=== PATIENT | male | born 1960 | race Hispanic/Latino ===

== ENCOUNTER 2020-01-17 16:35 | Inpatient (IN) | payer BC, MEDICARE ==
--- NOTE | 2020-01-17 18:26 | Emergency Department Report ---
ED Shortness of Breath HPI - General Chief Complaint: Dyspnea/Respdistress Source: patient - History of Present Illness Initial Comments: Patient is 59 years old male with history of hypertension, diabetes COPD and congestive heart failure. Patient brought to the emergency room via EMS for evaluation of shortness of breath and generalized body swelling for the last few days. EMS stated that patient initial oxygen saturation was 79% on room air improved to 96% on 2 L of oxygen. Patient stated that he fell today and hit his head and his lower back. Patient denied any loss of consciousness., Focal weakness numbness or tingling sensation. No bowel or bladder incontinence. MD Complaint: shortness of breath -: days(s) Severity: moderate Pain Scale: 7 Known History Of: congestive heart failure - Related Data Home Medications Medication Instructions Recorded Confirmed Last Taken Albuterol Mdi (or & Nicu Only) 2 puff INHALATION DAILY 10/09/17 01/17/20 Unknown [ProAir HFA Inhaler] Aspirin [Adult Aspirin] 81 mg PO DAILY 10/09/17 01/17/20 Unknown Bupropion HCl [Wellbutrin XL] 300 mg PO QAM 10/09/17 01/17/20 Unknown Duloxetine HCl [Cymbalta] 1 cap PO DAILY 10/09/17 01/17/20 Unknown Insulin NPH Hum/Reg Insulin Hm 30 unit SUB-Q QAM 10/09/17 01/17/20 Unknown [Humulin 70-30 Vial] Losartan Potassium 1 tab PO DAILY 10/09/17 01/17/20 Unknown Mirtazapine 1 tab PO DAILY 10/09/17 01/17/20 Unknown Potassium Chloride [K-Dur] 10 meq PO QDAY 10/09/17 01/17/20 Unknown Simvastatin 1 tab PO HS 10/09/17 01/17/20 Unknown Sitagliptin Phosphate [Januvia] 100 mg PO DAILY 10/09/17 01/17/20 Unknown Tamsulosin [Flomax] 1 cap PO DAILY 10/09/17 01/17/20 Unknown Torsemide [Demadex] 20 mg PO DAILY 10/09/17 01/17/20 Unknown carvediloL [Coreg] 1 tab PO DAILY 10/09/17 01/17/20 Unknown metFORMIN [Glucophage] 850 mg PO BID 10/09/17 01/17/20 Unknown Insulin NPH Hum/Reg Insulin Hm 15 unit SQ QPM 01/17/20 01/17/20 Unknown [Humulin 70-30 Vial] Allergies Allergy/AdvReac Type Severity Reaction Status Date / Time morphine Allergy Rash Verified 09/11/17 08:51 ED Review of Systems ROS: Stated complaint: Other details as noted in HPI Comment: All other systems reviewed and negative Constitutional: denies: chills, fever Respiratory: orthopnea, shortness of breath, SOB with exertion, SOB at rest. denies: cough, wheezing Cardiovascular: denies: chest pain, palpitations Gastrointestinal: denies: abdominal pain, nausea, vomiting Musculoskeletal: denies: back pain Neurological: weakness (Generalized). denies: headache, numbness, paresthesias, confusion, abnormal gait ED Past Medical Hx - Past Medical History Hx Hypertension: Yes Hx Heart Attack/AMI: Yes Hx Congestive Heart Failure: Yes Hx Diabetes: Yes Hx Arthritis: Yes Hx Headaches / Migraines: Yes Hx COPD: Yes - Surgical History Hx Open Heart Surgery: Yes - Medications Home Medications: Home Medications Medication Instructions Recorded Confirmed Last Taken Type Albuterol Mdi (or & Nicu Only) 2 puff INHALATION DAILY 10/09/17 01/17/20 Unknown History [ProAir HFA Inhaler] Aspirin [Adult Aspirin] 81 mg PO DAILY 10/09/17 01/17/20 Unknown History Bupropion HCl [Wellbutrin XL] 300 mg PO QAM 10/09/17 01/17/20 Unknown History Duloxetine HCl [Cymbalta] 1 cap PO DAILY 10/09/17 01/17/20 Unknown History Insulin NPH Hum/Reg Insulin Hm 30 unit SUB-Q QAM 10/09/17 01/17/20 Unknown History [Humulin 70-30 Vial] Losartan Potassium 1 tab PO DAILY 10/09/17 01/17/20 Unknown History Mirtazapine 1 tab PO DAILY 10/09/17 01/17/20 Unknown History Potassium Chloride [K-Dur] 10 meq PO QDAY 10/09/17 01/17/20 Unknown History Simvastatin 1 tab PO HS 10/09/17 01/17/20 Unknown History Sitagliptin Phosphate [Januvia] 100 mg PO DAILY 10/09/17 01/17/20 Unknown History Tamsulosin [Flomax] 1 cap PO DAILY 10/09/17 01/17/20 Unknown History Torsemide [Demadex] 20 mg PO DAILY 10/09/17 01/17/20 Unknown History carvediloL [Coreg] 1 tab PO DAILY 10/09/17 01/17/20 Unknown History metFORMIN [Glucophage] 850 mg PO BID 10/09/17 01/17/20 Unknown History Insulin NPH Hum/Reg Insulin Hm 15 unit SQ QPM 01/17/20 01/17/20 Unknown History [Humulin 70-30 Vial] ED Physical Exam - General General appearance: alert, in no apparent distress - Head Head exam: Present: atraumatic, normocephalic, normal inspection - Eye Eye exam: Present: normal appearance, PERRL - ENT ENT exam: Present: normal exam, normal orophraynx, mucous membranes moist - Neck Neck exam: Present: normal inspection, full ROM. Absent: tenderness, meningismus - Respiratory Respiratory exam: Present: decreased breath sounds. Absent: respiratory distress, wheezes, rales, rhonchi - Cardiovascular Cardiovascular Exam: Present: regular rate, normal rhythm, normal heart sounds - GI/Abdominal GI/Abdominal exam: Present: soft, normal bowel sounds. Absent: distended, tenderness, guarding, rebound, rigid, organomegaly, mass, bruit, pulsatile mass, hernia - Extremities Exam Extremities exam: Present: normal capillary refill, pedal edema. Absent: calf tenderness - Back Exam Back exam: Present: normal inspection, full ROM. Absent: CVA tenderness (R), CVA tenderness (L) - Neurological Exam Neurological exam: Present: alert, oriented X3, CN II-XII intact. Absent: motor sensory deficit - Psychiatric Psychiatric exam: Present: normal mood - Skin Skin exam: Present: warm, intact, normal color ED Course Vital Signs 01/17/20 01/17/20 01/17/20 18:30 19:18 19:28 Temperature 98 F Pulse Rate 61 75 65 Respiratory 17 16 Rate Blood Pressure Blood Pressure 124/60 [Left] O2 Sat by Pulse 95 78 L Oximetry 01/17/20 01/17/20 01/17/20 19:30 19:45 20:00 Temperature Pulse Rate 66 64 65 Respiratory 17 17 20 Rate Blood Pressure 140/55 118/54 118/54 Blood Pressure [Left] O2 Sat by Pulse 99 97 98 Oximetry 01/17/20 01/17/20 01/17/20 20:15 20:30 20:45 Temperature Pulse Rate 67 65 Respiratory 15 22 22 Rate Blood Pressure 122/58 117/58 125/61 Blood Pressure [Left] O2 Sat by Pulse 97 97 94 Oximetry 01/17/20 01/17/20 01/17/20 21:00 21:15 21:30 Temperature Pulse Rate 68 69 68 Respiratory 19 21 22 Rate Blood Pressure 132/57 126/63 124/54 Blood Pressure [Left] O2 Sat by Pulse 95 95 93 Oximetry 01/17/20 21:45 Temperature Pulse Rate 67 Respiratory 12 Rate Blood Pressure 128/58 Blood Pressure [Left] O2 Sat by Pulse Oximetry ED Medical Decision Making - Lab Data Result diagrams: 01/17/20 18:43 01/17/20 18:43 - EKG Data -: EKG Interpreted by Me - Radiology Data Radiology results: report reviewed - Medical Decision Making Patient is 59 years old male with history of hypertension, diabetes COPD and congestive heart failure. Patient brought to the emergency room via EMS for evaluation of shortness of breath and generalized body swelling for the last few days. EMS stated that patient initial oxygen saturation was 79% on room air improved to 96% on 2 L of oxygen. Patient stated that he fell today and hit his head and his lower back. Patient denied any loss of consciousness., Focal weakness numbness or tingling sensation. No bowel or bladder incontinence. EKG is unremarkable. Chest x-ray showed pulmonary edema with right pleural effusion consistent with his congestive heart failure exacerbation. Patient received Lasix 40 mg IV. Patient refused CT brain. I explained to the patient the need for the CT brain to rule out of any bleeding or any other pathology in the brain given his recent fall, patient still refusing it, patient is alert, oriented x3 and able to make sound decision. I Discussed the patient with Dr Vasques., He agreed to admit the patient to medical service for further management. Critical Care Time: Yes Critical care time in (mins) excluding proc time.: 30 Critical care attestation.: If time is entered above; I have spent that time in minutes in the direct care of this critically ill patient, excluding procedure time. ED Disposition Clinical Impression: Acute and chronic respiratory failure with hypoxia, CHF exacerbation Disposition: OP ADMIT IP TO THIS HOSP Is pt being admited?: Yes Condition: Stable
[2020-01-17 18:47] LABS: Basophils % (Auto) 0.5 % (0.0-1.8); Eosinophils # (Auto) 0.1 K/mm3 (0.0-0.4); Eosinophils % (Auto) 1.1 % (0.0-4.3); Hemoglobin 10.7 gm/dl (11.8-15.2); Lymphocytes # (Auto) 1.2 K/mm3 (1.2-5.4); Lymphocytes % (Auto) 10.9 % (13.4-35.0); Mean Corpuscular HGB Conc 31 % (32-34); Mean Corpuscular Volume 80 fl (84-94); Monocytes # (Auto) 1.1 K/mm3 (0.0-0.8); Monocytes % (Auto) 9.9 % (0.0-7.3); Platelet Count 330 K/mm3 (140-440); Red Blood Count 4.38 M/mm3 (3.65-5.03); Red Cell Distribution Width 17.7 % (13.2-15.2)
[2020-01-17 19:05] LABS: INR 1.11 (0.87-1.13)
[2020-01-17 19:15] LABS: Alanine Aminotransferase 27 units/L (7-56)
[2020-01-17 19:18] LABS: Bilirubin,Direct < 0.2 mg/dL (0-0.2)
--- NOTE | 2020-01-17 19:26 | XRay Report ---
XR spine lumbosacral 2-3V HISTORY: Back injury COMPARISON: None. TECHNIQUE: 3 view(s) of the lumbar spine obtained. FINDINGS: Vertebrae: Normal alignment. Mild L3 and severe L1 chronic appearing vertebral body loss of height. No acute appearing loss of vertebral body height. Spondylosis:Mild multilevel spondylosis most pronounced at L4-5. IMPRESSION: 1. There are chronic-appearing L3 and L1 compression fractures. Can correlate for with physical exam for percussible pain. Signer Name: Paul Durant MD Signed: 01/17/2020 7:21 PM Workstation Name: [id number]
--- NOTE | 2020-01-17 19:27 | XRay Report ---
XR chest 1V ap INDICATION / CLINICAL INFORMATION: Dyspnea COMPARISON: None available. FINDINGS: SUPPORT DEVICES: None. HEART / MEDIASTINUM: Prominent cardiac silhouette LUNGS / PLEURA: Lungs are clear. Right costophrenic sulcus and this is blunted No pneumothorax. ADDITIONAL FINDINGS: Remote right posterior rib fractures. IMPRESSION: 1. Cardiomegaly with a moderate right pleural effusion. Signer Name: Paul Durant MD Signed: 01/17/2020 7:22 PM Workstation Name: [id number]
[2020-01-17 19:31] LABS: BUN/Creatinine Ratio 28; Blood Urea Nitrogen 25 mg/dL (9-20); Calcium 9.2 mg/dL (8.4-10.2); Hemolysis Index 0
[2020-01-17] MEDS ORDERED: FUROSEMIDE 40 MG/4 ML INJ IV ONE (19:39)
[2020-01-17] MEDS ORDERED: MORPHINE 2 MG/1 ML INJ IV PRN (21:38)
[2020-01-17] MEDS ORDERED: DEXTROSE 50% IN WATER (25GM) 50 ML SYRINGE IV PRN (21:38)
[2020-01-17] MEDS ORDERED: ACETAMINOPHEN 325 MG TAB PO PRN (21:38)
[2020-01-17] MEDS ORDERED: ONDANSETRON 4 MG/2 ML INJ IV PRN (21:38)
[2020-01-17] MEDS ORDERED: MAGNESIUM HYDROXIDE (MOM) ORAL LIQD UDC PO PRN (21:38)
--- NOTE | 2020-01-17 21:46 | History and Physical Report ---
History of Present Illness Date of examination: 01/17/20 Date of admission: 01/17/2020 Chief complaint: Shortness of Breath History of present illness: 59-year-old male with known history of diabetes mellitus, hypertension, CHF, coronary artery disease presenting to the emergency room today complaining of shortness of breath and generalized swelling over the past few days. Patient denies any chest pain, no headache or dizziness, no fever or chills, no nausea or vomiting and no diarrhea. He however indicates that he fell earlier today and hit his head and neck but denies any loss of consciousness. Upon arrival of EMS patient's oxygen saturation was said to be about 79% on room air which later improved to 96% on 2 L of oxygen. Work-up in the emergency room shows cardiomegaly with moderate pleural effusion, x-ray of the LS spine shows chronic compression fractures on L1 and L3. Patient has been admitted for CHF exacerbation. Past History Past Medical History: arthritis, CAD, diabetes, heart failure, hypertension Past Surgical History: No surgical history Social history: no significant social history Family history: no significant family history Medications and Allergies Allergies Allergy/AdvReac Type Severity Reaction Status Date / Time morphine Allergy Rash Verified 09/11/17 08:51 Home Medications Medication Instructions Recorded Confirmed Last Taken Type Albuterol Mdi (or & Nicu Only) 2 puff INHALATION DAILY 10/09/17 01/17/20 Unknown History [ProAir HFA Inhaler] Aspirin [Adult Aspirin] 81 mg PO DAILY 10/09/17 01/17/20 Unknown History Bupropion HCl [Wellbutrin XL] 300 mg PO QAM 10/09/17 01/17/20 Unknown History Duloxetine HCl [Cymbalta] 1 cap PO DAILY 10/09/17 01/17/20 Unknown History Insulin NPH Hum/Reg Insulin Hm 30 unit SUB-Q QAM 10/09/17 01/17/20 Unknown History [Humulin 70-30 Vial] Potassium Chloride [K-Dur] 10 meq PO QDAY 10/09/17 01/17/20 Unknown History Sitagliptin Phosphate [Januvia] 100 mg PO DAILY 10/09/17 01/17/20 Unknown History Tamsulosin [Flomax] 1 cap PO DAILY 10/09/17 01/17/20 Unknown History Torsemide [Demadex] 20 mg PO DAILY 10/09/17 01/17/20 Unknown History carvediloL [Coreg] 1 tab PO BID 10/09/17 01/17/20 Unknown History metFORMIN [Glucophage] 850 mg PO BID 10/09/17 01/17/20 Unknown History Amiodarone [Cordarone 200 MG TAB] 200 mg PO BID 01/17/20 01/17/20 Unknown Hist ory Ascorbic Acid [Vitamin C] 500 mg PO QDAY 01/17/20 01/17/20 Unknown History Atorvastatin Calcium [Lipitor] 80 mg PO QHS 01/17/20 01/17/20 Unknown History DOXYCYCLINE Hyclate [Vibramycin] 100 mg PO Q12HR 01/17/20 01/17/20 Unknown History Ibuprofen [Motrin] 800 mg PO Q8HR PRN 01/17/20 01/17/20 Unknown History Insulin NPH Hum/Reg Insulin Hm 15 unit SQ QPM 01/17/20 01/17/20 Unknown History [Humulin 70-30 Vial] Lidocaine [Lidocaine CREAM] 5 gm TP DAILY PRN 01/17/20 01/17/20 Unknown History Multivitamin 1 each PO DAILY 01/17/20 01/17/20 Unknown History Pantoprazole [Protonix] 40 mg PO QDAY 01/17/20 01/17/20 Unknown History Triamcinolone Acetonide 0.5 applicatio TP TID 01/17/20 01/17/20 Unknown History Zinc [Zinc 50mg TAB] 1 tab PO DAILY 01/17/20 01/17/20 Unknown History traMADoL [Ultram] 50 mg PO BID 01/17/20 01/17/20 Unknown History Active Meds: Active Medications Acetaminophen (Tylenol) 650 mg PO Q4H PRN PRN Reason: Pain MILD(1-3)/Fever >100.5/MORTENSEN Dextrose (D50w (25gm) Syringe) 50 ml IV Q30MIN PRN; Protocol PRN Reason: Hypoglycemia Enoxaparin Sodium (Enoxaparin) 40 mg SUB-Q QDAY@2200 SHANTE; Protocol Furosemide (Lasix) 40 mg IV BID@0600,1800 SHANTE Insulin Human Lispro (Humalog) 0 unit SUB-Q ACHS SHANTE; Protocol Magnesium Hydroxide (Milk Of Magnesia) 30 ml PO Q4H PRN PRN Reason: Constipation Morphine Sulfate (Morphine) 2 mg IV Q4H PRN PRN Reason: Pain, Moderate (4-6) Ondansetron HCl (Zofran) 4 mg IV Q8H PRN PRN Reason: Nausea And Vomiting Sodium Chloride (Sodium Chloride Flush Syringe 10 Ml) 10 ml IV BID SHANTE Sodium Chloride (Sodium Chloride Flush Syringe 10 Ml) 10 ml IV PRN PRN PRN Reason: LINE FLUSH Review of Systems Constitutional: no fever, no chills Ears, nose, mouth and throat: no nasal congestion, no sore throat Cardiovascular: no chest pain, no palpitations Respiratory: cough, shortness of breath, no cough with sputum, no wheezing Gastrointestinal: no abdominal pain, no nausea, no vomiting, no diarrhea Genitourinary Male: no dysuria, no hematuria, no nocturia Musculoskeletal: no neck pain, no low back pain Integumentary: no rash, no pruritis Neurological: no headaches, no confusion Psychiatric: no anxiety, no depression Exam - Constitutional Vitals: Temp Pulse Resp BP Pulse Ox 98 F 68 19 132/57 95 01/17/20 18:30 01/17/20 21:00 01/17/20 21:00 01/17/20 21:00 01/17/20 21:00 General appearance: Present: no acute distress, well-nourished, obese - EENT Eyes: Present: PERRL, EOM intact. Absent: scleral icterus ENT: hearing intact, clear oral mucosa, dentition normal - Neck Neck: Present: supple, normal ROM - Respiratory Respiratory effort: normal Respiratory: bilateral: rales - Cardiovascular Rhythm: regular Heart Sounds: Present: S1 & S2. Absent: gallop, systolic murmur, diastolic murmur, rub - Extremities Extremities: no ischemia, pulses intact, pulses symmetrical, Full ROM Extremity abnormal: edema (1+ bilateral lower extremity edema), erythema (Mild bilateral erythema in lower extremities, No tenderness.) Peripheral Pulses: within normal limits - Abdominal General gastrointestinal: Present: soft, non-tender, non-distended, normal bowel sounds. Absent: mass - Integumentary Integumentary: Present: clear, warm, dry. Absent: rash - Musculoskeletal Musculoskeletal: strength equal bilaterally - Psychiatric Psychiatric: appropriate mood/affect, intact judgment & insight, memory intact, cooperative - Neurologic Neurologic: CNII-XII intact, no focal deficits, moves all extremities HEART Score - HEART Score Troponin: Troponin T < 0.010 ng/mL (0.00-0.029) 01/17/20 18:43 Results - Labs CBC & Chem 7: 01/17/20 18:43 01/18/20 04:47 Labs: Abnormal lab results 01/17/20 01/17/20 01/17/20 Range/Units 18:43 18:43 18:43 Hgb 10.7 L (11.8-15.2) gm/dl Hct 35.0 L (35.5-45.6) % MCV 80 L (84-94) fl MCH 24 L (28-32) pg MCHC 31 L (32-34) % RDW 17.7 H (13.2-15.2) % Lymph % (Auto) 10.9 L (13.4-35.0) % [place] % (Auto) 9.9 H (0.0-7.3) % [place] # (Auto) 1.1 H (0.0-0.8) K/mm3 Seg Neutrophils % 77.6 H (40.0-70.0) % Seg Neutrophils # 8.5 H (1.8-7.7) K/mm3 Chloride 92.3 L (98-107) mmol/L Carbon Dioxide 32 H (22-30) mmol/L BUN 25 H (9-20) mg/dL Glucose 168 H (75-100) mg/dL Alkaline Phosphatase 156 H (35-129) units/L NT-Pro-B Natriuret Pep 1242 H (0-900) pg/mL Assessment and Plan - Patient Problems (1) Acute and chronic respiratory failure with hypoxia Current Visit: Yes Status: Acute Plan to address problem: Secondary to the CHF. We will keep O2 saturation greater or equal to 94%. (2) CHF exacerbation Current Visit: Yes Status: Acute Plan to address problem: Patient placed on diuretics. Will monitor inputs and outputs and also monitor daily weights. (3) Diabetes mellitus Current Visit: Yes Status: Acute Plan to address problem: We will monitor Accu-Cheks. (4) Hypertension Current Visit: Yes Status: Acute Plan to address problem: We will resume routine home medications and monitor vital signs closely. (5) DVT prophylaxis Current Visit: Yes Status: Acute (6) Full code status Current Visit: Yes Status: Acute
[2020-01-17] MEDS ORDERED: INSULIN LISPRO 100 UNIT/ML VIAL 3 mL SUB-Q ONE (22:51)
[2020-01-17] MEDS ORDERED: ENOXAPARIN 40 MG/0.4 ML INJ SUB-Q ONE (22:52)
[2020-01-17] MEDS: INSULIN LISPRO 100 UNIT/ML VIAL 3 mL SUB-Q SCH (22:54)
[2020-01-17] MEDS: ENOXAPARIN 40 MG/0.4 ML INJ SUB-Q SCH (22:55)
[2020-01-18] MEDS: FUROSEMIDE 40 MG/4 ML INJ IV SCH ×2 (05:39→17:32)
[2020-01-18 05:58] LABS: Basophils # (Auto) 0.1 K/mm3 (0.0-0.1); Basophils % (Auto) 0.7 % (0.0-1.8); Eosinophils # (Auto) 0.1 K/mm3 (0.0-0.4); Eosinophils % (Auto) 0.6 % (0.0-4.3); Lymphocytes # (Auto) 1.3 K/mm3 (1.2-5.4); Mean Corpuscular HGB Conc 30 % (32-34); Mean Corpuscular Volume 78 fl (84-94); Monocytes % (Auto) 8.4 % (0.0-7.3); Platelet Count 381 K/mm3 (140-440); Red Blood Count 4.54 M/mm3 (3.65-5.03); Red Cell Distribution Width 17.5 % (13.2-15.2)
[2020-01-18 06:04] LABS: BUN/Creatinine Ratio 27; Blood Urea Nitrogen 24 mg/dL (9-20); Calcium 9.2 mg/dL (8.4-10.2); Hemolysis Index 6
[2020-01-18 06:16] LABS: Hematocrit 35.6 % (35.5-45.6); Hemoglobin 10.6 gm/dl (11.8-15.2)
[2020-01-18 06:21] LABS: INR 1.11 (0.87-1.13)
[2020-01-18] MEDS: INSULIN LISPRO 100 UNIT/ML VIAL 3 mL SUB-Q SCH ×4 (08:30→22:08)
--- NOTE | 2020-01-18 09:29 | Progress Note ---
Assessment and Plan Assessment and plan: Acute on chronic hypoxic respiratory failure. Etiology secondary to CHF. Continue O2 and supportive care. Acute heart failure exacerbation. Unsure if this is systolic or diastolic. Await echocardiogram. Cardiology consultation pending. Chest x-ray revealed cardiomegaly and moderate pleural effusion Hypertension. Resume antihypertensive medications. Diabetes mellitus type 2. Continue Accu-Cheks and sliding scale insulin. Chronic compression fractures L1/L3. Pain control DVT prophylaxis. History Interval history: No new issues overnight. Hospitalist Physical - Constitutional Vitals: Temp Pulse Resp BP Pulse Ox 98.9 F 68 18 115/53 96 01/18/20 08:38 01/18/20 08:38 01/18/20 08:38 01/18/20 08:38 01/18/20 08:38 General appearance: Present: no acute distress, well-nourished, obese - EENT Eyes: Present: PERRL, EOM intact ENT: hearing intact, clear oral mucosa, dentition normal - Neck Neck: Present: supple, normal ROM - Respiratory Respiratory effort: normal Respiratory: bilateral: CTA - Cardiovascular Rhythm: regular Heart Sounds: Present: S1 & S2. Absent: gallop, rub - Extremities Extremities: no ischemia, No edema, Full ROM - Abdominal General gastrointestinal: soft, non-tender, non-distended, normal bowel sounds - Integumentary Integumentary: Present: clear, warm, dry - Neurologic Neurologic: CNII-XII intact, moves all extremities HEART Score - HEART Score Troponin: Troponin T < 0.010 ng/mL (0.00-0.029) 01/17/20 18:43 Results - Labs CBC & Chem 7: 01/18/20 04:47 01/18/20 04:47 Labs: Laboratory Last Values WBC 11.4 K/mm3 (4.5-11.0) H 01/18/20 04:47 RBC 4.54 M/mm3 (3.65-5.03) 01/18/20 04:47 Hgb 10.6 gm/dl (11.8-15.2) L 01/18/20 04:47 Hct 35.6 % (35.5-45.6) 01/18/20 04:47 MCV 78 fl (84-94) L 01/18/20 04:47 MCH 23 pg (28-32) L 01/18/20 04:47 MCHC 30 % (32-34) L 01/18/20 04:47 RDW 17.5 % (13.2-15.2) H 01/18/20 04:47 Plt Count 381 K/mm3 (140-440) 01/18/20 04:47 Lymph % (Auto) 11.0 % (13.4-35.0) L 01/18/20 04:47 [place] % (Auto) 8.4 % (0.0-7.3) H 01/18/20 04:47 Eos % (Auto) 0.6 % (0.0-4.3) 01/18/20 04:47 Baso % (Auto) 0.7 % (0.0-1.8) 01/18/20 04:47 Lymph # (Auto) 1.3 K/mm3 (1.2-5.4) 01/18/20 04:47 [place] # (Auto) 1.0 K/mm3 (0.0-0.8) H 01/18/20 04:47 Eos # (Auto) 0.1 K/mm3 (0.0-0.4) 01/18/20 04:47 Baso # (Auto) 0.1 K/mm3 (0.0-0.1) 01/18/20 04:47 Seg Neutrophils % 79.3 % (40.0-70.0) H 01/18/20 04:47 Seg Neutrophils # 9.1 K/mm3 (1.8-7.7) H 01/18/20 04:47 PT 14.4 Sec. (12.2-14.9) 01/18/20 04:47 INR 1.11 (0.87-1.13) 01/18/20 04:47 APTT 30.0 Sec. (24.2-36.6) 01/17/20 18:43 Sodium 147 mmol/L (137-145) H 01/18/20 04:47 Potassium 4.5 mmol/L (3.6-5.0) 01/18/20 04:47 Chloride 96.3 mmol/L (98-107) L 01/18/20 04:47 Carbon Dioxide 45 mmol/L (22-30) H* D 01/18/20 04:47 Anion Gap 10 mmol/L 01/18/20 04:47 BUN 24 mg/dL (9-20) H 01/18/20 04:47 Creatinine 0.9 mg/dL (0.8-1.3) 01/18/20 04:47 Estimated GFR > 60 ml/min 01/18/20 04:47 BUN/Creatinine Ratio 27 % 01/18/20 04:47 Glucose 163 mg/dL (75-100) H 01/18/20 04:47 POC Glucose 158 mg/dL (70-105) H 01/18/20 08:57 Calcium 9.2 mg/dL (8.4-10.2) 01/18/20 04:47 Total Bilirubin 0.30 mg/dL (0.1-1.2) 01/17/20 18:43 Direct Bilirubin < 0.2 mg/dL (0-0.2) 01/17/20 18:43 Indirect Bilirubin 0.1 mg/dL 01/17/20 18:43 AST 22 units/L (5-40) 01/17/20 18:43 ALT 27 units/L (7-56) 01/17/20 18:43 Alkaline Phosphatase 156 units/L (35-129) H 01/17/20 18:43 Troponin T < 0.010 ng/mL (0.00-0.029) 01/17/20 18:43 NT-Pro-B Natriuret Pep 1242 pg/mL (0-900) H 01/17/20 18:43 Total Protein 7.0 g/dL (6.3-8.2) 01/17/20 18:43 Albumin 4.0 g/dL (3.9-5) 01/17/20 18:43 Albumin/Globulin Ratio 1.3 % 01/17/20 18:43 Cason/IV: Voiding Method Urinal IV Catheter Type [Left INT / Saline Lock Antecubital] Active Medications - Current Medications Current Medications: Generic Name Dose Route Start Last Admin Trade Name Freq PRN Reason Stop Dose Admin Acetaminophen 650 mg 01/17/20 21:38 Tylenol PO Q4H PRN Pain MILD(1-3)/Fever >100.5/MORTENSEN Dextrose 50 ml 01/17/20 21:38 D50w (25gm) Syringe IV Q30MIN PRN Hypoglycemia Protocol Enoxaparin Sodium 40 mg 01/17/20 22:00 01/17/20 22:55 Enoxaparin SUB-Q 40 mg QDAY@2200 SHANTE Administration Protocol Furosemide 40 mg 01/18/20 06:00 01/18/20 05:39 Lasix IV 40 mg BID@0600,1800 [facility] Administration Insulin Human Lispro 0 unit 01/17/20 22:00 01/17/20 22:54 Humalog SUB-Q 2 unit ACHS SHANTE Administration Protocol Magnesium Hydroxide 30 ml 01/17/20 21:38 Milk Of Magnesia PO Q4H PRN Constipation Ondansetron HCl 4 mg 01/17/20 21:38 Zofran IV Q8H PRN Nausea And Vomiting Sodium Chloride 10 ml 01/17/20 22:00 01/17/20 22:56 Sodium Chloride Flush Syringe 10 Ml IV 10 ml BID SHANTE Administration Sodium Chloride 10 ml 01/17/20 21:38 Sodium Chloride Flush Syringe 10 Ml IV PRN PRN LINE FLUSH
--- NOTE | 2020-01-18 12:16 | Consultation ---
History of Present Illness Consult date: 01/18/20 Requesting physician: CHUY WHELAN Consult reason: congestive heart failure History of present illness: The pt is a 59-year-old male with a past medial history of CAD s/p CABG x 4 in 2004 at [facility] per pt report, atrial fibrillation s/p successful EARLINE guided DCCV in 12/2017 per [facility] records, ICMP, HF, HTN, DM, FINESSE, former tobacco use (quit smoking 2 years ago). He is previously unknown to our practice, states he used to be followed regularly by [facility] although he has not seen a check services clerk for approx 2 years. He presented with progressively worsening SOB and BLE swelling for several days prior to arrival. He also experienced a fall on the day of presentation and is noted to have abrasions on his forehead from the fall - pt states that he got out of bed too quickly and his legs "gave out", he denies any occurrence dizziness or syncope. Pt denies any chest pain, palpitations, n/, diaphoresis. [facility] records obtained: tte done 2017 showed EF 20-25%. LHC done showed 3 vessel disease, severe LV dysfunction, 4 of 4 grafts patent, severe MR by echo. Past History Past Medical History: arthritis, CAD, diabetes, heart failure, hypertension, other (as per HPI) Past Surgical History: No surgical history Social history: no significant social history Family history: no significant family history Medications and Allergies Allergies Allergy/AdvReac Type Severity Reaction Status Date / Time morphine Allergy Rash Verified 09/11/17 08:51 Home Medications Medication Instructions Recorded Confirmed Last Taken Type Albuterol Mdi (or & Nicu Only) 2 puff INHALATION DAILY 10/09/17 01/17/20 Unknown History [ProAir HFA Inhaler] Aspirin [Adult Aspirin] 81 mg PO DAILY 10/09/17 01/17/20 Unknown History Bupropion HCl [Wellbutrin XL] 300 mg PO QAM 10/09/17 01/17/20 Unknown History Duloxetine HCl [Cymbalta] 1 cap PO DAILY 10/09/17 01/17/20 Unknown History Insulin NPH Hum/Reg Insulin Hm 30 unit SUB-Q QAM 10/09/17 01/17/20 Unknown History [Humulin 70-30 Vial] Potassium Chloride [K-Dur] 10 meq PO QDAY 10/09/17 01/17/20 Unknown History Sitagliptin Phosphate [Januvia] 100 mg PO DAILY 10/09/17 01/17/20 Unknown History Tamsulosin [Flomax] 1 cap PO DAILY 10/09/17 01/17/20 Unknown History Torsemide [Demadex] 20 mg PO DAILY 10/09/17 01/17/20 Unknown History carvediloL [Coreg] 1 tab PO BID 10/09/17 01/17/20 Unknown History metFORMIN [Glucophage] 850 mg PO BID 10/09/17 01/17/20 Unknown History Amiodarone [Cordarone 200 MG TAB] 200 mg PO BID 01/17/20 01/17/20 Unknown History Ascorbic Acid [Vitamin C] 500 mg PO QDAY 01/17/20 01/17/20 Unknown History Atorvastatin Calcium [Lipitor] 80 mg PO QHS 01/17/20 01/17/20 Unknown History DOXYCYCLINE Hyclate [Vibramycin] 100 mg PO Q12HR 01/17/20 01/17/20 Unknown History Ibuprofen [Motrin] 800 mg PO Q8HR PRN 01/17/20 01/17/20 Unknown History Insulin NPH Hum/Reg Insulin Hm 15 unit SQ QPM 01/17/20 01/17/20 Unknown History [Humulin 70-30 Vial] Lidocaine [Lidocaine CREAM] 5 gm TP DAILY PRN 01/17/20 01/17/20 Unknown History Multivitamin 1 each PO DAILY 01/17/20 01/17/20 Unknown History Pantoprazole [Protonix] 40 mg PO QDAY 01/17/20 01/17/20 Unknown History Triamcinolone Acetonide 0.5 applicatio TP TID 01/17/20 01/17/20 Unknown History Zinc [Zinc 50mg TAB] 1 tab PO DAILY 01/17/20 01/17/20 Unknown History traMADoL [Ultram] 50 mg PO BID 01/17/20 01/17/20 Unknown History Active Meds: Active Medications Acetaminophen (Tylenol) 650 mg PO Q4H PRN PRN Reason: Pain MILD(1-3)/Fever >100.5/M[place]ENSEN Dextrose (D50w (25gm) Syringe) 50 ml IV Q30MIN PRN; Protocol PRN Reason: Hypoglycemia Enoxaparin Sodium (Enoxaparin) 40 mg SUB-Q QDAY@2200 [facility]; Protocol Last Admin: 10/27/20 22:55 Dose: 40 mg Documented by: Furosemide (Lasix) 40 mg IV BID@0600,1800 [facility] Last Admin: 01/18/20 05:39 Dose: 40 mg Documented by: Insulin Human Lispro (Humalog) 0 unit SUB-Q ACHS [facility]; Protocol Last Admin: 01/18/20 08:30 Dose: Not Given Documented by: Magnesium Hydroxide (Milk Of Magnesia) 30 ml PO Q4H PRN PRN Reason: Constipation Ondansetron HCl (Zofran) 4 mg IV Q8H PRN PRN Reason: Nausea And Vomiting Sodium Chloride (Sodium Chloride Flush Syringe 10 Ml) 10 ml IV BID [facility] Last Admin: 01/18/20 10:56 Dose: 10 ml Documented by: Sodium Chloride (Sodium Chloride Flush Syringe 10 Ml) 10 ml IV PRN PRN PRN Reason: LINE FLUSH Review of Systems Constitutional: no fever, no chills, no sweats Ears, nose, mouth and throat: no ear pain, no nose pain, no sinus pressure, no sinus pain Cardiovascular: orthopnea, edema, shortness of breath, dyspnea on exertion, high blood pressure, leg edema, decreased exercise tolerance, no chest pain, no palpitations, no rapid/irregular heart beat, no syncope, no lightheadedness Respiratory: shortness of breath, dyspnea on exertion, no cough, no congestion, no wheezing, no pain on inspiration Gastrointestinal: no abdominal pain, no nausea, no vomiting, no diarrhea, no constipation, no change in bowel habits Genitourinary Male: no dysuria, no hematuria, no flank pain, no discharge, no urinary frequency, no urinary hesitancy, no nocturia Musculoskeletal: no neck stiffness, no neck pain, no shooting arm pain, no arm numbness/tingling, no low back pain, no shooting leg pain Integumentary: no rash, no pruritis, no redness, no sores, no wounds Neurological: head injury (forehead abrasions, refused head CT), no paralysis, no weakness, no parathesias, no numbness, no tingling, no seizures, no syncope Psychiatric: no anxiety Endocrine: no cold intolerance, no heat intolerance Hematologic/Lymphatic: no easy bruising, no easy bleeding Allergic/Immunologic: no urticaria Physical Examination Vital Signs Temp Pulse Resp BP Pulse Ox 98 F 61 17 124/60 95 01/17/20 18:30 01/17/20 18:30 01/17/20 18:30 01/17/20 18:30 01/17/20 18:30 General appearance: no acute distress HEENT: Positive: PERRL, Normocephaly, Mucus Membranes Moist Neck: Positive: neck supple, trachea midline Cardiac: Positive: Reg Rate and Rhythm, S1/S2 Lungs: Positive: Decreased Breath Sounds Abdomen: Negative: Tender Skin: Positive: Other (forehead abrasions). Negative: Rash Musculoskeletal: No Pain Extremities: Present: +2 Edema (BLE) Results 01/18/20 04:47 01/18/20 04:47 Cardiac Enzymes 01/17/20 Range/Units 18:43 AST 22 (5-40) units/L Coagulation 01/17/20 01/18/20 Range/Units 18:43 04:47 PT 14.4 14.4 (12.2-14.9) Sec. INR 1.11 1.11 (0.87-1.13) APTT 30.0 (24.2-36.6) Sec. CBC 01/17/20 01/18/20 Range/Units 18:43 04:47 WBC 11.0 11.4 H (4.5-11.0) K/mm3 RBC 4.38 4.54 (3.65-5.03) M/mm3 Hgb 10.7 L 10.6 L (11.8-15.2) gm/dl Hct 35.0 L 35.6 (35.5-45.6) % Plt Count 330 381 (140-440) K/mm3 Lymph # (Auto) 1.2 1.3 (1.2-5.4) K/mm3 Ware # (Auto) 1.1 H 1.0 H (0.0-0.8) K/mm3 Eos # (Auto) 0.1 0.1 (0.0-0.4) K/mm3 Baso # (Auto) 0.0 0.1 (0.0-0.1) K/mm3 Comprehensive Metabolic Panel 01/17/20 01/17/20 01/18/20 Range/Units 18:43 18:43 04:47 Sodium 141 147 H (137-145) mmol/L Potassium 4.9 4.5 (3.6-5.0) mmol/L Chloride 92.3 L 96.3 L (98-107) mmol/L Carbon Dioxide 32 H 45 H* D (22-30) mmol/L BUN 25 H 24 H (9-20) mg/dL Creatinine 0.9 0.9 (0.8-1.3) mg/dL Glucose 168 H 163 H (75-100) mg/dL Calcium 9.2 9.2 (8.4-10.2) mg/dL Direct Bilirubin < 0.2 (0-0.2) mg/dL Indirect Bilirubin 0.1 mg/dL AST 22 (5-40) units/L ALT 27 (7-56) units/L Alkaline Phosphatase 156 H (35-129) units/L Total Protein 7.0 (6.3-8.2) g/dL Albumin 4.0 (3.9-5) g/dL - Imaging and Cardiology Echo: pending, report reviewed (tte done 2017 showed EF 20-25%. ) Cardiac cath: report reviewed ( showed 3 vessel disease, severe LV dysfunction, 4 of 4 grafts patent, severe MR by echo. ) EKG: report reviewed, image reviewed EKG interpretations - Telemetry EKG Rhythm: Sinus Rhythm - EKG Sinus rhythms and dysrhythmias: sinus rhythm Assessment and Plan Resume home ASA 81, statin, coreg, losartan and cont IV lasix BID. F/u BMP in AM. Await echo. Will follow. The patient has been seen in conjunction with Dr. Sales who agrees with the assessment and plan of care. - Patient Problems (1) Acute on chronic HFrEF (heart failure with reduced ejection fraction) Current Visit: Yes Status: Acute (2) Ischemic cardiomyopathy Current Visit: Yes Status: Chronic (3) CAD (coronary artery disease) Current Visit: Yes Status: Chronic (4) History of coronary artery bypass graft Current Visit: Yes Status: Chronic (5) History of atrial fibrillation Current Visit: Yes Status: Chronic Plan to address problem: s/p successful EARLINE guided DCCV in 12/2017 per [facility] records (6) Hypertension Current Visit: Yes Status: Chronic (7) Diabetes mellitus Current Visit: Yes Status: Chronic (8) Sleep apnea Current Visit: Yes Status: Chronic (9) Obesity Current Visit: Yes Status: Chronic
[2020-01-18] MEDS ORDERED: ALBUTEROL 2.5 MG/3 ML NEBU IH PRN (16:41)
[2020-01-18] MEDS: DULoxetine 30 MG CAP PO SCH (17:31)
[2020-01-18] MEDS: metFORMIN 850 MG TAB PO SCH (17:32)
[2020-01-18] MEDS: buPROPion XL 150 MG TAB PO SCH (17:37)
[2020-01-18] MEDS: INSULIN NPH/REGULAR 70/30 INJ SUB-Q SCH (17:38)
[2020-01-18] MEDS ORDERED: NON-FORMULARY EACH (Atorvastatin Calcium [Lipitor] 80 MG) PO SCH (22:00)
[2020-01-18] MEDS ORDERED: carvediloL 3.125 MG TAB PO SCH ×2 (22:00)
[2020-01-18] MEDS: AMIODARONE 200 MG TAB PO SCH (22:05)
[2020-01-18] MEDS: carvediloL 6.25 MG TAB PO SCH (22:06)
[2020-01-18] MEDS: ENOXAPARIN 40 MG/0.4 ML INJ SUB-Q SCH (22:07)
[2020-01-19 05:58] LABS: Blood Urea Nitrogen 17 mg/dL (9-20); Hemolysis Index 2
[2020-01-19 06:15] LABS: BUN/Creatinine Ratio 24
[2020-01-19] MEDS: FUROSEMIDE 40 MG/4 ML INJ IV SCH ×2 (06:43→17:01)
[2020-01-19] MEDS: metFORMIN 850 MG TAB PO SCH ×2 (08:32→17:00)
[2020-01-19] MEDS: INSULIN NPH/REGULAR 70/30 INJ SUB-Q SCH ×2 (08:32→17:23)
[2020-01-19] MEDS: LINAGLIPTIN 5 MG TAB PO SCH (08:33)
[2020-01-19] MEDS: INSULIN LISPRO 100 UNIT/ML VIAL 3 mL SUB-Q SCH ×4 (08:38→21:49)
[2020-01-19] MEDS: ASCORBIC ACID 500 MG TAB PO SCH (09:03)
[2020-01-19] MEDS: carvediloL 6.25 MG TAB PO SCH ×2 (09:05→21:53)
[2020-01-19] MEDS: MULTIVITAMINS ,THERAPEUTIC TAB PO SCH (09:05)
[2020-01-19] MEDS: PANTOPRAZOLE 40 MG TAB PO SCH (09:06)
[2020-01-19] MEDS: POTASSIUM CHLORIDE ER 10 MEQ TAB PO SCH (09:06)
[2020-01-19] MEDS: TAMSULOSIN 0.4 MG CAP PO SCH (09:06)
[2020-01-19] MEDS: DULoxetine 30 MG CAP PO SCH (09:06)
[2020-01-19] MEDS: LOSARTAN 25 MG TAB PO SCH (09:07)
[2020-01-19] MEDS: AMIODARONE 200 MG TAB PO SCH ×2 (09:07→21:54)
[2020-01-19] MEDS: ASPIRIN EC 81 MG TAB PO SCH (09:09)
[2020-01-19] MEDS ORDERED: NON-FORMULARY EACH (Bupropion Hcl [Wellbutrin Xl] 300 MG) PO SCH (10:00)
[2020-01-19] MEDS ORDERED: DULOXETINE HCL PO SCH (10:00)
[2020-01-19] MEDS ORDERED: NON-FORMULARY EACH (Sitagliptin Phosphate [Januvia] 100 MG) PO SCH (10:00)
[2020-01-19] MEDS ORDERED: ALBUTEROL 8.5 GM MDI INHALATION IH SCH (10:00)
[2020-01-19] MEDS ORDERED: MULTIVITAMIN PO SCH (10:00)
[2020-01-19] MEDS: ALBUTEROL 2.5 MG/3 ML NEBU IH SCH (11:00)
[2020-01-19] MEDS: buPROPion XL 150 MG TAB PO SCH (11:55)
--- NOTE | 2020-01-19 13:59 | Progress Note ---
Assessment and Plan tte reviewed - 4 chamber dilated CMP, EF 20-25%, mild LVH, at least moderate aortic stenosis with mean gradient 15mmHg and MELISSA 1.3, moderate MR, mild to mod TR, mod-severe pulm HTN with RVSP 57mmHg. Cont GDMT and IV lasix BID. The patient has been seen in conjunction with Dr. Sales who agrees with the assessment and plan of care. - Patient Problems (1) Acute on chronic HFrEF (heart failure with reduced ejection fraction) Current Visit: Yes Status: Acute (2) Ischemic cardiomyopathy Current Visit: Yes Status: Chronic (3) CAD (coronary artery disease) Current Visit: Yes Status: Chronic (4) History of coronary artery bypass graft Current Visit: Yes Status: Chronic (5) History of atrial fibrillation Current Visit: Yes Status: Chronic (6) Hypertension Current Visit: Yes Status: Chronic (7) Diabetes mellitus Current Visit: Yes Status: Chronic (8) Sleep apnea Current Visit: Yes Status: Chronic (9) Obesity Current Visit: Yes Status: Chronic (10) Aortic stenosis Current Visit: Yes Status: Chronic Subjective Date of service: 01/19/20 Principal diagnosis: HF Interval history: pt resting in bed, BLE swelling improving. tele reviewed - in SR HR 60-70s. Objective Last Vital Signs Temp 98.3 F 01/19/20 07:40 Pulse 60 01/19/20 11:32 Resp 20 01/19/20 11:00 BP 92/41 01/19/20 11:32 Pulse Ox 94 01/19/20 11:32 - Physical Examination General: No Apparent Distress HEENT: Positive: PERRL, Normocephaly, Mucus Membranes Moist Neck: Positive: neck supple, trachea midline Cardiac: Positive: Reg Rate and Rhythm, S1/S2 Lungs: Positive: Decreased Breath Sounds Abdomen: Negative: Tender Skin: Positive: Other (forehead abrasions). Negative: Rash Musculoskeletal: No Pain Extremities: Present: +2 Edema (BLE) - Labs and Meds Comprehensive Metabolic Panel 01/19/20 Range/Units 05:11 Sodium 147 H (137-145) mmol/L Potassium 4.2 (3.6-5.0) mmol/L Chloride 96.5 L (98-107) mmol/L Carbon Dioxide 40 H (22-30) mmol/L BUN 17 (9-20) mg/dL Creatinine 0.7 L (0.8-1.3) mg/dL Glucose 124 H (75-100) mg/dL Calcium 9.0 (8.4-10.2) mg/dL - Imaging and Cardiology EKG: report reviewed, image reviewed Echo: pending, report reviewed (tte done 2018 showed EF 20-25%. ) Cardiac cath: report reviewed ( showed 3 vessel disease, severe LV dysfunction, 4 of 4 grafts patent, severe MR by echo. ) - EKG Sinus rhythms and dysrhythmias: sinus rhythm
--- NOTE | 2020-01-19 17:08 | Progress Note ---
Assessment and Plan - Patient Problems (1) Acute and chronic respiratory failure with hypoxia Current Visit: Yes Status: Acute Plan to address problem: Secondary to the CHF. We will keep O2 saturation greater or equal to 94%. (2) CHF exacerbation Current Visit: Yes Status: Acute Plan to address problem: Patient placed on diuretics. Will monitor inputs and outputs and also monitor daily weights. (3) Diabetes mellitus Current Visit: Yes Status: Acute Plan to address problem: We will monitor Accu-Cheks. (4) Hypertension Current Visit: Yes Status: Acute Plan to address problem: We will resume routine home medications and monitor vital signs closely. (5) DVT prophylaxis Current Visit: Yes Status: Acute (6) Full code status Current Visit: Yes Status: Acute Subjective Date of service: 01/19/20 Principal diagnosis: CHF exacerbation, aortic stenosis Interval history: 59-year-old male with known history of diabetes mellitus, hypertension, CHF, coronary artery disease presenting to the emergency room today complaining of shortness of breath and generalized swelling over the past few days. Patient denies any chest pain, no headache or dizziness, no fever or chills, no nausea or vomiting and no diarrhea. He however indicates that he fell earlier today and hit his head and neck but denies any loss of consciousness. Patient admitted for CHF exacerbation Patient to get echocardiogram Objective - Constitutional Vitals: Vital Signs - 12hr 01/19/20 01/19/20 01/19/20 07:40 09:05 10:00 Temperature 98.3 F Pulse Rate 70 70 Pulse Rate [ Bilateral Throughout] Pulse Rate [ 68 From Monitor] Respiratory 18 Rate Respiratory Rate [Bilateral Throughout] Blood Pressure 127/56 Blood Pressure 127/56 [Left] O2 Sat by Pulse 93 94 Oximetry 01/19/20 01/19/20 01/19/20 11:00 11:04 11:32 Temperature Pulse Rate 60 Pulse Rate [ 63 Bilateral Throughout] Pulse Rate [ From Monitor] Respiratory Rate Respiratory 20 Rate [Bilateral Throughout] Blood Pressure 92/41 Blood Pressure [Left] O2 Sat by Pulse 94 94 Oximetry General appearance: Present: no acute distress, mild distress, well-nourished - EENT Eyes: PERRL, EOM intact ENT: hearing intact, clear oral mucosa Ears: bilateral: normal - Neck Neck: supple, normal ROM - Respiratory Respiratory effort: normal Respiratory: bilateral: CTA - Breasts Breasts: normal - Cardiovascular Heart rate: 78 Rhythm: regular Heart Sounds: Present: S1 & S2. Absent: gallop, rub Extremities: pulses intact, No edema, normal color, Full ROM - Gastrointestinal General gastrointestinal: Present: soft, non-tender, non-distended, normal bowel sounds - Genitourinary Male genitourinary: normal - Integumentary Integumentary: clear, warm, dry - Musculoskeletal Musculoskeletal: 1, strength equal bilaterally - Neurologic Neurologic: moves all extremities - Psychiatric Psychiatric: memory intact, appropriate mood/affect, intact judgment & insight - Allied health notes Allied health notes reviewed: nursing, case management - Labs CBC & Chem 7: 01/22/20 05:54 01/20/20 05:23 Labs: Abnormal lab results 01/19/20 01/19/20 01/19/20 Range/Units 05:11 08:03 11:46 Sodium 147 H (137-145) mmol/L Chloride 96.5 L (98-107) mmol/L Carbon Dioxide 40 H (22-30) mmol/L Creatinine 0.7 L (0.8-1.3) mg/dL Glucose 124 H (75-100) mg/dL POC Glucose 152 H 167 H (70-105) mg/dL HEART Score - HEART Score Troponin: Troponin T < 0.010 ng/mL (0.00-0.029) 01/17/20 18:43
[2020-01-19] MEDS: BACITRACIN ZINC OINT 28.4 GM TP SCH (21:54)
[2020-01-19] MEDS: ENOXAPARIN 40 MG/0.4 ML INJ SUB-Q SCH (21:54)
[2020-01-20 06:13] LABS: BUN/Creatinine Ratio 26; Blood Urea Nitrogen 23 mg/dL (9-20); Calcium 9.1 mg/dL (8.4-10.2); Hemolysis Index 6
[2020-01-20] MEDS: FUROSEMIDE 40 MG/4 ML INJ IV SCH ×2 (06:34→18:42)
[2020-01-20] MEDS: INSULIN LISPRO 100 UNIT/ML VIAL 3 mL SUB-Q SCH ×4 (08:55→22:36)
[2020-01-20] MEDS: ALBUTEROL 2.5 MG/3 ML NEBU IH SCH (09:22)
[2020-01-20] MEDS: INSULIN NPH/REGULAR 70/30 INJ SUB-Q SCH ×2 (10:00→18:41)
--- NOTE | 2020-01-20 10:02 | Progress Note ---
Assessment and Plan tte reviewed - 4 chamber dilated CMP, EF 20-25%, mild LVH, at least moderate aortic stenosis with mean gradient 15mmHg and MELISSA 1.3, moderate MR, mild to mod TR, mod-severe pulm HTN with RVSP 57mmHg. However, suspect degree of may be more than moderate - ? low flow low gradient . Coronary angiography for further evaluation recommended. Indications, potential risks and benefits of LHC reviewed with pt and he is agreeable to proceed with LHC on 01/23/2020. Although he states that if his is not allowed to visit him over the weekend, he may leave AMA so that he can see her. Cont GDMT and IV lasix BID. The patient has been seen in conjunction with Dr. Sales who agrees with the assessment and plan of care. - Patient Problems (1) Acute on chronic HFrEF (heart failure with reduced ejection fraction) Current Visit: Yes Status: Acute (2) Ischemic cardiomyopathy Current Visit: Yes Status: Chronic (3) CAD (coronary artery disease) Current Visit: Yes Status: Chronic (4) History of coronary artery bypass graft Current Visit: Yes Status: Chronic (5) History of atrial fibrillation Current Visit: Yes Status: Chronic Plan to address problem: s/p successful EARLINE guided DCCV in 12/2017 per [place] records, no systemic AC since then per pt report, pt currently in NSR (6) Hypertension Current Visit: Yes Status: Chronic (7) Diabetes mellitus Current Visit: Yes Status: Chronic (8) Sleep apnea Current Visit: Yes Status: Chronic (9) Obesity Current Visit: Yes Status: Chronic (10) Aortic stenosis Current Visit: Yes Status: Chronic Subjective Date of service: 01/20/20 Principal diagnosis: HF Interval history: pt resting comfortably up in chair, BLE swelling improving. tele reviewed - in SR HR 60-70s. Objective Last Vital Signs Temp 98.6 F 01/20/20 07:59 Pulse 68 01/20/20 09:22 Resp 20 01/20/20 09:22 BP 119/43 01/20/20 07:59 Pulse Ox 95 01/20/20 09:22 - Physical Examination General: No Apparent Distress HEENT: Positive: PERRL, Normocephaly, Mucus Membranes Moist Neck: Positive: neck supple, trachea midline Cardiac: Positive: Reg Rate and Rhythm, S1/S2 Lungs: Positive: Decreased Breath Sounds Abdomen: Negative: Tender Skin: Positive: Other (forehead abrasions). Negative: Rash Musculoskeletal: No Pain Extremities: Present: +2 Edema (BLE) - Labs and Meds Comprehensive Metabolic Panel 01/20/20 Range/Units 05:23 Sodium 139 D (137-145) mmol/L Potassium 3.8 (3.6-5.0) mmol/L Chloride 91.5 L (98-107) mmol/L Carbon Dioxide 41 H* (22-30) mmol/L BUN 23 H (9-20) mg/dL Creatinine 0.9 (0.8-1.3) mg/dL Glucose 96 (75-100) mg/dL Calcium 9.1 (8.4-10.2) mg/dL - Imaging and Cardiology EKG: report reviewed, image reviewed Echo: pending, report reviewed (tte done 2017 showed EF 20-25%. ) Cardiac cath: report reviewed (02/2011 showed 3 vessel disease, severe LV dysf unction, 4 of 4 grafts patent, severe MR by echo. ) - EKG Sinus rhythms and dysrhythmias: sinus rhythm
[2020-01-20] MEDS: buPROPion XL 150 MG TAB PO SCH (11:02)
[2020-01-20] MEDS: DULoxetine 30 MG CAP PO SCH (11:02)
[2020-01-20] MEDS: PANTOPRAZOLE 40 MG TAB PO SCH (11:02)
[2020-01-20] MEDS: AMIODARONE 200 MG TAB PO SCH ×2 (11:02→22:36)
[2020-01-20] MEDS: MULTIVITAMINS ,THERAPEUTIC TAB PO SCH (11:02)
[2020-01-20] MEDS: metFORMIN 850 MG TAB PO SCH ×2 (11:02→18:42)
[2020-01-20] MEDS: ASCORBIC ACID 500 MG TAB PO SCH (11:03)
[2020-01-20] MEDS: POTASSIUM CHLORIDE ER 10 MEQ TAB PO SCH (11:03)
[2020-01-20] MEDS: ASPIRIN EC 81 MG TAB PO SCH (11:03)
[2020-01-20] MEDS: carvediloL 6.25 MG TAB PO SCH ×2 (11:03→22:36)
[2020-01-20] MEDS: LOSARTAN 25 MG TAB PO SCH (11:04)
[2020-01-20] MEDS: TAMSULOSIN 0.4 MG CAP PO SCH (11:06)
[2020-01-20] MEDS: LINAGLIPTIN 5 MG TAB PO SCH (11:19)
[2020-01-20] MEDS: BACITRACIN ZINC OINT 28.4 GM TP SCH ×2 (16:49→22:40)
[2020-01-20] MEDS: ENOXAPARIN 40 MG/0.4 ML INJ SUB-Q SCH (22:35)
[2020-01-21] MEDS: FUROSEMIDE 40 MG/4 ML INJ IV SCH ×2 (06:32→17:43)
--- NOTE | 2020-01-21 09:29 | Progress Note ---
Assessment and Plan - Patient Problems (1) Acute and chronic respiratory failure with hypoxia Current Visit: Yes Status: Acute Plan to address problem: Secondary to the CHF. We will keep O2 saturation greater or equal to 94%. (2) CHF exacerbation Current Visit: Yes Status: Acute Plan to address problem: Patient to get left heart catheterization on 01/23/2020 Ejection fraction is 20% patient also has aortic stenosis and needs radiation (3) Diabetes mellitus Current Visit: Yes Status: Acute Plan to address problem: We will monitor Accu-Cheks. (4) Hypertension Current Visit: Yes Status: Acute Plan to address problem: We will resume routine home medications and monitor vital signs closely. (5) DVT prophylaxis Current Visit: Yes Status: Acute (6) Full code status Current Visit: Yes Status: Acute Subjective Date of service: 01/20/20 Principal diagnosis: CHF exacerbation, aortic stenosis Interval history: 59-year-old male with known history of diabetes mellitus, hypertension, CHF, coronary artery disease presenting to the emergency room today complaining of shortness of breath and generalized swelling over the past few days. Patient denies any chest pain, no headache or dizziness, no fever or chills, no nausea or vomiting and no diarrhea. He however indicates that he fell earlier today and hit his head and neck but denies any loss of consciousness. Date day #2 01/18/2020 Continue IV Lasix Symptomatically better Day #3 01/19/2020 Continue IV Lasix Symptomatically better Day #4 01/20/2020 Echocardiogram reviewed Low ejection fraction of 20% and aortic stenosis 4 [facility] on Thursday number of 2019 Objective - Constitutional Vitals: Vital Signs - 12hr 01/20/20 01/20/20 01/21/20 22:00 23:53 03:00 Temperature 98.0 F Pulse Rate 74 69 Respiratory 22 20 Rate Blood Pressure 124/57 O2 Sat by Pulse 94 94 Oximetry 01/21/20 01/21/20 05:07 07:58 Temperature 98.1 F 98.0 F Pulse Rate 68 70 Respiratory 20 18 Rate Blood Pressure 105/43 119/51 O2 Sat by Pulse 95 93 Oximetry General appearance: Present: mild distress, well-nourished - EENT Eyes: PERRL, EOM intact ENT: hearing intact, clear oral mucosa Ears: bilateral: normal - Neck Neck: supple, normal ROM - Respiratory Respiratory effort: normal Respiratory: bilateral: CTA - Breasts Breasts: normal - Cardiovascular Heart rate: 78 Rhythm: regular Heart Sounds: Present: S1 & S2. Absent: gallop, rub Extremities: pulses intact, No edema, normal color, Full ROM - Gastrointestinal General gastrointestinal: Present: soft, non-tender, non-distended, normal bowel sounds - Genitourinary Male genitourinary: normal - Integumentary Integumentary: clear, warm, dry - Musculoskeletal Musculoskeletal: 1, strength equal bilaterally - Neurologic Neurologic: moves all extremities - Psychiatric Psychiatric: memory intact, appropriate mood/affect, intact judgment & insight - Labs CBC & Chem 7: 01/22/20 05:54 01/20/20 05:23 Labs: Abnormal lab results 01/20/20 01/20/20 01/21/20 Range/Units 11:40 21:10 08:16 POC Glucose 206 H 111 H 136 H (70-105) mg/dL HEART Score - HEART Score Troponin: Troponin T < 0.010 ng/mL (0.00-0.029) 01/17/20 18:43
[2020-01-21] MEDS: ALBUTEROL 2.5 MG/3 ML NEBU IH SCH (10:00)
--- NOTE | 2020-01-21 10:19 | Progress Note ---
Assessment and Plan Continue with diuresis and goal mediated therapy. Discussed with patient about cardiac catheterization to determine the true severity of aortic stenosis and patency of the bypass grafts - Patient Problems (1) Acute on chronic HFrEF (heart failure with reduced ejection fraction) Current Visit: Yes Status: Acute (2) Aortic stenosis Current Visit: Yes Status: Chronic (3) CAD (coronary artery disease) Current Visit: Yes Status: Chronic (4) Diabetes mellitus Current Visit: Yes Status: Chronic (5) History of atrial fibrillation Current Visit: Yes Status: Chronic (6) History of coronary artery bypass graft Current Visit: Yes Status: Chronic (7) Hypertension Current Visit: Yes Status: Chronic (8) Ischemic cardiomyopathy Current Visit: Yes Status: Chronic (9) Obesity Current Visit: Yes Status: Chronic (10) Sleep apnea Current Visit: Yes Status: Chronic Subjective Date of service: 01/21/20 Principal diagnosis: HF Interval history: pt sob is better Objective Vital Signs Temp Pulse Resp BP Pulse Ox 01/21/20 09:59 95 01/21/20 07:58 98.0 F 70 18 119/51 93 01/21/20 05:07 98.1 F 68 20 105/43 95 01/21/20 03:00 69 01/20/20 23:53 98.0 F 74 20 124/57 94 01/20/20 22:00 22 94 01/20/20 19:58 98.3 F 74 20 128/56 98 01/20/20 15:35 98.2 F 63 18 124/48 93 01/20/20 11:00 63 - Physical Examination General: No Apparent Distress HEENT: Positive: PERRL, Normocephaly, Mucus Membranes Moist Neck: Positive: neck supple, trachea midline Cardiac: Positive: Reg Rate and Rhythm, Systolic Murmur Lungs: Positive: clear to auscultation Abdomen: Negative: Tender Skin: Positive: Other (forehead abrasions). Negative: Rash Musculoskeletal: No Pain Extremities: Present: +1 Edema - Imaging and Cardiology EKG: report reviewed, image reviewed Echo: pending, report reviewed (tte done 2018 showed EF 20-25%. ), other (tte reviewed - 4 chamber dilated CMP, EF 20-25%, mild LVH, at least moderate aortic stenosis with mean gradient 15mmHg and MELISSA 1.3, moderate MR, mild to mod TR, mod-severe pulm HTN with RVSP 57mmHg. ) Cardiac cath: report reviewed (02/2011 showed 3 vessel disease, severe LV dysfunction, 4 of 4 grafts patent, severe MR by echo. ) - Telemetry EKG Rhythm: Sinus Rhythm - EKG Sinus rhythms and dysrhythmias: sinus rhythm
[2020-01-21] MEDS: ASPIRIN EC 81 MG TAB PO SCH (10:30)
[2020-01-21] MEDS: DULoxetine 30 MG CAP PO SCH (10:30)
[2020-01-21] MEDS: INSULIN NPH/REGULAR 70/30 INJ SUB-Q SCH ×2 (10:30→17:37)
[2020-01-21] MEDS: LOSARTAN 25 MG TAB PO SCH (10:31)
[2020-01-21] MEDS: LINAGLIPTIN 5 MG TAB PO SCH (10:31)
[2020-01-21] MEDS: POTASSIUM CHLORIDE ER 10 MEQ TAB PO SCH (10:31)
[2020-01-21] MEDS: AMIODARONE 200 MG TAB PO SCH ×2 (10:31→21:52)
[2020-01-21] MEDS: ASCORBIC ACID 500 MG TAB PO SCH (10:31)
[2020-01-21] MEDS: metFORMIN 850 MG TAB PO SCH ×2 (10:31→17:37)
[2020-01-21] MEDS: buPROPion XL 150 MG TAB PO SCH (10:31)
[2020-01-21] MEDS: MULTIVITAMINS ,THERAPEUTIC TAB PO SCH (10:31)
[2020-01-21] MEDS: TAMSULOSIN 0.4 MG CAP PO SCH (10:31)
[2020-01-21] MEDS: INSULIN LISPRO 100 UNIT/ML VIAL 3 mL SUB-Q SCH ×4 (10:44→21:31)
[2020-01-21] MEDS: BACITRACIN ZINC OINT 28.4 GM TP SCH ×2 (10:45→21:52)
[2020-01-21] MEDS: carvediloL 6.25 MG TAB PO SCH ×2 (10:45→21:52)
[2020-01-21] MEDS: PANTOPRAZOLE 40 MG TAB PO SCH (10:46)
--- NOTE | 2020-01-21 16:07 | Progress Note ---
Assessment and Plan - Patient Problems (1) Acute and chronic respiratory failure with hypoxia Current Visit: Yes Status: Acute Plan to address problem: Secondary to the CHF. We will keep O2 saturation greater or equal to 94%. tte reviewed - 4 chamber dilated CMP, EF 20-25%, mild LVH, at least moderate aortic stenosis with mean gradient 15mmHg and MELISSA 1.3, moderate MR, mild to mod TR, mod-severe pulm HTN with RVSP 57mmHg. However, suspect degree of may be more than moderate - ? low flow low gradient . Coronary angiography for further evaluation recommended. Indications, potential risks and benefits of LHC reviewed with pt and he is agreeable to proceed with LHC on 01/23/2020. Cont GDMT and IV lasix BID. (2) CHF exacerbation Current Visit: Yes Status: Acute Plan to address problem: Continue IV Lasix and potassium For left heart catheterization on 01/23/2020 (3) Diabetes mellitus Current Visit: Yes Status: Acute Plan to address problem: We will monitor Accu-Cheks. Coverage NovoLog Mix 70/30 twice a day (4) Hypertension Current Visit: Yes Status: Acute Plan to address problem: Monitor blood pressure and adjust medications as necessary (5) DVT prophylaxis Current Visit: Yes Status: Acute (6) Full code status Current Visit: Yes Status: Acute Subjective Date of service: 01/21/20 Principal diagnosis: CHF exacerbation, aortic stenosis Interval history: 59-year-old -Greek male with history of hypertension diabetes, congestive heart failure, coronary artery disease admitted for increasing shortness of breath and generalized swelling over the past few days. Patient has orthopnea and PND attacks. No fever or chills. Patient's oxygen saturation was 79% on room air at the time of admission which is improved to mid 90s with 2 L of nasal cannula oxygen. Date day #2 01/18/2020 Continue IV Lasix Symptomatically better Day #3 01/19/2020 Continue IV Lasix Symptomatically better Day #4 01/20/2020 Echocardiogram reviewed Low ejection fraction of 20% and aortic stenosis 4 LHC on Thursday number of second 2019 Day #5 01/21/2020 Symptomatically better Waiting for LHC on Thursday, January 23, 2020 Objective - Constitutional Vitals: Vital Signs - 12hr 01/21/20 01/21/20 01/21/20 05:07 07:58 09:59 Temperature 98.1 F 98.0 F Pulse Rate 68 70 Respiratory 20 18 Rate Blood Pressure 105/43 119/51 O2 Sat by Pulse 95 93 95 Oximetry 01/21/20 10:00 Temperature Pulse Rate 83 Respiratory 18 Rate Blood Pressure O2 Sat by Pulse 97 Oximetry General appearance: Present: no acute distress, mild distress, well-nourished - EENT Eyes: PERRL, EOM intact ENT: hearing intact, clear oral mucosa Ears: bilateral: normal - Neck Neck: supple, normal ROM - Respiratory Respiratory effort: normal Respiratory: bilateral: CTA - Breasts Breasts: normal - Cardiovascular Heart rate: 78 Rhythm: regular Heart Sounds: Present: S1 & S2. Absent: gallop, rub Extremities: pulses intact, No edema, normal color, Full ROM - Gastrointestinal General gastrointestinal: Present: soft, non-tender, non-distended, normal bowel sounds - Genitourinary Male genitourinary: normal - Integumentary Integumentary: clear, warm, dry - Musculoskeletal Musculoskeletal: 1, strength equal bilaterally - Neurologic Neurologic: moves all extremities - Psychiatric Psychiatric: memory intact, appropriate mood/affect, intact judgment & insight - Labs CBC & Chem 7: 01/22/20 05:54 01/20/20 05:23 Labs: Abnormal lab results 01/20/20 01/21/20 01/21/20 Range/Units 21:10 08:16 12:20 POC Glucose 111 H 136 H 157 H (70-105) mg/dL HEART Score - HEART Score Troponin: Troponin T < 0.010 ng/mL (0.00-0.029) 01/17/20 18:43
[2020-01-21] MEDS: ENOXAPARIN 40 MG/0.4 ML INJ SUB-Q SCH (21:53)
[2020-01-22] MEDS: FUROSEMIDE 40 MG/4 ML INJ IV SCH ×2 (06:19→17:10)
[2020-01-22 06:53] LABS: Basophils # (Auto) 0.1 K/mm3 (0.0-0.1); Basophils % (Auto) 0.6 % (0.0-1.8); Eosinophils # (Auto) 0.1 K/mm3 (0.0-0.4); Eosinophils % (Auto) 1.3 % (0.0-4.3); Hematocrit 34.2 % (35.5-45.6); Hemoglobin 10.5 gm/dl (11.8-15.2); Lymphocytes # (Auto) 0.9 K/mm3 (1.2-5.4); Lymphocytes % (Auto) 10.2 % (13.4-35.0); Mean Corpuscular HGB Conc 31 % (32-34); Mean Corpuscular Volume 79 fl (84-94); Monocytes % (Auto) 10.8 % (0.0-7.3); Platelet Count 295 K/mm3 (140-440); Red Blood Count 4.33 M/mm3 (3.65-5.03); Red Cell Distribution Width 17.6 % (13.2-15.2)
--- NOTE | 2020-01-22 07:44 | Progress Note ---
Assessment and Plan - Patient Problems (1) Acute and chronic respiratory failure with hypoxia Current Visit: Yes Status: Acute Plan to address problem: For left heart catheterization tomorrow (2) CHF exacerbation Current Visit: Yes Status: Acute Plan to address problem: Patient to get left heart catheterization on 01/23/2020 Ejection fraction is 20% patient also has aortic stenosis and needs radiation (3) Diabetes mellitus Current Visit: Yes Status: Acute Plan to address problem: We will monitor Accu-Cheks. (4) Hypertension Current Visit: Yes Status: Acute Plan to address problem: We will resume routine home medications and monitor vital signs closely. (5) DVT prophylaxis Current Visit: Yes Status: Acute (6) Full code status Current Visit: Yes Status: Acute Subjective Date of service: 01/22/20 Principal diagnosis: CHF exacerbation, aortic stenosis Interval history: 59-year-old male with known history of diabetes mellitus, hypertension, CHF, coronary artery disease presenting to the emergency room today complaining of sh ortness of breath and generalized swelling over the past few days. Patient denies any chest pain, no headache or dizziness, no fever or chills, no nausea or vomiting and no diarrhea. He however indicates that he fell earlier today and hit his head and neck but denies any loss of consciousness. Date day #2 01/18/2020 Continue IV Lasix Symptomatically better Day #3 01/19/2020 Continue IV Lasix Symptomatically better Day #4 01/20/2020 Echocardiogram reviewed Low ejection fraction of 20% and aortic stenosis 4 [facility] on Thursday number of second 2019 Day #5 01/21/2020 Patient is symptomatically better Waiting for his left heart catheterization on 01/23/2020 Day #6 Left heart catheterization tomorrow Shortness of breath better Patient needs to lose weight Counseled Objective - Constitutional Vitals: Vital Signs - 12hr 01/21/20 01/21/20 01/22/20 21:52 23:35 03:45 Temperature 98.0 F 98.0 F Pulse Rate 74 69 68 Respiratory 18 18 Rate Blood Pressure 116/55 97/40 107/45 O2 Sat by Pulse 91 95 Oximetry General appearance: Present: mild distress - EENT Eyes: PERRL, EOM intact ENT: hearing intact, clear oral mucosa Ears: bilateral: normal - Neck Neck: supple, normal ROM - Respiratory Respiratory effort: normal Respiratory: bilateral: CTA - Breasts Breasts: normal - Cardiovascular Heart rate: 78 Rhythm: regular Heart Sounds: Present: S1 & S2. Absent: gallop, rub Extremities: pulses intact, No edema, normal color, Full ROM Extremity abnormal: edema - Gastrointestinal General gastrointestinal: Present: soft, non-tender, non-distended, normal bowel sounds - Genitourinary Male genitourinary: normal - Integumentary Integumentary: clear, warm, dry - Musculoskeletal Musculoskeletal: 1, strength equal bilaterally - Neurologic Neurologic: moves all extremities - Psychiatric Psychiatric: memory intact, appropriate mood/affect, intact judgment & insight - Labs CBC & Chem 7: 01/22/20 05:54 01/20/20 05:23 Labs: Abnormal lab results 01/21/20 01/21/20 01/21/20 Range/Units 12:20 17:35 21:11 Hgb (11.8-15.2) gm/dl Hct (35.5-45.6) % MCV (84-94) fl MCH (28-32) pg MCHC (32-34) % RDW (13.2-15.2) % Lymph % (Auto) (13.4-35.0) % [place] % (Auto) (0.0-7.3) % Lymph # (Auto) (1.2-5.4) K/mm3 [place] # (Auto) (0.0-0.8) K/mm3 Seg Neutrophils % (40.0-70.0) % POC Glucose 157 H 58 L 68 L (70-105) mg/dL 01/22/20 Range/Units 05:54 Hgb 10.5 L (11.8-15.2) gm/dl Hct 34.2 L (35.5-45.6) % MCV 79 L (84-94) fl MCH 24 L (28-32) pg MCHC 31 L (32-34) % RDW 17.6 H (13.2-15.2) % Lymph % (Auto) 10.2 L (13.4-35.0) % [place] % (Auto) 10.8 H (0.0-7.3) % Lymph # (Auto) 0.9 L (1.2-5.4) K/mm3 [place] # (Auto) 1.0 H (0.0-0.8) K/mm3 Seg Neutrophils % 77.1 H (40.0-70.0) % POC Glucose (70-105) mg/dL HEART Score - HEART Score Troponin: Troponin T < 0.010 ng/mL (0.00-0.029) 01/17/20 18:43
[2020-01-22] MEDS: ALBUTEROL 2.5 MG/3 ML NEBU IH SCH ×2 (08:47→09:25)
[2020-01-22] MEDS: buPROPion XL 150 MG TAB PO SCH (09:45)
[2020-01-22] MEDS: POTASSIUM CHLORIDE ER 10 MEQ TAB PO SCH (09:46)
[2020-01-22] MEDS: MULTIVITAMINS ,THERAPEUTIC TAB PO SCH (09:46)
[2020-01-22] MEDS: LOSARTAN 25 MG TAB PO SCH (09:46)
[2020-01-22] MEDS: DULoxetine 30 MG CAP PO SCH (09:46)
[2020-01-22] MEDS: AMIODARONE 200 MG TAB PO SCH ×2 (09:46→21:30)
[2020-01-22] MEDS: carvediloL 6.25 MG TAB PO SCH ×2 (09:46→21:30)
[2020-01-22] MEDS: ASCORBIC ACID 500 MG TAB PO SCH (09:46)
[2020-01-22] MEDS: ASPIRIN EC 81 MG TAB PO SCH (09:46)
[2020-01-22] MEDS: TAMSULOSIN 0.4 MG CAP PO SCH (09:46)
[2020-01-22] MEDS: PANTOPRAZOLE 40 MG TAB PO SCH (09:46)
[2020-01-22] MEDS: BACITRACIN ZINC OINT 28.4 GM TP SCH ×2 (09:47→21:29)
[2020-01-22] MEDS: metFORMIN 850 MG TAB PO SCH ×2 (09:47→17:10)
[2020-01-22] MEDS: LINAGLIPTIN 5 MG TAB PO SCH (09:47)
[2020-01-22] MEDS: INSULIN NPH/REGULAR 70/30 INJ SUB-Q SCH ×3 (09:50→17:10)
[2020-01-22] MEDS: INSULIN LISPRO 100 UNIT/ML VIAL 3 mL SUB-Q SCH ×4 (09:50→21:30)
--- NOTE | 2020-01-22 10:57 | Progress Note ---
Assessment and Plan Change to oral Lasix. Awaiting cardiac catheterization patient would like this diagnostic heart catheterization as patient may have significant aortic stenosis and would like to see the structural heart team at [place] as an outpatient. - Patient Problems (1) Acute on chronic HFrEF (heart failure with reduced ejection fraction) Current Visit: Yes Status: Acute (2) Aortic stenosis Current Visit: Yes Status: Chronic (3) CAD (coronary artery disease) Current Visit: Yes Status: Chronic (4) Diabetes mellitus Current Visit: Yes Status: Chronic (5) History of atrial fibrillation Current Visit: Yes Status: Chronic (6) History of coronary artery bypass graft Current Visit: Yes Status: Chronic (7) Hypertension Current Visit: Yes Status: Chronic (8) Ischemic cardiomyopathy Current Visit: Yes Status: Chronic (9) Obesity Current Visit: Yes Status: Chronic (10) Sleep apnea Current Visit: Yes Status: Chronic Subjective Date of service: 01/22/20 Principal diagnosis: CHF exacerbation, aortic stenosis Interval history: sob is better and awaiting cath Objective Vital Signs Temp Pulse Pulse Resp Resp BP Pulse Ox 01/22/20 10:00 61 18 96 01/22/20 08:58 99 01/22/20 08:47 65 20 01/22/20 07:26 98.6 F 57 L 18 123/53 95 01/22/20 03:45 98.0 F 68 18 107/45 95 01/21/20 23:35 98.0 F 69 18 97/40 91 01/21/20 21:52 74 116/55 01/21/20 20:14 61 01/21/20 19:44 98.0 F 63 18 116/55 99 01/21/20 17:17 97.8 F 70 18 117/59 99 01/21/20 12:02 98.0 F 65 18 108/46 96 - Physical Examination General: No Apparent Distress HEENT: Positive: PERRL, Normocephaly, Mucus Membranes Moist Neck: Positive: neck supple, trachea midline Cardiac: Positive: Reg Rate and Rhythm, Audible Murmur Lungs: Positive: clear to auscultation Neuro: Positive: Grossly Intact Abdomen: Negative: Tender Skin: Positive: Other (forehead abrasions). Negative: Rash Musculoskeletal: No Pain Extremities: Present: +1 Edema (chronic redness) - Labs and Meds CBC 01/22/20 Range/Units 05:54 WBC 9.2 (4.5-11.0) K/mm3 RBC 4.33 (3.65-5.03) M/mm3 Hgb 10.5 L (11.8-15.2) gm/dl Hct 34.2 L (35.5-45.6) % Plt Count 295 (140-440) K/mm3 Lymph # (Auto) 0.9 L (1.2-5.4) K/mm3 [place] # (Auto) 1.0 H (0.0-0.8) K/mm3 Eos # (Auto) 0.1 (0.0-0.4) K/mm3 Baso # (Auto) 0.1 (0.0-0.1) K/mm3 - Imaging and Cardiology EKG: report reviewed, image reviewed Echo: pending, report reviewed (tte done 2018 showed EF 20-25%. ), other (tte reviewed - 4 chamber dilated CMP, EF 20-25%, mild LVH, at least moderate aortic stenosis with mean gradient 15mmHg and MELISSA 1.3, moderate MR, mild to mod TR, mod-severe pulm HTN with RVSP 57mmHg. ) Cardiac cath: report reviewed (02/2011 showed 3 vessel disease, severe LV dysfunction, 4 of 4 grafts patent, severe MR by echo. ) - EKG Sinus rhythms and dysrhythmias: sinus rhythm
[2020-01-22] MEDS: ENOXAPARIN 40 MG/0.4 ML INJ SUB-Q SCH (21:30)
[2020-01-23 06:49] LABS: Basophils # (Auto) 0.1 K/mm3 (0.0-0.1); Basophils % (Auto) 0.9 % (0.0-1.8); Eosinophils # (Auto) 0.1 K/mm3 (0.0-0.4); Eosinophils % (Auto) 1.5 % (0.0-4.3); Lymphocytes # (Auto) 1.3 K/mm3 (1.2-5.4); Lymphocytes % (Auto) 15.5 % (13.4-35.0); Mean Corpuscular HGB Conc 30 % (32-34); Mean Corpuscular Volume 79 fl (84-94); Monocytes # (Auto) 0.9 K/mm3 (0.0-0.8); Monocytes % (Auto) 10.6 % (0.0-7.3); Platelet Count 268 K/mm3 (140-440); Red Blood Count 4.31 M/mm3 (3.65-5.03); Red Cell Distribution Width 17.7 % (13.2-15.2)
[2020-01-23 06:50] LABS: INR 1.09 (0.87-1.13)
[2020-01-23 06:54] LABS: Hematocrit 33.9 % (35.5-45.6); Hemoglobin 10.3 gm/dl (11.8-15.2)
[2020-01-23 06:59] LABS: BUN/Creatinine Ratio 22; Blood Urea Nitrogen 20 mg/dL (9-20); Calcium 9.3 mg/dL (8.4-10.2); Hemolysis Index 8
[2020-01-23] MEDS ORDERED: ASPIRIN EC 81 MG TAB PO ONE (07:10)
[2020-01-23] MEDS ORDERED: SODIUM CHLORIDE 0.9% 500 ML 500 ML ONE (07:10)
[2020-01-23] MEDS: INSULIN LISPRO 100 UNIT/ML VIAL 3 mL SUB-Q SCH ×4 (07:15→21:17)
[2020-01-23] MEDS: ASPIRIN EC 81 MG TAB PO SCH ×2 (07:15→10:17)
[2020-01-23] MEDS ORDERED: DEXTROSE 50% IN WATER (25GM) 50 ML SYRINGE IV SCH (07:43)
[2020-01-23] MEDS ORDERED: SODIUM CHLORIDE 0.9% 500 ML 500 ML IV SCH (08:00)
[2020-01-23] MEDS ORDERED: HEPARIN/NS 5000 UNIT/500ML 1,000 ML IR ONE (08:04)
[2020-01-23] MEDS ORDERED: HEPARIN 10,000 UNITS/10 ML VIAL ONE (08:04)
[2020-01-23] MEDS ORDERED: NITROGLYCERIN SYRINGE 3 ML ONE (08:05)
[2020-01-23] MEDS ORDERED: MIDAZOLAM 2 MG/2 ML INJ ONE (08:05)
[2020-01-23] MEDS ORDERED: fentaNYL 100 MCG/2 ML INJ ONE (08:05)
[2020-01-23] MEDS ORDERED: VERAPAMIL 5 MG/2 ML INJ ONE ×2 (08:05→08:07)
[2020-01-23] MEDS ORDERED: LIDOCAINE (2%) 20 MG/1 ML VIAL 20 ML MDV INFILTRATI ONE (08:05)
[2020-01-23] MEDS: INSULIN NPH/REGULAR 70/30 INJ SUB-Q SCH ×2 (08:16→19:19)
[2020-01-23] MEDS: metFORMIN 850 MG TAB PO SCH ×2 (08:16→19:19)
[2020-01-23] MEDS: LINAGLIPTIN 5 MG TAB PO SCH (08:16)
--- NOTE | 2020-01-23 09:37 | Cardiac Catherization Report ---
LEFT HEART CATHETERIZATION WITH BYPASS GRAFT INDICATION FOR PROCEDURE: The patient is a pleasant 59-year-old gentleman who presents with shortness of breath, heart failure, history of bypass surgery, mitral regurgitation, cardiomyopathy as well as pulmonary hypertension. Risks, benefits and alternatives discussed prior to obtaining informed consent. PROCEDURE IN DETAIL: The patient was brought to the catheterization lab in a postabsorptive state, prepped and draped in sterile fashion. An 8 mL of 2% lidocaine used to anesthetize the right groin. A standard 5-Italian sheath was used to cannulate the right common femoral artery via modified Seldinger technique. All exchanges were performed to exchange a J-tip guidewire. JL3.5 catheter used to engage the left main. No dampening or ventricularization. Cineangiography performed in all projections. JR4 catheter used to cross the aortic valve under fluoroscopic guidance. Left ventriculography performed in 30 FAULKNER and 30 DELBERT projections via hand injection, catheter flushed. Manual pullback performed with continuous pressure monitoring. Catheter was used to engage the right coronary. No dampening or ventricularization. Cineangiography performed in all projections. Next, catheter used to engage all three SVG graft selectively. Angiography was performed in multiple projections. Next, catheter used to engage the left subclavian. Due to some difficulty engaging the STARKEY, selective left subclavian angiography third order is performed. Next, selective STARKEY angiography was performed. Next, catheter removed carefully from the left subclavian over a wire. Next, catheter removed from the body. Sheath removed. Manual pressure used to achieve hemostasis. The patient remained in normal sinus rhythm throughout the procedure. I directly supervised the administration of moderate sedation from 8:45 a.m. to 9:15 a.m. with fentanyl and Versed. DATA: The patient remained in normal sinus rhythm throughout the procedure. Aortic pressure is 130/70, LV pressure is 130, LVP of 35 mmHg. Left ventriculography reveals severe global left ventricular hypokinesis, estimated ejection fraction of 25-30%, severe MR is noted. CORONARY ANATOMY: Left main without significant disease, trifurcates left anterior descending, ramus intermedius and left circumflex. Left circumflex occluded in the mid segment. LAD is occluded in the proximal segment, chronically. Right coronary is occluded in the mid segment chronically. Patent SVG to OM trunk, patent SVG to diagonal, patent STARKEY to LAD and patent left subclavian artery. CONCLUSIONS: 1. Severe diffuse [place] multivessel coronary artery disease with chronic total occlusions of the mid left circumflex, proximal LAD and mid right coronary. 2. Patent STARKEY to LAD. 3. Patent SVG to diagonal. 4. Patent SVG to OM trunk. 5. Patent SVG to RCA. 6. Severe global left ventricular hypokinesis, estimated ejection fraction of 25-30%. 7. Elevated LVEDP. 8. No evidence of aortic stenosis. 9. [id number] mitral regurgitation. 10. Patent left subclavian artery. These findings were discussed at length with the patient. All questions and concerns were addressed. Standard groin care. Aggressive heart failure care, IV Lasix 40 mg x 1. We will watch overnight. Consider discharge in a.m. We would consider mitral valve intervention as an outpatient. We will watch closely overnight. No complications. JOB# [id number] SBElizabeth/ADORE
[2020-01-23] MEDS: LOSARTAN 25 MG TAB PO SCH (10:00)
[2020-01-23] MEDS ORDERED: FUROSEMIDE 40 MG TAB PO SCH (10:00)
[2020-01-23] MEDS ORDERED: SODIUM CHLORIDE 0.9% 1000 ML 1,000 ML IV SCH (10:30)
[2020-01-23] MEDS ORDERED: traMADol 50 MG TAB PO PRN (11:00)
--- NOTE | 2020-01-23 11:16 | Progress Note ---
Assessment and Plan Will give one more dose of IV Lasix. Transition to PO Lasix in AM. Continue ASA, statin, BB, and ARB. Decrease PO Amio to qDay. Plan to wean. Expect discharge in AM from a Cardiology perspective. Pt seen in conjunction with Dr. John Horton, who agrees with the assessment and plan of care. - Patient Problems (1) Acute on chronic HFrEF (heart failure with reduced ejection fraction) Current Visit: Yes Status: Acute (2) Ischemic cardiomyopathy Current Visit: Yes Status: Chronic (3) CAD (coronary artery disease) Current Visit: Yes Status: Chronic (4) History of coronary artery bypass graft Current Visit: Yes Status: Chronic (5) History of atrial fibrillation Current Visit: Yes Status: Chronic (6) Sleep apnea Current Visit: Yes Status: Chronic (7) Pulmonary HTN Current Visit: Yes Status: Chronic (8) Tricuspid regurgitation Current Visit: Yes Status: Chronic (9) Mitral regurgitation Current Visit: Yes Status: Chronic (10) Hypertension Current Visit: Yes Status: Chronic Qualifiers: Hypertension type: essential hypertension Qualified Code(s): I10 - Essential (primary) hypertension (11) DM2 (diabetes mellitus, type 2) Current Visit: Yes Status: Chronic (12) Obesity Current Visit: Yes Status: Chronic Subjective Date of service: 01/23/20 Principal diagnosis: A/C HFrEF, Interval history: S/p C this AM, which revealed severe diffuse multivessel CAD with CTOs of mid LCx, prox LAD, and mid RCA; patent STARKEY-LAD; patent SVG-diag; patent SVG-OM trunk; patent SVG-RCA; EF 25-30%; elev LVEDP; no evidence of ; mod-severe MR; patent L subclavian artery. Pt tolerated procedure well. Objective Last Vital Signs Temp 99.5 F 01/23/20 03:43 Pulse 65 01/23/20 03:43 Resp 16 01/23/20 03:43 BP 91/42 01/23/20 03:43 Pulse Ox 94 01/23/20 03:43 - Physical Examination General: No Apparent Distress HEENT: Positive: EOMI, Normocephaly, Mucus Membranes Moist Neck: Positive: neck supple, trachea midline Cardiac: Positive: Reg Rate and Rhythm, S1/S2 Lungs: Positive: clear to auscultation Neuro: Positive: Grossly Intact Abdomen: Positive: Soft, Active Bowel Sounds. Negative: Tender Skin: Positive: Other (forehead abrasions). Negative: Rash Musculoskeletal: No Pain Extremities: Present: upper extr. pulses, lower extr. pulses, +1 Edema (BLE), Other (chronic redness) - Labs and Meds Coagulation 01/23/20 Range/Units 05:00 PT 14.3 (12.2-14.9) Sec. INR 1.09 (0.87-1.13) CBC 01/23/20 Range/Units 05:00 WBC 8.4 (4.5-11.0) K/mm3 RBC 4.31 (3.65-5.03) M/mm3 Hgb 10.3 L (11.8-15.2) gm/dl Hct 33.9 L (35.5-45.6) % Plt Count 268 (140-440) K/mm3 Lymph # (Auto) 1.3 (1.2-5.4) K/mm3 [place] # (Auto) 0.9 H (0.0-0.8) K/mm3 Eos # (Auto) 0.1 (0.0-0.4) K/mm3 Baso # (Auto) 0.1 (0.0-0.1) K/mm3 Comprehensive Metabolic Panel 01/23/20 Range/Units 05:00 Sodium 143 (137-145) mmol/L Potassium 4.8 D (3.6-5.0) mmol/L Chloride 93.5 L (98-107) mmol/L Carbon Dioxide 46 H* (22-30) mmol/L BUN 20 (9-20) mg/dL Creatinine 0.9 (0.8-1.3) mg/dL Glucose 65 L (75-100) mg/dL Calcium 9.3 (8.4-10.2) mg/dL - Imaging and Cardiology EKG: report reviewed, image reviewed Echo: report reviewed (01/18/2020 - 2018 - 4 chamber dilated CMP, EF 20-25%, mild LVH, at least moderate aortic stenosis with mean gradient 15mmHg and MELISSA 1.3, moderate MR, mild to mod TR, mod-severe pulm HTN with RVSP 57mmHg), other Cardiac cath: report reviewed (01/23/2020 - severe diffuse multivessel CAD with CTOs of mid LCx, prox LAD, and mid RCA; patent STARKEY-LAD; patent SVG-diag; patent SVG-OM trunk; patent SVG-RCA; EF 25-30%; elev LVEDP; no evidence of ; mod- severe MR; patent L subclavian artery), other (2014 - 3-vessel disease, severe LV dysfunction, 4 of 4 grafts patent) - Telemetry EKG Rhythm: Sinus Rhythm - EKG Sinus rhythms and dysrhythmias: sinus rhythm
[2020-01-23] MEDS: HYDROcodone/ACETAMINOPHEN 5-325 MG TAB PO PRN ×2 (11:42→21:17)
[2020-01-23] MEDS ORDERED: FUROSEMIDE 40 MG/4 ML INJ IV NR (14:00)
[2020-01-23] MEDS: ALBUTEROL 2.5 MG/3 ML NEBU IH SCH (14:34)
[2020-01-23] MEDS: buPROPion XL 150 MG TAB PO SCH (17:01)
[2020-01-23] MEDS: MULTIVITAMINS ,THERAPEUTIC TAB PO SCH (17:01)
[2020-01-23] MEDS: ASCORBIC ACID 500 MG TAB PO SCH (17:01)
[2020-01-23] MEDS: DULoxetine 30 MG CAP PO SCH (17:01)
[2020-01-23] MEDS: PANTOPRAZOLE 40 MG TAB PO SCH (17:01)
[2020-01-23] MEDS: carvediloL 6.25 MG TAB PO SCH ×2 (17:02→21:16)
[2020-01-23] MEDS: TAMSULOSIN 0.4 MG CAP PO SCH (17:02)
[2020-01-23] MEDS: POTASSIUM CHLORIDE ER 10 MEQ TAB PO SCH (17:02)
--- NOTE | 2020-01-23 18:29 | Progress Note ---
Assessment and Plan - Patient Problems (1) Acute and chronic respiratory failure with hypoxia Current Visit: Yes Status: Acute Plan to address problem: S/p C this AM, which revealed severe diffuse multivessel CAD with CTOs of mid LCx, prox LAD, and mid RCA; patent STARKEY-LAD; patent SVG-diag; patent SVG-OM trunk; patent SVG-RCA; EF 25-30%; elev LVEDP; no evidence of ; mod-severe MR; patent L subclavian artery. Pt tolerated procedure well. Optimize meds (2) CHF exacerbation Current Visit: Yes Status: Acute Plan to address problem: Patient to get left heart catheterization on 01/23/2020 Ejection fraction is 20% patient also has aortic stenosis and needs radiation (3) Diabetes mellitus Current Visit: Yes Status: Acute Plan to address problem: We will monitor Accu-Cheks. (4) Hypertension Current Visit: Yes Status: Acute Plan to address problem: We will resume routine home medications and monitor vital signs closely. (5) DVT prophylaxis Current Visit: Yes Status: Acute (6) Full code status Current Visit: Yes Status: Acute Subjective Date of service: 01/23/20 Principal diagnosis: A/C HFrEF, Interval history: 59-year-old male with known history of diabetes mellitus, hypertension, CHF, coronary artery disease presenting to the emergency room today complaining of shortness of breath and generalized swelling over the past few days. Patient denies any chest pain, no headache or dizziness, no fever or chills, no nausea or vomiting and no diarrhea. He however indicates that he fell earlier today and hit his head and neck but denies any loss of consciousness. Date day #2 01/18/2020 Continue IV Lasix Symptomatically better Day #3 01/19/2020 Continue IV Lasix Symptomatically better Day #4 01/20/2020 Echocardiogram reviewed Low ejection fraction of 20% and aortic stenosis 4 [facility] on Thursday number of second 2019 Day #5 01/21/2020 Patient is symptomatically better Waiting for his left heart catheterization on 01/23/2020 Day #6 01/22/20 Left heart catheterization tomorrow Shortness of breath better Patient needs to lose weight Counseled Day#7 01/23/20 Had cath today S/p [facility] this AM, which revealed severe diffuse multivessel CAD with CTOs of mid LCx, prox LAD, and mid RCA; patent STARKEY-LAD; patent SVG-diag; patent SVG-OM trunk; patent SVG-RCA; EF 25-30%; elev LVEDP; no evidence of ; mod-severe MR; patent L subclavian artery. Pt tolerated procedure well. post cath doing well Objective - Constitutional Vitals: Vital Signs - 12hr 01/23/20 01/23/20 01/23/20 09:54 10:00 10:15 Temperature Pulse Rate 73 72 74 Respiratory 24 Rate Blood Pressure 117/58 120/52 98/56 O2 Sat by Pulse 97 96 96 Oximetry 01/23/20 01/23/20 01/23/20 10:30 10:49 11:07 Temperature 97.7 F Pulse Rate 72 72 74 Respiratory 20 Rate Blood Pressure 110/53 117/57 124/57 O2 Sat by Pulse 92 93 93 Oximetry 01/23/20 01/23/20 01/23/20 11:15 11:30 11:42 Temperature Pulse Rate 74 73 Respiratory 22 Rate Blood Pressure 126/61 119/60 O2 Sat by Pulse 92 92 Oximetry 01/23/20 01/23/20 01/23/20 11:45 12:00 12:15 Temperature Pulse Rate 74 71 72 Respiratory Rate Blood Pressure 122/57 119/56 122/57 O2 Sat by Pulse 92 91 91 Oximetry 01/23/20 01/23/20 01/23/20 12:30 12:45 13:00 Temperature Pulse Rate 71 71 70 Respiratory Rate Blood Pressure 115/52 119/60 123/59 O2 Sat by Pulse 93 93 92 Oximetry 01/23/20 01/23/20 01/23/20 13:15 13:30 13:45 Temperature Pulse Rate 71 68 70 Respiratory Rate Blood Pressure 120/53 118/67 116/65 O2 Sat by Pulse 92 93 96 Oximetry 01/23/20 01/23/20 01/23/20 14:00 14:15 14:30 Temperature Pulse Rate 67 65 68 Respiratory Rate Blood Pressure 121/53 110/42 119/43 O2 Sat by Pulse 96 96 91 Oximetry 01/23/20 01/23/20 14:46 15:36 Temperature 98.0 F Pulse Rate 69 Respiratory 20 20 Rate Blood Pressure 124/52 107/43 O2 Sat by Pulse 93 Oximetry General appearance: Present: no acute distress, well-nourished - EENT Eyes: PERRL, EOM intact ENT: hearing intact, clear oral mucosa Ears: bilateral: normal - Neck Neck: supple, normal ROM - Respiratory Respiratory effort: normal Respiratory: bilateral: CTA - Breasts Breasts: normal - Cardiovascular Heart rate: 78 Rhythm: regular Heart Sounds: Present: S1 & S2. Absent: gallop, rub Extremities: no ischemia, pulses intact, No edema, normal color, Full ROM - Gastrointestinal General gastrointestinal: Present: soft, non-tender, non-distended, normal bowel sounds - Genitourinary Male genitourinary: normal - Integumentary Integumentary: clear, warm, dry - Musculoskeletal Musculoskeletal: 1, strength equal bilaterally - Neurologic Neurologic: moves all extremities - Psychiatric Psychiatric: memory intact, appropriate mood/affect, intact judgment & insight - Allied health notes Allied health notes reviewed: nursing, case management - Labs CBC & Chem 7: 01/23/20 05:00 01/23/20 05:00 Labs: Abnormal lab results 01/22/20 01/23/20 01/23/20 Range/Units 20:52 05:00 05:00 Hgb 10.3 L (11.8-15.2) gm/dl Hct 33.9 L (35.5-45.6) % MCV 79 L (84-94) fl MCH 24 L (28-32) pg MCHC 30 L (32-34) % RDW 17.7 H (13.2-15.2) % [place] % (Auto) 10.6 H (0.0-7.3) % [place] # (Auto) 0.9 H (0.0-0.8) K/mm3 Seg Neutrophils % 71.5 H (40.0-70.0) % Chloride 93.5 L (98-107) mmol/L Carbon Dioxide 46 H* (22-30) mmol/L Glucose 65 L (75-100) mg/dL POC Glucose 63 L (70-105) mg/dL 01/23/20 01/23/20 01/23/20 Range/Units 09:56 11:47 16:00 Hgb (11.8-15.2) gm/dl Hct (35.5-45.6) % MCV (84-94) fl MCH (28-32) pg MCHC (32-34) % RDW (13.2-15.2) % [place] % (Auto) (0.0-7.3) % [place] # (Auto) (0.0-0.8) K/mm3 Seg Neutrophils % (40.0-70.0) % Chloride (98-107) mmol/L Carbon Dioxide (22-30) mmol/L Glucose (75-100) mg/dL POC Glucose 113 H 138 H 114 H (70-105) mg/dL HEART Score - HEART Score Troponin: Troponin T < 0.010 ng/mL (0.00-0.029) 01/17/20 18:43
[2020-01-23] MEDS: BACITRACIN ZINC OINT 28.4 GM TP SCH ×2 (20:45→21:17)
[2020-01-23] MEDS: ENOXAPARIN 40 MG/0.4 ML INJ SUB-Q SCH (21:16)
[2020-01-24] MEDS: LOSARTAN 25 MG TAB PO SCH (09:46)
[2020-01-24] MEDS: carvediloL 6.25 MG TAB PO SCH (09:47)
[2020-01-24] MEDS: INSULIN NPH/REGULAR 70/30 INJ SUB-Q SCH (09:48)
[2020-01-24] MEDS: MULTIVITAMINS ,THERAPEUTIC TAB PO SCH (09:58)
[2020-01-24] MEDS: PANTOPRAZOLE 40 MG TAB PO SCH (09:58)
[2020-01-24] MEDS: DULoxetine 30 MG CAP PO SCH (09:58)
[2020-01-24] MEDS: buPROPion XL 150 MG TAB PO SCH (09:58)
[2020-01-24] MEDS: ASPIRIN EC 81 MG TAB PO SCH (09:59)
[2020-01-24] MEDS: LINAGLIPTIN 5 MG TAB PO SCH (09:59)
[2020-01-24] MEDS: TAMSULOSIN 0.4 MG CAP PO SCH (09:59)
[2020-01-24] MEDS: POTASSIUM CHLORIDE ER 10 MEQ TAB PO SCH (09:59)
[2020-01-24] MEDS: ASCORBIC ACID 500 MG TAB PO SCH (09:59)
[2020-01-24] MEDS: metFORMIN 850 MG TAB PO SCH (10:00)
[2020-01-24] MEDS: INSULIN LISPRO 100 UNIT/ML VIAL 3 mL SUB-Q SCH ×2 (10:00→12:13)
[2020-01-24] MEDS ORDERED: AMIODARONE 200 MG TAB PO SCH (10:00)
[2020-01-24] MEDS ORDERED: FUROSEMIDE 40 MG TAB PO SCH (10:00)
[2020-01-24] MEDS: BACITRACIN ZINC OINT 28.4 GM TP SCH (10:06)
[2020-01-24] MEDS: ALBUTEROL 2.5 MG/3 ML NEBU IH SCH (10:53)
--- NOTE | 2020-01-24 12:32 | Progress Note ---
Assessment and Plan Continue present cardiac mgmt. Pt declines LifeVest and/or ICD at this time. Will revisit as an outpatient. Pt may be discharged from a Cardiology perspective. Follow-up with Dr. Wetzel within 1-2 weeks ([phone]). Pt seen in conjunction with Dr. John Horton, who agrees with the assessment and plan of care. - Patient Problems (1) Acute on chronic HFrEF (heart failure with reduced ejection fraction) Current Visit: Yes Status: Acute (2) Ischemic cardiomyopathy Current Visit: Yes Status: Chronic (3) CAD (coronary artery disease) Current Visit: Yes Status: Chronic (4) History of coronary artery bypass graft Current Visit: Yes Status: Chronic (5) History of atrial fibrillation Current Visit: Yes Status: Chronic (6) 1st degree AV block Current Visit: Yes Status: Chronic (7) Sleep apnea Current Visit: Yes Status: Chronic (8) Pulmonary HTN Current Visit: Yes Status: Chronic (9) Tricuspid regurgitation Current Visit: Yes Status: Chronic (10) Mitral regurgitation Current Visit: Yes Status: Chronic (11) Hypertension Current Visit: Yes Status: Chronic Qualifiers: Hypertension type: essential hypertension Qualified Code(s): I10 - Essential (primary) hypertension (12) DM2 (diabetes mellitus, type 2) Current Visit: Yes Status: Chronic (13) Obesity Current Visit: Yes Status: Chronic Subjective Date of service: 01/24/20 Principal diagnosis: A/C HFrEF, Interval history: S/p LHC yesterday, which revealed severe diffuse multivessel CAD with CTOs of mid LCx, prox LAD, and mid RCA; patent grafts x 4; EF 25-30%. Pt resting in bedside chair upon exam. He states he is feeling well and denies chest pain or any additional cardiac complaints. Tele reviewed - SR 60s w/no acute events noted overnight. Objective Last Vital Signs Temp 97.5 F L 01/24/20 07:57 Pulse 99 H 01/24/20 09:46 Resp 20 01/24/20 07:57 BP 106/45 01/24/20 09:46 Pulse Ox 99 01/24/20 07:57 - Physical Examination General: No Apparent Distress HEENT: Positive: EOMI, Normocephaly, Mucus Membranes Moist Neck: Positive: neck supple, trachea midline Cardiac: Positive: Reg Rate and Rhythm, S1/S2 Lungs: Positive: clear to auscultation Neuro: Positive: Grossly Intact Abdomen: Positive: Soft, Active Bowel Sounds. Negative: Tender Skin: Positive: Other (forehead abrasions). Negative: Rash Incision: Cardiac Cath Site (R groin site c/d/i - no evidence of bleeding or hematoma) Musculoskeletal: No Pain, Normal Range of Motion Extremities: Present: upper extr. pulses, lower extr. pulses. Absent: edema - Imaging and Cardiology EKG: report reviewed, image reviewed Echo: report reviewed (01/18/2020 - 2018 - 4 chamber dilated CMP, EF 20-25%, mild LVH, at least moderate aortic stenosis with mean gradient 15mmHg and MELISSA 1.3, moderate MR, mild to mod TR, mod-severe pulm HTN with RVSP 57mmHg), other Cardiac cath: report reviewed (01/23/2020 - severe diffuse multivessel CAD with CTOs of mid LCx, prox LAD, and mid RCA; patent STARKEY-LAD; patent SVG-diag; patent SVG-OM trunk; patent SVG-RCA; EF 25-30%; elev LVEDP; no evidence of ; mod- severe MR; patent L subclavian artery), other (2013 - 3-vessel disease, severe LV dysfunction, 4 of 4 grafts patent) - Telemetry EKG Rhythm: Sinus Rhythm - EKG Sinus rhythms and dysrhythmias: sinus rhythm
--- NOTE | 2020-01-24 12:33 | Discharge Summary ---
Providers - Providers Date of Admission: 01/18/20 07:41 Date of discharge: 01/24/20 Attending physician: NIKI ANDERSON 01/18/20 09:29 Consult to Physician [CONS] Routine Comment: Consulting Provider: EARNEST AYALA Physician Instructions: Reason For Exam: chf 01/23/20 10:22 Consult to Cardiac Rehabilitation [CONS] Routine Reason For Exam: Cardiac Rehab Evaluation Primary care physician: RETURN CLERK Hospitalization Condition: Stable Procedures: Left heart catheterization Cardiac cath: report reviewed (01/23/2020 - severe diffuse multivessel CAD with CTOs of mid LCx, prox LAD, and mid RCA; patent STARKYE-LAD; patent SVG-diag; patent SVG-OM trunk; patent SVG-RCA; EF 25-30%; elev LVEDP; no evidence of ; mod- severe MR; patent L subclavian artery), other (2013 - 3-vessel disease, severe LV dysfunction, 4 of 4 grafts patent) Hospital course: Subjective Date of service: 01/24/20 Principal diagnosis: A/C HFrEF, Interval history: 59-year-old male with known history of diabetes mellitus, hypertension, CHF, coronary artery disease presenting to the emergency room today complaining of shortness of breath and generalized swelling over the past few days. Patient denies any chest pain, no headache or dizziness, no fever or chills, no nausea or vomiting and no diarrhea. He however indicates that he fell earlier today and hit his head and neck but denies any loss of consciousness. Date day #2 01/18/2020 Continue IV Lasix Symptomatically better Day #3 01/19/2020 Continue IV Lasix Symptomatically better Day #4 01/20/2020 Echocardiogram reviewed Low ejection fraction of 20% and aortic stenosis 4 [facility] on Thursday number of second 2019 Day #5 01/21/2020 Patient is symptomatically better Waiting for his left heart catheterization on 01/23/2020 Day #6 01/22/20 Left heart catheterization tomorrow Shortness of breath better Patient needs to lose weight Counseled Day#7 01/23/20 Had cath today S/p C this AM, which revealed severe diffuse multivessel CAD with CTOs of mid LCx, prox LAD, and mid RCA; patent STARKEY-LAD; patent SVG-diag; patent SVG-OM trunk; patent SVG-RCA; EF 25-30%; elev LVEDP; no evidence of ; mod-severe MR; patent L subclavian artery. Pt tolerated procedure well. post cath doing well EKG: report reviewed, image reviewed Echo: report reviewed (01/18/2020 - 2018 - 4 chamber dilated CMP, EF 20-25%, mild LVH, at least moderate aortic stenosis with mean gradient 15mmHg and MELISSA 1.3, moderate MR, mild to mod TR, mod-severe pulm HTN with RVSP 57mmHg), other Cardiac cath: report reviewed (01/23/2020 - severe diffuse multivessel CAD with CTOs of mid LCx, prox LAD, and mid RCA; patent STARKEY-LAD; patent SVG-diag; patent SVG-OM trunk; patent SVG-RCA; EF 25-30%; elev LVEDP; no evidence of ; mod- severe MR; patent L subclavian artery), other (2014 - 3-vessel disease, severe LV dysfunction, 4 of 4 grafts patent) (1) Acute and chronic respiratory failure with hypoxia Current Visit: Yes Status: Acute Plan to address problem: S/p LHC this AM, which revealed severe diffuse multivessel CAD with CTOs of mid LCx, prox LAD, and mid RCA; patent STARKEY-LAD; patent SVG-diag; patent SVG-OM trunk; patent SVG-RCA; EF 25-30%; elev LVEDP; no evidence of ; mod-severe MR; patent L subclavian artery. Pt tolerated procedure well. Optimized meds prescriptions given (2) CHF exacerbation Current Visit: Yes Status: Acute Plan to address problem: Patient to get left heart catheterization on 01/23/2020 Ejection fraction is 20% patient also has aortic stenosis and needs radiation Medications optimized Scription is given (3) Diabetes mellitus Current Visit: Yes Status: Acute Plan to address problem: Hypoglycemics prescribed Patient to get blood glucose monitoring at home and follow-up with PCP (4) Hypertension Current Visit: Yes Status: Acute Plan to address problem: Blood pressure controlled (5) DVT prophylaxis Current Visit: Yes Status: Acute (6) Full code status Current Visit: Yes Status: Acute Disposition: DC-01 TO HOME OR SELFCARE - Discharge Diagnoses (1) Acute and chronic respiratory failure with hypoxia Status: Acute (2) Acute on chronic HFrEF (heart failure with reduced ejection fraction) Status: Acute (3) CHF exacerbation Status: Acute (4) DVT prophylaxis Status: Acute (5) Full code status Status: Acute (6) CAD (coronary artery disease) Status: Chronic (7) DM2 (diabetes mellitus, type 2) Status: Chronic (8) Hypertension Status: Chronic Qualifiers: Hypertension type: essential hypertension Qualified Code(s): I10 - Essential (primary) hypertension Core Measure Documentation - Palliative Care Palliative Care/ Comfort Measures: Not Applicable - Core Measures Any of the following diagnoses?: none Exam - Constitutional Vitals: Temp Pulse Resp BP Pulse Ox 97.5 F L 99 H 20 106/45 99 01/24/20 07:57 01/24/20 09:46 01/24/20 07:57 01/24/20 09:46 01/24/20 07:57 General appearance: Present: no acute distress, well-nourished - EENT Eyes: Present: PERRL ENT: hearing intact, clear oral mucosa - Neck Neck: Present: supple, normal ROM - Respiratory Respiratory effort: normal Respiratory: bilateral: CTA - Cardiovascular Heart rate: 88 Rhythm: regular Heart Sounds: Present: S1 & S2. Absent: rub, click - Extremities Extremities: pulses symmetrical, No edema Peripheral Pulses: within normal limits - Abdominal General gastrointestinal: Present: soft, non-tender, non-distended, normal bowel sounds Male genitourinary: Present: normal - Integumentary Integumentary: Present: clear, warm, dry - Musculoskeletal Musculoskeletal: gait normal, strength equal bilaterally - Psychiatric Psychiatric: appropriate mood/affect, intact judgment & insight - Neurologic Neurologic: CNII-XII intact, moves all extremities - Allied Health Allied health notes reviewed: nursing, case management Plan Activity: no restrictions Diet: low fat, low cholesterol, low salt, diabetic Follow up with: ESPERANZA MCKENZIE MD [Primary Care Provider] - 3-5 Days ANNA YOUNGER MD [Staff Physician] - 7 Days
[2020-01-24 14:47] LABS: Blood Urea Nitrogen 18 mg/dL (9-20); Calcium 9.2 mg/dL (8.4-10.2); Hemolysis Index 28
[2020-01-24 14:50] LABS: BUN/Creatinine Ratio 36
[2020-01-24 16:59] VITALS: BP 120/53
== END 2020-01-24 18:38 | disposition home health service (06) | DRG 286 ==
LOC: ED 16:35 → 4A 21:33 → OBSVTOIN 01-18 07:41
PROVIDERS: ADMIT Internal Medicine Geriatric Medicine; ATTEND Internal Medicine
PROC: 4A023N7 Measurement of Cardiac Sampling and Pressure, Left Heart, Percutaneous Approach (ICD-10-PCS; principal; 2020-01-23)
PROC: B2111ZZ Fluoroscopy of Multiple Coronary Arteries using Low Osmolar Contrast (ICD-10-PCS; 2020-01-23)
PROC: B2151ZZ Fluoroscopy of Left Heart using Low Osmolar Contrast (ICD-10-PCS; 2020-01-23)
PROC: B2131ZZ Fluoroscopy of Multiple Coronary Artery Bypass Grafts using Low Osmolar Contrast (ICD-10-PCS; 2020-01-23)
PROC: B2181ZZ Fluoroscopy of Left Internal Mammary Bypass Graft using Low Osmolar Contrast (ICD-10-PCS; 2020-01-23)
PROC: B3121ZZ Fluoroscopy of Left Subclavian Artery using Low Osmolar Contrast (ICD-10-PCS; 2020-01-23)
DX: I11.0 Hypertensive heart disease with heart failure (principal); J96.21 Acute and chronic respiratory failure with hypoxia; M48.56XA Collapsed vertebra, not elsewhere classified, lumbar region, initial encounter for fracture; I50.23 Acute on chronic systolic (congestive) heart failure; G43.909 Migraine, unspecified, not intractable, without status migrainosus; I25.10 Atherosclerotic heart disease of native coronary artery without angina pectoris; I25.5 Ischemic cardiomyopathy; J44.9 Chronic obstructive pulmonary disease, unspecified; I08.1 Rheumatic disorders of both mitral and tricuspid valves; I48.91 Unspecified atrial fibrillation; I27.20 Pulmonary hypertension, unspecified; E11.9 Type 2 diabetes mellitus without complications; G47.33 Obstructive sleep apnea (adult) (pediatric); Z79.51 Long term (current) use of inhaled steroids; Z79.899 Other long term (current) drug therapy; Z79.82 Long term (current) use of aspirin; Z79.4 Long term (current) use of insulin; Z88.5 Allergy status to narcotic agent; I25.2 Old myocardial infarction; Z87.891 Personal history of nicotine dependence; Z95.1 Presence of aortocoronary bypass graft
CPT/HCPCS: 36415; 71045; 72100; 80048; 80076; 82962; 83735; 83880; 84484; 85025; 85610; 85730; 93005; 93306; 93459; 94640; 94760; 96361; 96365; 96375; G0378; A9270-GY; C1894; J1644; J1650; J1815; J1940; J2250; J2405; J3010; J7040; Q9967

== ENCOUNTER 2020-12-25 09:54 | Inpatient (IN) | payer MEDICARE ==
[2020-12-25] MEDS ORDERED: ATROPINE 0.1% (1 MG/10 ML) CARDIAC SYRINGE ONE (09:57)
[2020-12-25] MEDS ORDERED: dexAMETHasone 4 MG/ML VIAL IV ONE (10:08)
[2020-12-25] MEDS ORDERED: LIP THERAPY VASELINE TP PRN (10:08)
[2020-12-25] MEDS ORDERED: SODIUM CHLORIDE 0.9% 500 ML 500 ML IV ONE ×2 (10:08→12:10)
[2020-12-25] MEDS ORDERED: KETAMINE 200 MG/20 ML INJ MDV IV ONE (10:08)
[2020-12-25] MEDS ORDERED: ROCURONIUM 50 MG/5 ML INJ IV ONE (10:08)
[2020-12-25] MEDS ORDERED: IPRATROPIUM 0.02% NEBU 2.5 ML IH ONE (10:08)
[2020-12-25] MEDS ORDERED: MINERAL OIL/PETROLATUM, WHITE OPHTH OINT 3.5 GM OU PRN (10:08)
[2020-12-25] MEDS ORDERED: MIDAZOLAM 2 MG/2 ML INJ IV PRN (10:08)
[2020-12-25] MEDS ORDERED: ALBUTEROL 2.5 MG/3 ML NEBU IH ONE (10:08)
[2020-12-25] MEDS ORDERED: fentaNYL 100 MCG/2 ML INJ IV PRN (10:08)
--- NOTE | 2020-12-25 10:14 | Emergency Department Report ---
ED General Adult HPI - General Chief complaint: Altered Mental Status Stated complaint: Altered mental status PUI?: Yes Time Seen by Provider: 12/25/20 10:07 Source: EMS (Verbal report received from emergency medical services. EMS documentation not available at time of chart dictation ), RN notes reviewed, old records reviewed Mode of arrival: Stretcher Limitations: Altered Mental Status, Physical Limitation - History of Present Illness Initial comments: The patient was evaluated in the emergency department for symptoms described in the history of present illness. He/she was evaluated in the context of the global COVID-19 pandemic, which necessitated consideration that the patient might be at risk for infection with the virus that causes COVID-19. Institutional protocols and algorithms that pertain to the evaluation of patients at risk for COVID-19 are in a state of rapid change based on information released by regulatory bodies including the CDC and federal and state organizations. These policies and algorithms were followed during the patient's care in the emergency department. Please note that these policies, procedures and recommendations changed on a rapid basis. During the entire history and physical examination, I had on complete personal protective equipment. Past medical history: Diabetes mellitus, hypertension, congestive heart failure, CAD. Aortic stenosis, EF 20%, multivessel coronary artery disease. The patient is a 60-year-old gentleman. He is brought to the hospital by emergency medical services as an out of hospital respiratory arrest. The patient has not lost pulses. History obtained from EMS, as the patient is altered, and receiving [id number] ventilation. EMS reports normal Accu-Chek in the field, and further reports that the patient was having trouble breathing for about 3 weeks. They report he was using his nebulizer therapy, and that they were treating the patient with nebulizers prior to their arrival to this emergency room. They reported that the patient is "holding his own", and then about 1 minute prior to arrival to this emergency room, became unresponsive. Upon initial arrival, the patient is breathing agonally, and requires [id number]-swqv ventilation. He is emergently intubated using RSI techniques. Please see procedure note. The patient is not able to describe the qualitative nature of symptoms, exacerbating factors, relieving factors or aggravating factors. The patient is not accompanied by friends or family at this time for collateral information or additional information. -: This morning - Related Data Home Medications Medication Instructions Recorded Confirmed Last Taken Albuterol Mdi (or & Nicu Only) 2 puff INHALATION DAILY 10/09/17 12/26/20 12/24/20 [ProAir HFA Inhaler] Aspirin [Adult Aspirin] 81 mg PO DAILY 10/09/17 12/26/20 12/25/20 Duloxetine HCl [Cymbalta] 1 cap PO DAILY 10/09/17 12/26/20 12/25/20 Insulin NPH Hum/Reg Insulin Hm 15 unit SQ QPM 01/17/20 12/26/20 Unknown [Humulin 70-30 Vial] Previous Rx's Medication Instructions Recorded Last Taken Type Amiodarone [Cordarone 200 MG TAB] 200 mg PO BID #60 01/24/20 12/25/20 Rx Ascorbic Acid [Vitamin C] 500 mg PO QDAY #100 tablet 01/24/20 12/25/20 Rx Atorvastatin Calcium [Lipitor] 80 mg PO QHS #30 01/24/20 12/24/20 Rx Bupropion HCl [Wellbutrin XL] 300 mg PO QAM 30 Days #30 01/24/20 12/26/20 Rx Furosemide [Lasix TAB] 40 mg PO QDAY #30 tablet 01/24/20 Unknown Rx Ibuprofen [Motrin 800 MG tab] 800 mg PO Q8HR PRN #90 01/24/20 12/25/20 Rx Insulin NPH/Regular [NovoLIN 70/30] 30 unit SUB-Q BID #2 vial 01/24/20 Unknown Rx Lidocaine [Lidocaine CREAM] 5 gm TP DAILY PRN #30 01/24/20 12/25/20 Rx Linagliptin [Tradjenta] 5 mg PO QDDIAB #30 tablet 01/24/20 Unknown Rx Losartan [Cozaar] 25 mg PO QDAY #30 tablet 01/24/20 12/25/20 Rx Multivitamin 1 each PO DAILY 30 Days #30 01/24/20 12/25/20 Rx Pantoprazole [Protonix TAB] 40 mg PO QDAY #30 01/24/20 12/25/20 Rx Potassium Chloride [K-Dur] 20 meq PO QDAY #30 01/24/20 Unknown Rx Sitagliptin Phosphate [Januvia] 100 mg PO DAILY #30 01/24/20 12/25/20 Rx Tamsulosin [Flomax] 1 cap PO DAILY #30 cap 01/24/20 12/25/20 Rx Torsemide [Demadex] 40 mg PO DAILY #30 01/24/20 Unknown Rx Triamcinolone Acetonide 0.5 applicatio TP TID #454 tube 01/24/20 Unknown Rx Zinc [Zinc 50mg TAB] 1 tab PO DAILY #30 01/24/20 12/24/20 Rx buPROPion XL [Wellbutrin XL] 300 mg PO QAM #30 tablet 01/24/20 12/25/20 Rx carvediloL [Coreg] 1 tab PO BID #60 01/24/20 12/25/20 Rx metFORMIN [Glucophage] 850 mg PO BID #60 01/24/20 12/25/20 Rx traMADoL [Ultram 50 MG tab] 50 mg PO BID #30 01/24/20 12/25/20 Rx predniSONE 10 mg PO .TAPER #48 tab 12/29/20 Unknown Rx Allergies Allergy/AdvReac Type Severity Reaction Status Date / Time morphine Allergy Rash Verified 09/11/17 08:51 ED Review of Systems ROS: Stated complaint: CARDIAC ARREST Other details as noted in HPI Comment: Unobtainable due to pts medical conditions ED Past Medical Hx - Past Medical History Hx Hypertension: Yes Hx Heart Attack/AMI: Yes Hx Congestive Heart Failure: Yes Hx Diabetes: Yes Hx Arthritis: Yes Hx Headaches / Migraines: Yes Hx COPD: Yes - Surgical History Hx Open Heart Surgery: Yes - Social History Smoking Status: Former Smoker - Medications Home Medications: Home Medications Medication Instructions Recorded Confirmed Last Taken Type Albuterol Mdi (or & Nicu Only) 2 puff INHALATION DAILY 10/09/17 12/26/20 12/24/20 History [ProAir HFA Inhaler] Aspirin [Adult Aspirin] 81 mg PO DAILY 10/09/17 12/26/20 12/25/20 History Duloxetine HCl [Cymbalta] 1 cap PO DAILY 10/09/17 12/26/20 12/25/20 History Insulin NPH Hum/Reg Insulin Hm 15 unit SQ QPM 01/17/20 12/26/20 Unknown History [Humulin 70-30 Vial] Amiodarone [Cordarone 200 MG TAB] 200 mg PO BID #60 01/24/20 12/26/20 12/25/20 Rx Ascorbic Acid [Vitamin C] 500 mg PO QDAY #100 tablet 01/24/20 12/26/20 12/25/20 Rx Atorvastatin Calcium [Lipitor] 80 mg PO QHS #30 01/24/20 12/26/20 12/24/20 Rx Bupropion HCl [Wellbutrin XL] 300 mg PO QAM 30 Days #30 01/24/20 12/26/20 12/26/20 Rx Furosemide [Lasix TAB] 40 mg PO QDAY #30 tablet 01/24/20 12/26/20 Unknown Rx Ibuprofen [Motrin 800 MG tab] 800 mg PO Q8HR PRN #90 01/24/20 12/26/20 12/25/20 Rx Insulin NPH/Regular [NovoLIN 70/30] 30 unit SUB-Q BID #2 vial 01/24/20 12/26/20 Unknown Rx Lidocaine [Lidocaine CREAM] 5 gm TP DAILY PRN #30 01/24/20 12/26/20 12/25/20 Rx Linagliptin [Tradjenta] 5 mg PO QDDIAB #30 tablet 01/24/20 12/26/20 Unknown Rx Losartan [Cozaar] 25 mg PO QDAY #30 tablet 01/24/20 12/26/20 12/25/20 Rx Multivitamin 1 each PO DAILY 30 Days #30 01/24/20 12/26/20 12/25/20 Rx Pantoprazole [Protonix TAB] 40 mg PO QDAY #30 01/24/20 12/26/20 12/25/20 Rx Potassium Chloride [K-Dur] 20 meq PO QDAY #30 01/24/20 12/26/20 Unknown Rx Sitagliptin Phosphate [Januvia] 100 mg PO DAILY #30 01/24/20 12/26/20 12/25/20 Rx Tamsulosin [Flomax] 1 cap PO DAILY #30 cap 01/24/20 12/26/20 12/25/20 Rx Torsemide [Demadex] 40 mg PO DAILY #30 01/24/20 12/26/20 Unknown Rx Triamcinolone Acetonide 0.5 applicatio TP TID #454 tube 01/24/20 12/26/20 Unknown Rx Zinc [Zinc 50mg TAB] 1 tab PO DAILY #30 01/24/20 12/26/20 12/24/20 Rx buPROPion XL [Wellbutrin XL] 300 mg PO QAM #30 tablet 1112/26/20 12/25/20 Rx carvediloL [Coreg] 1 tab PO BID #60 01/24/20 12/26/20 12/25/20 Rx metFORMIN [Glucophage] 850 mg PO BID #60 01/24/20 12/26/20 12/25/20 Rx traMADoL [Ultram 50 MG tab] 50 mg PO BID #30 01/24/20 12/26/20 12/25/20 Rx predniSONE 10 mg PO .TAPER #48 tab 12/29/20 Unknown Rx ED Physical Exam - General Limitations: Altered Mental Status, Physical Limitation General appearance: obtunded - Head Head exam: Present: atraumatic, normocephalic - Eye Eye exam: Present: normal appearance, EOMI - ENT ENT exam: Present: normal exam, normal orophraynx, mucous membranes moist, normal external ear exam - Neck Neck exam: Present: normal inspection. Absent: tenderness, meningismus - Respiratory Respiratory exam: Present: respiratory distress. Absent: stridor - Cardiovascular Cardiovascular Exam: Present: regular rate, irregular rhythm, other (Seen on mobility architect. Pulmonary auscultation not performed secondary to lack of disposable stethoscope). Absent: tachycardia - GI/Abdominal GI/Abdominal exam: Present: soft. Absent: distended, tenderness, guarding, rebound, rigid, pulsatile mass - Rectal Rectal exam: Present: normal inspection - exam: Present: normal inspection External exam: Present: normal external exam - Extremities Exam Extremities exam: Present: other (2+ pulses noted in the bilateral upper and lower extremities. There is no palpable cord. negative Homans sign. Muscular compartments are soft. The pelvis is stable.). Absent: normal inspection (Chronic venous stasis changes noted in the bilateral lower extremity) - Back Exam Back exam: Present: normal inspection. Absent: tenderness, CVA tenderness (R), muscle spasm, paraspinal tenderness, vertebral tenderness - Neurological Exam Neurological exam: Present: altered, other (The patient is nonverbal. The patient does not open his eyes. The patient is not moving extremities.) - Psychiatric Psychiatric exam: Present: other (The patient is nonverbal) - Skin Skin exam: Present: warm, dry, intact, normal color. Absent: rash ED Course Vital Signs 12/25/20 12/25/20 12/25/20 10:26 11:18 11:36 Temperature 96.9 F L Pulse Rate 58 L 66 68 Respiratory 20 16 Rate Blood Pressure 83/33 Blood Pressure 97/42 122/49 [Left] O2 Sat by Pulse 99 100 96 Oximetry 12/25/20 12/25/20 12/25/20 13:42 13:57 15:32 Temperature Pulse Rate 87 50 L 53 L Respiratory 20 16 Rate Blood Pressure 112/42 Blood Pressure 109/42 110/40 [Left] O2 Sat by Pulse 97 95 96 Oximetry 12/25/20 12/25/20 12/25/20 16:22 17:27 19:15 Temperature Pulse Rate 55 L 51 L Respiratory 20 20 Rate Blood Pressure 116/43 Blood Pressure 139/53 [Left] O2 Sat by Pulse 95 97 97 Oximetry - Reevaluation(s) Reevaluation #1: 12/25/20 10:21 Differential diagnosis, including but not limited to: Congestive heart failure, COPD exacerbation, pneumonia, COVID-19, pulmonary embolism, toxic encephalopathy, metabolic encephalopathy, urinary tract infection, intracranial lesion Assessment and plan: 60-year-old gentleman, Who is reported to have been alert and awake, moving 4 extremities, acute respiratory failure, requiring intubation and mechanical ventilation. Place patient on isolation. Start albuterol, Atrovent, steroids. Obtain appropriate laboratory studies, x-ray of the chest, CT scan of the brain, and CT angiogram of the chest. Post intubation sedation package, we will obtain critical care consultation to arrange for placement in the intensive care unit. Send Covid laboratory studies to assess for cytokine storm. Admit patient to the intensive care unit once initial diagnostics have resulted. Contacted critical care physician on-call, Dr. Webb. Discussed the patient's history, physical, plan of care, he is in agreement with admission into the intensive care unit. 12/25/20 11:06 X-ray of the chest reviewed and appreciated. Heart rate 69 bpm. Blood pressure high 90s. Arterial blood gas demonstrates pH of 7.515, PaCO2 42, PaO2 175, bicarb of 33. This is suspicious for a metabolic alkalosis. Given chest x-ray findings, vital signs, past medical history, we have concern for acute cardiac decompensation, and cardiogenic shock. We will therefore obtain stat cardiology consultation to assist in recommendations. In addition, pulmonary embolism is less likely at this point in time, especially given chest x-ray findings. 12/25/20 11:12 12/25/20 12:52 Blood pressure improved to 100 systolic, now in the high 80s. Seen by cardiology, Dr. Horton, supportive care recommended. Urinalysis suggestive of urinary tract infection, ceftriaxone ordered. Currently awaiting CT scan brain, CT angiogram chest Patient's presented. I discussed the details of the patient's case with the patient's . She articulated understanding. She states that both herself and the patient are up-to-date with COVID-19 vaccination. 12/25/20 12:54 12/25/20 14:16 Blood pressure 105 systolic. There is a delay in disposition and admission for this patient, as he has not received his CT scan. I called up the CAT scan department multiple times. They informed me that there is a patient currently on the table receiving a procedure, and this patient, Mr. Hickey, will be taken to CT scan as soon as is feasible. 12/25/20 15:[address] angio chest--> shows chf no PE Dr Abdulaziz Chambers to admit low dose lasix ordered Patients updated 12/25/20 15:35 - Consultations Consultation #1: 12/25/20 11:20 Discussed history, physical, x-ray findings and clinical impression with Elizabeth Brewer NP with [facility] They will come by and evaluate the patient shortly. - Intubation Time Out Performed: No (Emergency situation) Sedative: Ketamine Mg Given: 100 Paralytic: Rocuronium (100) Laryngoscope: fiberoptic video scope Size: 4 Assist Device Used: fiberoptic device ET Tube Size: 7.5 Tube Secured Depth (cm): 23 Tube Secured Location: teeth Tube Placement Confirmation: visualized tube passing t, equal breath sounds bilat, no breath sounds over epi, confirmation by capnometr Patient Tolerated Procedure: well Intubation Complications: none Additional Comments: Patient is receiving yrd-[id number]-[id number] ventilation. He is simultaneously placed on nasal cannula oxygen, 15 L/min. Patient placed on mobility architect, pulse oximetry, and blood pressure cuff patient induced with 100 mg of ketamine, paralyzed with 100 mg of rocuronium. Video laryngoscopy performed, and a 7.5 endotracheal tube is inserted through the trachea under direct visualization. The patient did not desaturate and there were no complications. The patient tolerated this procedure well. Post intubation, he has appropriate end-tidal capnography color change, symmetric chest rise, and condensation visualized on the endotracheal tube. ED Medical Decision Making - Lab Data Result diagrams: 12/28/20 09:17 12/29/20 04:19 Vital Signs 12/25/20 10:26 Pulse Rate 58 L Blood Pressure 83/33 O2 Sat by Pulse 99 Oximetry - EKG Data -: EKG Interpreted by De - EKG Data 12/25/20 10:26 The EKG is interpreted at 10: 17 Accelerated junctional rhythm, rate 62 bpm. Sinus pauses. QTC 565 ms. Abnormal EKG. Not a STEMI. Left axis deviation. 12/25/20 11:11 EKG #2 is interpreted at 11: 06 Sinus rhythm, 68 bpm. Left axis deviation, LAFB, QTC 5 5 7 ms, abnormal EKG, motion artifact, interventricular conduction delay. Abnormal EKG. Not a STEMI - Radiology Data Radiology results: pending, report reviewed, image reviewed CHEST 1 VIEW 12/25/2020 10:12 AM INDICATION / CLINICAL INFORMATION: ETT placement. COMPARISON: 01/17/2020 FINDINGS: SUPPORT DEVICES: Endotracheal tube is in good position at the level of the clavicles approximately 4.9 cm above jeff. Esophagogastric tube sidehole is in the midesophagus. HEART / MEDIASTINUM: Mild cardiomegaly. LUNGS / PLEURA: Small right pleural effusion and right basilar opacities favor atelectasis. Mild interstitial prominence suggestive of pulmonary edema. No pneumothorax. ADDITIONAL FINDINGS: Chronic appearing right-sided rib fractures. IMPRESSION: 1. Endotracheal tube in expected position. 2. Esophagogastric tube sidehole is in the midesophagus and needs to be advanced. 3. Mild cardiomegaly with small right pleural effusion and interstitial edema. Signer Name: Nirmal Green MD Signed: 12/25/2020 9:42 AM Workstation Name: [employer] CT head/brain wo con INDICATION / CLINICAL INFORMATION: 60 years Male; Altered Mental Status. TECHNIQUE: Routine CT head without contrast. All CT scans at this location are performed using CT dose reduction for ALARA by means of automated exposure control. Suboptimal patient positioning noted. COMPARISON: None. FINDINGS: BRAIN / INTRACRANIAL CONTENTS: No acute hemorrhage, mass effect, midline shift, hydrocephalus, or acute, large territorial infarct. Mild cerebral atrophy. There are minimal areas of decreased attenuation in the white matter of the cerebral hemispheres. These are nonspecific findings and may be related to microangiopathy (hypertension, diabetes, atherosclerosis), given the patient's age. It might be difficult to evaluate for small areas of ischemia without diffusion imaging by MRI. CRANIOCERVICAL JUNCTION: No significant abnormality. ORBITS: No significant abnormality of visualized orbits. SINUSES / MASTOIDS: Visualized paranasal sinuses and mastoid air cells are essentially clear. ADDITIONAL FINDINGS: Patient is intubated. NG tube noted as well. Atherosclerotic disease is seen in the anterior circulation. IMPRESSION: 1. No focal mass, hemorrhage, hydrocephalus, or acute, large territorial infarct. Signer Name: Tim Louis MD, III Signed: 12/25/2020 2:01 PM Workstation Name: [id number] CTA CHEST WITH CONTRAST INDICATION : resp failure chf vs pe 100 ML OMNI 350 . TECHNIQUE: Axial imaging performed through the chest, with contrast bolus timing set to maximize opacification of the pulmonary arteries. Sagittal and coronal reformatted images. 3-plane MIP reformatted images were obtained. All CT scans at this location are performed using CT dose reduction for ALARA by means of automated exposure control. 100 mL of intravenous contrast administered. COMPARISON: AP chest performed earlier today FINDINGS: Bolus: Contrast bolus timing is adequate. PTE: No filling defect is present to suggest PTE. Med iastinum: Mild cardiomegaly. No pericardial effusion. Mild atherosclerotic disease in the aorta. No aneurysm or dissection. No pathologic mediastinal adenopathy. Lungs: Moderate right pleural effusion and small left pleural effusion layer posteriorly. Mild congestive changes and bibasilar atelectatic changes are noted bilaterally. No evidence for pneumonia or pneumothorax. Bones: Degenerative changes in the spine with nothing acute. Upper abdomen: Limited imaging of the upper abdomen shows nothing acute. IMPRESSION: No evidence for pulmonary embolus. Findings compatible with mild to moderate CHF. Signer Name: Dash Walker Jr, MD Signed: 12/25/2020 2:02 PM Critical Care Time: Yes Critical care time in (mins) excluding proc time.: 45 Critical care attestation.: If time is entered above; I have spent that time in minutes in the direct care of this critically ill patient, excluding procedure time. ED Disposition Clinical Impression: Acute respiratory failure, Acute encephalopathy, Suspected COVID-19 virus infection, Pyuria, COVID-19 vaccine administered, CHF exacerbation Disposition: 09 ADMITTED INPATIENT Is pt being admited?: Yes Does the pt Need Aspirin: Yes Condition: Critical
[2020-12-25] MEDS ORDERED: KETAMINE 500 MG/5 ML VIAL MDV ONE (10:27)
--- NOTE | 2020-12-25 10:47 | XRay Report ---
CHEST 1 VIEW 12/25/2020 10:12 AM INDICATION / CLINICAL INFORMATION: ETT placement. COMPARISON: 01/17/2020 FINDINGS: SUPPORT DEVICES: Endotracheal tube is in good position at the level of the clavicles approximately 4. 9 cm above jeff. Esophagogastric tube sidehole is in the midesophagus. HEART / MEDIASTINUM: Mild cardiomegaly. LUNGS / PLEURA: Small right pleural effusion and right basilar opacities favor atelectasis. Mild inte rstitial prominence suggestive of pulmonary edema. No pneumothorax. ADDITIONAL FINDINGS: Chronic appearing right-sided rib fractures. IMPRESSION: 1. Endotracheal tube in expected position. 2. Esophagogastric tube sidehole is in the midesophagus and needs to be advanced. 3. Mild cardiomegaly with small right pleural effusion and interstitial edema. Signer Name: Nirmal Green MD Signed: 12/25/2020 10:42 AM Workstation Name: [id number]
[2020-12-25] MEDS ORDERED: MIDAZOLAM 100 MG in SODIUM CHLORIDE 0.9% 80 ML IV SCH (11:00)
[2020-12-25 11:21] LABS: Basophils # (Auto) 0.1 K/mm3 (0.0-0.1); Basophils % (Auto) 0.4 % (0.0-1.8); Eosinophils # (Auto) 0.2 K/mm3 (0.0-0.4); Eosinophils % (Auto) 1.2 % (0.0-4.3); Hematocrit 32.5 % (35.5-45.6); Hemoglobin 10.4 gm/dl (11.8-15.2); Lymphocytes # (Auto) 0.6 K/mm3 (1.2-5.4); Lymphocytes % (Auto) 4.6 % (13.4-35.0); Mean Corpuscular HGB Conc 32 % (32-34); Mean Corpuscular Volume 88 fl (84-94); Monocytes # (Auto) 1.1 K/mm3 (0.0-0.8); Monocytes % (Auto) 7.7 % (0.0-7.3); Platelet Count 249 K/mm3 (140-440); Red Blood Count 3.69 M/mm3 (3.65-5.03)
[2020-12-25 11:27] LABS: INR 0.98 (0.87-1.13); Partial Thromboplastin Time 28.6 Sec. (24.2-36.6)
[2020-12-25 11:45] LABS: Bilirubin,Urine NEG (Negative); Blood,Urine NEG (Negative); Color,Urine Amber (Yellow); Mucus,Urine FEW /HPF
[2020-12-25] MEDS ORDERED: cefTRIAXone/NS 2 GM/100 ML 2 GM/100 ML BAG IV ONE (11:53)
[2020-12-25 11:56] LABS: ABG Base Excess 9.5 mmol/L (-2.0-3.0); ABG HCO3 33.3 mmol/L (20.0-26.0); ABG Methemoglobin 0.3 % (0.0-1.5); ABG Oxygen Saturation 99.1 % (95.0-99.0); ABG PCO2 42.2 mm Hg; ABG PH 7.515 pH Units (7.350-7.450); ABG PO2 175.2 mm Hg (80.0-90.0)
[2020-12-25 11:57] LABS: Alanine Aminotransferase 20 units/L (7-56); Albumin 3.6 g/dL (3.9-5); BUN/Creatinine Ratio 31; Blood Urea Nitrogen 28 mg/dL (9-20); Calcium 9.2 mg/dL (8.4-10.2); Hemolysis Index 6
[2020-12-25] MEDS: fentaNYL DRIP Premix 2,000 MCG/100 ML BAG IV SCH ×2 (12:34→22:33)
[2020-12-25] MEDS: POTASSIUM CHLORIDE 10 MEQ 10 MEQ/100 ML BAG IV SCH ×4 (13:21→16:53)
--- NOTE | 2020-12-25 15:06 | Cat Scan Report ---
. CT head/brain wo con INDICATION / CLINICAL INFORMATION: 60 years Male; Altered Mental Status. TECHNIQUE: Routine CT head without contrast. All CT scans at this location are performed using CT dos e reduction for ALARA by means of automated exposure control. Suboptimal patient positioning noted. COMPARISON: None. FINDINGS: BRAIN / INTRACRANIAL CONTENTS: No acute hemorrhage, mass effect, midline shift, hydrocephalus, or acu te, large territorial infarct. Mild cerebral atrophy. There are minimal areas of decreased attenuation in the white matter of the cerebral hemispheres. The se are nonspecific findings and may be related to microangiopathy (hypertension, diabetes, atheroscle rosis), given the patient's age. It might be difficult to evaluate for small areas of ischemia withou t diffusion imaging by MRI. CRANIOCERVICAL JUNCTION: No significant abnormality. ORBITS: No significant abnormality of visualized orbits. SINUSES / MASTOIDS: Visualized paranasal sinuses and mastoid air cells are essentially clear. ADDITIONAL FINDINGS: Patient is intubated. NG tube noted as well. Atherosclerotic disease is seen in the anterior circulation. IMPRESSION: 1. No focal mass, hemorrhage, hydrocephalus, or acute, large territorial infarct. Signer Name: Tim Louis MD, III Signed: 12/25/2020 3:01 PM Workstation Name: [id number]
--- NOTE | 2020-12-25 15:07 | Cat Scan Report ---
CTA CHEST WITH CONTRAST INDICATION : resp failure chf vs pe 100 ML OMNI 350 . TECHNIQUE: Axial imaging performed through the chest, with contrast bolus timing set to maximize opa cification of the pulmonary arteries. Sagittal and coronal reformatted images. 3-plane MIP reformatte d images were obtained. All CT scans at this location are performed using CT dose reduction for ALAR A by means of automated exposure control. 100 mL of intravenous contrast administered. COMPARISON: AP chest performed earlier today FINDINGS: Bolus: Contrast bolus timing is adequate. PTE: No filling defect is present to suggest PTE. Mediastinum: Mild cardiomegaly. No pericardial effusion. Mild atherosclerotic disease in the aorta. No aneurysm or dissection. No pathologic mediastinal adenopathy. Lungs: Moderate right pleural effusion and small left pleural effusion layer posteriorly. Mild conge stive changes and bibasilar atelectatic changes are noted bilaterally. No evidence for pneumonia or p neumothorax. Bones: Degenerative changes in the spine with nothing acute. Upper abdomen: Limited imaging of the upper abdomen shows nothing acute. IMPRESSION: No evidence for pulmonary embolus. Findings compatible with mild to moderate CHF. Signer Name: Dash Walker Jr, MD Signed: 12/25/2020 3:02 PM Workstation Name: [id number]
[2020-12-25] MEDS ORDERED: FUROSEMIDE 20 MG/2 ML INJ IV ONE (15:35)
[2020-12-25] MEDS ORDERED: ASPIRIN 300 MG RECT SUPP PR ONE (15:36)
--- NOTE | 2020-12-25 16:17 | Consultation ---
History of Present Illness Consult date: 12/25/20 Requesting physician: UCHE LEAL Consult reason: congestive heart failure, other (cardiogenic shock) History of present illness: Patient is a 60y/o male with pmhx of Aortic stenosis, CAD, ischemic cardi omyopathy, HFrEF, coronary artery bypass surgery, and hypertension who was transported [facility] via EMS for respiratory arrest. History is taken from documentation due to patient being intubated and sedated at time of interview. The patient has been having difficulty breathing x 3 week and has been taking nebulizer therapy as treatment. Patient was being treated with nebulizers by EMS and prior to arriving became unresponsive. Patient recently had a negative COVID test on 12/13/2020. The patient is followed by Dr. Mondragon of our practice. Cardiology is consulted for CHF/ cardiogenic shock Past History Past Medical History: CAD, diabetes, heart failure, hypertension Past Surgical History: CABG Social history: , smoking (history) Family history: CAD, diabetes, stroke Medications and Allergies Allergies Allergy/AdvReac Type Severity Reaction Status Date / Time morphine Allergy Rash Verified 09/11/17 08:51 Home Medications Medication Instructions Recorded Confirmed Last Taken Type Albuterol Mdi (or & Nicu Only) 2 puff INHALATION DAILY 10/09/17 01/17/20 Unknown History [ProAir HFA Inhaler] Aspirin [Adult Aspirin] 81 mg PO DAILY 10/09/17 01/17/20 Unknown History Duloxetine HCl [Cymbalta] 1 cap PO DAILY 10/09/17 01/17/20 Unknown History Insulin NPH Hum/Reg Insulin Hm 15 unit SQ QPM 01/17/20 01/17/20 Unknown History [Humulin 70-30 Vial] Amiodarone [Cordarone 200 MG TAB] 200 mg PO BID #60 01/24/20 Unknown Rx Ascorbic Acid [Vitamin C] 500 mg PO QDAY #100 tablet 01/24/20 Unknown Rx Atorvastatin Calcium [Lipitor] 80 mg PO QHS #30 01/24/20 Unknown Rx Bupropion HCl [Wellbutrin XL] 300 mg PO QAM 30 Days #30 01/24/20 Unknown Rx Furosemide [Lasix TAB] 40 mg PO QDAY #30 tablet 01/24/20 Unknown Rx Ibuprofen [Motrin 800 MG tab] 800 mg PO Q8HR PRN #90 11/03/20 Unknown Rx Insulin NPH/Regular [NovoLIN 70/30] 30 unit SUB-Q BID #2 vial 01/24/20 Unknown Rx Lidocaine [Lidocaine CREAM] 5 gm TP DAILY PRN #30 01/24/20 Unknown Rx Linagliptin [Tradjenta] 5 mg PO QDDIAB #30 tablet 01/24/20 Unknown Rx Losartan [Cozaar] 25 mg PO QDAY #30 tablet 01/24/20 Unknown Rx Multivitamin 1 each PO DAILY 30 Days #30 01/24/20 Unknown Rx Pantoprazole [Protonix TAB] 40 mg PO QDAY #30 01/24/20 Unknown Rx Potassium Chloride [K-Dur] 20 meq PO QDAY #30 01/24/20 Unknown Rx Sitagliptin Phosphate [Januvia] 100 mg PO DAILY #30 01/24/20 Unknown Rx Tamsulosin [Flomax] 1 cap PO DAILY #30 cap 01/24/20 Unknown Rx Torsemide [Demadex] 40 mg PO DAILY #30 01/24/20 Unknown Rx Triamcinolone Acetonide 0.5 applicatio TP TID #454 tube 01/24/20 Unknown Rx Zinc [Zinc 50mg TAB] 1 tab PO DAILY #30 01/24/20 Unknown Rx buPROPion XL [Wellbutrin XL] 300 mg PO QAM #30 tablet 01/24/20 Unknown Rx carvediloL [Coreg] 1 tab PO BID #60 01/24/20 Unknown Rx metFORMIN [Glucophage] 850 mg PO BID #60 01/24/20 Unknown Rx traMADoL [Ultram 50 MG tab] 50 mg PO BID #30 01/24/20 Unknown Rx Active Meds: Active Medications Famotidine (Famotidine 20 Mg/2 Ml Inj) 20 mg IV BID SHANTE Fentanyl (Fentanyl 100 Mcg/2 Ml Inj) 50 mcg IV Q10MIN PRN PRN Reason: ANALGESIA Hydrophilic Ointment (Lip Therapy Vaseline) 1 applic TP Q2HR PRN PRN Reason: Dry Lips Fentanyl Citrate (Fentanyl Drip Premix) 2,000 mcg in 100 mls @ 5.715 mls/hr IV TITR SHANTE; Protocol Last Admin: 12/25/20 12:34 Dose: 1 mcg/kg/hr, 5.715 mls/hr Documented by: Midazolam HCl 100 mg/ Sodium (Chloride) 100 mls @ 2 mls/hr IV TITR SHATNE; Protocol Last Admin: 12/25/20 13:07 Dose: 2 mg/hr, 2 mls/hr Documented by: Potassium Chloride (Kcl 10meq/100ml) 10 meq in 100 mls @ 100 mls/hr IV Q1H SHANTE Stop: 12/25/20 16:59 Last Admin: 12/25/20 15:31 Dose: 100 mls/hr Documented by: Midazolam HCl (Midazolam 2 Mg/2 Ml Inj) 2 mg IV Q10MIN PRN PRN Reason: Sedation Multi-Ingred Cream/Lotion/Oil/Oint (Mineral Oil/Petrolatum, White Ophth Oint 3.5 Gm) 1 applic OU Q4HR PRN PRN Reason: Dry Eye(s) Senna/Docusate Sodium (Sennosides/Docusate Sodium 8.6/50 Mg Tab) 1 tab FEEDTUBE BID SHANTE Review of Systems ROS unobtainable: due to endotracheal tube, due to mental status Physical Examination Vital Signs Pulse BP Pulse Ox 58 L 83/33 99 12/25/20 10:26 12/25/20 10:26 12/25/20 10:26 General appearance: other (intubated and sedated) HEENT: Positive: PERRL Neck: Positive: trachea midline Cardiac: Positive: Irregularly Regular Lungs: Positive: Ventilated Respirations Neuro: Positive: Other (intubated and sedated) Abdomen: Positive: Soft, Active Bowel Sounds Skin: Negative: Rash, Suspicious Lesions, Ulceration Extremities: Present: upper extr. pulses, lower extr. pulses. Absent: edema Results 12/25/20 10:33 12/25/20 10:33 Cardiac Enzymes 12/25/20 Range/Units 10: AST 19 (5-40) units/L Lactate Dehydrogenase 150 (91-180) units/L Coagulation 12/25/20 Range/Units 10:33 PT 13.5 (12.2-14.9) Sec. INR 0.98 (0.87-1.13) APTT 28.6 (24.2-36.6) Sec. CBC 12/25/20 Range/Units 10:33 WBC 13.7 H (4.5-11.0) K/mm3 RBC 3.69 (3.65-5.03) M/mm3 Hgb 10.4 L (11.8-15.2) gm/dl Hct 32.5 L (35.5-45.6) % Plt Count 249 (140-440) K/mm3 Lymph # (Auto) 0.6 L (1.2-5.4) K/mm3 [place] # (Auto) 1.1 H (0.0-0.8) K/mm3 Eos # (Auto) 0.2 (0.0-0.4) K/mm3 Baso # (Auto) 0.1 (0.0-0.1) K/mm3 Comprehensive Metabolic Panel 12/25/20 Range/Units 10:33 Sodium 144 (137-145) mmol/L Potassium 3.4 L (3.6-5.0) mmol/L Chloride 95.6 L (98-107) mmol/L Carbon Dioxide 35 H (22-30) mmol/L BUN 28 H (9-20) mg/dL Creatinine 0.9 (0.8-1.3) mg/dL Glucose 213 H (75-100) mg/dL Calcium 9.2 (8.4-10.2) mg/dL AST 19 (5-40) units/L ALT 20 (7-56) units/L Alkaline Phosphatase 137 H (35-129) units/L Total Protein 7.3 (6.3-8.2) g/dL Albumin 3.6 L (3.9-5) g/dL - Imaging and Cardiology Echo: report reviewed Cardiac cath: report reviewed EKG: report reviewed, image reviewed EKG interpretations - Telemetry EKG Rhythm: Junctional - EKG Supraventricular dysrhythmia: junctional rhythm Assessment and Plan Patient is a 60y/o male with pmhx of Aortic stenosis, CAD, ischemic cardiomyopathy, HFrEF, coronary artery bypass surgery, and hypertension brought to [facility] for respiratory arrest Acute Respiratory Failure Elevated d-dimer * Patient intubated and sedated * CT chest shows no PE * COVID PCR pending * Pulmonology consulted CAD s/p CABG Ischemic cardiomyopathy HFrEF Hypertension * Echo 11/19/2020-EF 20 to 25% left ventricle is severely dilated, increased left atrial pressure and grade 2 diastolic dysfunction, right ventricle is mildly dilated, moderate to severe aortic valve stenosis, mild to moderate tricuspid regurgitation * [facility] 01/2020-severe diffuse [place] multivessel coronary artery disease with chronic total occlusions of mid left circumflex, proximal LAD and mid right coronary, patent [place] to LAD, patent SVG to the diagonal, patent SVG to OM tr unk, patent SVG to RCA, estimated EF 25-30, no evidence of aortic stent, moderate to severe mitral regurg * EKG shows no acute ischemic changes. Trop neg x1. BNP noted to be elevated Hypokalemia * Management per primary team Plan: Recommend supportive therapy. Low dose dopamine if needed. Patient seen in conjunction with Dr. Horton who agrees with this plan of care. Will continue to follow. 30min of critical care time spent in the care and coordination of this patient - Patient Problems (1) CHF exacerbation Current Visit: Yes Status: Acute (2) Hypertension Current Visit: No Status: Chronic Qualifiers: Hypertension type: essential hypertension Qualified Code(s): I10 - Essential (primary) hypertension (3) Ischemic cardiomyopathy Current Visit: No Status: Chronic (4) CAD (coronary artery disease) Current Visit: No Status: Chronic (5) History of coronary artery bypass graft Current Visit: No Status: Chronic (6) Obesity Current Visit: No Status: Chronic (7) DM2 (diabetes mellitus, type 2) Current Visit: No Status: Chronic (8) Tricuspid regurgitation Current Visit: No Status: Chronic (9) Pulmonary HTN Current Visit: No Status: Chronic (10) Acute respiratory failure Current Visit: Yes Status: Acute
--- NOTE | 2020-12-25 17:33 | History and Physical Report ---
History of Present Illness Date of examination: 12/25/20 Date of admission: 12/25/20 15:37 Chief complaint: Increasing shortness of breath for 3 weeks History of present illness: 60-year-old with history of hypertension, congestive heart failure, diabetes and coronary artery disease with status post coronary artery bypass surgery who was brought in by EMS for respiratory arrest. Patient has altered sensorium. Patient was brought into the emergency room by [id number] ventilation. Accu-Chek in the field was normal. Apparently patient was having shortness of breath for 3 weeks and was using his nebulizer therapy with no relief. Patient was having orthopnea and paroxysmal nocturnal dyspnea. Patient became unresponsive prior to arrival in the emergency room a few seconds ago. In the emergency room the patient respiration was abnormal and the ER physician Dr. Ford intubated the patient with RSI technique the patient is not accompanied by family or friends. Vaccination status is not known. Patient blood pressure was running a bit low. - Past Medical History --Hypertension: Yes --Heart Attack/AMI: Yes --Congestive Heart Failure: Yes --Diabetes: Yes --Arthritis: Yes --Headaches / Migraines: Yes --COPD: Yes - Surgical History --Open Heart Surgery: Yes - Social History --Smoking Status: Former Smoker - Family history --Hypertension: Review of Systems ROS: Stated complaint: CARDIAC ARREST Other details as noted in HPI Comment: Unobtainable due to pts medical conditions Past History Past Medical History: CAD, diabetes, heart failure, hypertension Past Surgical History: CABG Social history: , smoking (history) Family history: CAD, diabetes, stroke Medications and Allergies Allergies Allergy/AdvReac Type Severity Reaction Status Date / Time morphine Allergy Rash Verified 09/11/17 08:51 Home Medications Medication Instructions Recorded Confirmed Last Taken Type Albuterol Mdi (or & Nicu Only) 2 puff INHALATION DAILY 10/09/17 01/17/20 Unknown History [ProAir HFA Inhaler] Aspirin [Adult Aspirin] 81 mg PO DAILY 10/09/17 01/17/20 Unknown History Duloxetine HCl [Cymbalta] 1 cap PO DAILY 10/09/17 01/17/20 Unknown History Insulin NPH Hum/Reg Insulin Hm 15 unit SQ QPM 01/17/20 01/17/20 Unknown History [Humulin 70-30 Vial] Amiodarone [Cordarone 200 MG TAB] 200 mg PO BID #60 01/24/20 Unknown Rx Ascorbic Acid [Vitamin C] 500 mg PO QDAY #100 tablet 01/24/20 Unknown Rx Atorvastatin Calcium [Lipitor] 80 mg PO QHS #30 01/24/20 Unknown Rx Bupropion HCl [Wellbutrin XL] 300 mg PO QAM 30 Days #30 01/24/20 Unknown Rx Furosemide [Lasix TAB] 40 mg PO QDAY #30 tablet 01/24/20 Unknown Rx Ibuprofen [Motrin 800 MG tab] 800 mg PO Q8HR PRN #90 01/24/20 Unknown Rx Insulin NPH/Regular [NovoLIN 70/30] 30 unit SUB-Q BID #2 vial 01/24/20 Unknown Rx Lidocaine [Lidocaine CREAM] 5 gm TP DAILY PRN #30 01/24/20 Unknown Rx Linagliptin [Tradjenta] 5 mg PO QDDIAB #30 tablet 01/24/20 Unknown Rx Losartan [Cozaar] 25 mg PO QDAY #30 tablet 01/24/20 Unknown Rx Multivitamin 1 each PO DAILY 30 Days #30 01/24/20 Unknown Rx Pantoprazole [Protonix TAB] 40 mg PO QDAY #30 01/24/20 Unknown Rx Potassium Chloride [K-Dur] 20 meq PO QDAY #30 01/24/20 Unknown Rx Sitagliptin Phosphate [Januvia] 100 mg PO DAILY #30 01/24/20 Unknown Rx Tamsulosin [Flomax] 1 cap PO DAILY #30 cap 01/24/20 Unknown Rx Torsemide [Demadex] 40 mg PO DAILY #30 01/24/20 Unknown Rx Triamcinolone Acetonide 0.5 applicatio TP TID #454 tube 01/24/20 Unknown Rx Zinc [Zinc 50mg TAB] 1 tab PO DAILY #30 01/24/20 Unknown Rx buPROPion XL [Wellbutrin XL] 300 mg PO QAM #30 tablet 01/24/20 Unknown Rx carvediloL [Coreg] 1 tab PO BID #60 01/24/20 Unknown Rx metFORMIN [Glucophage] 850 mg PO BID #60 01/24/20 Unknown Rx traMADoL [Ultram 50 MG tab] 50 mg PO BID #30 01/24/20 Unknown Rx Active Meds: Active Medications Famotidine (Famotidine 20 Mg/2 Ml Inj) 20 mg IV BID SHANTE Fentanyl (Fentanyl 100 Mcg/2 Ml Inj) 50 mcg IV Q10MIN PRN PRN Reason: ANALGESIA Hydrophilic Ointment (Lip Therapy Vaseline) 1 applic TP Q2HR PRN PRN Reason: Dry Lips Fentanyl Citrate (Fentanyl Drip Premix) 2,000 mcg in 100 mls @ 5.715 mls/hr IV TITR SHANTE; Protocol Last Admin: 12/25/20 12:34 Dose: 1 mcg/kg/hr, 5.715 mls/hr Documented by: Midazolam HCl 100 mg/ Sodium (Chloride) 100 mls @ 2 mls/hr IV TITR SHANTE; Protocol Last Admin: 12/25/20 13:07 Dose: 2 mg/hr, 2 mls/hr Documented by: Midazolam HCl (Midazolam 2 Mg/2 Ml Inj) 2 mg IV Q10MIN PRN PRN Reason: Sedation Multi-Ingred Cream/Lotion/Oil/Oint (Mineral Oil/Petrolatum, White Ophth Oint 3.5 Gm) 1 applic OU Q4HR PRN PRN Reason: Dry Eye(s) Senna/Docusate Sodium (Sennosides/Docusate Sodium 8.6/50 Mg Tab) 1 tab FEEDTUBE BID SHANTE Exam - Physical Exam Narrative exam: Patient is intubatedand sedated - Constitutional Vitals: Temp Pulse Resp BP Pulse Ox 96.9 F L 51 L 20 139/53 97 12/25/20 11:18 12/25/20 17:27 12/25/20 17:27 12/25/20 17:27 12/25/20 17:27 General appearance: Present: severe distress, well-nourished, obese - EENT ENT: clear oral mucosa - Neck Neck: Present: supple, normal ROM - Respiratory Respiratory effort: normal Respiratory: bilateral: CTA, rales, rhonchi - Cardiovascular Heart rate: 100 Rhythm: regular Heart Sounds: Present: S1 & S2. Absent: rub, click - Extremities Extremities: no ischemia, pulses intact, pulses symmetrical, No edema Peripheral Pulses: within normal limits - Abdominal General gastrointestinal: Present: soft, non-tender, non-distended, normal bowel sounds Male genitourinary: Present: normal - Rectal Rectal Exam: deferred - Integumentary Integumentary: Present: clear, warm, dry - Musculoskeletal Musculoskeletal: gait normal, strength equal bilaterally - Psychiatric Psychiatric: appropriate mood/affect, intact judgment & insight - Neurologic Neurologic: other (Patient intubated and neuro exam could not be done) - Allied Health Allied health notes reviewed: nursing, case management HEART Score - HEART Score Troponin: Troponin T 0.014 ng/mL (0.00-0.029) 12/25/20 10:33 Results - Labs CBC & Chem 7: 12/25/20 10:33 12/25/20 10:33 Labs: Laboratory Last Values WBC 13.7 K/mm3 (4.5-11.0) H 12/25/20 10:33 RBC 3.69 M/mm3 (3.65-5.03) 12/25/20 10:33 Hgb 10.4 gm/dl (11.8-15.2) L 12/25/20 10:33 Hct 32.5 % (35.5-45.6) L 12/25/20 10:33 MCV 88 fl (84-94) 12/25/20 10:33 MCH 28 pg (28-32) 12/25/20 10:33 MCHC 32 % (32-34) 12/25/20 10:33 RDW 15.0 % (13.2-15.2) 12/25/20 10:33 Plt Count 249 K/mm3 (140-440) 12/25/20 10:33 Lymph % (Auto) 4.6 % (13.4-35.0) L 12/25/20 10:33 [place] % (Auto) 7.7 % (0.0-7.3) H 12/25/20 10:33 Eos % (Auto) 1.2 % (0.0-4.3) 12/25/20 10:33 Baso % (Auto) 0.4 % (0.0-1.8) 12/25/20 10:33 Lymph # (Auto) 0.6 K/mm3 (1.2-5.4) L 12/25/20 10:33 [place] # (Auto) 1.1 K/mm3 (0.0-0.8) H 12/25/20 10:33 Eos # (Auto) 0.2 K/mm3 (0.0-0.4) 12/25/20 10:33 Baso # (Auto) 0.1 K/mm3 (0.0-0.1) 12/25/20 10:33 Seg Neutrophils % 86.1 % (40.0-70.0) H 12/25/20 10:33 Seg Neutrophils # 11.8 K/mm3 (1.8-7.7) H 12/25/20 10:33 PT 13.5 Sec. (12.2-14.9) 12/25/20 10:33 INR 0.98 (0.87-1.13) 12/25/20 10:33 APTT 28.6 Sec. (24.2-36.6) 12/25/20 10:33 D-Dimer 1539.09 ng/mlDDU (0-234) H 12/25/20 10:33 ABG pH 7.515 pH Units (7.350-7.450) H 12/25/20 10:40 ABG pCO2 42.2 mm Hg 12/25/20 10:40 ABG pO2 175.2 mm Hg (80.0-90.0) H 12/25/20 10:40 ABG HCO3 33.3 mmol/L (20.0-26.0) H 12/25/20 10:40 ABG O2 Saturation 99.1 % (95.0-99.0) H 12/25/20 10:40 ABG Base Excess 9.5 mmol/L (-2.0-3.0) H 12/25/20 10:40 ABG Hemoglobin 10.6 gm/dl (14.0-18.0) L 12/25/20 10:40 ABG Carboxyhemoglobin 1.5 % (0.0-5.0) 12/25/20 10:40 ABG Methemoglobin 0.3 % (0.0-1.5) 12/25/20 10:40 Oxyhemoglobin 97.3 % (95.0-99.0) 12/25/20 10:40 FiO2 60.0 % 12/25/20 10:40 Sodium 144 mmol/L (137-145) 12/25/20 10:33 Potassium 3.4 mmol/L (3.6-5.0) L 12/25/20 10:33 Chloride 95.6 mmol/L (98-107) L 12/25/20 10:33 Carbon Dioxide 35 mmol/L (22-30) H 12/25/20 10:33 Anion Gap 17 mmol/L 12/25/20 10:33 BUN 28 mg/dL (9-20) H 12/25/20 10:33 Creatinine 0.9 mg/dL (0.8-1.3) 12/25/20 10:33 Estimated GFR > 60 ml/min 12/25/20 10:33 BUN/Creatinine Ratio 31 % 12/25/20 10:33 Glucose 213 mg/dL (75-100) H 12/25/20 10:33 Lactic Acid 0.90 mmol/L (0.7-2.0) 12/25/20 10:33 Calcium 9.2 mg/dL (8.4-10.2) 12/25/20 10:33 Ferritin 144.9 ng/mL (30.0-300.0) 12/25/20 10:33 Total Bilirubin 0.70 mg/dL (0.1-1.2) 12/25/20 10:33 AST 19 units/L (5-40) 12/25/20 10:33 ALT 20 units/L (7-56) 12/25/20 10:33 Alkaline Phosphatase 137 units/L (35-129) H 12/25/20 10:33 Ammonia 43.0 umol/L (25-60) 12/25/20 10:33 Lactate Dehydrogenase 150 units/L (91-180) 12/25/20 10:33 Total Creatine Kinase 25 units/L (55-170) L 12/25/20 10:33 Troponin T 0.014 ng/mL (0.00-0.029) 12/25/20 10:33 C-Reactive Protein 5.90 mg/dL (0.00-1.30) H 12/25/20 10:33 NT-Pro-B Natriuret Pep 1338 pg/mL (0-900) H 12/25/20 10:33 Total Protein 7.3 g/dL (6.3-8.2) 12/25/20 10:33 Albumin 3.6 g/dL (3.9-5) L 12/25/20 10:33 Albumin/Globulin Ratio 1.0 % 12/25/20 10:33 Procalcitonin 0.09 ng/mL (<0.15) 12/25/20 10:33 TSH 0.944 mlU/mL (0.270-4.200) 12/25/20 10:33 Urine Color [place] (Yellow) 12/25/20 11:17 Urine Turbidity Hazy (Clear) 12/25/20 11:17 Urine pH 5.0 (5.0-7.0) 12/25/20 11:17 Ur Specific [place] 1.010 (1.003-1.030) 12/25/20 11:17 Urine Protein 30 mg/dl mg/dL (Negative) 12/25/20 11:17 Urine Glucose (UA) Neg mg/dL (Negative) 12/25/20 11:17 Urine Ketones Neg mg/dL (Negative) 12/25/20 11:17 Urine Blood Neg (Negative) 12/25/20 11:17 Urine Nitrite Pos (Negative) 12/25/20 11:17 Urine Bilirubin Neg (Negative) 12/25/20 11:17 Urine Urobilinogen 4.0 mg/dL (<2.0) 12/25/20 11:17 Ur Leukocyte Esterase Lg (Negative) 12/25/20 11:17 Urine WBC (Auto) 69.0 /HPF (0.0-6.0) H 12/25/20 11:17 Urine RBC (Auto) 1.0 /HPF (0.0-6.0) 12/25/20 11:17 Urine Mucus Few /HPF 12/25/20 11:17 Salicylates < 0.3 mg/dL (2.8-20.0) L 12/25/20 10:33 Acetaminophen 5.0 ug/mL (10.0-30.0) L 12/25/20 10:33 Plasma/Serum Alcohol < 0.01 % (0-0.07) 12/25/20 10:33 Blood Type O POSITIVE 12/25/20 10:47 Antibody Screen Negative 12/25/20 10:47 Microbiology: Microbiology 12/25/20 10:33 Peripheral/Venous Blood Culture - Preliminary Culture in Progress 12/25/20 10:33 Peripheral/Venous Blood Culture - Preliminary Culture in Progress - Imaging and Cardiology EKG: report reviewed (Sinus tachycardia) Chest x-ray: report reviewed CT scan - chest: report reviewed Imaging and Cardiology: Chest x-ray Endotracheal tube in place Esophagogastric tube sidehole is in the mid esophagus and needs to be advanced Mild cardiomegaly with small right pleural effusion and interstitial edema. Head CT No acute findings Chest CTA No evidence for pulmonary embolus Assessment and Plan Assessment and plan: Critical care statement The high probability OF a clinically significant sudden or life-threatening deterioration of the cardiorespiratory system and endocrine system required my full and direct attention, intervention and postoperative management. The aggregate critical care time was 40 minutes. The time is in addition to time spent performing reported procedures but includes the followin: Data review and interpretation 2: Patient assessment and monitoring of vital signs 3: Documentation 4:: Medication orders and management Advance Directives: Yes (Full code) Plan of care discussed with patient/family: Yes - Patient Problems (1) Acute encephalopathy Current Visit: Yes Status: Acute Plan to address problem: Secondary to hypoxia and respiratory failure Patient intubated Continue vent support (2) Acute and chronic respiratory failure with hypoxia Current Visit: No Status: Acute Plan to address problem: Patient intubated Continue nebulizer treatments and IV Lasix and IV antibiotics Also IV Solu-Medrol at 60 mg every 8 Computer Education Professor consult requested by Dr. Webb (3) SIRS (systemic inflammatory response syndrome) Current Visit: Yes Status: Acute Plan to address problem: Clinical picture consistent with Sirs All inflammatory markers are elevated (4) Acute on chronic HFrEF (heart failure with reduced ejection fraction) Current Visit: No Status: Acute Plan to address problem: Echocardiogram for ejection fraction IV Lasix as tolerated within the blood pressure parameters of 90-120 systolic Daily weights and intake and output Cardiology consult requested (5) COPD exacerbation Current Visit: Yes Status: Acute Plan to address problem: Nebulizer treatments IV Solu-Medrol and IV antibiotics (6) Hypertension Current Visit: Yes Status: Chronic Qualifiers: Hypertension type: primary hypertension Qualified Code(s): I10 - Essential (primary) hypertension Plan to address problem: Patient is borderline hypotensive Resume antihypertensives when blood pressures go up (7) T2DM (type 2 diabetes mellitus) Current Visit: Yes Status: Chronic Qualifiers: Diabetes mellitus fdc insulin use: unspecified fdc insulin use status Plan to address problem: Coverage for now Check hemoglobin A1c (8) Hypokalemia Current Visit: Yes Status: Acute Plan to address problem: Supplemented (9) DVT prophylaxis Current Visit: Yes Status: Acute Plan to address problem: On heparin and GI prophylaxis
[2020-12-25] MEDS ORDERED: IPRATROPIUM/ALBUTEROL SULFATE 3 ML AMPUL.NEB IH PRN (17:40)
[2020-12-25] MEDS ORDERED: ALBUTEROL 2.5 MG/3 ML NEBU IH PRN (19:04)
[2020-12-25] MEDS ORDERED: ACETAMINOPHEN 325 MG TAB PO PRN (19:43)
[2020-12-25] MEDS ORDERED: METOCLOPRAMIDE 10 MG/2 ML INJ IV PRN (19:43)
[2020-12-25] MEDS ORDERED: MORPHINE 2 MG/1 ML INJ IV PRN (19:43)
[2020-12-25] MEDS ORDERED: HYDROmorphone 1 MG/1 ML INJ IV PRN (19:43)
[2020-12-25] MEDS ORDERED: ONDANSETRON 4 MG/2 ML INJ IV PRN (19:43)
[2020-12-25] MEDS ORDERED: NON-FORMULARY EACH (Duloxetine Hcl [Cymbalta] 60 MG Capsule.Dr) PO SCH (19:45)
[2020-12-25] MEDS ORDERED: SODIUM CHLORIDE 0.9% 1000 ML 1,000 ML IV SCH (19:45)
[2020-12-25] MEDS: INSULIN LISPRO 100 UNIT/ML SUB-Q SCH ×2 (19:48→23:30)
[2020-12-25] MEDS: IPRATROPIUM/ALBUTEROL SULFATE 3 ML AMPUL.NEB IH SCH (21:43)
[2020-12-25] MEDS ORDERED: INSULIN NPH/REGULAR 70/30 INJ SUB-Q SCH (22:00)
[2020-12-25] MEDS ORDERED: HEPARIN 5,000 UNIT/1 ML VIAL SUB-Q SCH (22:00)
--- NOTE | 2020-12-25 22:00 | XRay Report ---
ABDOMEN 1 VIEW(S) 12/25/2020 8:51 PM INDICATION / CLINICAL INFORMATION: NGT PLACEMENT. COMPARISON: None available. FINDINGS: The tip of an esophagogastric tube projects over the body of the stomach in expected position. Signer Name: Naresh Ramirez MD Signed: 12/25/2020 9:55 PM Workstation Name: [id number]
[2020-12-25] MEDS: SENNOSIDES/DOCUSATE SODIUM 8.6/50 MG TAB FEEDTUBE SCH (22:27)
[2020-12-25] MEDS: FAMOTIDINE 20 MG/2 ML INJ IV SCH (22:27)
[2020-12-25] MEDS: methylPREDNISolone Sod Succinate 125 MG/2 ML INJ IV SCH (22:27)
[2020-12-25] MEDS: HEPARIN 5,000 UNIT/1 ML VIAL SUB-Q SCH (22:27)
[2020-12-25] MEDS: carvediloL 3.125 MG TAB PO SCH (22:27)
[2020-12-25] MEDS: INSULIN GLARGINE 100 UNITS/ML SUB-Q SCH (22:28)
[2020-12-25] MEDS: POTASSIUM CHLORIDE ER 20 MEQ TAB PO SCH (22:28)
[2020-12-25] MEDS: AMIODARONE 200 MG TAB PO SCH (22:29)
[2020-12-25] MEDS: DULoxetine 30 MG CAP PO SCH (22:30)
--- NOTE | 2020-12-26 04:04 | XRay Report ---
CHEST 1 VIEW INDICATION / CLINICAL INFORMATION: follow up respiratory failure. Respiratory distress FINDINGS: SUPPORT DEVICES: No significant change in position. HEART / MEDIASTINUM: The cardiomediastinal silhouette has not significantly changed in the interim. LUNGS / PLEURA: Persistent bilateral interstitial edema pleural effusions. Signer Name: Stephane Swan MD Signed: 12/26/2020 4:00 AM Workstation Name: [id number]
[2020-12-26] MEDS: methylPREDNISolone Sod Succinate 125 MG/2 ML INJ IV SCH ×3 (05:05→21:02)
[2020-12-26 05:16] LABS: ABG PCO2 54.6 mm Hg; ABG PH 7.396 pH Units (7.350-7.450)
[2020-12-26 05:17] LABS: ABG Base Excess 6.8 mmol/L (-2.0-3.0); ABG HCO3 32.8 mmol/L (20.0-26.0); ABG Methemoglobin 0.4 % (0.0-1.5); ABG Oxygen Saturation 94.2 % (95.0-99.0); ABG PO2 69.3 mm Hg (80.0-90.0)
[2020-12-26] MEDS: INSULIN LISPRO 100 UNIT/ML SUB-Q SCH ×3 (05:36→22:23)
[2020-12-26] MEDS ORDERED: FUROSEMIDE 40 MG/4 ML INJ IV SCH (06:00)
[2020-12-26] MEDS: IPRATROPIUM/ALBUTEROL SULFATE 3 ML AMPUL.NEB IH SCH ×4 (08:28→21:09)
[2020-12-26] MEDS: SENNOSIDES/DOCUSATE SODIUM 8.6/50 MG TAB FEEDTUBE SCH (09:57)
[2020-12-26] MEDS: ASPIRIN 81 MG TAB CHEW PO SCH (09:58)
[2020-12-26] MEDS: AMIODARONE 200 MG TAB PO SCH (09:58)
[2020-12-26] MEDS: FAMOTIDINE 20 MG/2 ML INJ IV SCH ×2 (09:58→21:02)
[2020-12-26] MEDS: carvediloL 3.125 MG TAB PO SCH ×2 (10:00→21:14)
[2020-12-26] MEDS ORDERED: POTASSIUM CHLORIDE 20 MEQ PACKET FEEDTUBE SCH (10:00)
[2020-12-26] MEDS ORDERED: NON-FORMULARY EACH (Bupropion Hcl [Wellbutrin Xl] 300 MG Tab.Er.24h) PO SCH (10:00)
[2020-12-26] MEDS: HEPARIN 5,000 UNIT/1 ML VIAL SUB-Q SCH ×2 (10:07→21:02)
[2020-12-26] MEDS: buPROPion 100 MG TAB PO SCH ×2 (10:35→21:04)
[2020-12-26] MEDS ORDERED: LIPASE 10,500/PROTEASE 25,000/AMYLASE 43,750 (UNITS) DR CAP FEEDTUBE PRN (11:33)
[2020-12-26] MEDS ORDERED: SODIUM BICARBONATE 325 MG TAB FEEDTUBE PRN (11:33)
[2020-12-26] MEDS ORDERED: SIMPLE SYRUP 15 ML FEEDTUBE PRN ×2 (11:33)
--- NOTE | 2020-12-26 11:39 | Consultation ---
History of Present Illness Consult date: 12/26/20 Requesting physician: UCHE LEAL Reason for consult: other (altered mental state) History of present illness: 60 y/o male intubated in ED secondary to unresponsiveness. has CHF (systolic) based on records. Awake and alert now that all sedation is off. Following commands on very minimal vent settings. Past History Past Medical History: CAD, diabetes, heart failure, hypertension Past Surgical History: CABG Social history: , smoking (history) Family history: CAD, diabetes, stroke Medications and Allergies Allergies Allergy/AdvReac Type Severity Reaction Status Date / Time morphine Allergy Rash Verified 09/11/17 08:51 Home Medications Medication Instructions Recorded Confirmed Last Taken Type Albuterol Mdi (or & Nicu Only) 2 puff INHALATION DAILY 10/09/17 12/26/20 12/24/20 History [ProAir HFA Inhaler] Aspirin [Adult Aspirin] 81 mg PO DAILY 10/09/17 12/26/20 12/25/20 History Duloxetine HCl [Cymbalta] 1 cap PO DAILY 10/09/17 12/26/20 12/25/20 History Insulin NPH Hum/Reg Insulin Hm 15 unit SQ QPM 01/17/20 12/26/20 Unknown History [Humulin 70-30 Vial] Amiodarone [Cordarone 200 MG TAB] 200 mg PO BID #60 01/24/20 12/26/20 12/25/20 Rx Ascorbic Acid [Vitamin C] 500 mg PO QDAY #100 tablet 01/24/20 12/26/20 12/25/20 Rx Atorvastatin Calcium [Lipitor] 80 mg PO QHS #30 01/24/20 12/26/20 12/24/20 Rx Bupropion HCl [Wellbutrin XL] 300 mg PO QAM 30 Days #30 01/24/20 12/26/20 12/26/20 Rx Furosemide [Lasix TAB] 40 mg PO QDAY #30 tablet 01/24/20 12/26/20 Unknown Rx Ibuprofen [Motrin 800 MG tab] 800 mg PO Q8HR PRN #90 01/24/20 12/26/20 12/25/20 Rx Insulin NPH/Regular [NovoLIN 70/30] 30 unit SUB-Q BID #2 vial 01/24/20 12/26/20 Unknown Rx Lidocaine [Lidocaine CREAM] 5 gm TP DAILY PRN #30 01/24/20 12/26/20 12/25/20 Rx Linagliptin [Tradjenta] 5 mg PO QDDIAB #30 tablet 01/24/20 12/26/20 Unknown Rx Losartan [Cozaar] 25 mg PO QDAY #30 tablet 01/24/20 12/26/20 12/25/20 Rx Multivitamin 1 each PO DAILY 30 Days #30 01/24/20 12/26/20 12/25/20 Rx Pantoprazole [Protonix TAB] 40 mg PO QDAY #30 01/24/20 12/26/20 12/25/20 Rx Potassium Chloride [K-Dur] 20 meq PO QDAY #30 01/24/20 12/26/20 Unknown Rx Sitagliptin Phosphate [Januvia] 100 mg PO DAILY #30 01/24/20 12/26/20 12/25/20 Rx Tamsulosin [Flomax] 1 cap PO DAILY #30 cap 01/24/20 12/26/20 12/25/20 Rx Torsemide [Demadex] 40 mg PO DAILY #30 01/24/20 12/26/20 Unknown Rx Triamcinolone Acetonide 0.5 applicatio TP TID #454 tube 01/24/20 12/26/20 Unknown Rx Zinc [Zinc 50mg TAB] 1 tab PO DAILY #30 01/24/20 12/26/20 12/24/20 Rx buPROPion XL [Wellbutrin XL] 300 mg PO QAM #30 tablet 01/24/20 12/26/20 12/25/20 Rx carvediloL [Coreg] 1 tab PO BID #60 01/24/20 12/26/20 12/25/20 Rx metFORMIN [Glucophage] 850 mg PO BID #60 01/24/20 12/26/20 12/25/20 Rx traMADoL [Ultram 50 MG tab] 50 mg PO BID #30 01/24/20 12/26/20 12/25/20 Rx Active Meds: Active Medications Acetaminophen (Acetaminophen 325 Mg Tab) 650 mg PO Q4H PRN PRN Reason: Pain MILD(1-3)/Fever >100.5/MORTENSEN Albuterol (Albuterol 2.5 Mg/3 Ml Nebu) 2.5 mg IH Q3HRT PRN PRN Reason: Shortness Of Breath Albuterol/Ipratropium (Ipratropium/Albuterol Sulfate 3 Ml Ampul.Neb) 1 ampul IH QIDRT [facility] Last Admin: 12/26/20 08:28 Dose: 1 ampul Documented by: Amiodarone HCl (Amiodarone 200 Mg Tab) 200 mg PO BID [facility] Last Admin: 12/26/20 09:58 Dose: 200 mg Documented by: Aspirin (Aspirin 81 Mg Tab Chew) 81 mg PO QDAY [facility] Last Admin: 12/26/20 09:58 Dose: 81 mg Documented by: Bupropion HCl (Bupropion 100 Mg Tab) 150 mg PO BID [facility] Last Admin: 12/26/20 10:35 Dose: 150 mg Documented by: Carvedilol (Carvedilol 3.125 Mg Tab) 3.125 mg PO BID [facility] Last Admin: 12/25/20 22:27 Dose: 3.125 mg Documented by: Duloxetine HCl (Duloxetine 30 Mg Cap) 60 mg PO QDAY [facility] Last Admin: 12/25/20 22:30 Dose: 60 mg Documented by: Famotidine (Famotidine 20 Mg/2 Ml Inj) 20 mg IV BID [facility] Last Admin: 12/26/20 09:58 Dose: 20 mg Documented by: Furosemide (Furosemide 40 Mg/4 Ml Inj) 40 mg IV 0600,1800 [facility] Last Admin: 12/26/20 05:05 Dose: 40 mg Documented by: Heparin Sodium (Porcine) (Heparin 5,000 Unit/1 Ml Vial) 5,000 unit SUB-Q Q12HR [facility] Last Admin: 12/26/20 10:07 Dose: 5,000 unit Documented by: Hydrophilic Ointment (Lip Therapy Vaseline) 1 applic TP Q2HR PRN PRN Reason: Dry Lips Insulin Glargine (Insulin Glargine 100 Units/Ml) 15 units SUB-Q QHS [facility] Last Admin: 12/25/20 22:28 Dose: 15 units Documented by: Insulin Human Lispro (Insulin Lispro 100 Unit/Ml) 0 unit SUB-Q Q6HR [facility]; Protoc ol Last Admin: 12/26/20 05:36 Dose: 2 unit Documented by: Methylprednisolone Sodium Succinate (Methylprednisolone Sod Succinate 125 Mg/2 Ml Inj) 80 mg IV Q8HR [facility] Last Admin: 12/26/20 05:05 Dose: 80 mg Documented by: Metoclopramide HCl (Metoclopramide 10 Mg/2 Ml Inj) 10 mg IV Q6H PRN PRN Reason: Nausea And Vomiting Multi-Ingred Cream/Lotion/Oil/Oint (Mineral Oil/Petrolatum, White Ophth Oint 3.5 Gm) 1 applic OU Q4HR PRN PRN Reason: Dry Eye(s) Ondansetron HCl (Ondansetron 4 Mg/2 Ml Inj) 4 mg IV Q8H PRN PRN Reason: Nausea And Vomiting Potassium Chloride (Potassium Chloride 20 Meq Packet) 20 meq FEEDTUBE Q12HR [facility] Last Admin: 12/26/20 09:59 Dose: 20 meq Documented by: Senna/Docusate Sodium (Sennosides/Docusate Sodium 8.6/50 Mg Tab) 1 tab FEEDTUBE BID [facility] Last Admin: 12/26/20 09:57 Dose: 1 tab Documented by: Sodium Chloride (Sodium Chloride 0.9% 10 Ml Flush Syringe) 10 ml IV BID [facility] Last Admin: 12/25/20 22:28 Dose: 10 ml Documented by: Sodium Chloride (Sodium Chloride 0.9% 10 Ml Flush Syringe) 10 ml IV PRN PRN PRN Reason: LINE FLUSH Review of Systems ROS unobtainable: due to endotracheal tube Physical Examination Vital signs: Vital Signs Pulse BP Pulse Ox 58 L 83/33 99 12/25/20 10:26 12/25/20 10:26 12/25/20 10:26 General appearance: no acute distress, alert Eyes: non-icteric ENT: other (orally intubated and sedated) Neck: supple, other (large in circumference) Effort: normal Ascultation: Right: rales (base), Bilateral: diminished breath sounds Gastrointestinal: normoactive bowel sounds, soft Results - Laboratory Findings CBC and BMP: 12/25/20 10:33 12/25/20 10:33 ABG ABG pH 7.396 pH Units (7.350-7.450) 12/26/20 04:35 ABG pCO2 54.6 mm Hg 12/26/20 04:35 ABG pO2 69.3 mm Hg (80.0-90.0) L 12/26/20 04:35 ABG O2 Saturation 94.2 % (95.0-99.0) L 12/26/20 04:35 PT/INR, D-dimer PT 13.5 Sec. (12.2-14.9) 12/25/20 10:33 INR 0.98 (0.87-1.13) 12/25/20 10:33 D-Dimer 1539.09 ng/mlDDU (0-234) H 12/25/20 10:33 Abnormal lab findings: Abnormal Labs 12/25/20 12/25/20 12/25/20 10:33 10:33 10:33 WBC 13.7 H Hgb 10.4 L Hct 32.5 L Lymph % (Auto) 4.6 L Whitley % (Auto) 7.7 H Lymph # (Auto) 0.6 L Whitley # (Auto) 1.1 H Seg Neutrophils % 86.1 H Seg Neutrophils # 11.8 H D-Dimer 1539.09 H ABG pH ABG pO2 ABG HCO3 ABG O2 Saturation ABG Base Excess ABG Hemoglobin Oxyhemoglobin Potassium 3.4 L Chloride 95.6 L Carbon Dioxide 35 H BUN 28 H Glucose 213 H POC Glucose Alkaline Phosphatase 137 H Total Creatine Kinase 25 L C-Reactive Protein 5.90 H NT-Pro-B Natriuret Pep Albumin 3.6 L Urine WBC (Auto) Salicylates Acetaminophen 12/25/20 12/25/20 12/25/20 10:33 10:33 10:33 WBC Hgb Hct Lymph % (Auto) Whitley % (Auto) Lymph # (Auto) Whitley # (Auto) Seg Neutrophils % Seg Neutrophils # D-Dimer ABG pH ABG pO2 ABG HCO3 ABG O2 Saturation ABG Base Excess ABG Hemoglobin Oxyhemoglobin Potassium Chloride Carbon Dioxide BUN Glucose POC Glucose Alkaline Phosphatase Total Creatine Kinase C-Reactive Protein NT-Pro-B Natriuret Pep 1338 H Albumin Urine WBC (Auto) Salicylates < 0.3 L Acetaminophen 5.0 L 12/25/20 12/25/20 12/25/20 10:40 11:17 19:44 WBC Hgb Hct Lymph % (Auto) Whitley % (Auto) Lymph # (Auto) Whitley # (Auto) Seg Neutrophils % Seg Neutrophils # D-Dimer ABG pH 7.515 H ABG pO2 175.2 H ABG HCO3 33.3 H ABG O2 Saturation 99.1 H ABG Base Excess 9.5 H ABG Hemoglobin 10.6 L Oxyhemoglobin Potassium Chloride Carbon Dioxide BUN Glucose POC Glucose 176 H Alkaline Phosphatase Total Creatine Kinase C-Reactive Protein NT-Pro-B Natriuret Pep Albumin Urine WBC (Auto) 69.0 H Salicylates Acetaminophen 12/25/20 12/26/20 12/26/20 23:12 04:35 05:33 WBC Hgb Hct Lymph % (Auto) Whitley % (Auto) Lymph # (Auto) Whitley # (Auto) Seg Neutrophils % Seg Neutrophils # D-Dimer ABG pH ABG pO2 69.3 L ABG HCO3 32.8 H ABG O2 Saturation 94.2 L ABG Base Excess 6.8 H ABG Hemoglobin 10.0 L Oxyhemoglobin 92.3 L Potassium Chloride Carbon Dioxide BUN Glucose POC Glucose 139 H 154 H Alkaline Phosphatase Total Creatine Kinase C-Reactive Protein NT-Pro-B Natriuret Pep Albumin Urine WBC (Auto) Salicylates Acetaminophen - Diagnostic Findings Chest x-ray: image reviewed CT scan - chest: image reviewed Assessment and Plan 60 y/o male with acute exacerbation of CHF, leading to acute respiratory failure and mechanical ventilation. 1. Pulm- PSV trial, extubate. Will have bipap available for PRN and QHS uses 2. Cards-follow up [facility] recs. Appears to be volume up and could benefit from diuresis. Currently on lasix 40 BID, may need to change to bumex if bp and renal function will allow. 3. endo-resume home regimen once swallowing assessed 4. GI- Swallow eval post extubation 5. Heme-elevated WBC but no fever, could be stress related. got a one time dose of rocephin in the ED, hold on any further abx therapy. 6. renal-stable 7. Once extubated and monitored, can likely be transitioned to step down unit. CCt 31 minutes.
--- NOTE | 2020-12-26 11:47 | Electrocardiograph Report ---
[facility] Test Date: 2020-12-25 Test Time: 10:17:41 Pat Name: UCHE AMANDA Department: Room: A252 Gender: M Communication Professor: NURSE : 1960 Requested By: UCHE LEAL Order Number: [id number] Reading MD: Christopher Horton Measurements Intervals [place] Rate: 62 P: 0 [place]: 184 QRS: -33 QRSD: 148 T: 110 QT: 530 QTc: 565 Interpretive Statements Unknown rhythm, irregular rate LVH with secondary repolarization abnormality Prolonged QT interval No previous ECG available for comparison Electronically Signed On 12-26-2020 11:46:53 EDT by Christopher Horton
--- NOTE | 2020-12-26 11:47 | Electrocardiograph Report ---
[facility] Test Date: 2020-12-25 Test Time: 11:06:49 Pat Name: UCHE AMANDA Department: Room: A252 1 Gender: M Residential Treatment Counselor: NURSE : 1960 Requested By: JORDY TOMAS Order Number: [id number] Reading MD: Christopher Horton Measurements Intervals [place] Rate: 68 P: -60 [place]: 158 QRS: -11 QRSD: 152 T: 102 QT: 525 QTc: 557 Interpretive Statements Sinus or ectopic atrial rhythm Nonspecific intraventricular conduction delay Prolonged QT interval Compared to ECG 12/25/2020 10:17:41 Ectopic atrial rhythm now present Intraventricular conduction delay now present Left ventricular hypertrophy no longer present Early repolarization no longer present Electronically Signed On 12-26-2020 11:47:37 EDT by Christopher Horton
--- NOTE | 2020-12-26 11:49 | Electrocardiograph Report ---
[facility] Test Date: 2020-12-26 Test Time: 08:14:09 Pat Name: UCHE AMANDA Department: Room: A252 1 Gender: M Entry Level Paralegal: RICHARD : 1960 Requested By: UCHE LEAL Order Number: [id number] Reading MD: Christopher Horton Measurements Intervals [place] Rate: 55 P: -75 [place]: 160 QRS: -20 QRSD: 146 T: 119 QT: 534 QTc: 512 Interpretive Statements Ectopic atrial rhythm Nonspecific intraventricular conduction delay Prolonged QT interval Compared to ECG 12/25/2020 10:17:41 Ectopic atrial rhythm now present Intraventricular conduction delay now present Left ventricular hypertrophy no longer present Early repolarization no longer present Electronically Signed On 12-26-2020 11:49:05 EDT by Christopher Horton
[2020-12-26] MEDS: MULTIVITAMIN / MINERAL ORAL LIQUID 15 ML PO SCH (13:06)
--- NOTE | 2020-12-26 13:35 | Progress Note ---
Assessment and Plan Patient is a 60y/o male with pmhx of Aortic stenosis, CAD, ischemic cardiomyopathy, HFrEF, coronary artery bypass surgery, and hypertension brought to [facility] for respiratory arrest Acute Respiratory Failure Elevated d-dimer * Patient intubated and off sedation * CT chest shows no PE * COVID PCR pending * Pulmonology following CAD s/p CABG Ischemic cardiomyopathy HFrEF Hypertension * Echo 11/19/2020-EF 20 to 25% left ventricle is severely dilated, increased left atrial pressure and grade 2 diastolic dysfunction, right ventricle is mildly dilated, moderate to severe aortic valve stenosis, mild to moderate tricuspid regurgitation * C 01/2020-severe diffuse [place] multivessel coronary artery disease with chronic total occlusions of mid left circumflex, proximal LAD and mid right coronary, patent [place] to LAD, patent SVG to the diagonal, patent SVG to OM trunk, patent SVG to RCA, estimated EF 25-30, no evidence of aortic stent, moderate to severe mitral regurg * EKG shows no acute ischemic changes. Trop neg x1. BNP noted to be elevated * Currenlty on Coreg 3.125 PO BID asa, Lasix 40mg IV BID, amio 200mg PO BID Hypokalemia * Management per primary team Plan: Patient noted to be bradycardic on quality assurance monitor final in 40s. Decreased to outpatient [id number] QD. Agree with Lasix 40mg IV for diuresis. Will continue to hold outpatient anithypersensive regimen until patient BP is more stable. Patient seen in conjunction with Dr. Horton who agrees with this plan of care. Will continue to follow. 30min of critical care time spent in the care and coordination of this patient - Patient Problems (1) CHF exacerbation Current Visit: Yes Status: Acute (2) Hypertension Current Visit: No Status: Chronic Qualifiers: Hypertension type: essential hypertension Qualified Code(s): I10 - Essential (primary) hypertension (3) Ischemic cardiomyopathy Current Visit: No Status: Chronic (4) CAD (coronary artery disease) Current Visit: No Status: Chronic (5) History of coronary artery bypass graft Current Visit: No Status: Chronic (6) Obesity Current Visit: No Status: Chronic (7) DM2 (diabetes mellitus, type 2) Current Visit: No Status: Chronic (8) Tricuspid regurgitation Current Visit: No Status: Chronic (9) Pulmonary HTN Current Visit: No Status: Chronic (10) Acute respiratory failure Current Visit: Yes Status: Acute Subjective Date of service: 12/26/20 Interval history: Patient intubated but off sedation awake and following commands Sinus 63 but was trending sinus bradycardia 40s overnight Objective Vital Signs Temp Pulse Pulse Pulse Resp Resp BP 12/26/20 12:30 64 22 116/40 12/26/20 12:29 98.3 F 12/26/20 12:00 82 40 L 22 141/67 12/26/20 11:48 64 20 12/26/20 11:30 66 21 137/41 12/26/20 11:00 46 L 11 L 111/41 12/26/20 10:30 59 L 20 123/43 12/26/20 10:01 57 L 13 127/37 12/26/20 09:30 51 L 19 113/40 12/26/20 09:00 53 L 20 115/39 12/26/20 08:30 65 20 123/51 12/26/20 08:28 68 20 12/26/20 08:00 50 L 20 115/41 12/26/20 07:30 50 L 20 109/36 12/26/20 07:24 40 L 12/26/20 07:02 99.8 F H 12/26/20 07:00 48 L 20 107/38 12/26/20 06:30 45 L 20 108/38 12/26/20 06:00 48 L 20 105/39 12/26/20 05:30 48 L 19 103/36 12/26/20 05:00 49 L 21 105/37 12/26/20 04:30 50 L 20 108/39 12/26/20 04:20 51 L 12/26/20 04:00 50 L 15 107/33 12/26/20 03:50 99.0 F 12/26/20 03:30 50 L 9 L 104/36 12/26/20 03:00 47 L 8 L 105/34 12/26/20 02:30 50 L 6 L 108/37 12/26/20 02:00 47 L 11 L 105/35 12/26/20 01:30 48 L 7 L 106/37 12/26/20 01:00 48 L 9 L 123/38 12/26/20 00:30 49 L 10 L 107/33 12/26/20 00:00 98.7 F 52 L 18 108/33 12/25/20 23:37 54 L 12 117/37 12/25/20 23:30 58 L 20 117/37 12/25/20 23:00 61 15 123/38 12/25/20 22:30 57 L 5 L 128/41 12/25/20 22:27 59 L 130/45 12/25/20 22:00 61 0 L 139/45 12/25/20 21:40 55 L 155/62 12/25/20 21:30 65 21 166/62 12/25/20 21:00 51 L 7 L 110/38 12/25/20 20:30 53 L 0 L 123/37 12/25/20 20:21 60 6 L 145/51 12/25/20 20:15 98.3 F 12/25/20 19:15 20 12/25/20 17:27 51 L 20 12/25/20 16:22 55 L 116/43 12/25/20 15:32 53 L 16 12/25/20 13:57 50 L 112/42 12/25/20 13:42 87 20 BP Pulse Ox 12/26/20 12:30 90 12/26/20 12:29 12/26/20 12:00 96 12/26/20 11:48 12/26/20 11:30 95 12/26/20 11:00 96 12/26/20 10:30 94 12/26/20 10:01 96 12/26/20 09:30 94 12/26/20 09:00 95 12/26/20 08:30 95 12/26/20 08:28 12/26/20 08:00 95 12/26/20 07:30 95 12/26/20 07:24 95 12/26/20 07:02 12/26/20 07:00 93 12/26/20 06:30 95 12/26/20 06:00 94 12/26/20 05:30 94 12/26/20 05:00 94 12/26/20 04:30 94 12/26/20 04:20 95 12/26/20 04:00 94 12/26/20 03:50 12/26/20 03:30 93 12/26/20 03:00 94 12/26/20 02:30 94 12/26/20 02:00 94 12/26/20 01:30 94 12/26/20 01:00 94 12/26/20 00:30 95 12/26/20 00:00 93 12/25/20 23:37 92 12/25/20 23:30 93 12/25/20 23:00 95 12/25/20 22:30 96 12/25/20 22:27 12/25/20 22:00 96 12/25/20 21:40 94 12/25/20 21:30 96 12/25/20 21:00 95 12/25/20 20:30 96 12/25/20 20:21 97 12/25/20 20:15 12/25/20 19:15 97 12/25/20 17:27 139/53 97 12/25/20 16:22 95 12/25/20 15:32 110/40 96 12/25/20 13:57 95 12/25/20 13:42 109/42 97 - Physical Examination General: Other (intubated) HEENT: Positive: PERRL Neck: Positive: trachea midline Cardiac: Positive: Reg Rate and Rhythm Lungs: Positive: Ventilated Respirations Neuro: Positive: Other (intubated and sedated) Abdomen: Positive: Soft, Active Bowel Sounds Skin: Negative: Rash, Suspicious Lesions, Ulceration Extremities: Present: upper extr. pulses, lower extr. pulses. Absent: edema - Imaging and Cardiology EKG: report reviewed (Sinus tachycardia) Echo: report reviewed Cardiac cath: report reviewed - Telemetry EKG Rhythm: Sinus Rhythm - EKG Sinus rhythms and dysrhythmias: sinus rhythm
[2020-12-26 16:17] LABS: Hematocrit 31.6 % (35.5-45.6); Hemoglobin 10.2 gm/dl (11.8-15.2); Mean Corpuscular HGB Conc 32 % (32-34); Mean Corpuscular Volume 87 fl (84-94); Platelet Count 266 K/mm3 (140-440); Red Blood Count 3.66 M/mm3 (3.65-5.03); Red Cell Distribution Width 14.9 % (13.2-15.2)
[2020-12-26 16:23] LABS: Albumin 3.6 g/dL (3.9-5)
[2020-12-26 17:02] LABS: Total Cells Counted 100
[2020-12-26 17:03] LABS: Anisocytosis 1+; Platelet Estimate Consistent w Auto; Toxic Granulation 1+
[2020-12-26] MEDS ORDERED: DEXTROSE 50% IN WATER (25GM) 50 ML SYRINGE IV PRN (17:32)
[2020-12-26] MEDS: BUMETANIDE 1 MG/4 ML INJ IV SCH (17:35)
--- NOTE | 2020-12-26 17:50 | Progress Note ---
<SAMANTA AQUINO HerberthSohail - Last Filed: 12/26/20 17:49> Assessment and Plan Assessment and plan: This is a 60-year-old male with HTN, CHF, DM, COPD, CAD s/p CABG x3, former nicotine abuse admitted for acute on chronic respiratory failure with hypoxia, acute encephalopathy, acute on chronic heart failure, COPD exacerbation Neuro: Acute metabolic encephalopathy (resolved), h/o depression -Patient was sedated on fentanyl and Versed -Patient is able to follow commands and hold conversation now that he is extubated -Avoid delirium -Maintain sleep-wake cycle -Continue bupropion and Cymbalta Cardio: Acute on chronic diastolic heart failure, h/o CAD s/p CABG, HTN, ischemic cardiomyopathy -Cardiology consulted, appreciate recommendations -Per cardiology: -Echo 11/19/2020-EF 20 to 25% left ventricle is severely dilated, increased left atrial pressure and grade 2 diastolic dysfunction, right ventricle is mildly dilated, moderate to severe aortic valve stenosis, mild to moderate tricuspid regurgitation -[facility] 01/2020-severe diffuse [place] multivessel coronary artery disease with chronic total occlusions of mid left circumflex, proximal LAD and mid right coronary, patent [place] to LAD, patent SVG to the diagonal, patent SVG to OM trunk, patent SVG to RCA, estimated EF 25-30, no evidence of aortic stent, moderate to severe mitral regurg -Elevated proBNP on admit -Continue Coreg with hold parameters, aspirin, Lasix 40 mg IV twice daily, atorvastatin, amiodarone 200 mg p.o. twice daily-> amiodarone decreased to once daily for sinus bradycardia -IV change to Bumex due to low urine output -Blood pressure monitor per protocol Respiratory: Acute on chronic hypoxic respiratory failure, COPD exacerbation -Pulmonology consulted, appreciate recommendations -Patient was intubated on 12/25 for airway protection and extubated on 12/26 -Pulmonary hygiene -Supplementary oxygen as needed -Continuous SPO2 monitoring -Solu-Medrol every 8 GI: -CC cardiac diet -PPI -BR: Senokot : Hypokalemia, hypochloremia, metabolic alkalosis -Potassium repleted -On scheduled potassium -Trend BMP Endo: Hyperglycemia, h/o DM -SSI -Long-acting insulin -Accu-Cheks AC at bedtime -Avoid hypoglycemia -Hemoglobin A1c ID: SIRS, UTI -COVID-19 PCR negative -S/p Rocephin x1 -UA with LE and nitrates -Trend WBC and temperature curve -Monitor for signs of sepsis or infection Heme: Elevated D-dimer, leukocytosis -CTA head on admit negative for PE -Heparin subcu -SCDs to bilateral lower extremity while in bed -Trend CBC -Transfuse for hemoglobin less than 7 The high probability of a clinically significant, sudden or life threatening deterioration of the [resp] system(s) required my full and direct attention, intervention and personal management. The aggregate critical care time was [60] minutes. This time is in addition to time spent performing reported procedures but includes the following: [x] Data Review and interpretation [x] Patient assessment and monitoring of vital signs [x] Documentation [x] Medication orders and management Disposition Plan: imcu Total Time Spent with Patient (Minutes): 60 History Interval history: This is 60-year-old male with HTN, systolic CHF, DM, COPD, aortic stenosis, ischemic cardiomyopathy, CAD s/p CABG x3 vessels, former smoker who presented to emergency department on 12/25 via EMS for respiratory arrest and altered mental status. Patient was brought to the emergency department on bag-max ventilation. He apparently had shortness of breath for 3 weeks and would need nebulizer therapy with no relief, orthopnea and paroxysmal nocturnal dyspnea. Upon arrival to emergency department patient became unresponsive and the patient was intubated for airway protection. 12/26: Patient was extubated today and transition to IMCU. Lasix changed to Bumex due to low urine output. Hospitalist Physical - Constitutional Vitals: Temp Pulse Resp BP Pulse Ox 98.3 F 65 21 122/50 96 12/26/20 12:29 12/26/20 17:00 12/26/20 17:00 12/26/20 16:30 12/26/20 16:30 General appearance: Present: severe distress, well-nourished, obese - EENT Eyes: Present: PERRL, EOM intact ENT: hearing intact, clear oral mucosa, dentition normal - Neck Neck: Present: supple, normal ROM - Respiratory Respiratory effort: normal Respiratory: bilateral: diminished - Cardiovascular Rhythm: regular Heart Sounds: Present: S1 & S2. Absent: systolic murmur, diastolic murmur - Extremities Extremities: no ischemia, pulses intact, pulses symmetrical, No edema, normal temperature, normal color, Full ROM Peripheral Pulses: within normal limits - Abdominal General gastrointestinal: soft, non-tender, non-distended, normal bowel sounds - Integumentary Integumentary: Present: warm, dry - Psychiatric Psychiatric: appropriate mood/affect, cooperative - Neurologic Neurologic: CNII-XII intact, moves all extremities - Allied Health Allied health notes reviewed: nursing, RT, social work HEART Score - HEART Score Troponin: Troponin T 0.014 ng/mL (0.00-0.029) 12/25/20 10:33 Results - Labs CBC & Chem 7: 12/26/20 14:48 12/26/20 14:48 Labs: Laboratory Last Values WBC 16.4 K/mm3 (4.5-11.0) H 12/26/20 14:48 RBC 3.66 M/mm3 (3.65-5.03) 12/26/20 14:48 Hgb 10.2 gm/dl (11.8-15.2) L 12/26/20 14:48 Hct 31.6 % (35.5-45.6) L 12/26/20 14:48 MCV 87 fl (84-94) 12/26/20 14:48 MCH 28 pg (28-32) 12/26/20 14:48 MCHC 32 % (32-34) 12/26/20 14:48 RDW 14.9 % (13.2-15.2) 12/26/20 14:48 Plt Count 266 K/mm3 (140-440) 12/26/20 14:48 Lymph % (Auto) 4.6 % (13.4-35.0) L 12/25/20 10:33 [place] % (Auto) 7.7 % (0.0-7.3) H 12/25/20 10:33 Eos % (Auto) 1.2 % (0.0-4.3) 12/25/20 10:33 Baso % (Auto) 0.4 % (0.0-1.8) 12/25/20 10:33 Lymph # (Auto) 0.6 K/mm3 (1.2-5.4) L 12/25/20 10:33 [place] # (Auto) 1.1 K/mm3 (0.0-0.8) H 12/25/20 10:33 Eos # (Auto) 0.2 K/mm3 (0.0-0.4) 12/25/20 10:33 Baso # (Auto) 0.1 K/mm3 (0.0-0.1) 12/25/20 10:33 Add Manual Diff Complete 12/26/20 14:48 Total Counted 100 12/26/20 14:48 Seg Neutrophils % Radiological Equipment Specialist 12/26/20 14:48 Seg Neuts % (Manual) 98.0 % (40.0-70.0) H 12/26/20 14:48 Lymphocytes % (Manual) 1.0 % (13.4-35.0) L 12/26/20 14:48 Monocytes % (Manual) 1.0 % (0.0-7.3) 12/26/20 14:48 Nucleated RBC % Not Reportable 12/26/20 14:48 Seg Neutrophils # 11.8 K/mm3 (1.8-7.7) H 12/25/20 10:33 Seg Neutrophils # Man 16.1 K/mm3 (1.8-7.7) H 12/26/20 14:48 Band Neutrophils # 0.0 K/mm3 12/26/20 14:48 Lymphocytes # (Manual) 0.2 K/mm3 (1.2-5.4) L 12/26/20 14:48 Abs React Lymphs (Man) 0.0 K/mm3 12/26/20 14:48 Monocytes # (Manual) 0.2 K/mm3 (0.0-0.8) 12/26/20 14:48 Eosinophils # (Manual) 0.0 K/mm3 (0.0-0.4) 12/26/20 14:48 Basophils # (Manual) 0.0 K/mm3 (0.0-0.1) 12/26/20 14:48 Metamyelocytes # 0.0 K/mm3 12/26/20 14:48 Myelocytes # 0.0 K/mm3 12/26/20 14:48 Promyelocytes # 0.0 K/mm3 12/26/20 14:48 Blast Cells # 0.0 K/mm3 12/26/20 14:48 WBC Morphology Not Reportable 12/26/20 14:48 Hypersegmented Neuts Not Reportable 12/26/20 14:48 Hyposegmented Neuts Not Reportable 12/26/20 14:48 Hypogranular Neuts Not Reportable 12/26/20 14:48 Smudge Cells Not Reportable 12/26/20 14:48 Toxic Granulation 1+ 12/26/20 14:48 Toxic Vacuolation Not Reportable 12/26/20 14:48 Dohle Bodies Not Reportable 12/26/20 14:48 Pelger-Huet Anomaly Not Reportable 12/26/20 14:48 Nell Rods Not Reportable 12/26/20 14:48 Platelet Estimate Consistent w auto 12/26/20 14:48 Clumped Platelets Not Reportable 12/26/20 14:48 Plt Clumps, EDTA Not Reportable 12/26/20 14:48 Large Platelets Not Reportable 12/26/20 14:48 Giant Platelets Not Reportable 12/26/20 14:48 Platelet Satelliting Not Reportable 12/26/20 14:48 Plt Morphology Comment Not Reportable 12/26/20 14:48 RBC Morphology Not Reportable 12/26/20 14:48 Dimorphic RBCs Not Reportable 12/26/20 14:48 Polychromasia Not Reportable 12/26/20 14:48 Hypochromasia Not Reportable 12/26/20 14:48 Poikilocytosis Not Reportable 12/26/20 14:48 Anisocytosis 1+ 12/26/20 14:48 Microcytosis Not Reportable 12/26/20 14:48 Macrocytosis Not Reportable 12/26/20 14:48 Spherocytes Not Reportable 12/26/20 14:48 Pappenheimer Bodies Not Reportable 12/26/20 14:48 Sickle Cells Not Reportable 12/26/20 14:48 Target Cells Not Reportable 12/26/20 14:48 Tear Drop Cells Not Reportable 12/26/20 14:48 Ovalocytes Not Reportable 12/26/20 14:48 Helmet Cells Not Reportable 12/26/20 14:48 [place] Bodies Not Reportable 12/26/20 14:48 [place] Rings Not Reportable 12/26/20 14:48 [place] Cells Not Reportable 12/26/20 14:48 Bite Cells Not Reportable 12/26/20 14:48 Crenated Cell Not Reportable 12/26/20 14:48 Elliptocytes Not Reportable 12/26/20 14:48 Acanthocytes (Spur) Not Reportable 12/26/20 14:48 Rouleaux Not Reportable 12/26/20 14:48 Hemoglobin C Crystals Not Reportable 12/26/20 14:48 Schistocytes Not Reportable 12/26/20 14:48 Malaria parasites Not Reportable 12/26/20 14:48 Lobo Bodies Not Reportable 12/26/20 14:48 Hem Pathologist Commnt No 12/26/20 14:48 PT 13.5 Sec. (12.2-14.9) 12/25/20 10:33 INR 0.98 (0.87-1.13) 12/25/20 10:33 APTT 28.6 Sec. (24.2-36.6) 12/25/20 10:33 D-Dimer 1539.09 ng/mlDDU (0-234) H 12/25/20 10:33 ABG pH 7.396 pH Units (7.350-7.450) 12/26/20 04:35 ABG pCO2 54.6 mm Hg 12/26/20 04:35 ABG pO2 69.3 mm Hg (80.0-90.0) L 12/26/20 04:35 ABG HCO3 32.8 mmol/L (20.0-26.0) H 12/26/20 04:35 ABG O2 Saturation 94.2 % (95.0-99.0) L 12/26/20 04:35 ABG Base Excess 6.8 mmol/L (-2.0-3.0) H 12/26/20 04:35 ABG Hemoglobin 10.0 gm/dl (14.0-18.0) L 12/26/20 04:35 ABG Carboxyhemoglobin 1.7 % (0.0-5.0) 12/26/20 04:35 ABG Methemoglobin 0.4 % (0.0-1.5) 12/26/20 04:35 Oxyhemoglobin 92.3 % (95.0-99.0) L 12/26/20 04:35 FiO2 35 % 12/26/20 04:35 Sodium 145 mmol/L (137-145) 12/26/20 14:48 Potassium 3.7 mmol/L (3.6-5.0) 12/26/20 14:48 Chloride 98.5 mmol/L (98-107) 12/26/20 14:48 Carbon Dioxide 32 mmol/L (22-30) H 12/26/20 14:48 Anion Gap 18 mmol/L 12/26/20 14:48 BUN 42 mg/dL (9-20) H 12/26/20 14:48 Creatinine 1.3 mg/dL (0.8-1.3) 12/26/20 14:48 Estimated GFR 56 ml/min 12/26/20 14:48 BUN/Creatinine Ratio 32 % 12/26/20 14:48 Glucose 213 mg/dL (75-100) H 12/26/20 14:48 POC Glucose 184 mg/dL (70-105) H 12/26/20 12:16 Lactic Acid 0.90 mmol/L (0.7-2.0) 12/25/20 10:33 Calcium 9.0 mg/dL (8.4-10.2) 12/26/20 14:48 Phosphorus 4.20 mg/dL (2.5-4.5) 12/26/20 14:48 Magnesium 2.00 mg/dL (1.7-2.3) 12/26/20 14:48 Ferritin 144.9 ng/mL (30.0-300.0) 12/25/20 10:33 Total Bilirubin 0.20 mg/dL (0.1-1.2) 12/26/20 14:48 AST 26 units/L (5-40) 12/26/20 14:48 ALT 27 units/L (7-56) 12/26/20 14:48 Alkaline Phosphatase 118 units/L (35-129) 12/26/20 14:48 Ammonia 43.0 umol/L (25-60) 12/25/20 10:33 Lactate Dehydrogenase 150 units/L (91-180) 12/25/20 10:33 Total Creatine Kinase 25 units/L (55-170) L 12/25/20 10:33 Troponin T 0.014 ng/mL (0.00-0.029) 12/25/20 10:33 C-Reactive Protein 5.90 mg/dL (0.00-1.30) H 12/25/20 10:33 NT-Pro-B Natriuret Pep 1338 pg/mL (0-900) H 12/25/20 10:33 Total Protein 7.0 g/dL (6.3-8.2) 12/26/20 14:48 Albumin 3.6 g/dL (3.9-5) L 12/26/20 14:48 Albumin/Globulin Ratio 1.1 % 12/26/20 14:48 Procalcitonin 0.09 ng/mL (<0.15) 12/25/20 10:33 TSH 0.944 mlU/mL (0.270-4.200) 12/25/20 10:33 Urine Color Susan (Yellow) 12/25/20 11:17 Urine Turbidity Hazy (Clear) 12/25/20 11:17 Urine pH 5.0 (5.0-7.0) 12/25/20 11:17 Ur Specific [place] 1.010 (1.003-1.030) 12/25/20 11:17 Urine Protein 30 mg/dl mg/dL (Negative) 12/25/20 11:17 Urine Glucose (UA) Neg mg/dL (Negative) 12/25/20 11:17 Urine Ketones Neg mg/dL (Negative) 12/25/20 11:17 Urine Blood Neg (Negative) 12/25/20 11:17 Urine Nitrite Pos (Negative) 12/25/20 11:17 Urine Bilirubin Neg (Negative) 12/25/20 11:17 Urine Urobilinogen 4.0 mg/dL (<2.0) 12/25/20 11:17 Ur Leukocyte Esterase Lg (Negative) 12/25/20 11:17 Urine WBC (Auto) 69.0 /HPF (0.0-6.0) H 12/25/20 11:17 Urine RBC (Auto) 1.0 /HPF (0.0-6.0) 12/25/20 11:17 Urine Mucus Few /HPF 12/25/20 11:17 Salicylates < 0.3 mg/dL (2.8-20.0) L 12/25/20 10:33 Acetaminophen 5.0 ug/mL (10.0-30.0) L 12/25/20 10:33 Plasma/Serum Alcohol < 0.01 % (0-0.07) 12/25/20 10:33 Coronavirus (PCR) Negative (Negative) 12/25/20 Unknown Blood Type O POSITIVE 12/25/20 10:47 Antibody Screen Negative 12/25/20 10:47 Microbiology: Microbiology 12/25/20 11:20 Tracheal Aspirate Sputum Culture - Preliminary 12/25/20 10:33 Peripheral/Venous Blood Culture - Preliminary NO GROWTH AFTER 24 HOURS 12/25/20 10:33 Peripheral/Venous Blood Culture - Preliminary NO GROWTH AFTER 24 HOURS 12/25/20 11:17 Urine,Catheterized - Indwelling Catheter Urine Culture - Preliminary NO GROWTH AFTER 24 HOURS Cason/IV: Voiding Method Indwelling Catheter Active Medications - Current Medications Current Medications: Generic Name Dose Route Start Last Admin Trade Name Freq PRN Reason Stop Dose Admin Acetaminophen 650 mg 12/25/20 19:43 Acetaminophen 325 Mg Tab PO Q4H PRN Pain MILD(1-3)/Fever >100.5/MORTENSEN Albuterol 2.5 mg 12/25/20 19:04 Albuterol 2.5 Mg/3 Ml Nebu IH Q3HRT PRN Shortness Of Breath Albuterol/Ipratropium 1 ampul 12/25/20 20:00 12/26/20 11:48 Ipratropium/Albuterol Sulfate 3 Ml Ampul.Neb IH 1 ampul QIDRT SHANTE Administration Amiodarone HCl 200 mg 12/27/20 10:00 Amiodarone 200 Mg Tab PO DAILY [facility] Lipase/Protease/Amylase 1 each 12/26/20 11:33 Lipase 10,500/Protease 25,000/Amylase 43,750 (Units) Dr Cao FEEDTUBE PRN PRN For Clogged Feeding Tube Aspirin 81 mg 12/26/20 10:00 12/26/20 09:58 Aspirin 81 Mg Tab Chew PO 81 mg QDAY SHANTE Administration Atorvastatin Calcium 80 mg 12/26/20 22:00 Atorvastatin 40 Mg Tab PO QHS SHANTE Bumetanide 1 mg 12/26/20 18:00 12/26/20 17:35 Bumetanide 1 Mg/4 Ml Inj IV 12/27/20 17:59 1 mg BID@0600,1800 SHANTE Administration Bupropion HCl 150 mg 12/26/20 10:00 12/26/20 10:35 Bupropion 100 Mg Tab PO 150 mg BID SHANTE Administration Carvedilol 3.125 mg 12/25/20 22:00 12/26/20 10:00 Carvedilol 3.125 Mg Tab PO Not Given BID [facility] Dextrose 50 ml 12/26/20 17:32 Dextrose 50% In Water (25gm) 50 Ml Syringe IV Q30MIN PRN Hypoglycemia Protocol Duloxetine HCl 60 mg 12/25/20 19:45 12/25/20 22:30 Duloxetine 30 Mg Cap PO 60 mg QDAY SHANTE Administration Famotidine 20 mg 12/25/20 22:00 12/26/20 09:58 Famotidine 20 Mg/2 Ml Inj IV 20 mg BID SHANTE Administration Heparin Sodium (Porcine) 5,000 unit 12/25/20 22:00 12/26/20 10:07 Heparin 5,000 Unit/1 Ml Vial SUB-Q 5,000 unit Q12HR SHANTE Administration Hydrophilic Ointment 1 applic 12/25/20 10:08 Lip Therapy Vaseline TP Q2HR PRN Dry Lips Insulin Glargine 15 units 12/25/20 22:00 12/25/20 22:28 Insulin Glargine 100 Units/Ml SUB-Q 15 units QHS SHANTE Administration Insulin Human Lispro 0 unit 12/26/20 22:00 Insulin Lispro 100 Unit/Ml SUB-Q ACHS [facility] Protocol Methylprednisolone Sodium Succinate 80 mg 12/25/20 22:00 12/26/20 13:06 Methylprednisolone Sod Succinate 125 Mg/2 Ml Inj IV 80 mg Q8HR SHANTE Administration Metoclopramide HCl 10 mg 12/25/20 19:43 Metoclopramide 10 Mg/2 Ml Inj IV Q6H PRN Nausea And Vomiting Multi-Ingred Cream/Lotion/Oil/Oint 1 applic 12/25/20 10:08 Mineral Oil/Petrolatum, White Ophth Oint 3.5 Gm OU Q4HR PRN Dry Eye(s) Ondansetron HCl 4 mg 12/25/20 19:43 Ondansetron 4 Mg/2 Ml Inj IV Q8H PRN Nausea And Vomiting Potassium Chloride 20 meq 12/26/20 10:00 12/26/20 09:59 Potassium Chloride 20 Meq Packet FEEDTUBE 20 meq Q12HR SHANTE Administration Senna/Docusate Sodium 1 tab 12/25/20 22:00 12/26/20 09:57 Sennosides/Docusate Sodium 8.6/50 Mg Tab FEEDTUBE 1 tab BID SHANTE Administration Simple Syrup 15 ml 12/26/20 11:33 Simple Syrup 15 Ml FEEDTUBE PRN PRN Hypoglycemia Simple Syrup 30 ml 12/26/20 11:33 Simple Syrup 15 Ml FEEDTUBE PRN PRN Hypoglycemia Sodium Bicarbonate 325 mg 12/26/20 11:33 Sodium Bicarbonate 325 Mg Tab FEEDTUBE PRN PRN For Clogged Feeding Tube Sodium Chloride 10 ml 12/25/20 22:00 12/26/20 10:00 Sodium Chloride 0.9% 10 Ml Flush Syringe IV 10 ml BID SHANTE Administration Sodium Chloride 10 ml 12/25/20 19:43 Sodium Chloride 0.9% 10 Ml Flush Syringe IV PRN PRN LINE FLUSH Nutrition/Malnutrition Assess - Dietary Evaluation Nutrition/Malnutrition Findings: Nutrition Notes Start: 12/25/20 16:23 Freq: Status: Active Protocol: Document 12/25/20 16:23 EVAN (Rec: 12/25/20 16:34 EVAN [id number]) Nutrition Notes Need for Assessment generated from: MD Order Initial or Follow up Assessment Current Diagnosis Diabetes,Hypertension,Heart Failure Other Pertinent Diagnosis Respiratory arrest, Possible COVID-19 Labs/Tests 12/25: K 3.4, Cl 95.6, CO2 35, BUN 28, Glu 213. Pertinent Medications 12/25: Reviewed. Height 6 ft 2 in Weight 114.305 kg [place] Body Weight (kg) 86.36 BMI 32.3 Weight Status Obese Subjective/Other Information Pt admited to ER and on mechanical ventilation, no further information available at this time, while waiting for test results. Burn Absent Trauma Absent GI Symptoms None Food Allergy No Skin Integrity/Comment Integumentary; clear, warm, dry. #1 Nutrition Diagnosis Inadequate oral intake Comments: Pt admited to ER and on mechanical ventilation, no further information available at this time, while waiting for test results. Etiology 12/26: Pt intubated, sedated. As Evidenced by Signs and Symptoms 12/26: Tube feeding requested. Is patient on ventilator? Yes Is Patient Ambulatory and/or Out of Bed No REE-([facility]-confined to bed) 2431.752 Kcal/Kg value to use for calculation 18 Approximate Energy Requirements Using 7 kcal/Kg Calculation Used for Recommendations Kcal/kg Additional Notes Protein: 1.0-1.2 g/Kg/day; 86- 103 gr/day (from IBW). Fluid: 1.0 ml/Kcal/day, or as per MD. Nutrition Intervention Change Diet Order: Tube Feeding prescribed Nutrition Support: Vital AF 1.2; 1,253 ml/24 hr. Flush 175 ml each 4 hr = 1,050 ml, or as per MD. Kcal 1,504 Protein (gm) 94 Carbohydrates (gm) 41 Fat (gm) 68 Fluid (mL) 1,016 Fiber (gm) 6 % RDI: 75% Goal #1 Tube feeding will provide energy/protein needs (1,504 Kcal/94 g) during LOS. Goal #2 Maintain body weight within +/ -3% of current BWt during LOS. Goal #3 Reach and maintain acceptable chemistry lab values during LOS. Follow-Up By: 12/31/20 Additional Comments Monitor tolerance of tube feding, hydration, and BM. <JORDY TOMAS R - Last Filed: 03/25/21 12:46> Assessment and Plan Assessment and plan: I saw and evaluated the patient on 12/26/20. I agree with the findings and the plan of care as documented in the Nurse Practitioner's~note. Hospitalist Physical - Constitutional Vitals: Temp Pulse Resp BP Pulse Ox 97.8 F 68 21 132/60 96 12/29/20 12:00 12/29/20 15:00 12/29/20 15:00 12/29/20 15:00 12/29/20 15:00 HEART Score - HEART Score Troponin: Troponin T 0.014 ng/mL (0.00-0.029) 12/25/20 10:33 Results - Labs CBC & Chem 7: 12/28/20 09:17 12/29/20 04:19 Labs: Laboratory Last Values WBC 13.6 K/mm3 (4.5-11.0) H 12/28/20 09:17 RBC 3.93 M/mm3 (3.65-5.03) 12/28/20 09:17 Hgb 10.8 gm/dl (11.8-15.2) L 12/28/20 09:17 Hct 34.1 % (35.5-45.6) L 12/28/20 09:17 MCV 87 fl (84-94) 12/28/20 09:17 MCH 28 pg (28-32) 12/28/20 09:17 MCHC 32 % (32-34) 12/28/20 09:17 RDW 15.2 % (13.2-15.2) 12/28/20 09:17 Plt Count 292 K/mm3 (140-440) 12/28/20 09:17 Lymph % (Auto) 4.6 % (13.4-35.0) L 12/25/20 10:33 [place] % (Auto) 7.7 % (0.0-7.3) H 12/25/20 10:33 Eos % (Auto) 1.2 % (0.0-4.3) 12/25/20 10:33 Baso % (Auto) 0.4 % (0.0-1.8) 12/25/20 10:33 Lymph # (Auto) 0.6 K/mm3 (1.2-5.4) L 12/25/20 10:33 [place] # (Auto) 1.1 K/mm3 (0.0-0.8) H 12/25/20 10:33 Eos # (Auto) 0.2 K/mm3 (0.0-0.4) 12/25/20 10:33 Baso # (Auto) 0.1 K/mm3 (0.0-0.1) 12/25/20 10:33 Add Manual Diff Complete 12/26/20 14:48 Total Counted 100 12/26/20 14:48 Seg Neutrophils % Radiological Equipment Specialist 12/26/20 14:48 Seg Neuts % (Manual) 98.0 % (40.0-70.0) H 12/26/20 14:48 Lymphocytes % (Manual) 1.0 % (13.4-35.0) L 12/26/20 14:48 Monocytes % (Manual) 1.0 % (0.0-7.3) 12/26/20 14:48 Nucleated RBC % Not Reportable 12/26/20 14:48 Seg Neutrophils # 11.8 K/mm3 (1.8-7.7) H 12/25/20 10:33 Seg Neutrophils # Man 16.1 K/mm3 (1.8-7.7) H 12/26/20 14:48 Band Neutrophils # 0.0 K/mm3 12/26/20 14:48 Lymphocytes # (Manual) 0.2 K/mm3 (1.2-5.4) L 12/26/20 14:48 Abs React Lymphs (Man) 0.0 K/mm3 12/26/20 14:48 Monocytes # (Manual) 0.2 K/mm3 (0.0-0.8) 12/26/20 14:48 Eosinophils # (Manual) 0.0 K/mm3 (0.0-0.4) 12/26/20 14:48 Basophils # (Manual) 0.0 K/mm3 (0.0-0.1) 12/26/20 14:48 Metamyelocytes # 0.0 K/mm3 12/26/20 14:48 Myelocytes # 0.0 K/mm3 12/26/20 14:48 Promyelocytes # 0.0 K/mm3 12/26/20 14:48 Blast Cells # 0.0 K/mm3 12/26/20 14:48 WBC Morphology Not Reportable 12/26/20 14:48 Hypersegmented Neuts Not Reportable 12/26/20 14:48 Hyposegmented Neuts Not Reportable 12/26/20 14:48 Hypogranular Neuts Not Reportable 12/26/20 14:48 Smudge Cells Not Reportable 12/26/20 14:48 Toxic Granulation 1+ 12/26/20 14:48 Toxic Vacuolation Not Reportable 12/26/20 14:48 Dohle Bodies Not Reportable 12/26/20 14:48 Pelger-Huet Anomaly Not Reportable 12/26/20 14:48 Nell Rods Not Reportable 12/26/20 14:48 Platelet Estimate Consistent w auto 12/26/20 14:48 Clumped Platelets Not Reportable 12/26/20 14:48 Plt Clumps, EDTA Not Reportable 12/26/20 14:48 Large Platelets Not Reportable 12/26/20 14:48 Giant Platelets Not Reportable 12/26/20 14:48 Platelet Satelliting Not Reportable 12/26/20 14:48 Plt Morphology Comment Not Reportable 12/26/20 14:48 RBC Morphology Not Reportable 12/26/20 14:48 Dimorphic RBCs Not Reportable 12/26/20 14:48 Polychromasia Not Reportable 12/26/20 14:48 Hypochromasia Not Reportable 12/26/20 14:48 Poikilocytosis Not Reportable 12/26/20 14:48 Anisocytosis 1+ 12/26/20 14:48 Microcytosis Not Reportable 12/26/20 14:48 Macrocytosis Not Reportable 12/26/20 14:48 Spherocytes Not Reportable 12/26/20 14:48 Pappenheimer Bodies Not Reportable 12/26/20 14:48 Sickle Cells Not Reportable 12/26/20 14:48 Target Cells Not Reportable 12/26/20 14:48 Tear Drop Cells Not Reportable 12/26/20 14:48 Ovalocytes Not Reportable 12/26/20 14:48 Helmet Cells Not Reportable 12/26/20 14:48 [place] Bodies Not Reportable 12/26/20 14:48 [place] Rings Not Reportable 12/26/20 14:48 [place]ad Cells Not Reportable 12/26/20 14:48 Bite Cells Not Reportable 12/26/20 14:48 Crenated Cell Not Reportable 12/26/20 14:48 Elliptocytes Not Reportable 12/26/20 14:48 Acanthocytes (Spur) Not Reportable 12/26/20 14:48 Rouleaux Not Reportable 12/26/20 14:48 Hemoglobin C Crystals Not Reportable 12/26/20 14:48 Schistocytes Not Reportable 12/26/20 14:48 Malaria parasites Not Reportable 12/26/20 14:48 Lobo Bodies Not Reportable 12/26/20 14:48 Hem Pathologist Commnt No 12/26/20 14:48 PT 13.5 Sec. (12.2-14.9) 12/25/20 10:33 INR 0.98 (0.87-1.13) 12/25/20 10:33 APTT 28.6 Sec. (24.2-36.6) 12/25/20 10:33 D-Dimer 1539.09 ng/mlDDU (0-234) H 12/25/20 10:33 ABG pH 7.396 pH Units (7.350-7.450) 12/26/20 04:35 ABG pCO2 54.6 mm Hg 12/26/20 04:35 ABG pO2 69.3 mm Hg (80.0-90.0) L 12/26/20 04:35 ABG HCO3 32.8 mmol/L (20.0-26.0) H 12/26/20 04:35 ABG O2 Saturation 94.2 % (95.0-99.0) L 12/26/20 04:35 ABG Base Excess 6.8 mmol/L (-2.0-3.0) H 12/26/20 04:35 ABG Hemoglobin 10.0 gm/dl (14.0-18.0) L 12/26/20 04:35 ABG Carboxyhemoglobin 1.7 % (0.0-5.0) 12/26/20 04:35 ABG Methemoglobin 0.4 % (0.0-1.5) 12/26/20 04:35 Oxyhemoglobin 92.3 % (95.0-99.0) L 12/26/20 04:35 FiO2 35 % 12/26/20 04:35 Sodium 141 mmol/L (137-145) 12/29/20 04:19 Potassium 4.2 mmol/L (3.6-5.0) 12/29/20 04:19 Chloride 97.2 mmol/L (98-107) L 12/29/20 04:19 Carbon Dioxide 32 mmol/L (22-30) H 12/29/20 04:19 Anion Gap 16 mmol/L 12/29/20 04:19 BUN 54 mg/dL (9-20) H 12/29/20 04:19 Creatinine 1.4 mg/dL (0.8-1.3) H 12/29/20 04:19 Estimated GFR 52 ml/min 12/29/20 04:19 BUN/Creatinine Ratio 39 % 12/29/20 04:19 Glucose 246 mg/dL (75-100) H 12/29/20 04:19 POC Glucose 175 mg/dL (70-105) H 12/29/20 11:47 Hemoglobin A1c 7.5 % (4-6) H 12/26/20 14:48 Lactic Acid 0.90 mmol/L (0.7-2.0) 12/25/20 10:33 Calcium 8.9 mg/dL (8.4-10.2) 12/29/20 04:19 Phosphorus 4.20 mg/dL (2.5-4.5) 12/26/20 14:48 Magnesium 2.00 mg/dL (1.7-2.3) 12/26/20 14:48 Ferritin 144.9 ng/mL (30.0-300.0) 12/25/20 10:33 Total Bilirubin 0.20 mg/dL (0.1-1.2) 12/26/20 14:48 AST 26 units/L (5-40) 12/26/20 14:48 ALT 27 units/L (7-56) 12/26/20 14:48 Alkaline Phosphatase 118 units/L (35-129) 12/26/20 14:48 Ammonia 43.0 umol/L (25-60) 12/25/20 10:33 Lactate Dehydrogenase 150 units/L (91-180) 12/25/20 10:33 Total Creatine Kinase 25 units/L (55-170) L 12/25/20 10:33 Troponin T 0.014 ng/mL (0.00-0.029) 12/25/20 10:33 C-Reactive Protein 5.90 mg/dL (0.00-1.30) H 12/25/20 10:33 NT-Pro-B Natriuret Pep 1338 pg/mL (0-900) H 12/25/20 10:33 Total Protein 7.0 g/dL (6.3-8.2) 12/26/20 14:48 Albumin 3.6 g/dL (3.9-5) L 12/26/20 14:48 Albumin/Globulin Ratio 1.1 % 12/26/20 14:48 Procalcitonin 0.09 ng/mL (<0.15) 12/25/20 10:33 TSH 0.944 mlU/mL (0.270-4.200) 12/25/20 10:33 Urine Color Susan (Yellow) 12/25/20 11:17 Urine Turbidity Hazy (Clear) 12/25/20 11:17 Urine pH 5.0 (5.0-7.0) 12/25/20 11:17 Ur Specific Rosamond 1.010 (1.003-1.030) 12/25/20 11:17 Urine Protein 30 mg/dl mg/dL (Negative) 12/25/20 11:17 Urine Glucose (UA) Neg mg/dL (Negative) 12/25/20 11:17 Urine Ketones Neg mg/dL (Negative) 12/25/20 11:17 Urine Blood Neg (Negative) 12/25/20 11:17 Urine Nitrite Pos (Negative) 12/25/20 11:17 Urine Bilirubin Neg (Negative) 12/25/20 11:17 Urine Urobilinogen 4.0 mg/dL (<2.0) 12/25/20 11:17 Ur Leukocyte Esterase Lg (Negative) 12/25/20 11:17 Urine WBC (Auto) 69.0 /HPF (0.0-6.0) H 12/25/20 11:17 Urine RBC (Auto) 1.0 /HPF (0.0-6.0) 12/25/20 11:17 Urine Mucus Few /HPF 12/25/20 11:17 Nasal Screen MRSA (PCR) Negative (Negative) 12/26/20 Unknown Salicylates < 0.3 mg/dL (2.8-20.0) L 12/25/20 10:33 Acetaminophen 5.0 ug/mL (10.0-30.0) L 12/25/20 10:33 Plasma/Serum Alcohol < 0.01 % (0-0.07) 12/25/20 10:33 Coronavirus (PCR) Negative (Negative) 12/25/20 Unknown Blood Type O POSITIVE 12/25/20 10:47 Antibody Screen Negative 12/25/20 10:47 Cason/IV: Voiding Method Indwelling Catheter Nutrition/Malnutrition Assess - Dietary Evaluation Nutrition/Malnutrition Findings: Nutrition Notes Start: 12/25/20 16:23 Freq: Status: Discharge Protocol: Document 12/25/20 16:23 EVAN (Rec: 12/25/20 16:34 EVAN [id number]) Nutrition Notes Need for Assessment generated from: MD Order Initial or Follow up Assessment Current Diagnosis Diabetes,Hypertension,Heart Failure Other Pertinent Diagnosis Respiratory arrest, Possible COVID-19 Labs/Tests 12/25: K 3.4, Cl 95.6, CO2 35, BUN 28, Glu 213. Pertinent Medications 12/25: Reviewed. Height 6 ft 2 in Weight 114.305 kg [place] Body Weight (kg) 86.36 BMI 32.3 Weight Status Obese Subjective/Other Information Pt admited to ER and on mechanical ventilation, no further information available at this time, while waiting for test results. Burn Absent Trauma Absent GI Symptoms None Food Allergy No Skin Integrity/Comment Integumentary; clear, warm, dry. #1 Nutrition Diagnosis Inadequate oral intake Comments: Pt admited to ER and on mechanical ventilation, no further information available at this time, while waiting for test results. Etiology 12/26: Pt intubated, sedated. As Evidenced by Signs and Symptoms 12/26: Tube feeding requested. Is patient on ventilator? Yes Is Patient Ambulatory and/or Out of Bed No REE-([facility]-confined to bed) 2431.752 Kcal/Kg value to use for calculation 18 Approximate Energy Requirements Using 7 kcal/Kg Calculation Used for Recommendations Kcal/kg Additional Notes Protein: 1.0-1.2 g/Kg/day; 86- 103 gr/day (from IBW). Fluid: 1.0 ml/Kcal/day, or as per MD. Nutrition Intervention Change Diet Order: Tube Feeding prescribed Nutrition Support: Vital AF 1.2; 1,253 ml/24 hr. Flush 175 ml each 4 hr = 1,050 ml, or as per MD. Kcal 1,504 Protein (gm) 94 Carbohydrates (gm) 41 Fat (gm) 68 Fluid (mL) 1,016 Fiber (gm) 6 % RDI: 75% Goal #1 Tube feeding will provide energy/protein needs (1,504 Kcal/94 g) during LOS. Goal #2 Maintain body weight within +/ -3% of current BWt during LOS. Goal #3 Reach and maintain acceptable chemistry lab values during LOS. Follow-Up By: 12/31/20 Additional Comments Monitor tolerance of tube feding, hydration, and BM.
[2020-12-26] MEDS: INSULIN GLARGINE 100 UNITS/ML SUB-Q SCH (21:04)
[2020-12-27] MEDS: BUMETANIDE 1 MG/4 ML INJ IV SCH (05:06)
[2020-12-27] MEDS: methylPREDNISolone Sod Succinate 125 MG/2 ML INJ IV SCH (05:38)
[2020-12-27 05:41] LABS: Hematocrit 35.2 % (35.5-45.6); Hemoglobin 11.2 gm/dl (11.8-15.2); Mean Corpuscular HGB Conc 32 % (32-34); Mean Corpuscular Volume 88 fl (84-94); Platelet Count 300 K/mm3 (140-440); Red Blood Count 3.99 M/mm3 (3.65-5.03); Red Cell Distribution Width 15.2 % (13.2-15.2)
[2020-12-27 05:52] LABS: Calcium 9.5 mg/dL (8.4-10.2)
[2020-12-27] MEDS: INSULIN LISPRO 100 UNIT/ML SUB-Q SCH ×4 (08:00→21:43)
[2020-12-27] MEDS: IPRATROPIUM/ALBUTEROL SULFATE 3 ML AMPUL.NEB IH SCH ×4 (08:37→21:05)
[2020-12-27] MEDS: carvediloL 3.125 MG TAB PO SCH ×2 (09:50→21:40)
[2020-12-27] MEDS: HEPARIN 5,000 UNIT/1 ML VIAL SUB-Q SCH ×2 (09:50→21:42)
[2020-12-27] MEDS: FAMOTIDINE 20 MG/2 ML INJ IV SCH (09:50)
[2020-12-27] MEDS: buPROPion 100 MG TAB PO SCH ×2 (09:51→21:41)
[2020-12-27] MEDS: DULoxetine 30 MG CAP PO SCH (09:52)
[2020-12-27] MEDS: MULTIVITAMIN / MINERAL ORAL LIQUID 15 ML PO SCH (09:52)
[2020-12-27] MEDS: AMIODARONE 200 MG TAB PO SCH ×2 (09:54→10:00)
[2020-12-27] MEDS: ASPIRIN 81 MG TAB CHEW PO SCH (10:00)
--- NOTE | 2020-12-27 11:14 | Progress Note ---
Assessment and Plan 60 y/o male with acute exacerbation of CHF, leading to acute respiratory failure and mechanical ventilation. 12/27/20: Replace Sanchez. Ordered BID Pulmicort therapy. Continue scheduled duonebs. Stopped IV steroids and started on PO prednisone for prolonged taper. Consider fluid restriction, per cards note EF is 20-25%. Bipap was not put in the room last night, will discuss with RT as it is ordered for QHS and PRN usage. Clinically appears stable for cards floor given negative Alvarado PCR. Will continue to follow. 1. Pulm- PSV trial, extubate. Will have bipap available for PRN and QHS uses 2. Cards-follow up [facility] [place] heart recs. Appears to be volume up and could benefit from diuresis. Currently on lasix 40 BID, may need to change to bumex if bp and renal function will allow. 3. endo-resume home regimen once swallowing assessed 4. GI- Swallow eval post extubation 5. Heme-elevated WBC but no fever, could be stress related. got a one time dose of rocephin in the ED, hold on any further abx therapy. 6. renal-stable 7. Once extubated and monitored, can likely be transitioned to step down unit. CCt 31 minutes. Subjective Date of service: 12/27/20 Interval history: Successful extubation and transfer to step down on yesterday. Stable on 3 li ters NC with good sats. UOP was good but now that sanchez is out has not voided much at all. Responded to IV bumex well. Objective Vital Signs - 12hr 12/26/20 12/27/20 12/27/20 23:31 00:00 00:05 Temperature 97.7 F Pulse Rate 67 69 68 Pulse Rate [ Bilateral Throughout] Pulse Rate [ 40 L Right Radial] Respiratory 19 21 21 Rate Respiratory Rate [Bilateral Throughout] Blood Pressure 128/53 131/61 131/61 O2 Sat by Pulse 96 95 96 Oximetry 12/27/20 12/27/20 12/27/20 00:31 01:00 01:31 Temperature Pulse Rate 70 66 67 Pulse Rate [ Bilateral Throughout] Pulse Rate [ Right Radial] Respiratory 23 18 22 Rate Respiratory Rate [Bilateral Throughout] Blood Pressure 131/61 127/60 127/60 O2 Sat by Pulse 94 94 95 Oximetry 12/27/20 12/27/20 12/27/20 02:00 02:31 03:00 Temperature Pulse Rate 66 68 65 Pulse Rate [ Bilateral Throughout] Pulse Rate [ Right Radial] Respiratory 20 17 20 Rate Respiratory Rate [Bilateral Throughout] Blood Pressure 131/56 131/56 129/58 O2 Sat by Pulse 94 95 95 Oximetry 12/27/20 12/27/20 12/27/20 03:31 04:00 04:31 Temperature 98.1 F Pulse Rate 68 72 76 Pulse Rate [ Bilateral Throughout] Pulse Rate [ 40 L Right Radial] Respiratory 22 21 21 Rate Respiratory Rate [Bilateral Throughout] Blood Pressure 129/58 137/60 137/60 O2 Sat by Pulse 93 87 93 Oximetry 12/27/20 12/27/20 12/27/20 05:00 05:31 06:00 Temperature Pulse Rate 81 74 71 Pulse Rate [ Bilateral Throughout] Pulse Rate [ Right Radial] Respiratory 29 H 24 23 Rate Respiratory Rate [Bilateral Throughout] Blood Pressure 142/61 142/61 125/60 O2 Sat by Pulse 90 92 93 Oximetry 12/27/20 12/27/20 12/27/20 06:31 07:00 07:31 Temperature Pulse Rate 67 66 64 Pulse Rate [ Bilateral Throughout] Pulse Rate [ Right Radial] Respiratory 22 22 21 Rate Respiratory Rate [Bilateral Throughout] Blood Pressure 125/60 134/63 134/63 O2 Sat by Pulse 93 92 94 Oximetry 12/27/20 12/27/20 12/27/20 07:57 08:00 08:31 Temperature 98.0 F Pulse Rate 68 79 Pulse Rate [ Bilateral Throughout] Pulse Rate [ Right Radial] Respiratory 22 27 H Rate Respiratory Rate [Bilateral Throughout] Blood Pressure 137/63 137/63 O2 Sat by Pulse 93 94 Oximetry 12/27/20 12/27/20 12/27/20 08:47 08:49 09:00 Temperature Pulse Rate 66 Pulse Rate [ 79 Bilateral Throughout] Pulse Rate [ Right Radial] Respiratory 21 Rate Respiratory 20 Rate [Bilateral Throughout] Blood Pressure 120/44 O2 Sat by Pulse 95 94 Oximetry 12/27/20 09:50 Temperature Pulse Rate 70 Pulse Rate [ Bilateral Throughout] Pulse Rate [ Right Radial] Respiratory Rate Respiratory Rate [Bilateral Throughout] Blood Pressure O2 Sat by Pulse Oximetry Constitutional: no acute distress, alert Eyes: non-icteric ENT: other (orally intubated and sedated) Neck: supple, other (large in circumference) Effort: normal Ascultation: Right: rales (base), Bilateral: diminished breath sounds Gastrointestinal: normoactive bowel sounds, soft CBC and BMP: 12/27/20 04:27 12/27/20 04:27 ABG, PT/INR, D-dimer: ABG ABG pH 7.396 pH Units (7.350-7.450) 12/26/20 04:35 ABG pCO2 54.6 mm Hg 12/26/20 04:35 ABG pO2 69.3 mm Hg (80.0-90.0) L 12/26/20 04:35 ABG O2 Saturation 94.2 % (95.0-99.0) L 12/26/20 04:35 PT/INR, D-dimer PT 13.5 Sec. (12.2-14.9) 12/25/20 10:33 INR 0.98 (0.87-1.13) 12/25/20 10:33 D-Dimer 1539.09 ng/mlDDU (0-234) H 12/25/20 10:33 Abnormal lab findings: Abnormal Labs 12/25/20 12/25/20 12/25/20 10:33 10:33 10:33 WBC 13.7 H Hgb 10.4 L Hct 32.5 L Lymph % (Auto) 4.6 L Dolores % (Auto) 7.7 H Lymph # (Auto) 0.6 L Dolores # (Auto) 1.1 H Seg Neutrophils % 86.1 H Seg Neuts % (Manual) Lymphocytes % (Manual) Seg Neutrophils # 11.8 H Seg Neutrophils # Man Lymphocytes # (Manual) D-Dimer 1539.09 H ABG pH ABG pO2 ABG HCO3 ABG O2 Saturation ABG Base Excess ABG Hemoglobin Oxyhemoglobin Sodium Potassium 3.4 L Chloride 95.6 L Carbon Dioxide 35 H BUN 28 H Creatinine Glucose 213 H POC Glucose Hemoglobin A1c Alkaline Phosphatase 137 H Total Creatine Kinase 25 L C-Reactive Protein 5.90 H NT-Pro-B Natriuret Pep Albumin 3.6 L Urine WBC (Auto) Salicylates Acetaminophen 12/25/20 12/25/20 12/25/20 10:33 10:33 10:33 WBC Hgb Hct Lymph % (Auto) Dolores % (Auto) Lymph # (Auto) Dolores # (Auto) Seg Neutrophils % Seg Neuts % (Manual) Lymphocytes % (Manual) Seg Neutrophils # Seg Neutrophils # Man Lymphocytes # (Manual) D-Dimer ABG pH ABG pO2 ABG HCO3 ABG O2 Saturation ABG Base Excess ABG Hemoglobin Oxyhemoglobin Sodium Potassium Chloride Carbon Dioxide BUN Creatinine Glucose POC Glucose Hemoglobin A1c Alkaline Phosphatase Total Creatine Kinase C-Reactive Protein NT-Pro-B Natriuret Pep 1338 H Albumin Urine WBC (Auto) Salicylates < 0.3 L Acetaminophen 5.0 L 12/25/20 12/25/20 12/25/20 10:40 11:17 19:44 WBC Hgb Hct Lymph % (Auto) Dolores % (Auto) Lymph # (Auto) Dolores # (Auto) Seg Neutrophils % Seg Neuts % (Manual) Lymphocytes % (Manual) Seg Neutrophils # Seg Neutrophils # Man Lymphocytes # (Manual) D-Dimer ABG pH 7.515 H ABG pO2 175.2 H ABG HCO3 33.3 H ABG O2 Saturation 99.1 H ABG Base Excess 9.5 H ABG Hemoglobin 10.6 L Oxyhemoglobin Sodium Potassium Chloride Carbon Dioxide BUN Creatinine Glucose POC Glucose 176 H Hemoglobin A1c Alkaline Phosphatase Total Creatine Kinase C-Reactive Protein NT-Pro-B Natriuret Pep Albumin Urine WBC (Auto) 69.0 H Salicylates Acetaminophen 12/25/20 12/26/20 12/26/20 23:12 04:35 05:33 WBC Hgb Hct Lymph % (Auto) Dolores % (Auto) Lymph # (Auto) Dolores # (Auto) Seg Neutrophils % Seg Neuts % (Manual) Lymphocytes % (Manual) Seg Neutrophils # Seg Neutrophils # Man Lymphocytes # (Manual) D-Dimer ABG pH ABG pO2 69.3 L ABG HCO3 32.8 H ABG O2 Saturation 94.2 L ABG Base Excess 6.8 H ABG Hemoglobin 10.0 L Oxyhemoglobin 92.3 L Sodium Potassium Chloride Carbon Dioxide BUN Creatinine Glucose POC Glucose 139 H 154 H Hemoglobin A1c Alkaline Phosphatase Total Creatine Kinase C-Reactive Protein NT-Pro-B Natriuret Pep Albumin Urine WBC (Auto) Salicylates Acetaminophen 12/26/20 12/26/20 12/26/20 12:16 14:48 14:48 WBC 16.4 H Hgb 10.2 L Hct 31.6 L Lymph % (Auto) Dolores % (Auto) Lymph # (Auto) Dolores # (Auto) Seg Neutrophils % Seg Neuts % (Manual) 98.0 H Lymphocytes % (Manual) 1.0 L Seg Neutrophils # Seg Neutrophils # Man 16.1 H Lymphocytes # (Manual) 0.2 L D-Dimer ABG pH ABG pO2 ABG HCO3 ABG O2 Saturation ABG Base Excess ABG Hemoglobin Oxyhemoglobin Sodium Potassium Chloride Carbon Dioxide 32 H BUN 42 H Creatinine Glucose 213 H POC Glucose 184 H Hemoglobin A1c Alkaline Phosphatase Total Creatine Kinase C-Reactive Protein NT-Pro-B Natriuret Pep Albumin 3.6 L Urine WBC (Auto) Salicylates Acetaminophen 12/26/20 12/26/20 12/27/20 14:48 22:01 04:27 WBC 18.2 H Hgb 11.2 L Hct 35.2 L Lymph % (Auto) Dolores % (Auto) Lymph # (Auto) Dolores # (Auto) Seg Neutrophils % Seg Neuts % (Manual) Lymphocytes % (Manual) Seg Neutrophils # Seg Neutrophils # Man Lymphocytes # (Manual) D-Dimer ABG pH ABG pO2 ABG HCO3 ABG O2 Saturation ABG Base Excess ABG Hemoglobin Oxyhemoglobin Sodium Potassium Chloride Carbon Dioxide BUN Creatinine Glucose POC Glucose 227 H Hemoglobin A1c 7.5 H Alkaline Phosphatase Total Creatine Kinase C-Reactive Protein NT-Pro-B Natriuret Pep Albumin Urine WBC (Auto) Salicylates Acetaminophen 12/27/20 12/27/20 04:27 07:14 WBC Hgb Hct Lymph % (Auto) Dolores % (Auto) Lymph # (Auto) Dolores # (Auto) Seg Neutrophils % Seg Neuts % (Manual) Lymphocytes % (Manual) Seg Neutrophils # Seg Neutrophils # Man Lymphocytes # (Manual) D-Dimer ABG pH ABG pO2 ABG HCO3 ABG O2 Saturation ABG Base Excess ABG Hemoglobin Oxyhemoglobin Sodium 147 H Potassium Chloride 97.3 L Carbon Dioxide 33 H BUN 49 H Creatinine 1.4 H Glucose 196 H POC Glucose 206 H Hemoglobin A1c Alkaline Phosphatase Total Creatine Kinase C-Reactive Protein NT-Pro-B Natriuret Pep Albumin Urine WBC (Auto) Salicylates Acetaminophen
[2020-12-27] MEDS: FAMOTIDINE 20 MG TAB PO SCH ×2 (11:33→21:39)
[2020-12-27] MEDS ORDERED: FLU VACC QUAD 2021-22(6MOS UP)/PF 60 MCG/0.5 ML SYRINGE IM ONE (12:00)
[2020-12-27] MEDS: BUDESONIDE 0.5 MG/2 ML NEBU IH SCH ×2 (12:45→21:05)
--- NOTE | 2020-12-27 14:10 | Progress Note ---
Assessment and Plan Stable for transfer to tele floor. Continue IV Bumex 1mg BID with strict I/Os. Pt is also on Aldactone 25mg daily as an outpatient. Closely monitor renal indices & electrolytes. Continue Coreg 3.125mg BID. ARB held due to renal fxn and borderline low BP (on Losartan 25mg daily as an outpatient). Continue PO Amio 200mg daily. Will obtain daily ECGs for monitoring of QTc given prolonged QT interval at admission. Pt seen in conjunction with Dr. John Horton, who agrees with the assessment and plan of care. - Patient Problems (1) Acute encephalopathy Current Visit: Yes Status: Resolved (2) UTI (urinary tract infection) Current Visit: Yes Status: Acute (3) Acute and chronic respiratory failure ([id number]) Current Visit: Yes Status: Acute (4) COPD (chronic obstructive pulmonary disease) Current Visit: Yes Status: Chronic (5) Obstructive sleep apnea Current Visit: Yes Status: Chronic (6) Acute on chronic HFrEF (heart failure with reduced ejection fraction) Current Visit: Yes Status: Acute (7) AGUSTIN (acute kidney injury) Current Visit: Yes Status: Acute (8) Ischemic cardiomyopathy Current Visit: Yes Status: Chronic (9) CAD (coronary artery disease) Current Visit: Yes Status: Chronic (10) S/P CABG (coronary artery bypass graft) Current Visit: Yes Status: Chronic (11) History of atrial fibrillation Current Visit: Yes Status: Chronic (12) Aortic stenosis Current Visit: Yes Status: Chronic (13) Hypertension Current Visit: Yes Status: Chronic Qualifiers: Hypertension type: primary hypertension Qualified Code(s): I10 - Essential (primary) hypertension (14) DM2 (diabetes mellitus, type 2) Current Visit: Yes Status: Chronic Subjective Date of service: 12/27/20 Principal diagnosis: A/C HFrEF Interval history: States he is feeling well today. Reports good UOP (-1420 mL UOP noted/24 hrs). S R 60-70s on tele. Objective Last Vital Signs Temp 97.9 F 12/27/20 12:00 Pulse 56 L 12/27/20 13:01 Resp 22 12/27/20 13:01 BP 119/64 12/27/20 13:01 Pulse Ox 97 12/27/20 13:01 - Physical Examination General: No Apparent Distress HEENT: Positive: EOMI, Normocephaly Neck: Positive: neck supple, trachea midline. Negative: JVD/HJR Cardiac: Positive: Reg Rate and Rhythm, S1/S2 Lungs: Positive: Other (coarse bilaterally) Neuro: Positive: Grossly Intact Abdomen: Positive: Soft. Negative: Tender Skin: Negative: Rash Musculoskeletal: No Pain Extremities: Present: lower extr. pulses. Absent: edema - Labs and Meds Cardiac Enzymes 12/26/20 Range/Units 14:48 AST 26 (5-40) units/L CBC 12/26/20 12/27/20 Range/Units 14:48 04:27 WBC 16.4 H 18.2 H (4.5-11.0) K/mm3 RBC 3.66 3.99 (3.65-5.03) M/mm3 Hgb 10.2 L 11.2 L (11.8-15.2) gm/dl Hct 31.6 L 35.2 L (35.5-45.6) % Plt Count 266 300 (140-440) K/mm3 Comprehensive Metabolic Panel 12/26/20 12/27/20 Range/Units 14:48 04:27 Sodium 145 147 H (137-145) mmol/L Potassium 3.7 4.9 D (3.6-5.0) mmol/L Chloride 98.5 97.3 L (98-107) mmol/L Carbon Dioxide 32 H 33 H (22-30) mmol/L BUN 42 H 49 H (9-20) mg/dL Creatinine 1.3 1.4 H (0.8-1.3) mg/dL Glucose 213 H 196 H (75-100) mg/dL Calcium 9.0 9.5 (8.4-10.2) mg/dL AST 26 (5-40) units/L ALT 27 (7-56) units/L Alkaline Phosphatase 118 (35-129) units/L Total Protein 7.0 (6.3-8.2) g/dL Albumin 3.6 L (3.9-5) g/dL - Imaging and Cardiology EKG: report reviewed, image reviewed Echo: report reviewed (11/19/2020 - EF 20-25%, LV severely dilated, increased lef t LA pressure and grade 2 diastolic dysfunction, RV mildly dilated, moderate- severe , mild MR, mild-moderate TR, RVSP 34mmHg) Cardiac cath: report reviewed (12/2019 - severe diffuse [place] multi-vessel coronary artery disease with chronic total occlusions of mid LCx, prox LAD, and mid RCA, patent [place] to LAD, patent SVG to diagonal, patent SVG to OM trunk, patent SVG to RCA, estimated EF 25-30%, no evidence of , moderate-severe MR) - Telemetry EKG Rhythm: Sinus Rhythm - EKG Supraventricular dysrhythmia: ectopic atrial rhythm Repolarization changes or abnormalities: Q-T interval prolongation - Allied health notes Allied health notes reviewed: nursing
[2020-12-27] MEDS: POTASSIUM CHLORIDE ER 20 MEQ TAB PO SCH (20:36)
[2020-12-27] MEDS: INSULIN GLARGINE 100 UNITS/ML SUB-Q SCH (21:42)
--- NOTE | 2020-12-28 00:06 | Progress Note ---
Assessment and Plan (1) Acute encephalopathy Current Visit: Yes Status: Acute Plan to address problem: Secondary to hypoxia and respiratory failure, required intubation, now extubated (2) Acute and chronic respiratory failure with hypoxia Current Visit: No Status: Acute Plan to address problem: s/p intubation Continue nebulizer treatments and IV diuretics and IV antibiotics Also IV Solu-Medrol at 60 mg every 8 Mixer Runner consult requested by Dr. Webb (3) SIRS (systemic inflammatory response syndrome) Current Visit: Yes Status: Acute Plan to address problem: Clinical picture consistent with Sirs All inflammatory markers are elevated (4) Acute on chronic HFrEF (heart failure with reduced ejection fraction) Current Visit: No Status: Acute Plan to address problem: Echocardiogram for ejection fraction IV Lasix as tolerated within the blood pressure parameters of 90-120 systolic Daily weights and intake and output Cardiology consult requested (5) COPD exacerbation Current Visit: Yes Status: Acute Plan to address problem: Nebulizer treatments IV Solu-Medrol and IV antibiotics (6) Hypertension Current Visit: Yes Status: Chronic Qualifiers: Hypertension type: primary hypertension Qualified Code(s): I10 - Essential (primary) hypertension Plan to address problem: Patient is borderline hypotensive Resume antihypertensives when blood pressures go up (7) T2DM (type 2 diabetes mellitus) Current Visit: Yes Status: Chronic Qualifiers: 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 Patient was brought to the emergency department on bag-max ventilation. He apparently had shortness of breath for 3 weeks and would need nebulizer therapy with no relief, orthopnea and paroxysmal nocturnal dyspnea. Upon arrival to emergency department patient became unresponsive and the patient was intubated for airway protection. 12/26: Patient was extubated today and transition to IMCU. Lasix changed to Bumex due to low urine output. 12/27/20: Continue IV Bumex 1mg BID with strict I/Os. Closely monitor renal indices & electrolytes. plan to replace Cason. Ordered BID Pulmicort therapy. Continue scheduled duonebs. Stopped IV steroids and started on PO prednisone for prolonged taper. Consider fluid restriction, per 2d echo EF is 20-25%. Subjective Date of service: 12/27/20 Principal diagnosis: A/C HFrEF Interval history: Patient seen and examined. Medical records and medication list reviewed. Patient extubated yesterday vitals noted. Discussed plan of care at bedside with patient's RN. Objective - Exam Narrative Exam: General: No Apparent Distress HEENT: Positive: EOMI, Normocephaly Neck: Positive: neck supple, trachea midline. Negative: JVD/HJR Cardiac: Positive: Reg Rate and Rhythm, S1/S2 Lungs: Positive: Other (coarse bilaterally) Neuro: Positive: Grossly Intact Abdomen: Positive: Soft. Negative: Tender Skin: Negative: Rash Musculoskeletal: No Pain Extremities: Present: lower extr. pulses. Absent: edema - Constitutional Vitals: Vital Signs - 12hr 12/27/20 12/27/20 12/27/20 12:31 12:48 13:01 Temperature Pulse Rate 60 56 L Pulse Rate [ 60 Bilateral Throughout] Pulse Rate [ Left Radial] Pulse Rate [ Right Radial] Respiratory 14 22 Rate Respiratory 18 Rate [Bilateral Throughout] Blood Pressure 119/64 119/64 O2 Sat by Pulse 96 97 Oximetry 12/27/20 12/27/20 12/27/20 13:31 14:01 14:31 Temperature Pulse Rate 57 L 57 L 57 L Pulse Rate [ Bilateral Throughout] Pulse Rate [ Left Radial] Pulse Rate [ Right Radial] Respiratory 24 24 20 Rate Respiratory Rate [Bilateral Throughout] Blood Pressure 119/64 119/64 119/64 O2 Sat by Pulse 97 97 97 Oximetry 12/27/20 12/27/20 12/27/20 15:00 15:31 15:55 Temperature 98.5 F Pulse Rate 56 L 56 L Pulse Rate [ 59 L Bilateral Throughout] Pulse Rate [ Left Radial] Pulse Rate [ Right Radial] Respiratory 21 15 Rate Respiratory 18 Rate [Bilateral Throughout] Blood Pressure 130/61 130/61 O2 Sat by Pulse 98 96 Oximetry 12/27/20 12/27/20 12/27/20 16:00 16:31 17:00 Temperature Pulse Rate 56 L 57 L 62 Pulse Rate [ Bilateral Throughout] Pulse Rate [ 63 Left Radial] Pulse Rate [ 63 Right Radial] Respiratory 19 19 16 Rate Respiratory Rate [Bilateral Throughout] Blood Pressure 126/57 126/57 146/71 O2 Sat by Pulse 98 99 96 Oximetry 12/27/20 12/27/20 12/27/20 17:35 18:01 21:20 Temperature Pulse Rate 68 Pulse Rate [ 59 L Bilateral Throughout] Pulse Rate [ Left Radial] Pulse Rate [ Right Radial] Respiratory 20 Rate Respiratory 18 Rate [Bilateral Throughout] Blood Pressure 126/57 130/54 O2 Sat by Pulse 82 L 98 95 Oximetry 12/27/20 12/27/20 21:28 21:40 Temperature Pulse Rate 58 L 55 L Pulse Rate [ Bilateral Throughout] Pulse Rate [ Left Radial] Pulse Rate [ Right Radial] Respiratory 20 Rate Respiratory Rate [Bilateral Throughout] Blood Pressure 132/65 132/65 O2 Sat by Pulse 100 Oximetry - Labs CBC & Chem 7: 12/28/20 09:17 12/29/20 04:19 Labs: Abnormal lab results 12/27/20 12/27/20 12/27/20 Range/Units 04:27 04:27 07:14 WBC 18.2 H (4.5-11.0) K/mm3 Hgb 11.2 L (11.8-15.2) gm/dl Hct 35.2 L (35.5-45.6) % Sodium 147 H (137-145) mmol/L Chloride 97.3 L (98-107) mmol/L Carbon Dioxide 33 H (22-30) mmol/L BUN 49 H (9-20) mg/dL Creatinine 1.4 H (0.8-1.3) mg/dL Glucose 196 H (75-100) mg/dL POC Glucose 206 H (70-105) mg/dL 12/27/20 12/27/20 12/27/20 Range/Units 11:43 15:41 21:35 WBC (4.5-11.0) K/mm3 Hgb (11.8-15.2) gm/dl Hct (35.5-45.6) % Sodium (137-145) mmol/L Chloride (98-107) mmol/L Carbon Dioxide (22-30) mmol/L BUN (9-20) mg/dL Creatinine (0.8-1.3) mg/dL Glucose (75-100) mg/dL POC Glucose 202 H 233 H 241 H (70-105) mg/dL HEART Score - HEART Score Troponin: Troponin T 0.014 ng/mL (0.00-0.029) 12/25/20 10:33
[2020-12-28] MEDS: BUDESONIDE 0.5 MG/2 ML NEBU IH SCH ×2 (07:44→21:04)
[2020-12-28] MEDS: IPRATROPIUM/ALBUTEROL SULFATE 3 ML AMPUL.NEB IH SCH ×3 (07:44→21:05)
[2020-12-28] MEDS: INSULIN LISPRO 100 UNIT/ML SUB-Q SCH ×4 (08:35→22:24)
--- NOTE | 2020-12-28 08:36 | Electrocardiograph Report ---
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 : 1960 Requested By: VINICIUS WHELAN Order Number: [id number] Reading MD: Christopher Horton Measurements Intervals [place] Rate: 71 P: 267 OH: 134 QRS: -29 QRSD: 144 T: 122 QT: 466 QTc: 508 Interpretive Statements Sinus or ectopic atrial rhythm LVH with secondary repolarization abnormality Inferior infarct, old Prolonged QT interval Compared to ECG 12/26/2020 08:14:09 Left ventricular hypertrophy now present Early repolarization now present Myocardial infarct finding now present Intraventricular conduction delay no longer present Electronically Signed On 12-28-2020 8:35:54 EDT by Christopher Horton
[2020-12-28 09:40] LABS: Hematocrit 34.1 % (35.5-45.6); Hemoglobin 10.8 gm/dl (11.8-15.2); Mean Corpuscular HGB Conc 32 % (32-34); Mean Corpuscular Volume 87 fl (84-94); Platelet Count 292 K/mm3 (140-440); Red Blood Count 3.93 M/mm3 (3.65-5.03); Red Cell Distribution Width 15.2 % (13.2-15.2)
[2020-12-28] MEDS: MULTIVITAMIN / MINERAL ORAL LIQUID 15 ML PO SCH (09:54)
[2020-12-28] MEDS: ASPIRIN 81 MG TAB CHEW PO SCH (09:56)
[2020-12-28] MEDS: FAMOTIDINE 20 MG TAB PO SCH ×2 (09:57→22:21)
[2020-12-28] MEDS: buPROPion 100 MG TAB PO SCH ×2 (09:57→22:23)
[2020-12-28] MEDS: AMIODARONE 200 MG TAB PO SCH (09:57)
[2020-12-28] MEDS: carvediloL 3.125 MG TAB PO SCH ×2 (09:58→22:21)
[2020-12-28] MEDS: predniSONE 20 MG TAB PO SCH (10:00)
[2020-12-28] MEDS: HEPARIN 5,000 UNIT/1 ML VIAL SUB-Q SCH ×2 (10:00→22:23)
[2020-12-28] MEDS: DULoxetine 30 MG CAP PO SCH (10:00)
--- NOTE | 2020-12-28 12:10 | Progress Note ---
Assessment and Plan 60 y/o male with acute exacerbation of CHF, leading to acute respiratory failure and mechanical ventilation. 12/28/20: Re order BUMEX, if cards wants to switch to oral will defer to them. Continue NIV at night and scheduled neb therapy. Remains stable for transfer just no beds available. May be ready for discharge soon once euvolemic. Pulm status is at baseline. Will see as needed over the weekend. 12/27/20: Replace Cason. Ordered BID Pulmicort therapy. Continue scheduled duonebs. Stopped IV steroids and started on PO prednisone for prolonged taper. Consider fluid restriction, per cards note EF is 20-25%. Bipap was not put in the room last night, will discuss with RT as it is ordered for QHS and PRN usage. Clinically appears stable for cards floor given negative Alvarado PCR. Will continue to follow. 1. Pulm- PSV trial, extubate. Will have bipap available for PRN and QHS uses 2. Cards-follow up [facility] heart recs. Appears to be volume up and could benefit from diuresis. Currently on lasix 40 BID, may need to change to bumex if bp and renal function will allow. 3. endo-resume home regimen once swallowing assessed 4. GI- Swallow eval post extubation 5. Heme-elevated WBC but no fever, could be stress related. got a one time dose of rocephin in the ED, hold on any further abx therapy. 6. renal-stable 7. Once extubated and monitored, can likely be transitioned to step down unit. CCt 31 minutes. Subjective Date of service: 12/28/20 Principal diagnosis: A/C HFrEF Interval history: No tele beds so patient remains in step down. STable on nasal cannula. Bumex has fallen off may. Objective Vital Signs - 12hr 12/28/20 12/28/20 12/28/20 01:00 01:12 02:00 Temperature Pulse Rate 57 L 53 L 55 L Pulse Rate [ Bilateral Throughout] Respiratory 18 Rate Respiratory Rate [Bilateral Throughout] Blood Pressure 133/64 133/64 136/66 O2 Sat by Pulse 93 97 97 Oximetry 12/28/20 12/28/20 12/28/20 03:00 04:00 04:15 Temperature 97.6 F Pulse Rate 54 L 49 L 59 L Pulse Rate [ Bilateral Throughout] Respiratory 18 Rate Respiratory Rate [Bilateral Throughout] Blood Pressure 137/62 129/60 131/66 O2 Sat by Pulse 97 97 100 Oximetry 12/28/20 12/28/20 12/28/20 05:00 06:00 07:00 Temperature Pulse Rate 60 59 L 62 Pulse Rate [ Bilateral Throughout] Respiratory Rate Respiratory Rate [Bilateral Throughout] Blood Pressure 143/69 145/68 145/74 O2 Sat by Pulse 99 100 99 Oximetry 12/28/20 12/28/20 12/28/20 07:25 07:45 07:58 Temperature 98.6 F Pulse Rate 56 L Pulse Rate [ 72 Bilateral Throughout] Respiratory 20 Rate Respiratory 16 Rate [Bilateral Throughout] Blood Pressure O2 Sat by Pulse 100 Oximetry 12/28/20 12/28/20 12/28/20 08:00 08:12 09:01 Temperature Pulse Rate 62 59 L 65 Pulse Rate [ Bilateral Throughout] Respiratory Rate Respiratory Rate [Bilateral Throughout] Blood Pressure 132/64 115/35 O2 Sat by Pulse 98 97 Oximetry 12/28/20 12/28/20 12/28/20 09:58 10:00 11:00 Temperature Pulse Rate 59 L 60 58 L Pulse Rate [ Bilateral Throughout] Respiratory Rate Respiratory Rate [Bilateral Throughout] Blood Pressure 115/35 116/45 128/55 O2 Sat by Pulse 99 98 Oximetry 12/28/20 11:25 Temperature Pulse Rate Pulse Rate [ 69 Bilateral Throughout] Respiratory Rate Respiratory 16 Rate [Bilateral Throughout] Blood Pressure O2 Sat by Pulse Oximetry Constitutional: no acute distress, alert Eyes: non-icteric ENT: other (orally intubated and sedated) Neck: supple, other (large in circumference) Effort: normal Ascultation: Right: rales (base), Bilateral: diminished breath sounds Gastrointestinal: normoactive bowel sounds, soft CBC and BMP: 12/28/20 09:17 12/28/20 09:17 ABG, PT/INR, D-dimer: ABG ABG pH 7.396 pH Units (7.350-7.450) 12/26/20 04:35 ABG pCO2 54.6 mm Hg 12/26/20 04:35 ABG pO2 69.3 mm Hg (80.0-90.0) L 12/26/20 04:35 ABG O2 Saturation 94.2 % (95.0-99.0) L 12/26/20 04:35 PT/INR, D-dimer PT 13.5 Sec. (12.2-14.9) 12/25/20 10:33 INR 0.98 (0.87-1.13) 12/25/20 10:33 D-Dimer 1539.09 ng/mlDDU (0-234) H 12/25/20 10:33 Abnormal lab findings: Abnormal Labs 12/25/20 12/25/20 12/25/20 10:33 10:33 10:33 WBC 13.7 H Hgb 10.4 L Hct 32.5 L Lymph % (Auto) 4.6 L [place] % (Auto) 7.7 H Lymph # (Auto) 0.6 L [place] # (Auto) 1.1 H Seg Neutrophils % 86.1 H Seg Neuts % (Manual) Lymphocytes % (Manual) Seg Neutrophils # 11.8 H Seg Neutrophils # Man Lymphocytes # (Manual) D-Dimer 1539.09 H ABG pH ABG pO2 ABG HCO3 ABG O2 Saturation ABG Base Excess ABG Hemoglobin Oxyhemoglobin Sodium Potassium 3.4 L Chloride 95.6 L Carbon Dioxide 35 H BUN 28 H Creatinine Glucose 213 H POC Glucose Hemoglobin A1c Alkaline Phosphatase 137 H Total Creatine Kinase 25 L C-Reactive Protein 5.90 H NT-Pro-B Natriuret Pep Albumin 3.6 L Urine WBC (Auto) Salicylates Acetaminophen 12/25/20 12/25/20 12/25/20 10:33 10:33 10:33 WBC Hgb Hct Lymph % (Auto) [place] % (Auto) Lymph # (Auto) [place] # (Auto) Seg Neutrophils % Seg Neuts % (Manual) Lymphocytes % (Manual) Seg Neutrophils # Seg Neutrophils # Man Lymphocytes # (Manual) D-Dimer ABG pH ABG pO2 ABG HCO3 ABG O2 Saturation ABG Base Excess ABG Hemoglobin Oxyhemoglobin Sodium Potassium Chloride Carbon Dioxide BUN Creatinine Glucose POC Glucose Hemoglobin A1c Alkaline Phosphatase Total Creatine Kinase C-Reactive Protein NT-Pro-B Natriuret Pep 1338 H Albumin Urine WBC (Auto) Salicylates < 0.3 L Acetaminophen 5.0 L 12/25/20 12/25/20 12/25/20 10:40 11:17 19:44 WBC Hgb Hct Lymph % (Auto) [place] % (Auto) Lymph # (Auto) [place] # (Auto) Seg Neutrophils % Seg Neuts % (Manual) Lymphocytes % (Manual) Seg Neutrophils # Seg Neutrophils # Man Lymphocytes # (Manual) D-Dimer ABG pH 7.515 H ABG pO2 175.2 H ABG HCO3 33.3 H ABG O2 Saturation 99.1 H ABG Base Excess 9.5 H ABG Hemoglobin 10.6 L Oxyhemoglobin Sodium Potassium Chloride Carbon Dioxide BUN Creatinine Glucose POC Glucose 176 H Hemoglobin A1c Alkaline Phosphatase Total Creatine Kinase C-Reactive Protein NT-Pro-B Natriuret Pep Albumin Urine WBC (Auto) 69.0 H Salicylates Acetaminophen 12/25/20 12/26/20 12/26/20 23:12 04:35 05:33 WBC Hgb Hct Lymph % (Auto) [place] % (Auto) Lymph # (Auto) [place] # (Auto) Seg Neutrophils % Seg Neuts % (Manual) Lymphocytes % (Manual) Seg Neutrophils # Seg Neutrophils # Man Lymphocytes # (Manual) D-Dimer ABG pH ABG pO2 69.3 L ABG HCO3 32.8 H ABG O2 Saturation 94.2 L ABG Base Excess 6.8 H ABG Hemoglobin 10.0 L Oxyhemoglobin 92.3 L Sodium Potassium Chloride Carbon Dioxide BUN Creatinine Glucose POC Glucose 139 H 154 H Hemoglobin A1c Alkaline Phosphatase Total Creatine Kinase C-Reactive Protein NT-Pro-B Natriuret Pep Albumin Urine WBC (Auto) Salicylates Acetaminophen 12/26/20 12/26/20 12/26/20 12:16 14:48 14:48 WBC 16.4 H Hgb 10.2 L Hct 31.6 L Lymph % (Auto) [place] % (Auto) Lymph # (Auto) [place] # (Auto) Seg Neutrophils % Seg Neuts % (Manual) 98.0 H Lymphocytes % (Manual) 1.0 L Seg Neutrophils # Seg Neutrophils # Man 16.1 H Lymphocytes # (Manual) 0.2 L D-Dimer ABG pH ABG pO2 ABG HCO3 ABG O2 Saturation ABG Base Excess ABG Hemoglobin Oxyhemoglobin Sodium Potassium Chloride Carbon Dioxide 32 H BUN 42 H Creatinine Glucose 213 H POC Glucose 184 H Hemoglobin A1c Alkaline Phosphatase Total Creatine Kinase C-Reactive Protein NT-Pro-B Natriuret Pep Albumin 3.6 L Urine WBC (Auto) Salicylates Acetaminophen 12/26/20 12/26/20 12/27/20 14:48 22:01 04:27 WBC 18.2 H Hgb 11.2 L Hct 35.2 L Lymph % (Auto) [place] % (Auto) Lymph # (Auto) [place] # (Auto) Seg Neutrophils % Seg Neuts % (Manual) Lymphocytes % (Manual) Seg Neutrophils # Seg Neutrophils # Man Lymphocytes # (Manual) D-Dimer ABG pH ABG pO2 ABG HCO3 ABG O2 Saturation ABG Base Excess ABG Hemoglobin Oxyhemoglobin Sodium Potassium Chloride Carbon Dioxide BUN Creatinine Glucose POC Glucose 227 H Hemoglobin A1c 7.5 H Alkaline Phosphatase Total Creatine Kinase C-Reactive Protein NT-Pro-B Natriuret Pep Albumin Urine WBC (Auto) Salicylates Acetaminophen 12/27/20 12/27/20 12/27/20 04:27 07:14 11:43 WBC Hgb Hct Lymph % (Auto) [place] % (Auto) Lymph # (Auto) [place] # (Auto) Seg Neutrophils % Seg Neuts % (Manual) Lymphocytes % (Manual) Seg Neutrophils # Seg Neutrophils # Man Lymphocytes # (Manual) D-Dimer ABG pH ABG pO2 ABG HCO3 ABG O2 Saturation ABG Base Excess ABG Hemoglobin Oxyhemoglobin Sodium 147 H Potassium Chloride 97.3 L Carbon Dioxide 33 H BUN 49 H Creatinine 1.4 H Glucose 196 H POC Glucose 206 H 202 H Hemoglobin A1c Alkaline Phosphatase Total Creatine Kinase C-Reactive Protein NT-Pro-B Natriuret Pep Albumin Urine WBC (Auto) Salicylates Acetaminophen 12/27/20 12/27/20 12/28/20 15:41 21:35 07:37 WBC Hgb Hct Lymph % (Auto) [place] % (Auto) Lymph # (Auto) [place] # (Auto) Seg Neutrophils % Seg Neuts % (Manual) Lymphocytes % (Manual) Seg Neutrophils # Seg Neutrophils # Man Lymphocytes # (Manual) D-Dimer ABG pH ABG pO2 ABG HCO3 ABG O2 Saturation ABG Base Excess ABG Hemoglobin Oxyhemoglobin Sodium Potassium Chloride Carbon Dioxide BUN Creatinine Glucose POC Glucose 233 H 241 H 165 H Hemoglobin A1c Alkaline Phosphatase Total Creatine Kinase C-Reactive Protein NT-Pro-B Natriuret Pep Albumin Urine WBC (Auto) Salicylates Acetaminophen 12/28/20 12/28/20 12/28/20 09:17 09:17 11:32 WBC 13.6 H Hgb 10.8 L Hct 34.1 L Lymph % (Auto) [place] % (Auto) Lymph # (Auto) [place] # (Auto) Seg Neutrophils % Seg Neuts % (Manual) Lymphocytes % (Manual) Seg Neutrophils # Seg Neutrophils # Man Lymphocytes # (Manual) D-Dimer ABG pH ABG pO2 ABG HCO3 ABG O2 Saturation ABG Base Excess ABG Hemoglobin Oxyhemoglobin Sodium Potassium Chloride 97.3 L Carbon Dioxide 31 H BUN 56 H Creatinine 1.4 H Glucose 241 H POC Glucose 232 H Hemoglobin A1c Alkaline Phosphatase Total Creatine Kinase C-Reactive Protein NT-Pro-B Natriuret Pep Albumin Urine WBC (Auto) Salicylates Acetaminophen Allied health notes reviewed: nursing
[2020-12-28] MEDS ORDERED: BUMETANIDE 1 MG/4 ML INJ IV NR (13:00)
--- NOTE | 2020-12-28 14:10 | Progress Note ---
Assessment and Plan Patient is a 60y/o male with pmhx of Aortic stenosis, CAD, ischemic cardiomyopathy, HFrEF, coronary artery bypass surgery, and hypertension brought to [facility] for respiratory arrest Acute Respiratory Failure Elevated d-dimer * Pulmonology following CAD s/p CABG Ischemic cardiomyopathy HFrEF Hypertension * Echo 11/19/2020-EF 20 to 25% left ventricle is severely dilated, increased left atrial pressure and grade 2 diastolic dysfunction, right ventricle is mildly dilated, moderate to severe aortic valve stenosis, mild to moderate tricuspid regurgitation * [facility] 01/2020-severe diffuse mohegan multivessel coronary artery disease with chronic total occlusions of mid left circumflex, proximal LAD and mid right coronary, patent STARKEY to LAD, patent SVG to the diagonal, patent SVG to OM trunk, patent SVG to RCA, estimated EF 25-30, no evidence of aortic stent, moderate to severe mitral regurg * EKG shows no acute ischemic changes. Trop neg x1. BNP noted to be elevated * Currenlty on Coreg 3.125 PO BID asa, Bumex 1mg IV BID, amio 200mg PO QD Hypokalemia(improved) * Management per primary team Plan: Agree with Bumex 1mg IV BID for diuresis. Closely monitor renal indices. Will continue to hold outpatient anithypersensive regimen until patient BP is more stable. Patient seen in conjunction with Dr. Horton who agrees with this plan of care. Will continue to follow. 30min of critical care time spent in the care and coordination of this patient - Patient Problems (1) CHF exacerbation Current Visit: Yes Status: Acute (2) Hypertension Current Visit: No Status: Chronic Qualifiers: Hypertension type: essential hypertension Qualified Code(s): I10 - Essential (primary) hypertension (3) Ischemic cardiomyopathy Current Visit: Yes Status: Chronic (4) CAD (coronary artery disease) Current Visit: Yes Status: Chronic (5) History of coronary artery bypass graft Current Visit: Yes Status: Chronic (6) Obesity Current Visit: No Status: Chronic (7) DM2 (diabetes mellitus, type 2) Current Visit: Yes Status: Chronic (8) Tricuspid regurgitation Current Visit: No Status: Chronic (9) Pulmonary HTN Current Visit: No Status: Chronic (10) Acute respiratory failure Current Visit: Yes Status: Acute Subjective Date of service: 12/28/20 Principal diagnosis: A/C HFrEF Interval history: Patient sitting in bed reports feeling much better Sinus 63 but with episodes bradycardia 40s overnight UOP-1200ml Objective Vital Signs Temp Pulse Pulse Pulse Pulse Pulse Resp 12/28/20 13:00 64 12/28/20 12:00 97.7 F 62 12/28/20 11:25 69 12/28/20 11:00 58 L 12/28/20 10:00 60 12/28/20 09:58 59 L 12/28/20 09:01 65 12/28/20 08:12 59 L 12/28/20 08:00 62 12/28/20 07:58 98.6 F 12/28/20 07:45 72 12/28/20 07:25 56 L 20 12/28/20 07:00 62 12/28/20 06:00 59 L 12/28/20 05:00 60 12/28/20 04:15 59 L 18 12/28/20 04:00 97.6 F 49 L 12/28/20 03:00 54 L 12/28/20 02:00 55 L 12/28/20 01:12 53 L 18 12/28/20 01:00 57 L 12/28/20 00:00 97.5 F L 57 L 55 L 12/27/20 23:00 56 L 12/27/20 22:01 64 12/27/20 21:40 55 L 12/27/20 21:28 58 L 20 12/27/20 21:20 59 L 12/27/20 21:00 62 12/27/20 20:00 97.8 F 57 L 19 12/27/20 19:45 56 L 12/27/20 19:00 57 L 19 12/27/20 18:05 58 L 22 12/27/20 18:01 20 12/27/20 17:35 68 12/27/20 17:00 62 16 12/27/20 16:31 57 L 19 12/27/20 16:00 56 L 63 63 19 12/27/20 15:55 98.5 F 59 L 12/27/20 15:31 56 L 15 12/27/20 15:00 56 L 21 12/27/20 14:31 57 L 20 Resp BP Pulse Ox 12/28/20 13:00 105/40 98 12/28/20 12:00 131/52 97 12/28/20 11:25 16 12/28/20 11:00 128/55 98 12/28/20 10:00 116/45 99 12/28/20 09:58 115/35 12/28/20 09:01 115/35 97 12/28/20 08:12 12/28/20 08:00 132/64 98 12/28/20 07:58 12/28/20 07:45 16 12/28/20 07:25 100 12/28/20 07:00 145/74 99 12/28/20 06:00 145/68 100 12/28/20 05:00 143/69 99 12/28/20 04:15 131/66 100 12/28/20 04:00 129/60 97 12/28/20 03:00 137/62 97 12/28/20 02:00 136/66 97 12/28/20 01:12 133/64 97 12/28/20 01:00 133/64 93 12/28/20 00:00 138/63 97 12/27/20 23:00 131/63 96 12/27/20 22:01 136/62 12/27/20 21:40 132/65 12/27/20 21:28 132/65 100 12/27/20 21:20 18 95 12/27/20 21:00 132/65 98 12/27/20 20:00 132/70 99 12/27/20 19:45 12/27/20 19:00 136/66 98 12/27/20 18:05 146/71 98 12/27/20 18:01 130/54 98 12/27/20 17:35 126/57 82 L 12/27/20 17:00 146/71 96 12/27/20 16:31 126/57 99 12/27/20 16:00 126/57 98 12/27/20 15:55 18 12/27/20 15:31 130/61 96 12/27/20 15:00 130/61 98 12/27/20 14:31 119/64 97 - Physical Examination General: No Apparent Distress HEENT: Positive: EOMI, Normocephaly Neck: Positive: neck supple, trachea midline. Negative: JVD/HJR Neuro: Positive: Grossly Intact Abdomen: Positive: Soft. Negative: Tender Skin: Negative: Rash Musculoskeletal: No Pain Extremities: Present: lower extr. pulses. Absent: edema - Labs and Meds CBC 12/28/20 Range/Units 09:17 WBC 13.6 H (4.5-11.0) K/mm3 RBC 3.93 (3.65-5.03) M/mm3 Hgb 10.8 L (11.8-15.2) gm/dl Hct 34.1 L (35.5-45.6) % Plt Count 292 (140-440) K/mm3 Comprehensive Metabolic Panel 12/28/20 Range/Units 09:17 Sodium 141 (137-145) mmol/L Potassium 3.8 D (3.6-5.0) mmol/L Chloride 97.3 L (98-107) mmol/L Carbon Dioxide 31 H (22-30) mmol/L BUN 56 H (9-20) mg/dL Creatinine 1.4 H (0.8-1.3) mg/dL Glucose 241 H (75-100) mg/dL Calcium 9.0 (8.4-10.2) mg/dL - Imaging and Cardiology EKG: report reviewed, image reviewed Echo: report reviewed (11/19/2020 - EF 20-25%, LV severely dilated, increased left LA pressure and grade 2 diastolic dysfunction, RV mildly dilated, moderate- severe , mild MR, mild-moderate TR, RVSP 34mmHg) Cardiac cath: report reviewed (12/2019 - severe diffuse [place]he[place] multi-vessel coronary artery disease with chronic total occlusions of mid LCx, prox LAD, and mid RCA, patent STARKEY to LAD, patent SVG to diagonal, patent SVG to OM trunk, patent SVG to RCA, estimated EF 25-30%, no evidence of , moderate-severe MR) - Telemetry EKG Rhythm: Sinus Rhythm - EKG Sinus rhythms and dysrhythmias: sinus rhythm Repolarization changes or abnormalities: Q-T interval prolongation - Allied health notes Allied health notes reviewed: nursing
--- NOTE | 2020-12-28 17:45 | Progress Note ---
Assessment and Plan (1) Acute encephalopathy Current Visit: Yes Status: Acute Plan to address problem: Secondary to hypoxia and respiratory failure, required intubation, now extubated (2) Acute and chronic respiratory failure with hypoxia Current Visit: No Status: Acute Plan to address problem: s/p intubation Continue nebulizer treatments and IV diuretics and IV antibiotics Also IV Solu-Medrol at 60 mg every 8 Grapple Operator consult requested by Dr. Webb (3) SIRS (systemic inflammatory response syndrome) Current Visit: Yes Status: Acute Plan to address problem: Clinical picture consistent with Sirs All inflammatory markers are elevated (4) Acute on chronic HFrEF (heart failure with reduced ejection fraction) Current Visit: No Status: Acute Plan to address problem: Echocardiogram for ejection fraction IV Lasix as tolerated within the blood pressure parameters of 90-120 systolic Daily weights and intake and output Cardiology consult requested (5) COPD exacerbation Current Visit: Yes Status: Acute Plan to address problem: Nebulizer treatments IV Solu-Medrol and IV antibiotics (6) Hypertension Current Visit: Yes Status: Chronic Qualifiers: Hypertension type: primary hypertension Qualified Code(s): I10 - Essential (primary) hypertension Plan to address problem: Patient is borderline hypotensive Resume antihypertensives when blood pressures go up (7) T2DM (type 2 diabetes mellitus) Current Visit: Yes Status: Chronic Qualifiers: Diabetes mellitus director long term care insulin use: unspecified prison insulin use status Plan to address problem: Coverage for now Check hemoglobin A1c (8) Hypokalemia Current Visit: Yes Status: Acute Plan to address problem: Supplemented --AGUSTIN, vasomotor nephropathy, cont to monitor, consult renal if not improve (9) DVT prophylaxis Current Visit: Yes Status: Acute Plan to address problem: On heparin and GI prophylaxis Brief History: This is 60-year-old male with HTN, systolic CHF, DM, COPD, aortic stenosis, ischemic cardiomyopathy, CAD s/p CABG x3 vessels, former smoker who presented to emergency department on 12/25 via EMS for respiratory arrest and altered mental status. Patient was brought to the emergency department on bag-max ventilation. He apparently had shortness of breath for 3 weeks and would need nebulizer therapy with no relief, orthopnea and paroxysmal nocturnal dyspnea. Upon arrival to emergency department patient became unresponsive and the patient was intubated for airway protection. 12/26: Patient was extubated today and transition to IMCU. Lasix changed to Bumex due to low urine output. 10/7/21: Continue IV Bumex 1mg BID with strict I/Os. Closely monitor renal indices & electrolytes. plan to replace Cason. Ordered BID Pulmicort therapy. Continue scheduled duonebs. Stopped IV steroids and started on PO prednisone for prolonged taper. Consider fluid restriction, per 2d echo EF is 20-25%. 12/28/20: cont diuretics. Continue NIV at night and scheduled neb therapy. May be ready for discharge soon once euvolemic. cont supportive care. Subjective Date of service: 12/28/20 Principal diagnosis: A/C HFrEF Interval history: Patient seen and examined. Medical records and medication list reviewed. Patient tolerating diet, no chest pain vitals noted. Discussed plan of care at bedside with patient's RN. Objective - Exam Narrative Exam: General: No Apparent Distress HEENT: Positive: EOMI, Normocephaly Neck: Positive: neck supple, trachea midline. Negative: JVD/HJR Cardiac: Positive: Reg Rate and Rhythm, S1/S2 Lungs: Positive: Other (coarse bilaterally) Neuro: Positive: Grossly Intact Abdomen: Positive: Soft. Negative: Tender Skin: Negative: Rash Musculoskeletal: No Pain Extremities: Present: lower extr. pulses. Absent: edema - Constitutional Vitals: Vital Signs - 12hr 12/28/20 12/28/20 12/28/20 06:00 07:00 07:25 Temperature Pulse Rate 59 L 62 56 L Pulse Rate [ Bilateral Throughout] Pulse Rate [ From Monitor] Pulse Rate [ Left Radial] Pulse Rate [ Right Radial] Respiratory 20 Rate Respiratory Rate [Bilateral Throughout] Blood Pressure 145/68 145/74 O2 Sat by Pulse 100 99 100 Oximetry 12/28/20 12/28/20 12/28/20 07:45 07:58 08:00 Temperature 98.6 F Pulse Rate 62 Pulse Rate [ 72 Bilateral Throughout] Pulse Rate [ 59 L From Monitor] Pulse Rate [ 59 L Left Radial] Pulse Rate [ 59 L Right Radial] Respiratory Rate Respiratory 16 Rate [Bilateral Throughout] Blood Pressure 132/64 O2 Sat by Pulse 100 Oximetry 12/28/20 12/28/20 12/28/20 08:12 09:01 09:58 Temperature Pulse Rate 59 L 65 59 L Pulse Rate [ Bilateral Throughout] Pulse Rate [ From Monitor] Pulse Rate [ Left Radial] Pulse Rate [ Right Radial] Respiratory Rate Respiratory Rate [Bilateral Throughout] Blood Pressure 115/35 115/35 O2 Sat by Pulse 97 Oximetry 12/28/20 12/28/20 12/28/20 10:00 11:00 11:25 Temperature Pulse Rate 60 58 L Pulse Rate [ 69 Bilateral Throughout] Pulse Rate [ From Monitor] Pulse Rate [ Left Radial] Pulse Rate [ Right Radial] Respiratory Rate Respiratory 16 Rate [Bilateral Throughout] Blood Pressure 116/45 128/55 O2 Sat by Pulse 99 98 Oximetry 12/28/20 12/28/20 12/28/20 12:00 12:12 13:00 Temperature 97.7 F Pulse Rate 62 66 64 Pulse Rate [ Bilateral Throughout] Pulse Rate [ 60 From Monitor] Pulse Rate [ 60 Left Radial] Pulse Rate [ 60 Right Radial] Respiratory Rate Respiratory Rate [Bilateral Throughout] Blood Pressure 131/52 105/40 O2 Sat by Pulse 100 98 Oximetry 12/28/20 12/28/20 12/28/20 14:00 15:00 16:00 Temperature Pulse Rate 64 68 Pulse Rate [ Bilateral Throughout] Pulse Rate [ 68 From Monitor] Pulse Rate [ 68 Left Radial] Pulse Rate [ 68 Right Radial] Respiratory 20 Rate Respiratory Rate [Bilateral Throughout] Blood Pressure 120/46 128/60 133/59 O2 Sat by Pulse 96 98 99 Oximetry 12/28/20 12/28/20 17:00 17:41 Temperature 98.1 F Pulse Rate 72 Pulse Rate [ Bilateral Throughout] Pulse Rate [ From Monitor] Pulse Rate [ Left Radial] Pulse Rate [ Right Radial] Respiratory 16 Rate Respiratory Rate [Bilateral Throughout] Blood Pressure 133/59 O2 Sat by Pulse 100 Oximetry - Labs CBC & Chem 7: 12/28/20 09:17 12/29/20 04:19 Labs: Abnormal lab results 12/27/20 12/28/20 12/28/20 Range/Units 21:35 07:37 09:17 WBC 13.6 H (4.5-11.0) K/mm3 Hgb 10.8 L (11.8-15.2) gm/dl Hct 34.1 L (35.5-45.6) % Chloride (98-107) mmol/L Carbon Dioxide (22-30) mmol/L BUN (9-20) mg/dL Creatinine (0.8-1.3) mg/dL Glucose (75-100) mg/dL POC Glucose 241 H 165 H (70-105) mg/dL 12/28/20 12/28/20 12/28/20 Range/Units 09:17 11:32 16:08 WBC (4.5-11.0) K/mm3 Hgb (11.8-15.2) gm/dl Hct (35.5-45.6) % Chloride 97.3 L (98-107) mmol/L Carbon Dioxide 31 H (22-30) mmol/L BUN 56 H (9-20) mg/dL Creatinine 1.4 H (0.8-1.3) mg/dL Glucose 241 H (75-100) mg/dL POC Glucose 232 H 278 H (70-105) mg/dL HEART Score - HEART Score Troponin: Troponin T 0.014 ng/mL (0.00-0.029) 12/25/20 10:33
[2020-12-28] MEDS: BUMETANIDE 1 MG/4 ML INJ IV SCH (18:35)
[2020-12-28] MEDS: INSULIN GLARGINE 100 UNITS/ML SUB-Q SCH (22:22)
[2020-12-29 05:40] LABS: Calcium 8.9 mg/dL (8.4-10.2)
[2020-12-29] MEDS: BUMETANIDE 1 MG/4 ML INJ IV SCH (05:49)
[2020-12-29] MEDS: BUDESONIDE 0.5 MG/2 ML NEBU IH SCH (08:21)
[2020-12-29] MEDS: IPRATROPIUM/ALBUTEROL SULFATE 3 ML AMPUL.NEB IH SCH ×2 (08:21→14:38)
[2020-12-29] MEDS: INSULIN LISPRO 100 UNIT/ML SUB-Q SCH ×2 (08:55→12:51)
--- NOTE | 2020-12-29 09:06 | Discharge Summary ---
Providers - Providers Date of Admission: 12/25/20 15:37 Attending physician: KAREN WILLSON 12/25/20 10:08 Consult to Physician [CONS] Stat Comment: Consulting Provider: GUERO LYMAN Physician Instructions: Reason For Exam: resp failure 12/25/20 10:09 Consult to Dietitian/Nutrition [CONS] Routine Physician Instructions: Reason For Exam: Reason for Consult: Evaluate nutritional intake 12/25/20 11:05 Consult to Physician [CONS] Urgent Comment: Consulting Provider: EARNEST AYALA Physician Instructions: Reason For Exam: chf assees for cardiogenic shock 12/25/20 19:50 Consult to Dietitian/Nutrition [CONS] Routine Physician Instructions: Reason For Exam: Dobbhoff tube feeding Reason for Consult: Pt needs oral supplement 12/28/20 11:10 Physical Therapy Evaluation and Treat [CONS] Routine Comment: Reason For Exam: Debility Primary care physician: TARSHA VICENTE Hospitalization Condition: Critical Disposition: 01 HOME / SELF CARE / HOMELESS Exam - Constitutional Vitals: Temp Pulse Resp BP Pulse Ox 97.7 F 62 18 125/50 98 12/29/20 08:00 12/29/20 08:21 12/29/20 08:21 12/29/20 07:00 12/29/20 08:24 Plan Follow up with: PRIMARY CAREMD [Referring] - 3-5 Days
[2020-12-29] MEDS: DULoxetine 30 MG CAP PO SCH (09:20)
[2020-12-29] MEDS: FAMOTIDINE 20 MG TAB PO SCH (09:20)
[2020-12-29] MEDS: AMIODARONE 200 MG TAB PO SCH (09:20)
[2020-12-29] MEDS: carvediloL 3.125 MG TAB PO SCH (09:20)
[2020-12-29] MEDS: MULTIVITAMIN / MINERAL ORAL LIQUID 15 ML PO SCH (09:20)
[2020-12-29] MEDS: ASPIRIN 81 MG TAB CHEW PO SCH (09:20)
[2020-12-29] MEDS: predniSONE 20 MG TAB PO SCH (09:20)
[2020-12-29] MEDS: HEPARIN 5,000 UNIT/1 ML VIAL SUB-Q SCH (09:21)
[2020-12-29] MEDS: buPROPion 100 MG TAB PO SCH (09:30)
--- NOTE | 2020-12-29 10:23 | Progress Note ---
Assessment and Plan 60 y/o male with acute exacerbation of CHF, leading to acute respiratory failure and mechanical ventilation. 12/29/20: No objection to discharge. Will arrange follow up with our office. 12/28/20: Re order BUMEX, if cards wants to switch to oral will defer to them. Continue NIV at night and scheduled neb therapy. Remains stable for transfer just no beds available. May be ready for discharge soon once euvolemic. Pulm status is at baseline. Will see as needed over the weekend. 12/27/20: Replace Cason. Ordered BID Pulmicort therapy. Continue scheduled duonebs. Stopped IV steroids and started on PO prednisone for prolonged taper. Consider fluid restriction, per cards note EF is 20-25%. Bipap was not put in the room last night, will discuss with RT as it is ordered for QHS and PRN usage. Clinically appears stable for cards floor given negative [place] PCR. Will continue to follow. 1. Pulm- PSV trial, extubate. Will have bipap available for PRN and QHS uses 2. Cards-follow up [facility] heart recs. Appears to be volume up and could benefit from diuresis. Currently on lasix 40 BID, may need to change to bumex if bp and renal function will allow. 3. endo-resume home regimen once swallowing assessed 4. GI- Swallow eval post extubation 5. Heme-elevated WBC but no fever, could be stress related. got a one time dose of rocephin in the ED, hold on any further abx therapy. 6. renal-stable 7. Once extubated and monitored, can likely be transitioned to step down unit. CCt 31 minutes. Subjective Date of service: 12/29/20 Principal diagnosis: A/C HFrEF Interval history: Patient being discharged today. Objective Vital Signs - 12hr 12/28/20 12/28/20 12/28/20 23:00 23:50 23:57 Temperature 97.6 F Pulse Rate 68 65 Pulse Rate [ Anterior Bilateral Throughout] Respiratory 20 17 Rate Respiratory Rate [Anterior Bilateral Throughout] Blood Pressure 153/71 153/71 O2 Sat by Pulse 99 98 Oximetry 12/29/20 12/29/20 12/29/20 00:00 00:15 01:00 Temperature Pulse Rate 61 58 L 61 Pulse Rate [ Anterior Bilateral Throughout] Respiratory 21 22 Rate Respiratory Rate [Anterior Bilateral Throughout] Blood Pressure 131/54 134/58 O2 Sat by Pulse 89 98 Oximetry 12/29/20 12/29/20 12/29/20 02:00 02:52 03:00 Temperature 97.4 F L Pulse Rate 61 66 Pulse Rate [ Anterior Bilateral Throughout] Respiratory 11 L 16 Rate Respiratory Rate [Anterior Bilateral Throughout] Blood Pressure 134/58 133/63 O2 Sat by Pulse 100 98 Oximetry 12/29/20 12/29/20 12/29/20 04:00 04:10 05:00 Temperature Pulse Rate 55 L 55 L 56 L Pulse Rate [ Anterior Bilateral Throughout] Respiratory 19 18 Rate Respiratory Rate [Anterior Bilateral Throughout] Blood Pressure 130/58 124/59 O2 Sat by Pulse 99 98 Oximetry 12/29/20 12/29/20 12/29/20 06:00 07:00 08:00 Temperature 97.7 F Pulse Rate 57 L 58 L Pulse Rate [ Anterior Bilateral Throughout] Respiratory 19 19 Rate Respiratory Rate [Anterior Bilateral Throughout] Blood Pressure 122/49 125/50 O2 Sat by Pulse 100 98 Oximetry 12/29/20 12/29/20 12/29/20 08:21 08:24 09:20 Temperature Pulse Rate 65 Pulse Rate [ 62 Anterior Bilateral Throughout] Respiratory Rate Respiratory 18 Rate [Anterior Bilateral Throughout] Blood Pressure 118/51 O2 Sat by Pulse 98 Oximetry Constitutional: no acute distress, alert Eyes: non-icteric ENT: other (orally intubated and sedated) Neck: supple, other (large in circumference) Effort: normal Ascultation: Right: rales (base), Bilateral: diminished breath sounds Gastrointestinal: normoactive bowel sounds, soft CBC and BMP: 12/28/20 09:17 12/29/20 04:19 ABG, PT/INR, D-dimer: ABG ABG pH 7.396 pH Units (7.350-7.450) 12/26/20 04:35 ABG pCO2 54.6 mm Hg 12/26/20 04:35 ABG pO2 69.3 mm Hg (80.0-90.0) L 12/26/20 04:35 ABG O2 Saturation 94.2 % (95.0-99.0) L 12/26/20 04:35 PT/INR, D-dimer PT 13.5 Sec. (12.2-14.9) 12/25/20 10:33 INR 0.98 (0.87-1.13) 12/25/20 10:33 D-Dimer 1539.09 ng/mlDDU (0-234) H 12/25/20 10:33 Abnormal lab findings: Abnormal Labs 12/25/20 12/25/20 12/25/20 10:33 10:33 10:33 WBC 13.7 H Hgb 10.4 L Hct 32.5 L Lymph % (Auto) 4.6 L [place] % (Auto) 7.7 H Lymph # (Auto) 0.6 L [place] # (Auto) 1.1 H Seg Neutrophils % 86.1 H Seg Neuts % (Manual) Lymphocytes % (Manual) Seg Neutrophils # 11.8 H Seg Neutrophils # Man Lymphocytes # (Manual) D-Dimer 1539.09 H ABG pH ABG pO2 ABG HCO3 ABG O2 Saturation ABG Base Excess ABG Hemoglobin Oxyhemoglobin Sodium Potassium 3.4 L Chloride 95.6 L Carbon Dioxide 35 H BUN 28 H Creatinine Glucose 213 H POC Glucose Hemoglobin A1c Alkaline Phosphatase 137 H Total Creatine Kinase 25 L C-Reactive Protein 5.90 H NT-Pro-B Natriuret Pep Albumin 3.6 L Urine WBC (Auto) Salicylates Acetaminophen 12/25/20 12/25/20 12/25/20 10:33 10:33 10:33 WBC Hgb Hct Lymph % (Auto) [place] % (Auto) Lymph # (Auto) [place] # (Auto) Seg Neutrophils % Seg Neuts % (Manual) Lymphocytes % (Manual) Seg Neutrophils # Seg Neutrophils # Man Lymphocytes # (Manual) D-Dimer ABG pH ABG pO2 ABG HCO3 ABG O2 Saturation ABG Base Excess ABG Hemoglobin Oxyhemoglobin Sodium Potassium Chloride Carbon Dioxide BUN Creatinine Glucose POC Glucose Hemoglobin A1c Alkaline Phosphatase Total Creatine Kinase C-Reactive Protein NT-Pro-B Natriuret Pep 1338 H Albumin Urine WBC (Auto) Salicylates < 0.3 L Acetaminophen 5.0 L 12/25/20 12/25/20 12/25/20 10:40 11:17 19:44 WBC Hgb Hct Lymph % (Auto) [place] % (Auto) Lymph # (Auto) [place] # (Auto) Seg Neutrophils % Seg Neuts % (Manual) Lymphocytes % (Manual) Seg Neutrophils # Seg Neutrophils # Man Lymphocytes # (Manual) D-Dimer ABG pH 7.515 H ABG pO2 175.2 H ABG HCO3 33.3 H ABG O2 Saturation 99.1 H ABG Base Excess 9.5 H ABG Hemoglobin 10.6 L Oxyhemoglobin Sodium Potassium Chloride Carbon Dioxide BUN Creatinine Glucose POC Glucose 176 H Hemoglobin A1c Alkaline Phosphatase Total Creatine Kinase C-Reactive Protein NT-Pro-B Natriuret Pep Albumin Urine WBC (Auto) 69.0 H Salicylates Acetaminophen 12/25/20 12/26/20 12/26/20 23:12 04:35 05:33 WBC Hgb Hct Lymph % (Auto) [place] % (Auto) Lymph # (Auto) [place] # (Auto) Seg Neutrophils % Seg Neuts % (Manual) Lymphocytes % (Manual) Seg Neutrophils # Seg Neutrophils # Man Lymphocytes # (Manual) D-Dimer ABG pH ABG pO2 69.3 L ABG HCO3 32.8 H ABG O2 Saturation 94.2 L ABG Base Excess 6.8 H ABG Hemoglobin 10.0 L Oxyhemoglobin 92.3 L Sodium Potassium Chloride Carbon Dioxide BUN Creatinine Glucose POC Glucose 139 H 154 H Hemoglobin A1c Alkaline Phosphatase Total Creatine Kinase C-Reactive Protein NT-Pro-B Natriuret Pep Albumin Urine WBC (Auto) Salicylates Acetaminophen 12/26/20 12/26/20 12/26/20 12:16 14:48 14:48 WBC 16.4 H Hgb 10.2 L Hct 31.6 L Lymph % (Auto) [place] % (Auto) Lymph # (Auto) [place] # (Auto) Seg Neutrophils % Seg Neuts % (Manual) 98.0 H Lymphocytes % (Manual) 1.0 L Seg Neutrophils # Seg Neutrophils # Man 16.1 H Lymphocytes # (Manual) 0.2 L D-Dimer ABG pH ABG pO2 ABG HCO3 ABG O2 Saturation ABG Base Excess ABG Hemoglobin Oxyhemoglobin Sodium Potassium Chloride Carbon Dioxide 32 H BUN 42 H Creatinine Glucose 213 H POC Glucose 184 H Hemoglobin A1c Alkaline Phosphatase Total Creatine Kinase C-Reactive Protein NT-Pro-B Natriuret Pep Albumin 3.6 L Urine WBC (Auto) Salicylates Acetaminophen 12/26/20 12/26/20 12/27/20 14:48 22:01 04:27 WBC 18.2 H Hgb 11.2 L Hct 35.2 L Lymph % (Auto) [place] % (Auto) Lymph # (Auto) [place] # (Auto) Seg Neutrophils % Seg Neuts % (Manual) Lymphocytes % (Manual) Seg Neutrophils # Seg Neutrophils # Man Lymphocytes # (Manual) D-Dimer ABG pH ABG pO2 ABG HCO3 ABG O2 Saturation ABG Base Excess ABG Hemoglobin Oxyhemoglobin Sodium Potassium Chloride Carbon Dioxide BUN Creatinine Glucose POC Glucose 227 H Hemoglobin A1c 7.5 H Alkaline Phosphatase Total Creatine Kinase C-Reactive Protein NT-Pro-B Natriuret Pep Albumin Urine WBC (Auto) Salicylates Acetaminophen 12/27/20 12/27/20 12/27/20 04:27 07:14 11:43 WBC Hgb Hct Lymph % (Auto) [place] % (Auto) Lymph # (Auto) [place] # (Auto) Seg Neutrophils % Seg Neuts % (Manual) Lymphocytes % (Manual) Seg Neutrophils # Seg Neutrophils # Man Lymphocytes # (Manual) D-Dimer ABG pH ABG pO2 ABG HCO3 ABG O2 Saturation ABG Base Excess ABG Hemoglobin Oxyhemoglobin Sodium 147 H Potassium Chloride 97.3 L Carbon Dioxide 33 H BUN 49 H Creatinine 1.4 H Glucose 196 H POC Glucose 206 H 202 H Hemoglobin A1c Alkaline Phosphatase Total Creatine Kinase C-Reactive Protein NT-Pro-B Natriuret Pep Albumin Urine WBC (Auto) Salicylates Acetaminophen 12/27/20 12/27/20 12/28/20 15:41 21:35 07:37 WBC Hgb Hct Lymph % (Auto) [place] % (Auto) Lymph # (Auto) [place] # (Auto) Seg Neutrophils % Seg Neuts % (Manual) Lymphocytes % (Manual) Seg Neutrophils # Seg Neutrophils # Man Lymphocytes # (Manual) D-Dimer ABG pH ABG pO2 ABG HCO3 ABG O2 Saturation ABG Base Excess ABG Hemoglobin Oxyhemoglobin Sodium Potassium Chloride Carbon Dioxide BUN Creatinine Glucose POC Glucose 233 H 241 H 165 H Hemoglobin A1c Alkaline Phosphatase Total Creatine Kinase C-Reactive Protein NT-Pro-B Natriuret Pep Albumin Urine WBC (Auto) Salicylates Acetaminophen 12/28/20 12/28/20 12/28/20 09:17 09:17 11:32 WBC 13.6 H Hgb 10.8 L Hct 34.1 L Lymph % (Auto) [place] % (Auto) Lymph # (Auto) [place] # (Auto) Seg Neutrophils % Seg Neuts % (Manual) Lymphocytes % (Manual) Seg Neutrophils # Seg Neutrophils # Man Lymphocytes # (Manual) D-Dimer ABG pH ABG pO2 ABG HCO3 ABG O2 Saturation ABG Base Excess ABG Hemoglobin Oxyhemoglobin Sodium Potassium Chloride 97.3 L Carbon Dioxide 31 H BUN 56 H Creatinine 1.4 H Glucose 241 H POC Glucose 232 H Hemoglobin A1c Alkaline Phosphatase Total Creatine Kinase C-Reactive Protein NT-Pro-B Natriuret Pep Albumin Urine WBC (Auto) Salicylates Acetaminophen 12/28/20 12/28/20 12/28/20 16:08 21:16 22:19 WBC Hgb Hct Lymph % (Auto) [place] % (Auto) Lymph # (Auto) [place] # (Auto) Seg Neutrophils % Seg Neuts % (Manual) Lymphocytes % (Manual) Seg Neutrophils # Seg Neutrophils # Man Lymphocytes # (Manual) D-Dimer ABG pH ABG pO2 ABG HCO3 ABG O2 Saturation ABG Base Excess ABG Hemoglobin Oxyhemoglobin Sodium Potassium Chloride Carbon Dioxide BUN Creatinine Glucose POC Glucose 278 H 393 H 307 H Hemoglobin A1c Alkaline Phosphatase Total Creatine Kinase C-Reactive Protein NT-Pro-B Natriuret Pep Albumin Urine WBC (Auto) Salicylates Acetaminophen 12/29/20 12/29/20 04:19 07:32 WBC Hgb Hct Lymph % (Auto) [place] % (Auto) Lymph # (Auto) [place] # (Auto) Seg Neutrophils % Seg Neuts % (Manual) Lymphocytes % (Manual) Seg Neutrophils # Seg Neutrophils # Man Lymphocytes # (Manual) D-Dimer ABG pH ABG pO2 ABG HCO3 ABG O2 Saturation ABG Base Excess ABG Hemoglobin Oxyhemoglobin Sodium Potassium Chloride 97.2 L Carbon Dioxide 32 H BUN 54 H Creatinine 1.4 H Glucose 246 H POC Glucose 182 H Hemoglobin A1c Alkaline Phosphatase Total Creatine Kinase C-Reactive Protein NT-Pro-B Natriuret Pep Albumin Urine WBC (Auto) Salicylates Acetaminophen Allied health notes reviewed: nursing
--- NOTE | 2020-12-29 10:56 | Progress Note ---
Assessment and Plan Reduce Bumex to once daily orally. - Patient Problems (1) Acute on chronic HFrEF (heart failure with reduced ejection fraction) Current Visit: Yes Status: Acute (2) Acute respiratory failure Current Visit: Yes Status: Resolved Qualifiers: Respiratory failure complication: hypoxia Qualified Code(s): J96.01 - Acute respiratory failure with hypoxia (3) Ischemic cardiomyopathy Current Visit: Yes Status: Chronic (4) Aortic stenosis Current Visit: Yes Status: Chronic Qualifiers: Cardiac valve disease etiology: nonrheumatic Qualified Code(s): I35.0 - Nonrheumatic aortic (valve) stenosis (5) AGUSTIN (acute kidney injury) Current Visit: Yes Status: Acute (6) CAD (coronary artery disease) Current Visit: Yes Status: Chronic Qualifiers: Coronary Disease-Associated Artery/Lesion type: creek artery (7) History of coronary artery bypass graft Current Visit: Yes Status: Chronic (8) Hypertension Current Visit: Yes Status: Chronic Qualifiers: Hypertension type: primary hypertension Qualified Code(s): I10 - Essential (primary) hypertension (9) DM2 (diabetes mellitus, type 2) Current Visit: Yes Status: Chronic (10) History of atrial fibrillation Current Visit: Yes Status: Chronic Subjective Date of service: 12/29/20 Principal diagnosis: A/C HFrEF Interval history: He feels better. Objective Vital Signs Temp Pulse Pulse Pulse Pulse Pulse Pulse 12/29/20 09:20 65 12/29/20 08:24 12/29/20 08:21 62 12/29/20 08:00 97.7 F 12/29/20 07:00 58 L 12/29/20 06:00 57 L 12/29/20 05:00 56 L 12/29/20 04:10 55 L 12/29/20 04:00 55 L 12/29/20 03:00 66 12/29/20 02:52 97.4 F L 12/29/20 02:00 61 12/29/20 01:00 61 12/29/20 00:15 58 L 12/29/20 00:00 61 12/28/20 23:57 97.6 F 12/28/20 23:50 65 12/28/20 23:00 68 12/28/20 22:21 65 12/28/20 22:00 60 12/28/20 21:09 12/28/20 21:07 64 12/28/20 21:00 68 12/28/20 20:35 65 12/28/20 20:15 70 12/28/20 20:00 66 12/28/20 19:54 97.8 F 12/28/20 19:00 65 12/28/20 18:00 63 12/28/20 17:41 98.1 F 12/28/20 17:00 72 12/28/20 16:00 68 68 68 68 12/28/20 15:00 12/28/20 14:00 64 12/28/20 13:00 64 12/28/20 12:12 66 12/28/20 12:00 97.7 F 62 60 60 60 12/28/20 11:25 69 12/28/20 11:00 58 L Last Vital Signs Temp 97.7 F 12/29/20 08:00 Pulse 65 12/29/20 09:20 Resp 18 12/29/20 08:21 BP 118/51 12/29/20 09:20 Pulse Ox 98 12/29/20 08:24 - Physical Examination General: No Apparent Distress HEENT: Positive: EOMI, Normocephaly, Mucus Membranes Moist Neck: Positive: neck supple, trachea midline. Negative: JVD/HJR Cardiac: Positive: Reg Rate and Rhythm, S1/S2 Lungs: Positive: Rhonchi Neuro: Positive: Grossly Intact Abdomen: Positive: Soft, Active Bowel Sounds. Negative: Tender Skin: Negative: Rash Musculoskeletal: Normal Range of Motion Extremities: Absent: edema - Labs and Meds Comprehensive Metabolic Panel 12/29/20 Range/Units 04:19 Sodium 141 (137-145) mmol/L Potassium 4.2 (3.6-5.0) mmol/L Chloride 97.2 L (98-107) mmol/L Carbon Dioxide 32 H (22-30) mmol/L BUN 54 H (9-20) mg/dL Creatinine 1.4 H (0.8-1.3) mg/dL Glucose 246 H (75-100) mg/dL Calcium 8.9 (8.4-10.2) mg/dL - Imaging and Cardiology Echo: report reviewed (11/19/2020 - EF 20-25%, LV severely dilated, increased left LA pressure and grade 2 diastolic dysfunction, RV mildly dilated, moderate- severe , mild MR, mild-moderate TR, RVSP 34mmHg) Cardiac cath: report reviewed (12/2019 - severe diffuse creek multi-vessel coronary artery disease with chronic total occlusions of mid LCx, prox LAD, and mid RCA, patent [place]AR[place] to LAD, patent SVG to diagonal, patent SVG to OM trunk, patent SVG to RCA, estimated EF 25-30%, no evidence of , moderate-severe MR) - Telemetry EKG Rhythm: Sinus Rhythm Repolarization changes or abnormalities: Q-T interval prolongation - Allied health notes Allied health notes reviewed: nursing
--- NOTE | 2020-12-29 12:10 | Discharge Summary ---
Providers - Providers Date of Admission: 12/25/20 15:37 Attending physician: KAREN WILLSON 12/25/20 10:08 Consult to Physician [CONS] Stat Comment: Consulting Provider: GUERO LYMAN Physician Instructions: Reason For Exam: resp failure 12/25/20 10:09 Consult to Dietitian/Nutrition [CONS] Routine Physician Instructions: Reason For Exam: Reason for Consult: Evaluate nutritional intake 12/25/20 11:05 Consult to Physician [CONS] Urgent Comment: Consulting Provider: EARNEST AYALA Physician Instructions: Reason For Exam: chf assees for cardiogenic shock 12/25/20 19:50 Consult to Dietitian/Nutrition [CONS] Routine Physician Instructions: Reason For Exam: [place]obb[place] tube feeding Reason for Consult: Pt needs oral supplement 12/28/20 11:10 Physical Therapy Evaluation and Treat [CONS] Routine Comment: Reason For Exam: Debility Primary care physician: TARSHA VICENTE Hospitalization Condition: Critical Disposition: 01 HOME / SELF CARE / HOMELESS Exam - Constitutional Vitals: Temp Pulse Resp BP Pulse Ox 97.7 F 60 20 112/46 99 12/29/20 08:00 12/29/20 10:00 12/29/20 10:00 12/29/20 10:00 12/29/20 10:00 Plan Follow up with: PRIMARY CARE, [Referring] - 3-5 Days Prescriptions: predniSONE 10 mg PO .TAPER #48 tab Other Discharge Orders: Home Health Care (Amb) Location: None Selected
[2020-12-29 16:25] VITALS: BP 132/60
[2020-12-30] MEDS ORDERED: BUMETANIDE 1 MG TAB PO SCH (10:00)
--- NOTE | 2020-12-31 10:55 | Electrocardiograph Report ---
[facility] Test Date: 2020-12-29 Test Time: 08:05:12 Pat Name: UCHE AMANDA Department: Room: A264 1 Gender: M Relief Man: JOHNIE : 1960 Requested By: VINICIUS WHELAN Order Number: [id number] Reading MD: Sang Wetzel Measurements Intervals [place] Rate: 65 P: -42 MS: 186 QRS: -24 QRSD: 150 T: 122 QT: 489 QTc: 509 Interpretive Statements Sinus rhythm IVCD, consider LBBB non specific st-t Compared to ECG 12/28/2020 07:33:39 Ectopic atrial rhythm no longer present Left ventricular hypertrophy no longer present Early repolarization no longer present Myocardial infarct finding no longer present Prolonged QT interval no longer present Electronically Signed On 12-31-2020 10:55:08 EDT by Sang Wetzel
== END 2020-12-29 16:30 | disposition home health service (06) | DRG 208 ==
LOC: ED 09:54 → CC1 15:37 → IMCU 12-26 15:48
PROVIDERS: ADMIT Internal Medicine; ATTEND Internal Medicine
PROC: 5A1945Z Respiratory Ventilation, 24-96 Consecutive Hours (ICD-10-PCS; principal; 2020-12-25)
PROC: 0BH17EZ Insertion of Endotracheal Airway into Trachea, Via Natural or Artificial Opening (ICD-10-PCS; 2020-12-25)
PROC: 4A033R1 Measurement of Arterial Saturation, Peripheral, Percutaneous Approach (ICD-10-PCS; 2020-12-25)
PROC: 5A09357 Assistance with Respiratory Ventilation, Less than 24 Consecutive Hours, Continuous Positive Airway Pressure (ICD-10-PCS; 2020-12-27)
PROC: 5A09357 Assistance with Respiratory Ventilation, Less than 24 Consecutive Hours, Continuous Positive Airway Pressure (ICD-10-PCS; 2020-12-28)
PROC: 5A09357 Assistance with Respiratory Ventilation, Less than 24 Consecutive Hours, Continuous Positive Airway Pressure (ICD-10-PCS; 2020-12-29)
DX: J96.21 Acute and chronic respiratory failure with hypoxia (principal); G93.41 Metabolic encephalopathy; I50.23 Acute on chronic systolic (congestive) heart failure; N17.0 Acute kidney failure with tubular necrosis; J44.1 Chronic obstructive pulmonary disease with (acute) exacerbation; N39.0 Urinary tract infection, site not specified; E87.3 Alkalosis; R65.10 Systemic inflammatory response syndrome (SIRS) of non-infectious origin without acute organ dysfunction; E87.6 Hypokalemia; Z20.822 Contact with and (suspected) exposure to COVID-19; I25.5 Ischemic cardiomyopathy; I11.0 Hypertensive heart disease with heart failure; E11.65 Type 2 diabetes mellitus with hyperglycemia; E87.8 Other disorders of electrolyte and fluid balance, not elsewhere classified; G47.33 Obstructive sleep apnea (adult) (pediatric); E66.9 Obesity, unspecified; I25.10 Atherosclerotic heart disease of native coronary artery without angina pectoris; I07.1 Rheumatic tricuspid insufficiency; G43.909 Migraine, unspecified, not intractable, without status migrainosus; Z87.891 Personal history of nicotine dependence; Z82.49 Family history of ischemic heart disease and other diseases of the circulatory system; Z79.899 Other long term (current) drug therapy; Z83.3 Family history of diabetes mellitus; Z88.5 Allergy status to narcotic agent; Z68.31 Body mass index [BMI] 31.0-31.9, adult
CPT/HCPCS: 36415; 70450; 71045; 71275; 74018; 80048; 80053; 80320; 81001; 82140; 82550; 82728; 82803; 82962; 83036; 83615; 83735; 83880; 84100; 84145; 84443; 84484; 85007; 85025; 85027; 85379; 85610; 85730; 86140; 86850; 86900; 86901; 87040; 87086; 90686; 93005; 94002; 94003; 94640; 94644; 94660; 94760; G0378; G0480; J0461; J0696; J1100; J1644; J1815; J1940; J2250; J2930; J3010; J3480; J7040; J7512; Q9967; U0003

== ENCOUNTER 2021-11-19 11:54 | Inpatient (IN) | payer MEDICARE, OTHER ==
[2021-11-19 12:34] LABS: ABG Base Excess 10.4 mmol/L (-2.0-3.0); ABG HCO3 38.7 mmol/L (20.0-26.0); ABG Methemoglobin 0.5 % (0.0-1.5); ABG Oxygen Saturation 98.2 % (95.0-99.0); ABG PCO2 72.5 mm Hg; ABG PH 7.344 pH Units (7.350-7.450); ABG PO2 127.8 mm Hg (80.0-90.0)
--- NOTE | 2021-11-19 12:34 | XRay Report ---
CHEST 1 VIEW 11/19/2021 12:21 PM INDICATION / CLINICAL INFORMATION: Dyspnea. COMPARISON: 01/28/2021. FINDINGS: SUPPORT DEVICES: None. HEART / MEDIASTINUM: Stable. LUNGS / PLEURA: Small right effusion with associated volume loss. Mild edema. No pneumothorax. ADDITIONAL FINDINGS: No significant additional findings. IMPRESSION: Suspected mild changes of congestive failure. Signer Name: Michael Hernandez MD Signed: 11/19/2021 12:30 PM Workstation Name: [id number]
[2021-11-19 13:54] LABS: Hematocrit 34.9 % (35.5-45.6); Hemoglobin 10.9 gm/dl (11.8-15.2); Mean Corpuscular HGB Conc 31 % (32-34); Mean Corpuscular Volume 84 fl (84-94); Platelet Count 326 K/mm3 (140-440); Red Blood Count 4.17 M/mm3 (3.65-5.03); Red Cell Distribution Width 15.7 % (13.2-15.2)
[2021-11-19 14:09] LABS: Alanine Aminotransferase 98 units/L (7-56); Albumin 3.5 g/dL (3.9-5); BUN/Creatinine Ratio 28; Blood Urea Nitrogen 22 mg/dL (9-20); Calcium 8.9 mg/dL (8.4-10.2); Hemolysis Index 10
[2021-11-19 14:18] LABS: Total Cells Counted 100
[2021-11-19 14:19] LABS: Anisocytosis 1+; Band Neutrophils # (Manual) 0.7 K/mm3; Basophils % (Manual) 0 % (0.0-1.8); Eosinophils % (Manual) 0 % (0.0-4.3); Hypochromasia 1+; Large Platelets Few; Ovalocytes 1+; Platelet Estimate Consistent w Auto
[2021-11-19 15:18] LABS: INR 0.96 (0.87-1.13)
[2021-11-19 15:19] LABS: Partial Thromboplastin Time 26.9 Sec. (24.2-36.6)
[2021-11-19 15:46] LABS: ABG HCO3 40.9 mmol/L (20.0-26.0); ABG PCO2 71.7 mm Hg; ABG PH 7.374 pH Units (7.350-7.450); ABG PO2 116.4 mm Hg (80.0-90.0)
[2021-11-19 15:47] LABS: ABG Base Excess 13.5 mmol/L (-2.0-3.0); ABG Oxygen Saturation 97.9 % (95.0-99.0)
[2021-11-19 15:48] LABS: ABG Methemoglobin 0.5 % (0.0-1.5)
[2021-11-19] MEDS ORDERED: FUROSEMIDE 40 MG/4 ML INJ IV ONE (15:58)
--- NOTE | 2021-11-19 16:17 | History and Physical Report ---
History of Present Illness Chief complaint: It is hard to breathe History of present illness: 60 YO Male with CHF(EF25%), CAD S/P CABG, HTN, DM, COPD, Migraine M[place]EN, HLD, GERD, Obesity presents to ED for evaluation. Patient reports "it is hard to breathe". Patient states that he has experienced shortness of breath over the past 3 days with worsening symptoms over the past 24 hours. Patient knowledges decreased exercise tolerance, dyspnea on exertion, dyspnea at rest, orthopnea as well as paroxysmal nocturnal dyspnea. EMS was notified and upon arrival the patient was found to be in distress and subsequent transported to [facility] for further care and evaluation of the aforementioned symptoms. The patient was seen and evaluated emergency department. All lab and imaging studies reviewed. Patient found to have a pulse oximetry of 88% on room air which is consistent with acute hypoxemic respiratory failure. Patient also found to have clinical symptoms consistent with CHF decompensation complicated by systemic inflammatory response syndrome. Patient admitted to IMCU and placed on noninvasive positive pressure ventilation. Cardiology team consulted. Patient also initiated on CHF protocol. Patient treated with empiric IV antibiotic therapy x1 dose. Patient has fever, chills, chest pain, palpitation, skin rash, recent contact, known exposure to COVID-19. Prior admission on 01/29/2021 reviewed. All medication listed at time of admission has been reconciled. Advanced care planning conducted in ED. Past History Past Medical History: COPD, diabetes, GERD, heart failure, hypertension, hyperlipidemia, other (See HPI) Past Surgical History: CABG Social history: . denies: smoking, alcohol abuse, prescription drug abuse Family history: diabetes, hypertension Medications and Allergies Allergies Allergy/AdvReac Type Severity Reaction Status Date / Time morphine Allergy Rash Verified 11/19/21 12:17 Home Medications Medication Instructions Recorded Confirmed Last Taken Type Atorvastatin Calcium [Lipitor] 80 mg PO QHS #30 01/24/20 01/30/21 3 Days Ago Rx ~01/27/21 Ibuprofen [Motrin 800 MG tab] 800 mg PO Q8HR PRN #90 01/24/20 01/30/21 12/25/20 Rx Levalbuterol [Xopenex] 1.25 mg IH Q8HRT 01/30/21 01/30/21 3 Days Ago History ~01/27/21 Lidocaine [Lidocaine CREAM] 5 gm TP TID PRN 01/30/21 01/30/21 3 Days Ago History ~01/27/21 Triamcinolone 0.5% 0.5 cream Q8HR 01/30/21 01/30/21 3 Days Ago History ~01/27/21 traMADoL [Ultram 50 MG tab] 50 mg PO Q12HR PRN 01/30/21 01/30/21 3 Days Ago History ~01/27/21 Albuterol Mdi (or & Nicu Only) 2 puff INHALATION DAILY PRN 30 Days 01/31/21 Unknown Rx [ProAir HFA Inhaler] Amiodarone [Cordarone 200 MG TAB] 200 mg PO BID #60 01/31/21 Unknown Rx Ascorbic Acid [Vitamin C] 500 mg PO QDAY #100 tablet 01/31/21 Unknown Rx Aspirin [Adult Aspirin] 81 mg PO DAILY #30 01/31/21 Unknown Rx Bupropion HCl [Wellbutrin XL] 300 mg PO QAM 30 Days #30 01/31/21 Unknown Rx DULoxetine [Cymbalta] 60 mg PO QDAY #30 cap 01/31/21 Unknown Rx Docusate Sodium [Dok] 100 mg PO QAM 01/31/21 01/31/21 01/26/21 History Ferrous Sulfate [Iron 325 MG] 325 mg PO QDAY 01/31/21 01/31/21 01/26/21 History Losartan [Cozaar] 25 mg PO QDAY #30 tablet 01/31/21 Unknown Rx Multivitamin 1 each PO DAILY 30 Days #30 01/31/21 Unknown Rx Pantoprazole [Protonix TAB] 40 mg PO QDAY #30 01/31/21 Unknown Rx Sitagliptin Phosphate [Januvia] 100 tab PO QDAY #30 01/31/21 Unknown Rx Spironolactone [Aldactone] 25 mg PO QDAY tablet 01/31/21 Unknown Rx Tamsulosin [Flomax] 1 cap PO BID #60 cap 01/31/21 Unknown Rx Torsemide [Demadex] 20 mg PO QID #120 01/31/21 Unknown Rx Zinc [Zinc 50mg TAB] 1 tab PO DAILY #30 01/31/21 Unknown Rx carvediloL [Coreg] 3.125 mg PO BID tablet 01/31/21 Unknown Rx metFORMIN [Glucophage] 850 mg PO BID #60 11/11/21 Unknown Rx Review of Systems Constitutional: weight gain, no weight loss, no fever, no chills Ears, nose, mouth and throat: no ear pain, no ear discharge, no tinnitis, no decreased hearing, no nasal congestion, no nasal discharge Cardiovascular: orthopnea, shortness of breath, dyspnea on exertion, paroxysmal nocturnal dyspnea, decreased exercise tolerance, no chest pain, no palpitations Respiratory: no cough, no excessive sputum, no hemoptysis Gastrointestinal: no abdominal pain, no nausea, no vomiting, no diarrhea, no constipation Genitourinary Male: no hematuria, no flank pain, no discharge, no urinary frequency, no urinary hesitancy Rectal: no pain, no incontinence, no bleeding Musculoskeletal: no neck stiffness, no neck pain, no shooting arm pain, no arm numbness/tingling, no low back pain Integumentary: no rash, no pruritis, no redness, no sores, no wounds Neurological: no head injury, no transient paralysis, no weakness, no numbness, no tingling Psychiatric: no anxiety, no change in sleep habits, no sleep disturbances, no hypersomnia, no change in appetite, no change in libido, no suicidal ideation Endocrine: no cold intolerance, no heat intolerance, no polyphagia, no polydipsia, no polyuria, no excessive sweating Hematologic/Lymphatic: no easy bruising, no easy bleeding Allergic/Immunologic: no wheezing Exam - Constitutional Vitals: Temp Pulse Resp BP Pulse Ox 97.9 F 84 24 131/57 94 11/19/21 15:28 11/19/21 15:28 11/19/21 15:28 11/19/21 15:28 11/19/21 15:28 General appearance: Present: mild distress - EENT Eyes: Present: PERRL ENT: hearing intact, clear oral mucosa - Neck Neck: Present: supple, normal ROM, masses or JVD - Respiratory Respiratory effort: normal, labored Respiratory: bilateral: diminished, rales - Cardiovascular Heart Sounds: Present: S1 & S2. Absent: rub, click - Extremities Extremities: pulses symmetrical Extremity abnormal: edema Peripheral Pulses: within normal limits - Abdominal General gastrointestinal: Present: soft, non-tender, non-distended, normal bowel sounds Male genitourinary: Present: normal - Integumentary Integumentary: Present: clear, warm, dry - Musculoskeletal Musculoskeletal: gait normal, strength equal bilaterally - Psychiatric Psychiatric: appropriate mood/affect, intact judgment & insight - Neurologic Neurologic: CNII-XII intact, moves all extremities HEART Score - HEART Score Troponin: Troponin T < 0.010 ng/mL (0.00-0.029) 11/19/21 12:41 Results - Labs CBC & Chem 7: 11/19/21 12:41 11/19/21 12:41 Labs: Abnormal lab results 11/19/21 11/19/21 11/19/21 Range/Units 12:20 12:41 12:41 WBC 16.3 H (4.5-11.0) K/mm3 Hgb 10.9 L (11.8-15.2) gm/dl Hct 34.9 L (35.5-45.6) % MCH 26 L (28-32) pg MCHC 31 L (32-34) % RDW 15.7 H (13.2-15.2) % Seg Neuts % (Manual) 92.0 H (40.0-70.0) % Lymphocytes % (Manual) 0 L (13.4-35.0) % Seg Neutrophils # Man 15.0 H (1.8-7.7) K/mm3 Lymphocytes # (Manual) 0.0 L (1.2-5.4) K/mm3 ABG pH 7.344 L (7.350-7.450) pH Units ABG pO2 127.8 H (80.0-90.0) mm Hg ABG HCO3 38.7 H (20.0-26.0) mmol/L ABG Base Excess 10.4 H (-2.0-3.0) mmol/L ABG Hemoglobin 11.9 L (14.0-18.0) gm/dl Chloride 92.7 L (98-107) mmol/L Carbon Dioxide 35 H (22-30) mmol/L BUN 22 H (9-20) mg/dL Glucose 315 H (75-100) mg/dL AST 60 H (5-40) units/L ALT 98 H (7-56) units/L Albumin 3.5 L (3.9-5) g/dL 11/19/21 Range/Units 15:13 WBC (4.5-11.0) K/mm3 Hgb (11.8-15.2) gm/dl Hct (35.5-45.6) % MCH (28-32) pg MCHC (32-34) % RDW (13.2-15.2) % Seg Neuts % (Manual) (40.0-70.0) % Lymphocytes % (Manual) (13.4-35.0) % Seg Neutrophils # Man (1.8-7.7) K/mm3 Lymphocytes # (Manual) (1.2-5.4) K/mm3 ABG pH (7.350-7.450) pH Units ABG pO2 116.4 H (80.0-90.0) mm Hg ABG HCO3 40.9 H (20.0-26.0) mmol/L ABG Base Excess 13.5 H (-2.0-3.0) mmol/L ABG Hemoglobin 5.0 L (14.0-18.0) gm/dl Chloride (98-107) mmol/L Carbon Dioxide (22-30) mmol/L BUN (9-20) mg/dL Glucose (75-100) mg/dL AST (5-40) units/L ALT (7-56) units/L Albumin (3.9-5) g/dL Assessment and Plan - Patient Problems (1) Acute respiratory failure Current Visit: No Status: Acute Plan to address problem: Chest x-ray, supplemental oxygen, pulse oximetry, nebulizer therapy, pulmonary toilet. Noninvasive positive pressure ventilation. CT scan chest ordered and is pending at time of admission. (2) CHF exacerbation Current Visit: No Status: Acute Qualifiers: Heart failure type: systolic Qualified Code(s): I50.23 - Acute on chronic systolic (congestive) heart failure Plan to address problem: Strict I's/O, monitoring output every shift, daily weight, afterload reduction, blood pressure control, echocardiogram ordered and pending at time of admission, diuretic therapy, cardiology team consulted. (3) Obesity hypoventilation syndrome Current Visit: Yes Status: Acute Plan to address problem: Balanced diet, increase physical activity discharge, outpatient pulmonary follow-up for sleep study. (4) SIRS (systemic inflammatory response syndrome) Current Visit: Yes Status: Acute Plan to address problem: Empiric IV antibiotic therapy x1 dose, CBC, repeat CBC in AM. (5) Hypertension Current Visit: Yes Status: Acute Qualifiers: Hypertension type: primary hypertension Qualified Code(s): I10 - Essential (primary) hypertension Plan to address problem: Monitor blood pressure every shift, continue medical management. (6) Diabetes Current Visit: Yes Status: Acute Plan to address problem: Consistent carbohydrate diet, Accu-Chek, insulin protocol, hypoglycemia protocol. (7) GERD (gastroesophageal reflux disease) Current Visit: Yes Status: Acute Qualifiers: Esophagitis presence: without esophagitis Qualified Code(s): K21.9 - Gastro-esophageal reflux disease without esophagitis Plan to address problem: PPI therapy, supportive care. (8) COPD (chronic obstructive pulmonary disease) Current Visit: Yes Status: Acute Plan to address problem: Supplemental oxygen, pulse oximetry, nebulizer therapy, supportive care. Patient treated with IV steroid therapy in route to hospital. Continue medical management. (9) Migraine headache Current Visit: Yes Status: Acute Qualifiers: Intractability: not intractable Plan to address problem: Supportive care, no acute exacerbation at this time. Continue to monitor. (10) DVT prophylaxis Current Visit: Yes Status: Acute Plan to address problem: SCD to bilateral lower extremities while in bed (11) Advance care planning Current Visit: Yes Status: Acute Plan to address problem: Disease education data, care plan discussed, diagnoses discussed, prognosis discussed, patient is full code, +30 minutes. (12) Preventative health care Current Visit: Yes Status: Acute Plan to address problem: Patient counseled regarding risk factor reduction, balanced diet, increase physical activity at discharge, outpatient pulmonary follow-up for sleep study, follow-up with primary care physician for all age and risk factor appropriate screening test.+30 minutes.
--- NOTE | 2021-11-19 16:55 | Emergency Department Report ---
ED Shortness of Breath HPI - General Chief Complaint: Dyspnea/Respdistress Stated Complaint: RESP DISTRESS Time Seen by Provider: 11/19/21 12:09 Source: EMS Mode of arrival: Stretcher Limitations: Other - History of Present Illness Initial Comments: Patient is 60-year-old male with history of CHF and COPD brought in by EMS with complaint of acute respiratory distress. He was placed on CPAP by EMS on arrival to scene and given Solu-Medrol, magnesium and albuterol. - Related Data Home Medications Medication Instructions Recorded Confirmed Last Taken Levalbuterol [Xopenex] 1.25 mg IH Q8HRT 01/30/21 01/30/21 3 Days Ago ~01/27/21 Lidocaine [Lidocaine CREAM] 5 gm TP TID PRN 01/30/21 01/30/21 3 Days Ago ~01/27/21 Triamcinolone 0.5% 0.5 cream Q8HR 01/30/21 01/30/21 3 Days Ago ~01/27/21 traMADoL [Ultram 50 MG tab] 50 mg PO Q12HR PRN 01/30/21 01/30/21 3 Days Ago ~01/27/21 Docusate Sodium [Dok] 100 mg PO QAM 01/31/21 01/31/21 01/26/21 Ferrous Sulfate [Iron 325 MG] 325 mg PO QDAY 01/31/21 01/31/21 01/26/21 Previous Rx's Medication Instructions Recorded Last Taken Type Atorvastatin Calcium [Lipitor] 80 mg PO QHS #30 01/24/20 3 Days Ago Rx ~01/27/21 Ibuprofen [Motrin 800 MG tab] 800 mg PO Q8HR PRN #90 01/24/20 12/25/20 Rx Albuterol Mdi (or & Nicu Only) 2 puff INHALATION DAILY PRN 30 Days 01/31/21 Unknown Rx [ProAir HFA Inhaler] Amiodarone [Cordarone 200 MG TAB] 200 mg PO BID #60 01/31/21 Unknown Rx Ascorbic Acid [Vitamin C] 500 mg PO QDAY #100 tablet 01/31/21 Unknown Rx Aspirin [Adult Aspirin] 81 mg PO DAILY #30 01/31/21 Unknown Rx Bupropion HCl [Wellbutrin XL] 300 mg PO QAM 30 Days #30 01/31/21 Unknown Rx DULoxetine [Cymbalta] 60 mg PO QDAY #30 cap 01/31/21 Unknown Rx Losartan [Cozaar] 25 mg PO QDAY #30 tablet 01/31/21 Unknown Rx Multivitamin 1 each PO DAILY 30 Days #30 01/31/21 Unknown Rx Pantoprazole [Protonix TAB] 40 mg PO QDAY #30 01/31/21 Unknown Rx Sitagliptin Phosphate [Januvia] 100 tab PO QDAY #30 01/31/21 Unknown Rx Spironolactone [Aldactone] 25 mg PO QDAY tablet 01/31/21 Unknown Rx Tamsulosin [Flomax] 1 cap PO BID #60 cap 01/31/21 Unknown Rx Torsemide [Demadex] 20 mg PO QID #120 01/31/21 Unknown Rx Zinc [Zinc 50mg TAB] 1 tab PO DAILY #30 01/31/21 Unknown Rx carvediloL [Coreg] 3.125 mg PO BID tablet 01/31/21 Unknown Rx metFORMIN [Glucophage] 850 mg PO BID #60 01/31/21 Unknown Rx Allergies Allergy/AdvReac Type Severity Reaction Status Date / Time morphine Allergy Rash Verified 11/19/21 12:17 ED Review of Systems ROS: Stated complaint: RESP DISTRESS Other details as noted in HPI Constitutional: denies: chills, fever Respiratory: shortness of breath. denies: cough, wheezing Cardiovascular: denies: chest pain, palpitations Gastrointestinal: denies: abdominal pain, nausea, diarrhea Musculoskeletal: denies: back pain, joint swelling, arthralgia Skin: denies: rash, lesions Neurological: denies: headache, weakness, paresthesias ED Past Medical Hx - Past Medical History Hx Hypertension: Yes Hx Heart Attack/AMI: Yes Hx Congestive Heart Failure: Yes Hx Diabetes: Yes Hx Arthritis: Yes Hx Headaches / Migraines: Yes Hx COPD: Yes - Surgical History Hx Open Heart Surgery: Yes - Social History Smoking Status: Never Smoker Substance Use Type: None - Medications Home Medications: Home Medications Medication Instructions Recorded Confirmed Last Taken Type Atorvastatin Calcium [Lipitor] 80 mg PO QHS #30 01/24/20 01/30/21 3 Days Ago Rx ~01/27/21 Ibuprofen [Motrin 800 MG tab] 800 mg PO Q8HR PRN #90 01/24/20 01/30/21 12/25/20 Rx Levalbuterol [Xopenex] 1.25 mg IH Q8HRT 01/30/21 01/30/21 3 Days Ago History ~01/27/21 Lidocaine [Lidocaine CREAM] 5 gm TP TID PRN 01/30/21 01/30/21 3 Days Ago History ~01/27/21 Triamcinolone 0.5% 0.5 cream Q8HR 01/30/21 01/30/21 3 Days Ago History ~01/27/21 traMADoL [Ultram 50 MG tab] 50 mg PO Q12HR PRN 01/30/21 01/30/21 3 Days Ago History ~01/27/21 Albuterol Mdi (or & Nicu Only) 2 puff INHALATION DAILY PRN 30 Days 01/31/21 Unknown Rx [ProAir HFA Inhaler] Amiodarone [Cordarone 200 MG TAB] 200 mg PO BID #60 01/31/21 Unknown Rx Ascorbic Acid [Vitamin C] 500 mg PO QDAY #100 tablet 01/31/21 Unknown Rx Aspirin [Adult Aspirin] 81 mg PO DAILY #30 01/31/21 Unknown Rx Bupropion HCl [Wellbutrin XL] 300 mg PO QAM 30 Days #30 01/31/21 Unknown Rx DULoxetine [Cymbalta] 60 mg PO QDAY #30 cap 01/31/21 Unknown Rx Docusate Sodium [Dok] 100 mg PO QAM 01/31/21 01/31/21 01/26/21 History Ferrous Sulfate [Iron 325 MG] 325 mg PO QDAY 01/31/21 01/31/21 01/26/21 History Losartan [Cozaar] 25 mg PO QDAY #30 tablet 01/31/21 Unknown Rx Multivitamin 1 each PO DAILY 30 Days #30 01/31/21 Unknown Rx Pantoprazole [Protonix TAB] 40 mg PO QDAY #30 01/31/21 Unknown Rx Sitagliptin Phosphate [Januvia] 100 tab PO QDAY #30 01/31/21 Unknown Rx Spironolactone [Aldactone] 25 mg PO QDAY tablet 01/31/21 Unknown Rx Tamsulosin [Flomax] 1 cap PO BID #60 cap 01/31/21 Unknown Rx Torsemide [Demadex] 20 mg PO QID #120 01/31/21 Unknown Rx Zinc [Zinc 50mg TAB] 1 tab PO DAILY #30 01/31/21 Unknown Rx carvediloL [Coreg] 3.125 mg PO BID tablet 01/31/21 Unknown Rx metFORMIN [Glucophage] 850 mg PO BID #60 01/31/21 Unknown Rx ED Physical Exam - General Limitations: Other General appearance: alert, in distress - Head Head exam: Present: atraumatic, normocephalic - Respiratory Respiratory exam: Present: respiratory distress, accessory muscle use, decreased breath sounds - Cardiovascular Cardiovascular Exam: Present: regular rate, normal rhythm, normal heart sounds - GI/Abdominal GI/Abdominal exam: Present: soft. Absent: distended, tenderness - Rectal Rectal exam: Present: deferred - Neurological Exam Neurological exam: Present: alert, oriented X3 - Psychiatric Psychiatric exam: Present: normal affect, normal mood ED Course Vital Signs 11/19/21 11/19/21 11/19/21 11:54 12:05 12:25 Temperature 97.7 F 97.8 F Pulse Rate 92 H 75 72 Respiratory 18 26 H 24 Rate Blood Pressure 143/71 138/73 Blood Pressure 168/97 [Left] Blood Pressure 143/71 [Right] O2 Sat by Pulse 85 100 100 Oximetry 11/19/21 11/19/21 11/19/21 12:45 13:32 15:20 Temperature 97.9 F 97.9 F Pulse Rate 81 75 72 Respiratory 26 H 22 22 Rate Blood Pressure 127/57 Blood Pressure 126/66 128/63 [Left] Blood Pressure [Right] O2 Sat by Pulse 99 96 96 Oximetry 11/19/21 15:28 Temperature 97.9 F Pulse Rate 84 Respiratory 24 Rate Blood Pressure Blood Pressure 131/57 [Left] Blood Pressure [Right] O2 Sat by Pulse 94 Oximetry ED Medical Decision Making - Lab Data Result diagrams: 11/19/21 12:41 11/19/21 12:41 - Medical Decision Making Patient transitioned to BiPAP shortly after arrival with noticeable improvement. Chest x-ray shows possibly mild CHF. He was given IV Lasix. WBC count 16,000. Chemistry grossly unremarkable except for serum glucose of 315. Will admit to hospitalist. Critical Care Time: Yes Critical care time in (mins) excluding proc time.: 40 Critical care attestation.: If time is entered above; I have spent that time in minutes in the direct care of this critically ill patient, excluding procedure time. ED Disposition Clinical Impression: Acute and chronic respiratory failure with hypoxia Disposition: ADMITTED INPATIENT Is pt being admited?: Yes Condition: Stable Referrals: TARSHA VICENTE MD [Primary Care Provider] - 3-5 Days
[2021-11-19] MEDS ORDERED: ACETAMINOPHEN 325 MG TAB PO PRN (18:29)
[2021-11-19] MEDS ORDERED: ALBUTEROL 2.5 MG/3 ML NEBU IH PRN (18:29)
[2021-11-19] MEDS ORDERED: oxyCODONE /ACETAMINOPHEN 5-325MG TAB PO PRN (18:29)
[2021-11-19] MEDS ORDERED: MORPHINE 4 MG/1 ML INJ IV PRN (18:29)
--- NOTE | 2021-11-19 20:52 | Cat Scan Report ---
CTA CHEST WITH CONTRAST INDICATION / CLINICAL INFORMATION: Shortness of breath 100ml of [id number] . TECHNIQUE: Axial CT images were obtained through the chest after injection of IV contrast. 3 plane LA P and/or 3D reconstructions were produced. All CT scans at this location are performed using CT dose reduction for ALARA by means of automated exposure control. COMPARISON: CT 12/01/2020 FINDINGS: PULMONARY EMBOLUS: None. THORACIC AORTA: No significant abnormality. HEART: Enlarged, unchanged. CORONARY ARTERY CALCIFICATION: Not evaluable -- CABG. MEDIASTINUM / MALORIE: Small lateral aortic nodes are noted, similar to the prior. There is mild subcari nal adenopathy, subcarinal node right of midline measures 2.8 cm on axial image 2.. PLEURA: There is a trace right pleural effusion. Minimal left pleural fluid is noted. No pneumothorax . LUNGS: There are diffuse bilateral groundglass opacities. Compressive atelectasis is noted in the bas es, greater on the right. ADDITIONAL FINDINGS: None. UPPER ABDOMEN: The liver has a nodular contour which can be seen in the setting of cirrhosis. There i s minimal cholelithiasis. SKELETAL STRUCTURES: No acute findings. Chronic lower thoracic compression deformity is noted. IMPRESSION: 1. No CT evidence for pulmonary embolism. 2. Cardiomegaly with congestive heart failure. 3. There is infrahilar adenopathy right of midline, index node measures 2.8 cm. This is new since the prior. Follow-up is recommended. 4. Liver has a nodular contour which can be seen in the setting of cirrhosis. Signer Name: Jamie Mcmahan MD Signed: 11/19/2021 8:47 PM Workstation Name: [id number]
[2021-11-19] MEDS ORDERED: NON-FORMULARY EACH (Torsemide [Demadex] 20 MG Tablet) PO SCH (22:00)
[2021-11-19] MEDS ORDERED: NON-FORMULARY EACH (Atorvastatin Calcium [Lipitor] 80 MG Tablet) PO SCH (22:00)
[2021-11-19] MEDS ORDERED: TORSEMIDE 10 MG TAB PO SCH (22:00)
[2021-11-20] MEDS: AMIODARONE 200 MG TAB PO SCH ×3 (03:07→21:21)
[2021-11-20] MEDS: carvediloL 3.125 MG TAB PO SCH ×3 (03:07→21:20)
[2021-11-20] MEDS: TAMSULOSIN 0.4 MG CAP PO SCH ×3 (03:08→21:20)
[2021-11-20] MEDS ORDERED: FUROSEMIDE 20 MG/2 ML INJ IV SCH (06:00)
[2021-11-20 06:02] LABS: Basophils % (Auto) 0.1 % (0.0-1.8); Hematocrit 32.4 % (35.5-45.6); Hemoglobin 10.2 gm/dl (11.8-15.2); Lymphocytes # (Auto) 0.6 K/mm3 (1.2-5.4); Lymphocytes % (Auto) 4.7 % (13.4-35.0); Mean Corpuscular HGB Conc 32 % (32-34); Mean Corpuscular Volume 83 fl (84-94); Monocytes % (Auto) 7.7 % (0.0-7.3); Platelet Count 342 K/mm3 (140-440); Red Cell Distribution Width 15.4 % (13.2-15.2)
[2021-11-20 06:07] LABS: BUN/Creatinine Ratio 24; Blood Urea Nitrogen 24 mg/dL (9-20); Calcium 9.1 mg/dL (8.4-10.2); Hemolysis Index 4
[2021-11-20] MEDS ORDERED: CEFEPIME/NS 1 GM/100 ML 1 GM/100 ML BAG IV SCH (09:00)
[2021-11-20] MEDS ORDERED: NON-FORMULARY EACH (Bupropion Hcl [Wellbutrin Xl] 300 MG Tab.Er.24h) PO SCH (10:00)
[2021-11-20] MEDS ORDERED: NON-FORMULARY EACH (Sitagliptin Phosphate [Januvia] 100 MG Tablet) PO SCH (10:00)
[2021-11-20] MEDS ORDERED: NON-FORMULARY EACH (Zinc [Zinc 50mg Tab] 50 MG Tablet) PO SCH (10:00)
[2021-11-20] MEDS ORDERED: NON-FORMULARY EACH (Multivitamin [Multivitamin] 1 EACH Tablet) PO SCH (10:00)
[2021-11-20] MEDS: CEFEPIME/NS 2 GM/100 ML 2 GM/100 ML BAG IV SCH ×2 (12:38→21:22)
[2021-11-20] MEDS: ZINC SULFATE 220 MG CAP PO SCH (12:38)
[2021-11-20] MEDS: ASCORBIC ACID 500 MG TAB PO SCH (12:39)
[2021-11-20] MEDS: buPROPion XL 150 MG TAB PO SCH (12:39)
[2021-11-20] MEDS: DULoxetine 30 MG CAP PO SCH (12:40)
[2021-11-20] MEDS: ASPIRIN EC 81 MG TAB PO SCH (12:41)
[2021-11-20] MEDS: FERROUS SULFATE 325 MG TAB PO SCH (12:42)
[2021-11-20] MEDS: PANTOPRAZOLE 40 MG TAB PO SCH (12:42)
[2021-11-20] MEDS: MULTIVITAMINS ,THERAPEUTIC TAB PO SCH (12:43)
[2021-11-20] MEDS: LINAGLIPTIN 5 MG TAB PO SCH (12:45)
[2021-11-20] MEDS: LOSARTAN 25 MG TAB PO SCH (12:48)
[2021-11-20] MEDS: DOCUSATE SODIUM 100 MG CAP PO SCH (12:48)
[2021-11-20] MEDS: SPIRONOLACTONE 25 MG TAB PO SCH (12:48)
[2021-11-20] MEDS: IPRATROPIUM/ALBUTEROL SULFATE 3 ML AMPUL.NEB IH SCH ×2 (15:38→20:47)
[2021-11-20] MEDS: BUDESONIDE 0.5 MG/2 ML NEBU IH SCH ×2 (15:38→20:47)
--- NOTE | 2021-11-20 15:48 | Progress Note ---
Assessment and Plan Assessment and plan: 60 YO Male with CHF(EF25%), CAD S/P CABG, HTN, DM, COPD, Migraine MORTENSEN, HLD, GERD, Obesity presents to ED for evaluation. Patient reports "it is hard to breathe". Patient states that he has experienced shortness of breath over the past 3 days with worsening symptoms over the past 24 hours. Patient knowledges decreased exercise tolerance, dyspnea on exertion, dyspnea at rest, orthopnea as well as paroxysmal nocturnal dyspnea. EMS was notified and upon arrival the patient was found to be in distress and subsequent transported to [facility] for further care and evaluation of the aforementioned symptoms. The patient was seen and evaluated emergency department. All lab and imaging studies reviewed. Patient found to have a pulse oximetry of 88% on room air which is consistent with acute hypoxemic respiratory failure. Patient also found to have clinical symptoms consistent with CHF decompensation complicated by systemic inflammatory response syndrome. Patient admitted to IM and placed on noninvasive positive pressure ventilation. Cardiology team consulted. Patient also initiated on CHF chacorta col. Patient treated with empiric IV antibiotic therapy x1 dose. Patient has fever, chills, chest pain, palpitation, skin rash, recent contact, known exposure to COVID-19. Prior admission on 01/29/2021 reviewed. All medication listed at time of admission has been reconciled. Advanced care planning conducted in ED. Past History Past Medical History: COPD, diabetes, GERD, heart failure, hypertension, hyperlipidemia, other (See HPI) Past Surgical History: CABG Social history: . denies: smoking, alcohol abuse, prescription drug abuse Family history: diabetes, hypertension 11/20/2021: Patient seen and evaluated this morning as we weaned off of the BiPAP and is now on nasal cannula doing relatively well still with shortness of breath. Reports that he uses oxygen at home. Denies any fever. I did review prior hospitalization does have underlying COPD and there could be a touch of COPD exacerbation. We will restart him on some LABA and GRACIE while awaiting her cardiology and pulmonary consultation. Is mildly noted elevated AST and ALT this could be passive hepatic congestion from this CHF. Will monitor closely. Imaging studies CT of the chest did not show any pulmonary embolism but did show cardiomegaly with congestive heart failure also additional and infrahilar adenopathy right of midline measuring 2.8 cm which is new. There is also nodu lar contour of the liver that could be seen in the setting of cirrhosis. Will recommend an outpatient reevaluation of this node for possible biopsy. Continue goal-directed medical therapy. Did discuss with cardiology at this time. Continue diuresis. (1) Acute respiratory failure Current Visit: No Status: Acute Plan to address problem: Chest x-ray, supplemental oxygen, pulse oximetry, nebulizer therapy, pulmonary toilet. Noninvasive positive pressure ventilation. CT scan chest ordered and is pending at time of admission. (2) CHF exacerbation Current Visit: No Status: Acute Qualifiers: Heart failure type: systolic Qualified Code(s): I50.23 - Acute on chronic systolic (congestive) heart failure Plan to address problem: Strict I's/O, monitoring output every shift, daily weight, afterload reduction, blood pressure control, echocardiogram ordered and pending at time of admission, diuretic therapy, cardiology team consulted. (3) Obesity hypoventilation syndrome Current Visit: Yes Status: Acute Plan to address problem: Balanced diet, increase physical activity discharge, outpatient pulmonary follow-up for sleep study. (4) SIRS (systemic inflammatory response syndrome) Current Visit: Yes Status: Acute Plan to address problem: Empiric IV antibiotic therapy x1 dose, CBC, repeat CBC in AM. (5) Hypertension Current Visit: Yes Status: Acute Qualifiers: Hypertension type: primary hypertension Qualified Code(s): I10 - Essential (primary) hypertension Plan to address problem: Monitor blood pressure every shift, continue medical management. (6) Diabetes Current Visit: Yes Status: Acute Plan to address problem: Consistent carbohydrate diet, Accu-Chek, insulin protocol, hypoglycemia protocol. (7) GERD (gastroesophageal reflux disease) Current Visit: Yes Status: Acute Qualifiers: Esophagitis presence: without esophagitis Qualified Code(s): K21.9 - Gastro-esophageal reflux disease without esophagitis Plan to address problem: PPI therapy, supportive care. (8) COPD (chronic obstructive pulmonary disease) Current Visit: Yes Status: Acute Plan to address problem: Supplemental oxygen, pulse oximetry, nebulizer therapy, supportive care. Patient treated with IV steroid therapy in route to hospital. Continue medical management. (9) Migraine headache Current Visit: Yes Status: Acute Qualifiers: Intractability: not intractable Plan to address problem: Supportive care, no acute exacerbation at this time. Continue to monitor. (10) anemia of chronic disease (11) DVT prophylaxis Current Visit: Yes Status: Acute Plan to address problem: SCD to bilateral lower extremities while in bed (12) Advance care planning Current Visit: Yes Status: Acute Plan to address problem: Disease education data, care plan discussed, diagnoses discussed, prognosis discussed, patient is full code, +30 minutes. (13) Preventative health care Current Visit: Yes Status: Acute Plan to address problem: Patient counseled regarding risk factor reduction, balanced diet, increase physical activity at discharge, outpatient pulmonary follow-up for sleep study, follow-up with primary care physician for all age and risk factor appropriate screening test.+30 minutes. History Interval history: Patient seen and examined resting comfortably reports improvement but still with shortness of breath. Now on 2 L nasal cannula. Uses oxygen at home. Hospitalist Physical - Physical exam Narrative exam: VITAL SIGNS: Reviewed. GENERAL: The patient appears normally developed, Vital signs as documented. HEAD: No signs of head trauma. EYES: Pupils are equal. Extraocular motions intact. EARS: Hearing grossly intact. MOUTH: Oropharynx is normal. NECK: No adenopathy, no JVD. CHEST: Chest with diminished breath sounds bilaterally. No wheezes, rales, or rhonchi. CARDIAC: Regular rate and rhythm. S1 and S2, without murmurs, gallops, or rubs. VASCULAR: +1 pitting edema. Peripheral pulses normal and equal in all extremities. ABDOMEN: Soft, non tender and non distended. No rebound or guarding, and no masses palpated. Bowel Sounds normal. MUSCULOSKELETAL: Good range of motion of all major joints. Extremities without clubbing, cyanosis. Bilateral +1 pitting edema. NEUROLOGIC EXAM: Alert and oriented x 3 No focal sensory or strength deficits. Speech normal. Follows commands. PSYCHIATRIC: Mood normal. SKIN: detail exam as documented in skin assessment - Constitutional Vitals: Temp Pulse Resp BP Pulse Ox 97.8 F 88 23 127/67 100 11/19/21 18:10 11/20/21 03:07 11/20/21 00:00 11/19/21 19:16 11/20/21 03:12 General appearance: Present: mild distress HEART Score - HEART Score Troponin: Troponin T < 0.010 ng/mL (0.00-0.029) 11/19/21 12:41 Results - Labs CBC & Chem 7: 11/20/21 05:38 11/20/21 05:38 Labs: Laboratory Last Values WBC 13.5 K/mm3 (4.5-11.0) H 11/20/21 05:38 RBC 3.90 M/mm3 (3.65-5.03) 11/20/21 05:38 Hgb 10.2 gm/dl (11.8-15.2) L 11/20/21 05:38 Hct 32.4 % (35.5-45.6) L 11/20/21 05:38 MCV 83 fl (84-94) L 11/20/21 05:38 MCH 26 pg (28-32) L 11/20/21 05:38 MCHC 32 % (32-34) 11/20/21 05:38 RDW 15.4 % (13.2-15.2) H 11/20/21 05:38 Plt Count 342 K/mm3 (140-440) 11/20/21 05:38 Lymph % (Auto) 4.7 % (13.4-35.0) L 11/20/21 05:38 [place] % (Auto) 7.7 % (0.0-7.3) H 11/20/21 05:38 Eos % (Auto) 0.0 % (0.0-4.3) 11/20/21 05:38 Baso % (Auto) 0.1 % (0.0-1.8) 11/20/21 05:38 Lymph # (Auto) 0.6 K/mm3 (1.2-5.4) L 11/20/21 05:38 [place] # (Auto) 1.0 K/mm3 (0.0-0.8) H 11/20/21 05:38 Eos # (Auto) 0.0 K/mm3 (0.0-0.4) 11/20/21 05:38 Baso # (Auto) 0.0 K/mm3 (0.0-0.1) 11/20/21 05:38 Add Manual Diff Complete 11/19/21 12:41 Total Counted 100 11/19/21 12:41 Seg Neutrophils % 87.5 % (40.0-70.0) H 11/20/21 05:38 Seg Neuts % (Manual) 92.0 % (40.0-70.0) H 11/19/21 12:41 Band Neutrophils % 4.0 % 11/19/21 12:41 Lymphocytes % (Manual) 0 % (13.4-35.0) L 11/19/21 12:41 Reactive Lymphs % (Man) 0 % 11/19/21 12:41 Monocytes % (Manual) 4.0 % (0.0-7.3) 11/19/21 12:41 Eosinophils % (Manual) 0 % (0.0-4.3) 11/19/21 12:41 Basophils % (Manual) 0 % (0.0-1.8) 11/19/21 12:41 Metamyelocytes % 0 % 11/19/21 12:41 Myelocytes % 0 % 11/19/21 12:41 Promyelocytes % 0 % 11/19/21 12:41 Blast Cells % 0 % 11/19/21 12:41 Nucleated RBC % Not Reportable 11/19/21 12:41 Seg Neutrophils # 11.8 K/mm3 (1.8-7.7) H 11/20/21 05:38 Seg Neutrophils # Man 15.0 K/mm3 (1.8-7.7) H 11/19/21 12:41 Band Neutrophils # 0.7 K/mm3 11/19/21 12:41 Lymphocytes # (Manual) 0.0 K/mm3 (1.2-5.4) L 11/19/21 12:41 Abs React Lymphs (Man) 0.0 K/mm3 11/19/21 12:41 Monocytes # (Manual) 0.7 K/mm3 (0.0-0.8) 11/19/21 12:41 Eosinophils # (Manual) 0.0 K/mm3 (0.0-0.4) 11/19/21 12:41 Basophils # (Manual) 0.0 K/mm3 (0.0-0.1) 11/19/21 12:41 Metamyelocytes # 0.0 K/mm3 11/19/21 12:41 Myelocytes # 0.0 K/mm3 11/19/21 12:41 Promyelocytes # 0.0 K/mm3 11/19/21 12:41 Blast Cells # 0.0 K/mm3 11/19/21 12:41 WBC Morphology Not Reportable 11/19/21 12:41 Hypersegmented Neuts Not Reportable 11/19/21 12:41 Hyposegmented Neuts Not Reportable 11/19/21 12:41 Hypogranular Neuts Not Reportable 11/19/21 12:41 Smudge Cells Not Reportable 11/19/21 12:41 Toxic Granulation Not Reportable 11/19/21 12:41 Toxic Vacuolation Not Reportable 11/19/21 12:41 Dohle Bodies Not Reportable 11/19/21 12:41 Pelger-Huet Anomaly Not Reportable 11/19/21 12:41 Nell Rods Not Reportable 11/19/21 12:41 Platelet Estimate Consistent w auto 11/19/21 12:41 Clumped Platelets Not Reportable 11/19/21 12:41 Plt Clumps, EDTA Not Reportable 11/19/21 12:41 Large Platelets Few 11/19/21 12:41 Giant Platelets Not Reportable 11/19/21 12:41 Platelet Satelliting Not Reportable 11/19/21 12:41 Plt Morphology Comment Not Reportable 11/19/21 12:41 RBC Morphology Not Reportable 11/19/21 12:41 Dimorphic RBCs Not Reportable 11/19/21 12:41 Polychromasia Not Reportable 11/19/21 12:41 Hypochromasia 1+ 11/19/21 12:41 Poikilocytosis Not Reportable 11/19/21 12:41 Anisocytosis 1+ 11/19/21 12:41 Microcytosis 1+ 11/19/21 12:41 Macrocytosis Not Reportable 11/19/21 12:41 Spherocytes Not Reportable 11/19/21 12:41 Pappenheimer Bodies Not Reportable 11/19/21 12:41 Sickle Cells Not Reportable 11/19/21 12:41 Target Cells Not Reportable 11/19/21 12:41 Tear Drop Cells Not Reportable 11/19/21 12:41 Ovalocytes 1+ 11/19/21 12:41 Helmet Cells Not Reportable 11/19/21 12:41 [place] Bodies Not Reportable 11/19/21 12:41 [place] Rings Not Reportable 11/19/21 12:41 [place] Cells Not Reportable 11/19/21 12:41 Bite Cells Not Reportable 11/19/21 12:41 Crenated Cell Not Reportable 11/19/21 12:41 Elliptocytes Not Reportable 11/19/21 12:41 Acanthocytes (Spur) Not Reportable 11/19/21 12:41 Rouleaux Not Reportable 11/19/21 12:41 Hemoglobin C Crystals Not Reportable 11/19/21 12:41 Schistocytes Not Reportable 11/19/21 12:41 Malaria parasites Not Reportable 11/19/21 12:41 Lobo Bodies Not Reportable 11/19/21 12:41 Hem Pathologist Commnt No 11/19/21 12:41 PT 13.8 Sec. (12.2-14.9) 11/19/21 14:33 INR 0.96 (0.87-1.13) 11/19/21 14:33 APTT 26.9 Sec. (24.2-36.6) 11/19/21 14:33 ABG pH 7.374 pH Units (7.350-7.450) 11/19/21 15:13 ABG pCO2 71.7 mm Hg 11/19/21 15:13 ABG pO2 116.4 mm Hg (80.0-90.0) H 11/19/21 15:13 ABG HCO3 40.9 mmol/L (20.0-26.0) H 11/19/21 15:13 ABG O2 Saturation 97.9 % (95.0-99.0) 11/19/21 15:13 ABG O2 Content 16.2 (0.0-44) 11/19/21 12:20 ABG Base Excess 13.5 mmol/L (-2.0-3.0) H 11/19/21 15:13 ABG Hemoglobin 5.0 gm/dl (14.0-18.0) L 11/19/21 15:13 ABG Carboxyhemoglobin 1.9 % (0.0-5.0) 11/19/21 15:13 ABG Methemoglobin 0.5 % (0.0-1.5) 11/19/21 15:13 Oxyhemoglobin 95.5 % (95.0-99.0) 11/19/21 15:13 FiO2 40 % 11/19/21 15:13 Sodium 144 mmol/L (137-145) 11/20/21 05:38 Potassium 4.5 mmol/L (3.6-5.0) 11/20/21 05:38 Chloride 96.5 mmol/L (98-107) L 11/20/21 05:38 Carbon Dioxide 40 mmol/L (22-30) H 11/20/21 05:38 Anion Gap 12 mmol/L 11/20/21 05:38 BUN 24 mg/dL (9-20) H 11/20/21 05:38 Creatinine 1.0 mg/dL (0.8-1.3) 11/20/21 05:38 Estimated GFR > 60 ml/min 11/20/21 05:38 BUN/Creatinine Ratio 24 % 11/20/21 05:38 Glucose 189 mg/dL (75-100) H 11/20/21 05:38 Calcium 9.1 mg/dL (8.4-10.2) 11/20/21 05:38 Magnesium 2.30 mg/dL (1.7-2.3) 11/19/21 12:41 Total Bilirubin 0.80 mg/dL (0.1-1.2) 11/19/21 12:41 AST 60 units/L (5-40) H 11/19/21 12:41 ALT 98 units/L (7-56) H 11/19/21 12:41 Alkaline Phosphatase 120 units/L (35-129) 11/19/21 12:41 Troponin T < 0.010 ng/mL (0.00-0.029) 11/19/21 12:41 NT-Pro-B Natriuret Pep 5565 pg/mL (0-900) H 11/20/21 14:03 Total Protein 6.4 g/dL (6.3-8.2) 11/19/21 12:41 Albumin 3.5 g/dL (3.9-5) L 11/19/21 12:41 Albumin/Globulin Ratio 1.2 % 11/19/21 12:41 Active Medications - Current Medications Current Medications: Generic Name Dose Route Start Last Admin Trade Name Freq PRN Reason Stop Dose Admin Acetaminophen 650 mg 11/19/21 18:29 Acetaminophen 325 Mg Tab PO Q6H PRN Pain MILD(1-3)/Fever >100.5/MORTENSEN Albuterol 2.5 mg 11/19/21 18:29 Albuterol 2.5 Mg/3 Ml Nebu IH Q3HRT PRN Shortness Of Breath Albuterol/Ipratropium 1 ampul 11/20/21 10:00 11/20/21 15:38 Ipratropium/Albuterol Sulfate 3 Ml Ampul.Neb IH Not Given Q6HRT SHANTE Amiodarone HCl 200 mg 11/19/21 22:00 11/20/21 12:46 Amiodarone 200 Mg Tab PO Not Given BID SHANTE Ascorbic Acid 500 mg 11/20/21 10:00 11/20/21 12:39 Ascorbic Acid 500 Mg Tab PO 500 mg QDAY SHANTE Administration Aspirin 81 mg 11/20/21 10:00 11/20/21 12:41 Aspirin Ec 81 Mg Tab PO 81 mg DAILY SHANTE Administration Atorvastatin Calcium 80 mg 11/19/21 22:00 11/20/21 03:09 Atorvastatin 40 Mg Tab PO 80 mg QHS SHANTE Administration Budesonide 0.5 mg 11/20/21 10:00 11/20/21 15:38 Budesonide 0.5 Mg/2 Ml Nebu IH Not Given Q12HRT [facility] Bupropion HCl 300 mg 11/20/21 10:00 11/20/21 12:39 Bupropion Xl 150 Mg Tab PO Not Given QAM [facility] Carvedilol 3.125 mg 11/19/21 22:00 11/20/21 12:40 Carvedilol 3.125 Mg Tab PO 3.125 mg BID SHANTE Administration Docusate Sodium 100 mg 11/20/21 10:00 11/20/21 12:48 Docusate Sodium 100 Mg Cap PO Not Given QAM SHANTE Duloxetine HCl 60 mg 11/20/21 10:00 11/20/21 12:40 Duloxetine 30 Mg Cap PO Not Given QDAY [facility] Ferrous Sulfate 325 mg 11/20/21 10:00 11/20/21 12:42 Ferrous Sulfate 325 Mg Tab PO Not Given QDAY [facility] Furosemide 40 mg 11/20/21 18:00 Furosemide 40 Mg/4 Ml Inj IV BID@0600,1800 [facility] Cefepime HCl 2 gm in 100 mls @ 200 mls/hr 11/20/21 11:00 11/20/21 12:38 Cefepime/Ns 2 Gm/100 Ml IV 200 mls/hr Q8H SHANTE Administration Linagliptin 5 mg 11/20/21 10:00 11/20/21 12:45 Linagliptin 5 Mg Tab PO Not Given QDAY SHANTE Losartan Potassium 25 mg 11/20/21 10:00 11/20/21 12:48 Losartan 25 Mg Tab PO Not Given QDAY SHANTE Morphine Sulfate 2 mg 11/19/21 18:29 Morphine 4 Mg/1 Ml Inj IV Q8H PRN Pain , Severe (7-10) Multivitamins 1 each 11/20/21 10:00 11/20/21 12:43 Multivitamins ,Therapeutic Tab PO 1 each DAILY SHANTE Administration Oxycodone/Acetaminophen 1 tab 11/19/21 18:29 Oxycodone /Acetaminophen 5-325mg Tab PO Q6H PRN Pain, Moderate (4-6) Pantoprazole Sodium 40 mg 11/20/21 10:00 11/20/21 12:42 Pantoprazole 40 Mg Tab PO 40 mg QDAY SHANTE Administration Sodium Chloride 10 ml 11/19/21 22:00 11/20/21 12:42 Sodium Chloride 0.9% 10 Ml Flush Syringe IV 10 ml BID SHANTE Administration Sodium Chloride 10 ml 11/19/21 18:29 Sodium Chloride 0.9% 10 Ml Flush Syringe IV PRN PRN LINE FLUSH Spironolactone 25 mg 11/20/21 10:00 11/20/21 12:48 Spironolactone 25 Mg Tab PO Not Given QDAY SHANTE Tamsulosin HCl 0.4 mg 11/19/21 22:00 11/20/21 12:41 Tamsulosin 0.4 Mg Cap PO 0.4 mg BID SHANTE Administration Zinc Sulfate 220 mg 11/20/21 10:00 11/20/21 12:38 Zinc Sulfate 220 Mg Cap PO 220 mg DAILY SHANTE Administration
--- NOTE | 2021-11-20 16:34 | Consultation ---
History of Present Illness Consult date: 11/20/21 Requesting physician: KAREN WILLSON Consult reason: congestive heart failure History of present illness: Patient is a 61 y/o male with pmhx of Aortic stenosis, CAD s/p CABG, ischemic cardiomyopathy, HFrEF(EF 20-25%), and hypertension came to the ED for complaint of shortness of breath x2 weeks. Patient reports that over this timeframe he has dyspnea on exertion associated with a productive cough. Patient reports about a week ago he was seen by PCP started on antibiotics and steroids. Patient says since last week he has had no relief of symptoms and came to the ED for further evaluation. In the ED patient was found to have elevated BNP, elevated WBC and CT cardiomegaly with CHF. Patient denies chest pain, orthopnea, nausea, vomiting, palpitations, bilateral lower extremity edema. The patient is followed by Dr. Mondragon of our practice. Cardiology is consulted for CHF Past History Past Medical History: COPD, diabetes, GERD, heart failure, hypertension, hyperlipidemia, other (See HPI) Past Surgical History: CABG Social history: . denies: smoking, alcohol abuse, prescription drug abuse Family history: diabetes, hypertension Medications and Allergies Allergies Allergy/AdvReac Type Severity Reaction Status Date / Time morphine Allergy Rash Verified 11/19/21 12:17 Home Medications Medication Instructions Recorded Confirmed Last Taken Type Atorvastatin Calcium [Lipitor] 80 mg PO QHS #30 01/24/20 11/20/21 3 Days Ago Rx ~01/27/21 Ibuprofen [Motrin 800 MG tab] 800 mg PO Q8HR PRN #90 01/24/20 11/20/21 12/25/20 Rx Levalbuterol [Xopenex] 1.25 mg IH Q8HRT 01/30/21 11/20/21 3 Days Ago History ~01/27/21 Lidocaine [Lidocaine CREAM] 5 gm TP TID PRN 01/30/21 11/20/21 3 Days Ago History ~01/27/21 traMADoL [Ultram 50 MG tab] 50 mg PO Q12HR PRN 01/30/21 11/20/21 3 Days Ago History ~01/27/21 Albuterol Mdi (or & Nicu Only) 2 puff INHALATION DAILY PRN 30 Days 01/31/21 11/20/21 Unknown Rx [ProAir HFA Inhaler] Amiodarone [Cordarone 200 MG TAB] 200 mg PO BID #60 01/31/21 11/20/21 Unknown Rx Ascorbic Acid [Vitamin C] 500 mg PO QDAY #100 tablet 01/31/21 11/20/21 Unknown Rx Aspirin [Adult Aspirin] 81 mg PO DAILY #30 01/31/21 11/20/21 Unknown Rx Bupropion HCl [Wellbutrin XL] 300 mg PO QAM 30 Days #30 01/31/21 11/20/21 Unknown Rx DULoxetine [Cymbalta] 60 mg PO QDAY #30 cap 01/31/21 11/20/21 Unknown Rx Docusate Sodium [Dok] 100 mg PO QAM 01/31/21 11/20/21 01/26/21 History Ferrous Sulfate [Iron 325 MG] 325 mg PO QDAY 01/31/21 11/20/21 01/26/21 History Losartan [Cozaar] 25 mg PO QDAY #30 tablet 01/31/21 11/20/21 Unknown Rx Multivitamin 1 each PO DAILY 30 Days #30 01/31/21 11/20/21 Unknown Rx Pantoprazole [Protonix TAB] 40 mg PO QDAY #30 01/31/21 11/20/21 Unknown Rx Sitagliptin Phosphate [Januvia] 100 tab PO QDAY #30 01/31/21 11/20/21 Unknown Rx Spironolactone [Aldactone] 25 mg PO QDAY tablet 01/31/21 11/20/21 Unknown Rx Tamsulosin [Flomax] 1 cap PO BID #60 cap 01/31/21 11/20/21 Unknown Rx Torsemide [Demadex] 20 mg PO QID #120 01/31/21 11/20/21 Unknown Rx Zinc [Zinc 50mg TAB] 1 tab PO DAILY #30 01/31/21 11/20/21 Unknown Rx carvediloL [Coreg] 3.125 mg PO BID tablet 01/31/21 11/20/21 Unknown Rx metFORMIN [Glucophage] 850 mg PO BID #60 01/31/21 11/20/21 Unknown Rx Active Meds: Active Medications Acetaminophen (Acetaminophen 325 Mg Tab) 650 mg PO Q6H PRN PRN Reason: Pain MILD(1-3)/Fever >100.5/[place] Albuterol (Albuterol 2.5 Mg/3 Ml Nebu) 2.5 mg IH Q3HRT PRN PRN Reason: Shortness Of Breath Albuterol/Ipratropium (Ipratropium/Albuterol Sulfate 3 Ml Ampul.Neb) 1 ampul IH Q6HRT [facility] Last Admin: 11/20/21 15:38 Dose: Not Given Amiodarone HCl (Amiodarone 200 Mg Tab) 200 mg PO BID [facility] Last Admin: 11/20/21 12:46 Dose: Not Given Ascorbic Acid (Ascorbic Acid 500 Mg Tab) 500 mg PO QDAY [facility] Last Admin: 11/20/21 12:39 Dose: 500 mg Aspirin (Aspirin Ec 81 Mg Tab) 81 mg PO DAILY [facility] Last Admin: 11/20/21 12:41 Dose: 81 mg Atorvastatin Calcium (Atorvastatin 40 Mg Tab) 80 mg PO QHS [facility] Last Admin: 11/20/21 03:09 Dose: 80 mg Budesonide (Budesonide 0.5 Mg/2 Ml Nebu) 0.5 mg IH Q12HRT [facility] Last Admin: 11/20/21 15:38 Dose: Not Given Bupropion HCl (Bupropion Xl 150 Mg Tab) 300 mg PO QAM [facility] Last Admin: 11/20/21 12:39 Dose: Not Given Carvedilol (Carvedilol 3.125 Mg Tab) 3.125 mg PO BID [facility] Last Admin: 11/20/21 12:40 Dose: 3.125 mg Docusate Sodium (Docusate Sodium 100 Mg Cap) 100 mg PO QAM [facility] Last Admin: 11/20/21 12:48 Dose: Not Given Duloxetine HCl (Duloxetine 30 Mg Cap) 60 mg PO QDAY [facility] Last Admin: 11/20/21 12:40 Dose: Not Given Ferrous Sulfate (Ferrous Sulfate 325 Mg Tab) 325 mg PO QDAY [facility] Last Admin: 11/20/21 12:42 Dose: Not Given Furosemide (Furosemide 40 Mg/4 Ml Inj) 40 mg IV BID@0600,1800 [facility] Cefepime HCl (Cefepime/Ns 2 Gm/100 Ml) 2 gm in 100 mls @ 200 mls/hr IV Q8H [facility] Last Admin: 11/20/21 12:38 Dose: 200 mls/hr Linagliptin (Linagliptin 5 Mg Tab) 5 mg PO QDAY [facility] Last Admin: 11/20/21 12:45 Dose: Not Given Losartan Potassium (Losartan 25 Mg Tab) 25 mg PO QDAY [facility] Last Admin: 11/20/21 12:48 Dose: Not Given Morphine Sulfate (Morphine 4 Mg/1 Ml Inj) 2 mg IV Q8H PRN PRN Reason: Pain , Severe (7-10) Multivitamins (Multivitamins ,Therapeutic Tab) 1 each PO DAILY [facility] Last Admin: 11/20/21 12:43 Dose: 1 each Oxycodone/Acetaminophen (Oxycodone /Acetaminophen 5-325mg Tab) 1 tab PO Q6H PRN PRN Reason: Pain, Moderate (4-6) Pantoprazole Sodium (Pantoprazole 40 Mg Tab) 40 mg PO QDAY [facility] Last Admin: 11/20/21 12:42 Dose: 40 mg Sodium Chloride (Sodium Chloride 0.9% 10 Ml Flush Syringe) 10 ml IV BID [facility] Last Admin: 11/20/21 12:42 Dose: 10 ml Sodium Chloride (Sodium Chloride 0.9% 10 Ml Flush Syringe) 10 ml IV PRN PRN PRN Reason: LINE FLUSH Spironolactone (Spironolactone 25 Mg Tab) 25 mg PO QDAY [facility] Last Admin: 11/20/21 12:48 Dose: Not Given Tamsulosin HCl (Tamsulosin 0.4 Mg Cap) 0.4 mg PO BID [facility] Last Admin: 11/20/21 12:41 Dose: 0.4 mg Zinc Sulfate (Zinc Sulfate 220 Mg Cap) 220 mg PO DAILY [facility] Last Admin: 11/20/21 12:38 Dose: 220 mg Review of Systems Constitutional: no weight loss, no weight gain, no fever, no chills Ears, nose, mouth and throat: no sinus pressure, no sinus pain Cardiovascular: shortness of breath, dyspnea on exertion, no chest pain, no orthopnea, no paroxysmal nocturnal dyspnea, no leg edema Respiratory: cough with sputum, shortness of breath, dyspnea on exertion Gastrointestinal: no abdominal pain, no nausea, no vomiting Musculoskeletal: no neck stiffness, no neck pain Integumentary: no rash, no pruritis, no redness Neurological: no head injury, no transient paralysis Psychiatric: no anxiety, no memory loss Endocrine: no cold intolerance, no heat intolerance Hematologic/Lymphatic: no easy bruising, no easy bleeding Physical Examination Vital Signs Temp Pulse Resp BP Pulse Ox 97.7 F 92 H 18 168/97 85 11/19/21 11:54 11/19/21 11:54 11/19/21 11:54 11/19/21 11:54 11/19/21 11:54 General appearance: no acute distress Neck: Positive: trachea midline Cardiac: Positive: Reg Rate and Rhythm, Systolic Murmur Lungs: Positive: Decreased Breath Sounds Neuro: Positive: Grossly Intact Abdomen: Positive: Soft Skin: Negative: Rash, Suspicious Lesions, Ulceration Extremities: Present: upper extr. pulses, edema Results 11/20/21 05:38 11/20/21 05:38 Cardiac Enzymes 11/19/21 11/19/21 11/19/21 Range/Units 12:20 12:41 12:41 WBC 16.3 H (4.5-11.0) K/mm3 RBC 4.17 (3.65-5.03) M/mm3 Hgb 10.9 L (11.8-15.2) gm/dl Hct 34.9 L (35.5-45.6) % MCV 84 (84-94) fl MCH 26 L (28-32) pg MCHC 31 L (32-34) % RDW 15.7 H (13.2-15.2) % Plt Count 326 (140-440) K/mm3 Lymph % (Auto) (13.4-35.0) % [place] % (Auto) (0.0-7.3) % Eos % (Auto) (0.0-4.3) % Baso % (Auto) (0.0-1.8) % Lymph # (Auto) (1.2-5.4) K/mm3 [place] # (Auto) (0.0-0.8) K/mm3 Eos # (Auto) (0.0-0.4) K/mm3 Baso # (Auto) (0.0-0.1) K/mm3 Add Manual Diff Complete Total Counted 100 Seg Neutrophils % (40.0-70.0) % Seg Neuts % (Manual) 92.0 H (40.0-70.0) % Band Neutrophils % 4.0 % Lymphocytes % (Manual) 0 L (13.4-35.0) % Reactive Lymphs % (Man) 0 % Monocytes % (Manual) 4.0 (0.0-7.3) % Eosinophils % (Manual) 0 (0.0-4.3) % Basophils % (Manual) 0 (0.0-1.8) % Metamyelocytes % 0 % Myelocytes % 0 % Promyelocytes % 0 % Blast Cells % 0 % Nucleated RBC % Not Reportable Seg Neutrophils # (1.8-7.7) K/mm3 Seg Neutrophils # Man 15.0 H (1.8-7.7) K/mm3 Band Neutrophils # 0.7 K/mm3 Lymphocytes # (Manual) 0.0 L (1.2-5.4) K/mm3 Abs React Lymphs (Man) 0.0 K/mm3 Monocytes # (Manual) 0.7 (0.0-0.8) K/mm3 Eosinophils # (Manual) 0.0 (0.0-0.4) K/mm3 Basophils # (Manual) 0.0 (0.0-0.1) K/mm3 Metamyelocytes # 0.0 K/mm3 Myelocytes # 0.0 K/mm3 Promyelocytes # 0.0 K/mm3 Blast Cells # 0.0 K/mm3 WBC Morphology Not Reportable Hypersegmented Neuts Not Reportable Hyposegmented Neuts Not Reportable Hypogranular Neuts Not Reportable Smudge Cells Not Reportable Toxic Granulation Not Reportable Toxic Vacuolation Not Reportable Dohle Bodies Not Reportable Pelger-Huet Anomaly Not Reportable Nell Rods Not Reportable Platelet Estimate Consistent w auto Clumped Platelets Not Reportable Plt Clumps, EDTA Not Reportable Large Platelets Few Giant Platelets Not Reportable Platelet Satelliting Not Reportable Plt Morphology Comment Not Reportable RBC Morphology Not Reportable Dimorphic RBCs Not Reportable Polychromasia Not Reportable Hypochromasia 1+ Poikilocytosis Not Reportable Anisocytosis 1+ Microcytosis 1+ Macrocytosis Not Reportable Spherocytes Not Reportable Pappenheimer Bodies Not Reportable Sickle Cells Not Reportable Target Cells Not Reportable Tear Drop Cells Not Reportable Ovalocytes 1+ Helmet Cells Not Reportable [place] Bodies Not Reportable [place] Not Reportable [place] Cells Not Reportable Bite Cells Not Reportable Crenated Cell Not Reportable Elliptocytes Not Reportable Acanthocytes (Spur) Not Reportable Rouleaux Not Reportable Hemoglobin C Crystals Not Reportable Schistocytes Not Reportable Malaria parasites Not Reportable Lobo Bodies Not Reportable Hem Pathologist Commnt No PT (12.2-14.9) Sec. INR (0.87-1.13) APTT (24.2-36.6) Sec. ABG pH 7.344 L (7.350-7.450) pH Units ABG pCO2 72.5 mm Hg ABG pO2 127.8 H (80.0-90.0) mm Hg ABG HCO3 38.7 H (20.0-26.0) mmol/L ABG O2 Saturation 98.2 (95.0-99.0) % ABG O2 Content 16.2 (0.0-44) ABG Base Excess 10.4 H (-2.0-3.0) mmol/L ABG Hemoglobin 11.9 L (14.0-18.0) gm/dl ABG Carboxyhemoglobin 2.0 (0.0-5.0) % ABG Methemoglobin 0.5 (0.0-1.5) % Oxyhemoglobin 95.7 (95.0-99.0) % FiO2 50 % Sodium 143 (137-145) mmol/L Potassium 4.3 (3.6-5.0) mmol/L Chloride 92.7 L (98-107) mmol/L Carbon Dioxide 35 H (22-30) mmol/L Anion Gap 20 mmol/L BUN 22 H (9-20) mg/dL Creatinine 0.8 (0.8-1.3) mg/dL Estimated GFR > 60 ml/min BUN/Creatinine Ratio 28 % Glucose 315 H (75-100) mg/dL Calcium 8.9 (8.4-10.2) mg/dL Magnesium 2.30 (1.7-2.3) mg/dL Total Bilirubin 0.80 (0.1-1.2) mg/dL ALT 98 H (7-56) units/L Alkaline Phosphatase 120 (35-129) units/L Troponin T < 0.010 (0.00-0.029) ng/mL NT-Pro-B Natriuret Pep (0-900) pg/mL Total Protein 6.4 (6.3-8.2) g/dL Albumin 3.5 L (3.9-5) g/dL Albumin/Globulin Ratio 1.2 % 11/19/21 11/19/21 11/20/21 Range/Units 14:33 15:13 05:38 WBC 13.5 H (4.5-11.0) K/mm3 RBC 3.90 (3.65-5.03) M/mm3 Hgb 10.2 L (11.8-15.2) gm/dl Hct 32.4 L (35.5-45.6) % MCV 83 L (84-94) fl MCH 26 L (28-32) pg MCHC 32 (32-34) % RDW 15.4 H (13.2-15.2) % Plt Count 342 (140-440) K/mm3 Lymph % (Auto) 4.7 L (13.4-35.0) % [place] % (Auto) 7.7 H (0.0-7.3) % Eos % (Auto) 0.0 (0.0-4.3) % Baso % (Auto) 0.1 (0.0-1.8) % Lymph # (Auto) 0.6 L (1.2-5.4) K/mm3 [place] # (Auto) 1.0 H (0.0-0.8) K/mm3 Eos # (Auto) 0.0 (0.0-0.4) K/mm3 Baso # (Auto) 0.0 (0.0-0.1) K/mm3 Add Manual Diff Total Counted Seg Neutrophils % 87.5 H (40.0-70.0) % Seg Neuts % (Manual) (40.0-70.0) % Band Neutrophils % % Lymphocytes % (Manual) (13.4-35.0) % Reactive Lymphs % (Man) % Monocytes % (Manual) (0.0-7.3) % Eosinophils % (Manual) (0.0-4.3) % Basophils % (Manual) (0.0-1.8) % Metamyelocytes % % Myelocytes % % Promyelocytes % % Blast Cells % % Nucleated RBC % Seg Neutrophils # 11.8 H (1.8-7.7) K/mm3 Seg Neutrophils # Man (1.8-7.7) K/mm3 Band Neutrophils # K/mm3 Lymphocytes # (Manual) (1.2-5.4) K/mm3 Abs React Lymphs (Man) K/mm3 Monocytes # (Manual) (0.0-0.8) K/mm3 Eosinophils # (Manual) (0.0-0.4) K/mm3 Basophils # (Manual) (0.0-0.1) K/mm3 Metamyelocytes # K/mm3 Myelocytes # K/mm3 Promyelocytes # K/mm3 Blast Cells # K/mm3 WBC Morphology Hypersegmented Neuts Hyposegmented Neuts Hypogranular Neuts Smudge Cells Toxic Granulation Toxic Vacuolation Dohle Bodies Pelger-Huet Anomaly [place] Rods Platelet Estimate Clumped Platelets Plt Clumps, EDTA Large Platelets Giant Platelets Platelet Satelliting Plt Morphology Comment RBC Morphology Dimorphic RBCs Polychromasia Hypochromasia Poikilocytosis Anisocytosis Microcytosis Macrocytosis Spherocytes Pappenheimer Bodies Sickle Cells Target Cells Tear Drop Cells Ovalocytes Helmet Cells [place] Bodies [place] Cells Bite Cells Crenated Cell Elliptocytes Acanthocytes (Spur) Rouleaux Hemoglobin C Crystals Schistocytes Malaria parasites Lobo Bodies Hem Pathologist Commnt PT 13.8 (12.2-14.9) Sec. INR 0.96 (0.87-1.13) APTT 26.9 (24.2-36.6) Sec. ABG pH 7.374 (7.350-7.450) pH Units ABG pCO2 71.7 mm Hg ABG pO2 116.4 H (80.0-90.0) mm Hg ABG HCO3 40.9 H (20.0-26.0) mmol/L ABG O2 Saturation 97.9 (95.0-99.0) % ABG O2 Content (0.0-44) ABG Base Excess 13.5 H (-2.0-3.0) mmol/L ABG Hemoglobin 5.0 L (14.0-18.0) gm/dl ABG Carboxyhemoglobin 1.9 (0.0-5.0) % ABG Methemoglobin 0.5 (0.0-1.5) % Oxyhemoglobin 95.5 (95.0-99.0) % FiO2 40 % Sodium (137-145) mmol/L Potassium (3.6-5.0) mmol/L Chloride (98-107) mmol/L Carbon Dioxide (22-30) mmol/L Anion Gap mmol/L BUN (9-20) mg/dL Creatinine (0.8-1.3) mg/dL Estimated GFR ml/min BUN/Creatinine Ratio % Glucose (75-100) mg/dL Calcium (8.4-10.2) mg/dL Magnesium (1.7-2.3) mg/dL Total Bilirubin (0.1-1.2) mg/dL ALT (7-56) units/L Alkaline Phosphatase (35-129) units/L Troponin T (0.00-0.029) ng/mL NT-Pro-B Natriuret Pep (0-900) pg/mL Total Protein (6.3-8.2) g/dL Albumin (3.9-5) g/dL Albumin/Globulin Ratio % 11/20/21 11/20/21 Range/Units 05:38 14:03 WBC (4.5-11.0) K/mm3 RBC (3.65-5.03) M/mm3 Hgb (11.8-15.2) gm/dl Hct (35.5-45.6) % MCV (84-94) fl MCH (28-32) pg MCHC (32-34) % RDW (13.2-15.2) % Plt Count (140-440) K/mm3 Lymph % (Auto) (13.4-35.0) % [place] % (Auto) (0.0-7.3) % Eos % (Auto) (0.0-4.3) % Baso % (Auto) (0.0-1.8) % Lymph # (Auto) (1.2-5.4) K/mm3 [place] # (Auto) (0.0-0.8) K/mm3 Eos # (Auto) (0.0-0.4) K/mm3 Baso # (Auto) (0.0-0.1) K/mm3 Add Manual Diff Total Counted Seg Neutrophils % (40.0-70.0) % Seg Neuts % (Manual) (40.0-70.0) % Band Neutrophils % % Lymphocytes % (Manual) (13.4-35.0) % Reactive Lymphs % (Man) % Monocytes % (Manual) (0.0-7.3) % Eosinophils % (Manual) (0.0-4.3) % Basophils % (Manual) (0.0-1.8) % Metamyelocytes % % Myelocytes % % Promyelocytes % % Blast Cells % % Nucleated RBC % Seg Neutrophils # (1.8-7.7) K/mm3 Seg Neutrophils # Man (1.8-7.7) K/mm3 Band Neutrophils # K/mm3 Lymphocytes # (Manual) (1.2-5.4) K/mm3 Abs React Lymphs (Man) K/mm3 Monocytes # (Manual) (0.0-0.8) K/mm3 Eosinophils # (Manual) (0.0-0.4) K/mm3 Basophils # (Manual) (0.0-0.1) K/mm3 Metamyelocytes # K/mm3 Myelocytes # K/mm3 Promyelocytes # K/mm3 Blast Cells # K/mm3 WBC Morphology Hypersegmented Neuts Hyposegmented Neuts Hypogranular Neuts Smudge Cells Toxic Granulation Toxic Vacuolation Dohle Bodies Pelger-Huet Anomaly Nell Rods Platelet Estimate Clumped Platelets Plt Clumps, EDTA Large Platelets Giant Platelets Platelet Satelliting Plt Morphology Comment RBC Morphology Dimorphic RBCs Polychromasia Hypochromasia Poikilocytosis Anisocytosis Microcytosis Macrocytosis Spherocytes Pappenheimer Bodies Sickle Cells Target Cells Tear Drop Cells Ovalocytes Helmet Cells [place] Bodies [place] Cells Bite Cells Crenated Cell Elliptocytes Acanthocytes (Spur) Rouleaux Hemoglobin C Crystals Schistocytes Malaria parasites Lobo Bodies Hem Pathologist Commnt PT (12.2-14.9) Sec. INR (0.87-1.13) APTT (24.2-36.6) Sec. ABG pH (7.350-7.450) pH Units ABG pCO2 mm Hg ABG pO2 (80.0-90.0) mm Hg ABG HCO3 (20.0-26.0) mmol/L ABG O2 Saturation (95.0-99.0) % ABG O2 Content (0.0-44) ABG Base Excess (-2.0-3.0) mmol/L ABG Hemoglobin (14.0-18.0) gm/dl ABG Carboxyhemoglobin (0.0-5.0) % ABG Methemoglobin (0.0-1.5) % Oxyhemoglobin (95.0-99.0) % FiO2 % Sodium 144 (137-145) mmol/L Potassium 4.5 (3.6-5.0) mmol/L Chloride 96.5 L (98-107) mmol/L Carbon Dioxide 40 H (22-30) mmol/L Anion Gap 12 mmol/L BUN 24 H (9-20) mg/dL Creatinine 1.0 (0.8-1.3) mg/dL Estimated GFR > 60 ml/min BUN/Creatinine Ratio 24 % Glucose 189 H (75-100) mg/dL Calcium 9.1 (8.4-10.2) mg/dL Magnesium (1.7-2.3) mg/dL Total Bilirubin (0.1-1.2) mg/dL ALT (7-56) units/L Alkaline Phosphatase (35-129) units/L Troponin T (0.00-0.029) ng/mL NT-Pro-B Natriuret Pep 5565 H (0-900) pg/mL Total Protein (6.3-8.2) g/dL Albumin (3.9-5) g/dL Albumin/Globulin Ratio % CBC 11/20/21 Range/Units 05:38 WBC 13.5 H (4.5-11.0) K/mm3 RBC 3.90 (3.65-5.03) M/mm3 Hgb 10.2 L (11.8-15.2) gm/dl Hct 32.4 L (35.5-45.6) % Plt Count 342 (140-440) K/mm3 Lymph # (Auto) 0.6 L (1.2-5.4) K/mm3 [place] # (Auto) 1.0 H (0.0-0.8) K/mm3 Eos # (Auto) 0.0 (0.0-0.4) K/mm3 Baso # (Auto) 0.0 (0.0-0.1) K/mm3 Comprehensive Metabolic Panel 11/20/21 Range/Units 05:38 Sodium 144 (137-145) mmol/L Potassium 4.5 (3.6-5.0) mmol/L Chloride 96.5 L (98-107) mmol/L Carbon Dioxide 40 H (22-30) mmol/L BUN 24 H (9-20) mg/dL Creatinine 1.0 (0.8-1.3) mg/dL Glucose 189 H (75-100) mg/dL Calcium 9.1 (8.4-10.2) mg/dL - Imaging and Cardiology Echo: pending, report reviewed EKG: report reviewed, image reviewed EKG interpretations - Telemetry EKG Rhythm: Sinus Rhythm - EKG Sinus rhythms and dysrhythmias: sinus rhythm AV and intraventricular conduction: intraventricular conducti Repolarization changes or abnormalities: nonspecific abnormality, ST segment, and/or T wave Assessment and Plan Patient is a 61 y/o male with pmhx of Aortic stenosis, CAD s/p CABG, ischemic c ardiomyopathy, HFrEF(EF 20-25%), COPD and hypertension who came to the ED for complaint of SOB x2-week Acute on chronic HFrEF Acute respiratory failure-pulmonology following Acute exacerbation of COPD Leukocytosis Hypertension Cardiomyopathy CAD's s/p CABG Obesity Aortic stenosis Echo 11/19/2020-EF 20 to 25% left ventricle is severely dilated, increased left atrial pressure and grade 2 diastolic dysfunction, right ventricle is mildly dilated, moderate to severe aortic valve stenosis, mild to moderate tricuspid regurgitation [facility] 01/2020-severe diffuse [place] multivessel coronary artery disease with chronic total occlusions of mid left circumflex, proximal LAD and mid right coronary, patent [place] to LAD, patent SVG to the diagonal, patent SVG to OM trunk, patent SVG to RCA, estimated EF 25-30, no evidence of aortic stent, moderate to severe mitral regurg Outpatient medications: Amiodarone 200 mg p.o. twice daily, atorvastatin 80 mg p.o. nightly, carvedilol 3.125 mg p.o. twice daily, Aldactone 25 mg p.o. daily, torsemide 80 mg p.o. twice daily, Plan: EKG shows sinus 80 with no acute ischemic changes. Troponins negative x1. Patient denies any complaint of chest pain BNP noted to be elevated however CT findings show cardiomegaly with CHF Will increase to Lasix IV 40 mg twice daily. P.o. torsemide will be held at this time Strict I&O's, daily weights, repeat BMP in the a.m. close monitoring of renal function Echo pending Resume outpatient medications: Losartan 25 mg p.o. daily, spironolactone 25 mg p.o. daily, atorvastatin 80 mg p.o. nightly, amiodarone 200 mg p.o. twice daily, and Coreg 3.125 mg p.o. twice daily. Patient seen in conjunction with Dr. Sales who agrees with this plan of care. We will continue to follow - Patient Problems (1) COPD (chronic obstructive pulmonary disease) Current Visit: Yes Status: Acute (2) Diabetes Current Visit: Yes Status: Acute (3) GERD (gastroesophageal reflux disease) Current Visit: Yes Status: Acute Qualifiers: Esophagitis presence: without esophagitis Qualified Code(s): K21.9 - Gastro-esophageal reflux disease without esophagitis (4) Hypertension Current Visit: Yes Status: Acute Qualifiers: Hypertension type: primary hypertension Qualified Code(s): I10 - Essential (primary) hypertension (5) Obesity hypoventilation syndrome Current Visit: Yes Status: Acute (6) SIRS (systemic inflammatory response syndrome) Current Visit: Yes Status: Acute (7) Acute and chronic respiratory failure ([id number]) Current Visit: No Status: Acute (8) Cardiomyopathy Current Visit: No Status: Acute (9) Morbid obesity Current Visit: No Status: Acute (10) CAD (coronary artery disease) Current Visit: No Status: Chronic Qualifiers: Coronary Disease-Associated Artery/Lesion type: mus[place]ogee artery (11) S/P CABG (coronary artery bypass graft) Current Visit: No Status: Chronic
--- NOTE | 2021-11-20 18:07 | Electrocardiograph Report ---
[facility] Test Date: 2021-11-19 Test Time: 12:50:48 Pat Name: UCHE AMANDA Department: Room: A471 Gender: M [employer] Finisher: [phone] : [id number] Requested By: MAYRA MARTINEZ Order Number: [id number] Reading MD: Nessa Olivares Measurements Intervals [place] Rate: 80 P: -67 NH: 200 QRS: -27 QRSD: 151 T: 117 QT: 455 QTc: 526 Interpretive Statements Sinus rhythm with first-degree AV block Nonspecific intraventricular conduction block Compared to ECG 01/28/2021 17:37:25 No significant change Electronically Signed On 11-20-2021 18:07:05 EDT by Nessa Olivares
--- NOTE | 2021-11-20 18:38 | Consultation ---
History of Present Illness Consult date: 11/20/21 Requesting physician: ISAIAS DUQUE Past History Past Medical History: COPD, diabetes, GERD, heart failure, hypertension, hyperlipidemia, other (See HPI) Past Surgical History: CABG Social history: . denies: smoking, alcohol abuse, prescription drug abuse Family history: diabetes, hypertension Medications and Allergies Allergies Allergy/AdvReac Type Severity Reaction Status Date / Time morphine Allergy Rash Verified 11/19/21 12:17 Home Medications Medication Instructions Recorded Confirmed Last Taken Type Atorvastatin Calcium [Lipitor] 80 mg PO QHS #30 01/24/20 11/20/21 3 Days Ago Rx ~01/27/21 Ibuprofen [Motrin 800 MG tab] 800 mg PO Q8HR PRN #90 01/24/20 11/20/21 12/25/20 Rx Levalbuterol [Xopenex] 1.25 mg IH Q8HRT 01/30/21 11/20/21 3 Days Ago History ~01/27/21 Lidocaine [Lidocaine CREAM] 5 gm TP TID PRN 01/30/21 11/20/21 3 Days Ago History ~01/27/21 traMADoL [Ultram 50 MG tab] 50 mg PO Q12HR PRN 01/30/21 11/20/21 3 Days Ago History ~01/27/21 Albuterol Mdi (or & Nicu Only) 2 puff INHALATION DAILY PRN 30 Days 01/31/21 11/20/21 Unknown Rx [ProAir HFA Inhaler] Amiodarone [Cordarone 200 MG TAB] 200 mg PO BID #60 01/31/21 11/20/21 Unknown Rx Ascorbic Acid [Vitamin C] 500 mg PO QDAY #100 tablet 01/31/21 11/20/21 Unknown Rx Aspirin [Adult Aspirin] 81 mg PO DAILY #30 01/31/21 11/20/21 Unknown Rx Bupropion HCl [Wellbutrin XL] 300 mg PO QAM 30 Days #30 01/31/21 11/20/21 Unknown Rx DULoxetine [Cymbalta] 60 mg PO QDAY #30 cap 01/31/21 11/20/21 Unknown Rx Docusate Sodium [Dok] 100 mg PO QAM 01/31/21 11/20/21 01/26/21 History Ferrous Sulfate [Iron 325 MG] 325 mg PO QDAY 01/31/21 11/20/21 01/26/21 History Losartan [Cozaar] 25 mg PO QDAY #30 tablet 01/31/21 11/20/21 Unknown Rx Multivitamin 1 each PO DAILY 30 Days #30 01/31/21 11/20/21 Unknown Rx Pantoprazole [Protonix TAB] 40 mg PO QDAY #30 01/31/21 11/20/21 Unknown Rx Sitagliptin Phosphate [Januvia] 100 tab PO QDAY #30 01/31/21 11/20/21 Unknown Rx Spironolactone [Aldactone] 25 mg PO QDAY tablet 01/31/21 11/20/21 Unknown Rx Tamsulosin [Flomax] 1 cap PO BID #60 cap 01/31/21 11/20/21 Unknown Rx Torsemide [Demadex] 20 mg PO QID #120 01/31/21 11/20/21 Unknown Rx Zinc [Zinc 50mg TAB] 1 tab PO DAILY #30 01/31/21 11/20/21 Unknown Rx carvediloL [Coreg] 3.125 mg PO BID tablet 01/31/21 11/20/21 Unknown Rx metFORMIN [Glucophage] 850 mg PO BID #60 01/31/21 11/20/21 Unknown Rx Active Meds: Active Medications Acetaminophen (Acetaminophen 325 Mg Tab) 650 mg PO Q6H PRN PRN Reason: Pain MILD(1-3)/Fever >100.5/[place] Albuterol (Albuterol 2.5 Mg/3 Ml Nebu) 2.5 mg IH Q3HRT PRN PRN Reason: Shortness Of Breath Albuterol/Ipratropium (Ipratropium/Albuterol Sulfate 3 Ml Ampul.Neb) 1 ampul IH Q6HRT [facility] Last Admin: 11/20/21 15:38 Dose: Not Given Amiodarone HCl (Amiodarone 200 Mg Tab) 200 mg PO BID [facility] Last Admin: 11/20/21 12:46 Dose: Not Given Ascorbic Acid (Ascorbic Acid 500 Mg Tab) 500 mg PO QDAY [facility] Last Admin: 11/20/21 12:39 Dose: 500 mg Aspirin (Aspirin Ec 81 Mg Tab) 81 mg PO DAILY [facility] Last Admin: 11/20/21 12:41 Dose: 81 mg Atorvastatin Calcium (Atorvastatin 40 Mg Tab) 80 mg PO QHS [facility] Last Admin: 11/20/21 03:09 Dose: 80 mg Budesonide (Budesonide 0.5 Mg/2 Ml Nebu) 0.5 mg IH Q12HRT [facility] Last Admin: 11/20/21 15:38 Dose: Not Given Bupropion HCl (Bupropion Xl 150 Mg Tab) 300 mg PO QAM [facility] Last Admin: 11/20/21 12:39 Dose: Not Given Carvedilol (Carvedilol 3.125 Mg Tab) 3.125 mg PO BID [facility] Last Admin: 11/20/21 12:40 Dose: 3.125 mg Docusate Sodium (Docusate Sodium 100 Mg Cap) 100 mg PO QAM [facility] Last Admin: 11/20/21 12:48 Dose: Not Given Duloxetine HCl (Duloxetine 30 Mg Cap) 60 mg PO QDAY [facility] Last Admin: 11/20/21 12:40 Dose: Not Given Ferrous Sulfate (Ferrous Sulfate 325 Mg Tab) 325 mg PO QDAY [facility] Last Admin: 11/20/21 12:42 Dose: Not Given Furosemide (Furosemide 40 Mg/4 Ml Inj) 40 mg IV BID@0600,1800 [facility] Cefepime HCl (Cefepime/Ns 2 Gm/100 Ml) 2 gm in 100 mls @ 200 mls/hr IV Q8H [facility] Last Admin: 11/20/21 12:38 Dose: 200 mls/hr Linagliptin (Linagliptin 5 Mg Tab) 5 mg PO QDAY [facility] Last Admin: 11/20/21 12:45 Dose: Not Given Losartan Potassium (Losartan 25 Mg Tab) 25 mg PO QDAY [facility] Last Admin: 11/20/21 12:48 Dose: Not Given Morphine Sulfate (Morphine 4 Mg/1 Ml Inj) 2 mg IV Q8H PRN PRN Reason: Pain , Severe (7-10) Multivitamins (Multivitamins ,Therapeutic Tab) 1 each PO DAILY [facility] Last Admin: 11/20/21 12:43 Dose: 1 each Oxycodone/Acetaminophen (Oxycodone /Acetaminophen 5-325mg Tab) 1 tab PO Q6H PRN PRN Reason: Pain, Moderate (4-6) Pantoprazole Sodium (Pantoprazole 40 Mg Tab) 40 mg PO QDAY [facility] Last Admin: 11/20/21 12:42 Dose: 40 mg Sodium Chloride (Sodium Chloride 0.9% 10 Ml Flush Syringe) 10 ml IV BID [facility] Last Admin: 11/20/21 12:42 Dose: 10 ml Sodium Chloride (Sodium Chloride 0.9% 10 Ml Flush Syringe) 10 ml IV PRN PRN PRN Reason: LINE FLUSH Spironolactone (Spironolactone 25 Mg Tab) 25 mg PO QDAY [facility] Last Admin: 11/20/21 12:48 Dose: Not Given Tamsulosin HCl (Tamsulosin 0.4 Mg Cap) 0.4 mg PO BID [facility] Last Admin: 11/20/21 12:41 Dose: 0.4 mg Zinc Sulfate (Zinc Sulfate 220 Mg Cap) 220 mg PO DAILY [facility] Last Admin: 11/20/21 12:38 Dose: 220 mg Physical Examination Vital signs: Vital Signs Temp Pulse Resp BP Pulse Ox 97.7 F 92 H 18 168/97 85 11/19/21 11:54 11/19/21 11:54 11/19/21 11:54 11/19/21 11:54 11/19/21 11:54 Results - Laboratory Findings CBC and BMP: 11/20/21 05:38 11/20/21 05:38 ABG ABG pH 7.374 pH Units (7.350-7.450) 11/19/21 15:13 ABG pCO2 71.7 mm Hg 11/19/21 15:13 ABG pO2 116.4 mm Hg (80.0-90.0) H 11/19/21 15:13 ABG O2 Saturation 97.9 % (95.0-99.0) 11/19/21 15:13 PT/INR, D-dimer PT 13.8 Sec. (12.2-14.9) 11/19/21 14:33 INR 0.96 (0.87-1.13) 11/19/21 14:33 Abnormal lab findings: Abnormal Labs 11/19/21 11/19/21 11/19/21 12:20 12:41 12:41 WBC 16.3 H Hgb 10.9 L Hct 34.9 L MCV MCH 26 L MCHC 31 L RDW 15.7 H Lymph % (Auto) [place] % (Auto) Lymph # (Auto) [place] # (Auto) Seg Neutrophils % Seg Neuts % (Manual) 92.0 H Lymphocytes % (Manual) 0 L Seg Neutrophils # Seg Neutrophils # Man 15.0 H Lymphocytes # (Manual) 0.0 L ABG pH 7.344 L ABG pO2 127.8 H ABG HCO3 38.7 H ABG Base Excess 10.4 H ABG Hemoglobin 11.9 L Chloride 92.7 L Carbon Dioxide 35 H BUN 22 H Glucose 315 H AST 60 H ALT 98 H NT-Pro-B Natriuret Pep Albumin 3.5 L 11/19/21 11/20/21 11/20/21 15:13 05:38 05:38 WBC 13.5 H Hgb 10.2 L Hct 32.4 L MCV 83 L MCH 26 L MCHC RDW 15.4 H Lymph % (Auto) 4.7 L [place] % (Auto) 7.7 H Lymph # (Auto) 0.6 L [place] # (Auto) 1.0 H Seg Neutrophils % 87.5 H Seg Neuts % (Manual) Lymphocytes % (Manual) Seg Neutrophils # 11.8 H Seg Neutrophils # Man Lymphocytes # (Manual) ABG pH ABG pO2 116.4 H ABG HCO3 40.9 H ABG Base Excess 13.5 H ABG Hemoglobin 5.0 L Chloride 96.5 L Carbon Dioxide 40 H BUN 24 H Glucose 189 H AST ALT NT-Pro-B Natriuret Pep Albumin 11/20/21 14:03 WBC Hgb Hct MCV MCH MCHC RDW Lymph % (Auto) [place] % (Auto) Lymph # (Auto) [place] # (Auto) Seg Neutrophils % Seg Neuts % (Manual) Lymphocytes % (Manual) Seg Neutrophils # Seg Neutrophils # Man Lymphocytes # (Manual) ABG pH ABG pO2 ABG HCO3 ABG Base Excess ABG Hemoglobin Chloride Carbon Dioxide BUN Glucose AST ALT NT-Pro-B Natriuret Pep 5565 H Albumin Assessment and Plan 61 y/o male with known CHF, admitted a few times in the past, now admitted with acute respiratory failure, most likely secondary to volume overload 1. Diuresis 2. Follow up echo 3. On 3 liters now with good sats 4. BP control
[2021-11-20] MEDS: FUROSEMIDE 40 MG/4 ML INJ IV SCH (21:22)
[2021-11-21] MEDS: CEFEPIME/NS 2 GM/100 ML 2 GM/100 ML BAG IV SCH ×3 (03:45→18:17)
[2021-11-21 05:28] LABS: Hematocrit 32.8 % (35.5-45.6); Hemoglobin 10.2 gm/dl (11.8-15.2); Mean Corpuscular HGB Conc 31 % (32-34); Mean Corpuscular Volume 84 fl (84-94); Platelet Count 314 K/mm3 (140-440); Red Blood Count 3.93 M/mm3 (3.65-5.03); Red Cell Distribution Width 15.7 % (13.2-15.2)
[2021-11-21 05:42] LABS: Calcium 9.1 mg/dL (8.4-10.2)
[2021-11-21] MEDS: FUROSEMIDE 40 MG/4 ML INJ IV SCH ×2 (06:51→18:17)
[2021-11-21] MEDS: IPRATROPIUM/ALBUTEROL SULFATE 3 ML AMPUL.NEB IH SCH ×3 (09:02→20:24)
[2021-11-21] MEDS: BUDESONIDE 0.5 MG/2 ML NEBU IH SCH ×2 (09:02→20:24)
[2021-11-21] MEDS: MULTIVITAMINS ,THERAPEUTIC TAB PO SCH (09:37)
[2021-11-21] MEDS: ASCORBIC ACID 500 MG TAB PO SCH (09:37)
[2021-11-21] MEDS: TAMSULOSIN 0.4 MG CAP PO SCH ×2 (09:37→21:28)
[2021-11-21] MEDS: DOCUSATE SODIUM 100 MG CAP PO SCH (09:37)
[2021-11-21] MEDS: ASPIRIN EC 81 MG TAB PO SCH (09:38)
[2021-11-21] MEDS: carvediloL 3.125 MG TAB PO SCH ×2 (09:38→21:28)
[2021-11-21] MEDS: SPIRONOLACTONE 25 MG TAB PO SCH (09:39)
[2021-11-21] MEDS: AMIODARONE 200 MG TAB PO SCH ×2 (09:39→21:28)
[2021-11-21] MEDS: FERROUS SULFATE 325 MG TAB PO SCH (09:39)
[2021-11-21] MEDS: LINAGLIPTIN 5 MG TAB PO SCH (09:39)
[2021-11-21] MEDS: DULoxetine 30 MG CAP PO SCH (09:39)
[2021-11-21] MEDS: PANTOPRAZOLE 40 MG TAB PO SCH (09:39)
[2021-11-21] MEDS: LOSARTAN 25 MG TAB PO SCH (09:39)
[2021-11-21] MEDS: ZINC SULFATE 220 MG CAP PO SCH (09:40)
[2021-11-21] MEDS: buPROPion XL 150 MG TAB PO SCH (09:40)
--- NOTE | 2021-11-21 10:01 | Progress Note ---
Assessment and Plan 61 y/o male with known CHF, admitted a few times in the past, now admitted with acute respiratory failure, most likely secondary to volume overload 11/21/21: Continue to diurese but suggest ordering strict I/O. Follow up on echo results. Wean FiO2 to off for sats >88%. If not off once euvolemic suggest walk test to assess need for oxygen. Will continue to follow. 1. Diuresis 2. Follow up echo 3. On 3 liters now with good sats 4. BP control Subjective Date of service: 11/21/21 Interval history: No acute events. Stable on 2 liters. Echo still pending. i/o only showing intake, no output. Patient on BID lasix. Objective Vital Signs - 12hr 11/20/21 11/20/21 11/21/21 22:00 23:38 03:44 Temperature 98.0 F 97.7 F Pulse Rate 72 72 Pulse Rate [ Anterior Bilateral Throughout] Respiratory 18 18 Rate Respiratory Rate [Anterior Bilateral Throughout] Blood Pressure 121/56 131/64 O2 Sat by Pulse 99 92 95 Oximetry 11/21/21 11/21/21 11/21/21 07:50 09:02 09:23 Temperature Pulse Rate Pulse Rate [ 83 Anterior Bilateral Throughout] Respiratory Rate Respiratory 20 Rate [Anterior Bilateral Throughout] Blood Pressure O2 Sat by Pulse 99 96 Oximetry CBC and BMP: 11/21/21 04:56 11/21/21 04:56 ABG, PT/INR, D-dimer: ABG ABG pH 7.374 pH Units (7.350-7.450) 11/19/21 15:13 ABG pCO2 71.7 mm Hg 11/19/21 15:13 ABG pO2 116.4 mm Hg (80.0-90.0) H 11/19/21 15:13 ABG O2 Saturation 97.9 % (95.0-99.0) 11/19/21 15:13 PT/INR, D-dimer PT 13.8 Sec. (12.2-14.9) 11/19/21 14:33 INR 0.96 (0.87-1.13) 11/19/21 14:33 Abnormal lab findings: Abnormal Labs 11/19/21 11/19/21 11/19/21 12:20 12:41 12:41 WBC 16.3 H Hgb 10.9 L Hct 34.9 L MCV MCH 26 L MCHC 31 L RDW 15.7 H Lymph % (Auto) [place] % (Auto) Lymph # (Auto) [place] # (Auto) Seg Neutrophils % Seg Neuts % (Manual) 92.0 H Lymphocytes % (Manual) 0 L Seg Neutrophils # Seg Neutrophils # Man 15.0 H Lymphocytes # (Manual) 0.0 L ABG pH 7.344 L ABG pO2 127.8 H ABG HCO3 38.7 H ABG Base Excess 10.4 H ABG Hemoglobin 11.9 L Chloride 92.7 L Carbon Dioxide 35 H BUN 22 H Glucose 315 H AST 60 H ALT 98 H NT-Pro-B Natriuret Pep Albumin 3.5 L 11/19/21 11/20/21 11/20/21 15:13 05:38 05:38 WBC 13.5 H Hgb 10.2 L Hct 32.4 L MCV 83 L MCH 26 L MCHC RDW 15.4 H Lymph % (Auto) 4.7 L [place] % (Auto) 7.7 H Lymph # (Auto) 0.6 L [place] # (Auto) 1.0 H Seg Neutrophils % 87.5 H Seg Neuts % (Manual) Lymphocytes % (Manual) Seg Neutrophils # 11.8 H Seg Neutrophils # Man Lymphocytes # (Manual) ABG pH ABG pO2 116.4 H ABG HCO3 40.9 H ABG Base Excess 13.5 H ABG Hemoglobin 5.0 L Chloride 96.5 L Carbon Dioxide 40 H BUN 24 H Glucose 189 H AST ALT NT-Pro-B Natriuret Pep Albumin 11/20/21 11/21/21 11/21/21 14:03 04:56 04:56 WBC 15.0 H Hgb 10.2 L Hct 32.8 L MCV MCH 26 L MCHC 31 L RDW 15.7 H Lymph % (Auto) [place] % (Auto) Lymph # (Auto) [place] # (Auto) Seg Neutrophils % Seg Neuts % (Manual) Lymphocytes % (Manual) Seg Neutrophils # Seg Neutrophils # Man Lymphocytes # (Manual) ABG pH ABG pO2 ABG HCO3 ABG Base Excess ABG Hemoglobin Chloride 95.9 L Carbon Dioxide 38 H BUN 28 H Glucose 160 H AST ALT NT-Pro-B Natriuret Pep 5565 H Albumin
--- NOTE | 2021-11-21 11:06 | Progress Note ---
Assessment and Plan Assessment and plan: 60 YO Male with CHF(EF25%), CAD S/P CABG, HTN, DM, COPD, Migraine MORTENSEN, HLD, GERD, Obesity presents to ED for evaluation. Patient reports "it is hard to breathe". Patient states that he has experienced shortness of breath over the past 3 days with worsening symptoms over the past 24 hours. Patient knowledges decreased exercise tolerance, dyspnea on exertion, dyspnea at rest, orthopnea as well as paroxysmal nocturnal dyspnea. EMS was notified and upon arrival the patient was found to be in distress and subsequent transported to [facility] for further care and evaluation of the aforementioned symptoms. The patient was seen and evaluated emergency department. All lab and imaging studies reviewed. Patient found to have a pulse oximetry of 88% on room air which is consistent with acute hypoxemic respiratory failure. Patient also found to have clinical symptoms consistent with CHF decompensation complicated by systemic inflammatory response syndrome. Patient admitted to IM and placed on noninvasive positive pressure ventilation. Cardiology team consulted. Patient also initiated on CHF chacorta col. Patient treated with empiric IV antibiotic therapy x1 dose. Patient has fever, chills, chest pain, palpitation, skin rash, recent contact, known exposure to COVID-19. Prior admission on 01/29/2021 reviewed. All medication listed at time of admission has been reconciled. Advanced care planning conducted in ED. Past History Past Medical History: COPD, diabetes, GERD, heart failure, hypertension, hyperlipidemia, other (See HPI) Past Surgical History: CABG Social history: . denies: smoking, alcohol abuse, prescription drug abuse Family history: diabetes, hypertension 11/20/2021: Patient seen and evaluated this morning as we weaned off of the BiPAP and is now on nasal cannula doing relatively well still with shortness of breath. Reports that he uses oxygen at home. Denies any fever. I did review prior hospitalization does have underlying COPD and there could be a touch of COPD exacerbation. We will restart him on some LABA and GRACIE while awaiting her cardiology and pulmonary consultation. Is mildly noted elevated AST and ALT this could be passive hepatic congestion from this CHF. Will monitor closely. Imaging studies CT of the chest did not show any pulmonary embolism but did show cardiomegaly with congestive heart failure also additional and infrahilar adenopathy right of midline measuring 2.8 cm which is new. There is also nodu lar contour of the liver that could be seen in the setting of cirrhosis. Will recommend an outpatient reevaluation of this node for possible biopsy. Continue goal-directed medical therapy. Did discuss with cardiology at this time. Continue diuresis. 11/21: Continue diuresis. Discussed with director of curriculum and instruction and also with the cardiology team. Lasix was increased to 40 twice daily. Strict I's and O's. Will reevaluate in a.m. with hopes of possible discharge if clinically improved. Discussed with nursing staff at bedside to ambulate the patient and check oxygen level findings. Mild leukocytosis noted this could be reactive we will continue to monitor empiric antibiotics were started yesterday. Outpatient GI evaluation clinical findings discussed with the patient in detail he verbalized understand (1) Acute respiratory failure Current Visit: No Status: Acute Plan to address problem: Chest x-ray, supplemental oxygen, pulse oximetry, nebulizer therapy, pulmonary toilet. Noninvasive positive pressure ventilation. CT scan chest ordered and is pending at time of admission. (2) CHF exacerbation Current Visit: No Status: Acute Qualifiers: Heart failure type: systolic Qualified Code(s): I50.23 - Acute on chronic systolic (congestive) heart failure Plan to address problem: Strict I's/O, monitoring output every shift, daily weight, afterload reduction, blood pressure control, echocardiogram ordered and pending at time of admission, diuretic therapy, cardiology team consulted. (3) Obesity hypoventilation syndrome Current Visit: Yes Status: Acute Plan to address problem: Balanced diet, increase physical activity discharge, outpatient pulmonary follow-up for sleep study. (4) SIRS (systemic inflammatory response syndrome) Current Visit: Yes Status: Acute Plan to address problem: Empiric IV antibiotic therapy x1 dose, CBC, repeat CBC in AM. (5) Hypertension Current Visit: Yes Status: Acute Qualifiers: Hypertension type: primary hypertension Qualified Code(s): I10 - Essential (primary) hypertension Plan to address problem: Monitor blood pressure every shift, continue medical management. (6) Diabetes Current Visit: Yes Status: Acute Plan to address problem: Consistent carbohydrate diet, Accu-Chek, insulin protocol, hypoglycemia protocol. (7) GERD (gastroesophageal reflux disease) Current Visit: Yes Status: Acute Qualifiers: Esophagitis presence: without esophagitis Qualified Code(s): K21.9 - Gastro-esophageal reflux disease without esophagitis Plan to address problem: PPI therapy, supportive care. (8) COPD (chronic obstructive pulmonary disease) Current Visit: Yes Status: Acute Plan to address problem: Supplemental oxygen, pulse oximetry, nebulizer therapy, supportive care. Patient treated with IV steroid therapy in route to hospital. Continue medical management. (9) Migraine headache Current Visit: Yes Status: Acute Qualifiers: Intractability: not intractable Plan to address problem: Supportive care, no acute exacerbation at this time. Continue to monitor. (10) anemia of chronic disease (11) adenopathy -infrahilar adenopathy right of midline measuring 2.8 cm (12) DVT prophylaxis Current Visit: Yes Status: Acute Plan to address problem: SCD to bilateral lower extremities while in bed (13) Advance care planning Current Visit: Yes Status: Acute Plan to address problem: Disease education data, care plan discussed, diagnoses discussed, prognosis discussed, patient is full code, +30 minutes. (14) Preventative health care Current Visit: Yes Status: Acute Plan to address problem: Patient counseled regarding risk factor reduction, balanced diet, increase physical activity at discharge, outpatient pulmonary follow-up for sleep study, follow-up with primary care physician for all age and risk factor appropriate screening test.+30 minutes. History Interval history: Patient seen and examined resting comfortably reports improvement reports some improvement. Better breathing. Uses oxygen during exertion at home chronically. Hospitalist Physical - Physical exam Narrative exam: VITAL SIGNS: Reviewed. GENERAL: The patient appears normally developed, Vital signs as documented. HEAD: No signs of head trauma. EYES: Pupils are equal. Extraocular motions intact. EARS: Hearing grossly intact. MOUTH: Oropharynx is normal. NECK: No adenopathy, no JVD. CHEST: Chest with diminished breath sounds bilaterally. No wheezes, rales, or rhonchi. CARDIAC: Regular rate and rhythm. S1 and S2, without murmurs, gallops, or rubs. VASCULAR: +1 pitting edema. Peripheral pulses normal and equal in all extremities. ABDOMEN: Soft, non tender and non distended. No rebound or guarding, and no masses palpated. Bowel Sounds normal. MUSCULOSKELETAL: Good range of motion of all major joints. Extremities without clubbing, cyanosis. Bilateral +1 pitting edema. NEUROLOGIC EXAM: Alert and oriented x 3 No focal sensory or strength deficits. Speech normal. Follows commands. PSYCHIATRIC: Mood normal. SKIN: detail exam as documented in skin assessment - Constitutional Vitals: Temp Pulse Resp BP Pulse Ox 97.7 F 83 20 131/64 96 11/21/21 03:44 11/21/21 09:02 11/21/21 09:02 11/21/21 03:44 11/21/21 09:23 General appearance: Present: no acute distress HEART Score - HEART Score Troponin: Troponin T < 0.010 ng/mL (0.00-0.029) 11/19/21 12:41 Results - Labs CBC & Chem 7: 11/21/21 04:56 11/21/21 04:56 Labs: Laboratory Last Values WBC 15.0 K/mm3 (4.5-11.0) H 11/21/21 04:56 RBC 3.93 M/mm3 (3.65-5.03) 11/21/21 04:56 Hgb 10.2 gm/dl (11.8-15.2) L 11/21/21 04:56 Hct 32.8 % (35.5-45.6) L 11/21/21 04:56 MCV 84 fl (84-94) 11/21/21 04:56 MCH 26 pg (28-32) L 11/21/21 04:56 MCHC 31 % (32-34) L 11/21/21 04:56 RDW 15.7 % (13.2-15.2) H 11/21/21 04:56 Plt Count 314 K/mm3 (140-440) 11/21/21 04:56 Lymph % (Auto) 4.7 % (13.4-35.0) L 11/20/21 05:38 Rabun % (Auto) 7.7 % (0.0-7.3) H 11/20/21 05:38 Eos % (Auto) 0.0 % (0.0-4.3) 11/20/21 05:38 Baso % (Auto) 0.1 % (0.0-1.8) 11/20/21 05:38 Lymph # (Auto) 0.6 K/mm3 (1.2-5.4) L 11/20/21 05:38 Rabun # (Auto) 1.0 K/mm3 (0.0-0.8) H 11/20/21 05:38 Eos # (Auto) 0.0 K/mm3 (0.0-0.4) 11/20/21 05:38 Baso # (Auto) 0.0 K/mm3 (0.0-0.1) 11/20/21 05:38 Add Manual Diff Complete 11/19/21 12:41 Total Counted 100 11/19/21 12:41 Seg Neutrophils % 87.5 % (40.0-70.0) H 11/20/21 05:38 Seg Neuts % (Manual) 92.0 % (40.0-70.0) H 11/19/21 12:41 Band Neutrophils % 4.0 % 11/19/21 12:41 Lymphocytes % (Manual) 0 % (13.4-35.0) L 11/19/21 12:41 Reactive Lymphs % (Man) 0 % 11/19/21 12:41 Monocytes % (Manual) 4.0 % (0.0-7.3) 11/19/21 12:41 Eosinophils % (Manual) 0 % (0.0-4.3) 11/19/21 12:41 Basophils % (Manual) 0 % (0.0-1.8) 11/19/21 12:41 Metamyelocytes % 0 % 11/19/21 12:41 Myelocytes % 0 % 11/19/21 12:41 Promyelocytes % 0 % 11/19/21 12:41 Blast Cells % 0 % 11/19/21 12:41 Nucleated RBC % Not Reportable 11/19/21 12:41 Seg Neutrophils # 11.8 K/mm3 (1.8-7.7) H 11/20/21 05:38 Seg Neutrophils # Man 15.0 K/mm3 (1.8-7.7) H 11/19/21 12:41 Band Neutrophils # 0.7 K/mm3 11/19/21 12:41 Lymphocytes # (Manual) 0.0 K/mm3 (1.2-5.4) L 11/19/21 12:41 Abs React Lymphs (Man) 0.0 K/mm3 11/19/21 12:41 Monocytes # (Manual) 0.7 K/mm3 (0.0-0.8) 11/19/21 12:41 Eosinophils # (Manual) 0.0 K/mm3 (0.0-0.4) 11/19/21 12:41 Basophils # (Manual) 0.0 K/mm3 (0.0-0.1) 11/19/21 12:41 Metamyelocytes # 0.0 K/mm3 11/19/21 12:41 Myelocytes # 0.0 K/mm3 11/19/21 12:41 Promyelocytes # 0.0 K/mm3 11/19/21 12:41 Blast Cells # 0.0 K/mm3 11/19/21 12:41 WBC Morphology Not Reportable 11/19/21 12:41 Hypersegmented Neuts Not Reportable 11/19/21 12:41 Hyposegmented Neuts Not Reportable 11/19/21 12:41 Hypogranular Neuts Not Reportable 11/19/21 12:41 Smudge Cells Not Reportable 11/19/21 12:41 Toxic Granulation Not Reportable 11/19/21 12:41 Toxic Vacuolation Not Reportable 11/19/21 12:41 Dohle Bodies Not Reportable 11/19/21 12:41 Pelger-Huet Anomaly Not Reportable 11/19/21 12:41 Nell Rods Not Reportable 11/19/21 12:41 Platelet Estimate Consistent w auto 11/19/21 12:41 Clumped Platelets Not Reportable 11/19/21 12:41 Plt Clumps, EDTA Not Reportable 11/19/21 12:41 Large Platelets Few 11/19/21 12:41 Giant Platelets Not Reportable 11/19/21 12:41 Platelet Satelliting Not Reportable 11/19/21 12:41 Plt Morphology Comment Not Reportable 11/19/21 12:41 RBC Morphology Not Reportable 11/19/21 12:41 Dimorphic RBCs Not Reportable 11/19/21 12:41 Polychromasia Not Reportable 11/19/21 12:41 Hypochromasia 1+ 11/19/21 12:41 Poikilocytosis Not Reportable 11/19/21 12:41 Anisocytosis 1+ 11/19/21 12:41 Microcytosis 1+ 11/19/21 12:41 Macrocytosis Not Reportable 11/19/21 12:41 Spherocytes Not Reportable 11/19/21 12:41 Pappenheimer Bodies Not Reportable 11/19/21 12:41 Sickle Cells Not Reportable 11/19/21 12:41 Target Cells Not Reportable 11/19/21 12:41 Tear Drop Cells Not Reportable 11/19/21 12:41 Ovalocytes 1+ 11/19/21 12:41 Helmet Cells Not Reportable 11/19/21 12:41 [place] Bodies Not Reportable 11/19/21 12:41 [place] Rings Not Reportable 11/19/21 12:41 [place] Cells Not Reportable 11/19/21 12:41 Bite Cells Not Reportable 11/19/21 12:41 Crenated Cell Not Reportable 11/19/21 12:41 Elliptocytes Not Reportable 11/19/21 12:41 Acanthocytes (Spur) Not Reportable 11/19/21 12:41 Rouleaux Not Reportable 11/19/21 12:41 Hemoglobin C Crystals Not Reportable 11/19/21 12:41 Schistocytes Not Reportable 11/19/21 12:41 Malaria parasites Not Reportable 11/19/21 12:41 Lobo Bodies Not Reportable 11/19/21 12:41 Hem Pathologist Commnt No 11/19/21 12:41 PT 13.8 Sec. (12.2-14.9) 11/19/21 14:33 INR 0.96 (0.87-1.13) 11/19/21 14:33 APTT 26.9 Sec. (24.2-36.6) 11/19/21 14:33 ABG pH 7.374 pH Units (7.350-7.450) 11/19/21 15:13 ABG pCO2 71.7 mm Hg 11/19/21 15:13 ABG pO2 116.4 mm Hg (80.0-90.0) H 11/19/21 15:13 ABG HCO3 40.9 mmol/L (20.0-26.0) H 11/19/21 15:13 ABG O2 Saturation 97.9 % (95.0-99.0) 11/19/21 15:13 ABG O2 Content 16.2 (0.0-44) 11/19/21 12:20 ABG Base Excess 13.5 mmol/L (-2.0-3.0) H 11/19/21 15:13 ABG Hemoglobin 5.0 gm/dl (14.0-18.0) L 11/19/21 15:13 ABG Carboxyhemoglobin 1.9 % (0.0-5.0) 11/19/21 15:13 ABG Methemoglobin 0.5 % (0.0-1.5) 11/19/21 15:13 Oxyhemoglobin 95.5 % (95.0-99.0) 11/19/21 15:13 FiO2 40 % 11/19/21 15:13 Sodium 145 mmol/L (137-145) 11/21/21 04:56 Potassium 4.9 mmol/L (3.6-5.0) 11/21/21 04:56 Chloride 95.9 mmol/L (98-107) L 11/21/21 04:56 Carbon Dioxide 38 mmol/L (22-30) H 11/21/21 04:56 Anion Gap 16 mmol/L 11/21/21 04:56 BUN 28 mg/dL (9-20) H 11/21/21 04:56 Creatinine 1.3 mg/dL (0.8-1.3) 11/21/21 04:56 Estimated GFR 56 ml/min 11/21/21 04:56 BUN/Creatinine Ratio 22 % 11/21/21 04:56 Glucose 160 mg/dL (75-100) H 11/21/21 04:56 Calcium 9.1 mg/dL (8.4-10.2) 11/21/21 04:56 Magnesium 2.30 mg/dL (1.7-2.3) 11/19/21 12:41 Total Bilirubin 0.80 mg/dL (0.1-1.2) 11/19/21 12:41 AST 60 units/L (5-40) H 11/19/21 12:41 ALT 98 units/L (7-56) H 11/19/21 12:41 Alkaline Phosphatase 120 units/L (35-129) 11/19/21 12:41 Troponin T < 0.010 ng/mL (0.00-0.029) 11/19/21 12:41 NT-Pro-B Natriuret Pep 5565 pg/mL (0-900) H 11/20/21 14:03 Total Protein 6.4 g/dL (6.3-8.2) 11/19/21 12:41 Albumin 3.5 g/dL (3.9-5) L 11/19/21 12:41 Albumin/Globulin Ratio 1.2 % 11/19/21 12:41 Cason/IV: Voiding Method Toilet Active Medications - Current Medications Current Medications: Generic Name Dose Route Start Last Admin Trade Name Freq PRN Reason Stop Dose Admin Acetaminophen 650 mg 11/19/21 18:29 Acetaminophen 325 Mg Tab PO Q6H PRN Pain MILD(1-3)/Fever >100.5/MORTENSEN Albuterol 2.5 mg 11/19/21 18:29 Albuterol 2.5 Mg/3 Ml Nebu IH Q3HRT PRN Shortness Of Breath Albuterol/Ipratropium 1 ampul 11/21/21 08:00 11/21/21 09:02 Ipratropium/Albuterol Sulfate 3 Ml Ampul.Neb IH 1 ampul TIDRT SHANTE Administration Amiodarone HCl 200 mg 11/19/21 22:00 11/21/21 09:39 Amiodarone 200 Mg Tab PO 200 mg BID SHANTE Administration Ascorbic Acid 500 mg 11/20/21 10:00 11/21/21 09:37 Ascorbic Acid 500 Mg Tab PO 500 mg QDAY SHANTE Administration Aspirin 81 mg 11/20/21 10:00 11/21/21 09:38 Aspirin Ec 81 Mg Tab PO 81 mg DAILY SHANTE Administration Atorvastatin Calcium 80 mg 11/19/21 22:00 11/20/21 21:21 Atorvastatin 40 Mg Tab PO 80 mg QHS SHANTE Administration Budesonide 0.5 mg 11/20/21 10:00 11/21/21 09:02 Budesonide 0.5 Mg/2 Ml Nebu IH 0.5 mg Q12HRT SHANTE Administration Bupropion HCl 300 mg 11/20/21 10:00 11/21/21 09:40 Bupropion Xl 150 Mg Tab PO Not Given QAM SHANTE Carvedilol 3.125 mg 11/19/21 22:00 11/21/21 09:38 Carvedilol 3.125 Mg Tab PO 3.125 mg BID SHANTE Administration Docusate Sodium 100 mg 11/20/21 10:00 11/21/21 09:37 Docusate Sodium 100 Mg Cap PO 100 mg QAM SHANTE Administration Duloxetine HCl 60 mg 11/20/21 10:00 11/21/21 09:39 Duloxetine 30 Mg Cap PO Not Given QDAY SHANTE Ferrous Sulfate 325 mg 11/20/21 10:00 11/21/21 09:39 Ferrous Sulfate 325 Mg Tab PO 325 mg QDAY SHANTE Administration Furosemide 40 mg 11/20/21 18:00 11/21/21 06:51 Furosemide 40 Mg/4 Ml Inj IV 40 mg BID@0600,1800 SHANTE Administration Cefepime HCl 2 gm in 100 mls @ 200 mls/hr 11/20/21 11:00 11/21/21 03:45 Cefepime/Ns 2 Gm/100 Ml IV 200 mls/hr Q8H SHANTE Administration Linagliptin 5 mg 11/20/21 10:00 11/21/21 09:39 Linagliptin 5 Mg Tab PO 5 mg QDAY SHANTE Administration Losartan Potassium 25 mg 11/20/21 10:00 11/21/21 09:39 Losartan 25 Mg Tab PO Not Given QDAY SHANTE Morphine Sulfate 2 mg 11/19/21 18:29 Morphine 4 Mg/1 Ml Inj IV Q8H PRN Pain , Severe (7-10) Multivitamins 1 each 11/20/21 10:00 11/21/21 09:37 Multivitamins ,Therapeutic Tab PO 1 each DAILY SHANTE Administration Oxycodone/Acetaminophen 1 tab 11/19/21 18:29 Oxycodone /Acetaminophen 5-325mg Tab PO Q6H PRN Pain, Moderate (4-6) Pantoprazole Sodium 40 mg 11/20/21 10:00 11/21/21 09:39 Pantoprazole 40 Mg Tab PO 40 mg QDAY SHANTE Administration Sodium Chloride 10 ml 11/19/21 22:00 11/21/21 09:39 Sodium Chloride 0.9% 10 Ml Flush Syringe IV Not Given BID SHANTE Sodium Chloride 10 ml 11/19/21 18:29 Sodium Chloride 0.9% 10 Ml Flush Syringe IV PRN PRN LINE FLUSH Spironolactone 25 mg 11/20/21 10:00 11/21/21 09:39 Spironolactone 25 Mg Tab PO 25 mg QDAY SHANTE Administration Tamsulosin HCl 0.4 mg 11/19/21 22:00 11/21/21 09:37 Tamsulosin 0.4 Mg Cap PO 0.4 mg BID SHANTE Administration Zinc Sulfate 220 mg 11/20/21 10:00 11/21/21 09:40 Zinc Sulfate 220 Mg Cap PO Not Given DAILY SHANTE
--- NOTE | 2021-11-21 15:45 | Progress Note ---
Assessment and Plan Patient is a 61 y/o male with pmhx of Aortic stenosis, CAD s/p CABG, ischemic cardiomyopathy, HFrEF(EF 20-25%), COPD and hypertension who came to the ED for complaint of SOB x2-week Acute on chronic HFrEF Acute respiratory failure-pulmonology following Acute exacerbation of COPD Leukocytosis Hypertension Cardiomyopathy CAD's s/p CABG Obesity Aortic stenosis Echo 11/19/2021-EF 35 to 40%. LV severely dilated. Moderate global hypokinesis of LV. Severe diastolic dysfunction is present. Restrictive filling. Right ventricle is dilated. Right ventricle is hypokinetic. Left atrium is severely dilated. Right atrium is dilated. Borderline aortic stenosis. Mild mitral regurgitation. Trace to mild tricuspid regurgitation. Echo 11/19/2020-EF 20 to 25% left ventricle is severely dilated, increased left atrial pressure and grade 2 diastolic dysfunction, right ventricle is mildly dilated, moderate to severe aortic valve stenosis, mild to moderate tricuspid regurgitation [facility] 01/2020-severe diffuse [place] multivessel coronary artery disease with chronic total occlusions of mid left circumflex, proximal LAD and mid right coronary, patent [place] to LAD, patent SVG to the diagonal, patent SVG to OM trunk, patent SVG to RCA, estimated EF 25-30, no evidence of aortic stent, moderate to severe mitral regurg Outpatient medications: Amiodarone 200 mg p.o. twice daily, atorvastatin 80 mg p.o. nightly, carvedilol 3.125 mg p.o. twice daily, Aldactone 25 mg p.o. daily, torsemide 80 mg p.o. twice daily, Plan: EKG shows sinus 80 with no acute ischemic changes. Troponins negative x1. Patient denies any complaint of chest pain BNP noted to be elevated however CT findings show cardiomegaly with CHF Continue Lasix IV 40 mg twice daily until tonight. Will convert to outpatient P.o. torsemide tomorrow. Aniticpate possible D/c in AM Strict I&O's, daily weights, repeat BMP in the a.m. close monitoring of renal function Continue Losartan 25 mg p.o. daily, spironolactone 25 mg p.o. daily, atorvastatin 80 mg p.o. nightly, amiodarone 200 mg p.o. twice daily, and Coreg 3.125 mg p.o. twice daily. Patient seen in conjunction with Dr. Sales who agrees with this plan of care. - Patient Problems (1) COPD (chronic obstructive pulmonary disease) Current Visit: Yes Status: Acute (2) Diabetes Current Visit: Yes Status: Acute (3) GERD (gastroesophageal reflux disease) Current Visit: Yes Status: Acute Qualifiers: Esophagitis presence: without esophagitis Qualified Code(s): K21.9 - Gastro-esophageal reflux disease without esophagitis (4) Hypertension Current Visit: Yes Status: Acute Qualifiers: Hypertension type: primary hypertension Qualified Code(s): I10 - Essential (primary) hypertension (5) Obesity hypoventilation syndrome Current Visit: Yes Status: Acute (6) SIRS (systemic inflammatory response syndrome) Current Visit: Yes Status: Acute (7) Acute and chronic respiratory failure ([id number]) Current Visit: No Status: Acute (8) Cardiomyopathy Current Visit: No Status: Acute (9) Morbid obesity Current Visit: No Status: Acute (10) CAD (coronary artery disease) Current Visit: No Status: Chronic Qualifiers: Coronary Disease-Associated Artery/Lesion type: [place] artery (11) S/P CABG (coronary artery bypass graft) Current Visit: No Status: Chronic Subjective Date of service: 11/21/21 Principal diagnosis: Acute on chronic hypoxic respiratory failure, acute on chronic HFrEF Interval history: Patient resting in bed in no acute distress. Patient reports feeling better today Sinus 60 to 70s on monitor with no event Objective Vital Signs Temp Pulse Pulse Resp Resp BP Pulse Ox 11/21/21 09:23 96 11/21/21 09:02 83 20 11/21/21 07:50 99 11/21/21 03:44 97.7 F 72 18 131/64 95 11/20/21 23:38 98.0 F 72 18 121/56 92 11/20/21 22:00 99 11/20/21 21:51 95 11/20/21 20:52 95 11/20/21 20:51 83 20 11/20/21 19:48 97.8 F 70 14 117/50 96 11/20/21 17:10 104/37 96 11/20/21 17:00 104/37 96 11/20/21 16:50 104/37 97 11/20/21 16:40 104/37 97 11/20/21 16:30 104/37 98 11/20/21 16:20 104/37 98 08/31/22 16:16 104 98 11/20/21 16:00 96 - Physical Examination General: No Apparent Distress HEENT: Positive: PERRL Neck: Positive: trachea midline Cardiac: Positive: Reg Rate and Rhythm Lungs: Positive: Decreased Breath Sounds Neuro: Positive: Grossly Intact Abdomen: Positive: Soft Skin: Negative: Rash, Suspicious Lesions, Ulceration Extremities: Present: upper extr. pulses, edema - Labs and Meds CBC 11/21/21 Range/Units 04:56 WBC 15.0 H (4.5-11.0) K/mm3 RBC 3.93 (3.65-5.03) M/mm3 Hgb 10.2 L (11.8-15.2) gm/dl Hct 32.8 L (35.5-45.6) % Plt Count 314 (140-440) K/mm3 Comprehensive Metabolic Panel 11/21/21 Range/Units 04:56 Sodium 145 (137-145) mmol/L Potassium 4.9 (3.6-5.0) mmol/L Chloride 95.9 L (98-107) mmol/L Carbon Dioxide 38 H (22-30) mmol/L BUN 28 H (9-20) mg/dL Creatinine 1.3 (0.8-1.3) mg/dL Glucose 160 H (75-100) mg/dL Calcium 9.1 (8.4-10.2) mg/dL - Imaging and Cardiology EKG: report reviewed, image reviewed Echo: report reviewed - Telemetry EKG Rhythm: Sinus Rhythm - EKG Sinus rhythms and dysrhythmias: sinus rhythm AV and intraventricular conduction: intraventricular conducti Repolarization changes or abnormalities: nonspecific abnormality, ST segment, an d/or T wave
[2021-11-22] MEDS: CEFEPIME/NS 2 GM/100 ML 2 GM/100 ML BAG IV SCH ×2 (03:05→10:03)
[2021-11-22 05:33] LABS: Mean Corpuscular HGB Conc 31 % (32-34); Mean Corpuscular Volume 83 fl (84-94); Platelet Count 291 K/mm3 (140-440); Red Blood Count 3.85 M/mm3 (3.65-5.03)
[2021-11-22 07:36] VITALS: BP 123/47
[2021-11-22] MEDS: BUDESONIDE 0.5 MG/2 ML NEBU IH SCH (08:30)
[2021-11-22] MEDS: IPRATROPIUM/ALBUTEROL SULFATE 3 ML AMPUL.NEB IH SCH (08:30)
[2021-11-22] MEDS: TAMSULOSIN 0.4 MG CAP PO SCH (10:02)
[2021-11-22] MEDS: ASPIRIN EC 81 MG TAB PO SCH (10:02)
[2021-11-22] MEDS: AMIODARONE 200 MG TAB PO SCH (10:02)
[2021-11-22] MEDS: MULTIVITAMINS ,THERAPEUTIC TAB PO SCH (10:02)
[2021-11-22] MEDS: ASCORBIC ACID 500 MG TAB PO SCH (10:02)
[2021-11-22] MEDS: FERROUS SULFATE 325 MG TAB PO SCH (10:02)
[2021-11-22] MEDS: ZINC SULFATE 220 MG CAP PO SCH (10:03)
[2021-11-22] MEDS: LINAGLIPTIN 5 MG TAB PO SCH (10:03)
[2021-11-22] MEDS: LOSARTAN 25 MG TAB PO SCH (10:03)
[2021-11-22] MEDS: buPROPion XL 150 MG TAB PO SCH (10:05)
[2021-11-22] MEDS: DULoxetine 30 MG CAP PO SCH (10:05)
[2021-11-22] MEDS: DOCUSATE SODIUM 100 MG CAP PO SCH (10:07)
[2021-11-22] MEDS: carvediloL 3.125 MG TAB PO SCH (10:08)
[2021-11-22] MEDS: SPIRONOLACTONE 25 MG TAB PO SCH (10:08)
[2021-11-22] MEDS: PANTOPRAZOLE 40 MG TAB PO SCH (10:08)
--- NOTE | 2021-11-22 11:36 | Discharge Summary ---
Providers - Providers Date of Admission: 11/19/21 18:29 Attending physician: ISAIAS DUQUE MD 11/19/21 19:45 Consult to Physician [CONS] Routine Comment: Consulting Provider: ROBERT PIEDRA Physician Instructions: Reason For Exam: chf 11/20/21 08:50 Consult to Physician [CONS] Routine Comment: Consulting Provider: GUERO LYMAN Physician Instructions: Reason For Exam: copd exacerbation Primary care physician: TARSHA VICENTE [facility] Reason for admission: Congestive heart failure Condition: Stable Hospital course: 60 YO Male with CHF(EF25%), CAD S/P CABG, HTN, DM, COPD, Migraine [place], HLD, GERD, Obesity presents to ED for evaluation. Patient reports "it is hard to breathe". Patient states that he has experienced shortness of breath over the past 3 days with worsening symptoms over the past 24 hours. Patient knowledges decreased exercise tolerance, dyspnea on exertion, dyspnea at rest, orthopnea as well as paroxysmal nocturnal dyspnea. EMS was notified and upon arrival the patient was found to be in distress and subsequent transported to [facility] for further care and evaluation of the aforementioned symptoms. The patient was seen and evaluated emergency department. All lab and imaging studies reviewed. Patient found to have a pulse oximetry of 88% on room air which is consistent with acute hypoxemic respiratory failure. Patient also found to have clinical symptoms consistent with CHF decompensation complicated by systemic inflammatory response syndrome. Patient admitted to [facility] and placed on noninvasive positive pressure ventilation. Cardiology team consulted. Patient also initiated on CHF protocol. Patient treated with empiric IV antibiotic therapy x1 dose. Patient has fever, chills, chest pain, palpitation, skin rash, recent contact, known exposure to COVID-19. Prior admission on 01/29/2021 reviewed. All medication listed at time of admission has been reconciled. Advanced care planning conducted in ED. Past History Past Medical History: COPD, diabetes, GERD, heart failure, hypertension, hyperlipidemia, other (See HPI) Past Surgical History: CABG Social history: . denies: smoking, alcohol abuse, prescription drug abuse Family history: diabetes, hypertension Echo 11/19/2021-EF 35 to 40%. LV severely dilated. Moderate global hypokinesis of LV. Severe diastolic dysfunction is present. Restrictive filling. Right ventricle is dilated. Right ventricle is hypokinetic. Left atrium is severely dilated. Right atrium is dilated. Borderline aortic stenosis. Mild mitral regurgitation. Trace to mild tricuspid regurgitation. Echo 11/19/2020-EF 20 to 25% left ventricle is severely dilated, increased left atrial pressure and grade 2 diastolic dysfunction, right ventricle is mildly dilated, moderate to severe aortic valve stenosis, mild to moderate tricuspid regurgitation [facility] 01/2020-severe diffuse [place] multivessel coronary artery disease with chronic total occlusions of mid left circumflex, proximal LAD and mid right coronary, patent STARKEY to LAD, patent SVG to the diagonal, patent SVG to OM trunk, patent SVG to RCA, estimated EF 25-30, no evidence of aortic stent, moderate to severe mitral regurg Outpatient medications: Amiodarone 200 mg p.o. twice daily, atorvastatin 80 mg p.o. nightly, carvedilol 3.125 mg p.o. twice daily, Aldactone 25 mg p.o. daily, torsemide 80 mg p.o. twice daily, 11/20/2021: Patient seen and evaluated this morning as we weaned off of the BiPAP and is now on nasal cannula doing relatively well still with shortness of breath. Reports that he uses oxygen at home. Denies any fever. I did review prior hospitalization does have underlying COPD and there could be a touch of COPD exacerbation. We will restart him on some LABA and GRACIE while awaiting her cardiology and pulmonary consultation. Is mildly noted elevated AST and ALT this could be passive hepatic congestion from this CHF. Will monitor closely. Imaging studies CT of the chest did not show any pulmonary embolism but did show cardiomegaly with congestive heart failure also additional and infrahilar adenopathy right of midline measuring 2.8 cm which is new. There is also nodular contour of the liver that could be seen in the setting of cirrhosis. Will recommend an outpatient reevaluation of this node for possible biopsy. Continue goal-directed medical therapy. Did discuss with cardiology at this time. Continue diuresis. 11/21: Continue diuresis. Discussed with spiral binder and also with the cardiology team. Lasix was increased to 40 twice daily. Strict I's and O's. Will reevaluate in a.m. with hopes of possible discharge if clinically improved. Discussed with nursing staff at bedside to ambulate the patient and check oxygen level findings. Mild leukocytosis noted this could be reactive we will continue to monitor empiric antibiotics were started yesterday. Outpatient GI evaluation clinical findings discussed with the patient in detail he verbalized understand 11/22: Patient seen and examined resting comfortably. is at bedside. Lungs are clear. Is clinically improved to his baseline according to him. No chest pain no tachycardia no orthopnea noted. He is on 2 L of oxygen for comfort only. Did discuss discharge plan heart failure education provided at bedside need to monitor his weight daily. Also advised changing one of his iron pills due to complaints of constipation and he verbalized understanding. He is clinically stable for discharge I did discuss with cardiology and he made some recommendations with him which he will follow with his primary care physician medications were renewed. Counseling provided during admission was reinforced for 15 minutes. Also advised on following up with his primary care physician to evaluate this finding of pathology in the liver. (1) Acute respiratory failure with hypoxia Current Visit: No Status: Acute Plan to address problem: Chest x-ray, supplemental oxygen, pulse oximetry, nebulizer therapy, pulmonary toilet. Noninvasive positive pressure ventilation. CT scan chest ordered and is pending at time of admission. (2) CHF exacerbation Current Visit: No Status: Acute Qualifiers: Heart failure type: systolic Qualified Code(s): I50.23 - Acute on chronic systolic (congestive) heart failure Plan to address problem: Strict I's/O, monitoring output every shift, daily weight, afterload reduction, blood pressure control, echocardiogram ordered and pending at time of admission, diuretic therapy, cardiology team consulted. (3) Obesity hypoventilation syndrome Current Visit: Yes Status: Acute Plan to address problem: Balanced diet, increase physical activity discharge, outpatient pulmonary follow-up for sleep study. (4) SIRS (systemic inflammatory response syndrome) Current Visit: Yes Status: Acute Plan to address problem: Empiric IV antibiotic therapy x1 dose, CBC, repeat CBC in AM. (5) Hypertension Current Visit: Yes Status: Acute Qualifiers: Hypertension type: primary hypertension Qualified Code(s): I10 - Essential (primary) hypertension Plan to address problem: Monitor blood pressure every shift, continue medical management. (6) Diabetes Current Visit: Yes Status: Acute Plan to address problem: Consistent carbohydrate diet, Accu-Chek, insulin protocol, hypoglycemia protocol. (7) GERD (gastroesophageal reflux disease) Current Visit: Yes Status: Acute Qualifiers: Esophagitis presence: without esophagitis Qualified Code(s): K21.9 - Gastro-esophageal reflux disease without esophagitis Plan to address problem: PPI therapy, supportive care. (8) COPD (chronic obstructive pulmonary disease) Current Visit: Yes Status: Acute Plan to address problem: Supplemental oxygen, pulse oximetry, nebulizer therapy, supportive care. Patient treated with IV steroid therapy in route to hospital. Continue medical management. (9) Migraine headache Current Visit: Yes Status: Acute Qualifiers: Intractability: not intractable Plan to address problem: Supportive care, no acute exacerbation at this time. Continue to monitor. (10) anemia of chronic disease (11) adenopathy -infrahilar adenopathy right of midline measuring 2.8 cm Disposition: HOME HEALTH CARE SERVICE Final Discharge Diagnosis (Prints w/discharge instructions): Acute on chronic HFrEF. Acute respiratory failure with hypoxia. Acute exacerbation of COPD. Systemic inflammatory response syndrome without organ dysfunction. Hepatic adenopathy. Infrahilar adenopathy. Leukocytosis. Hypertension. Cardiomyopathy. CAD's s/p CABG. Obesity. Aortic stenosis Time spent for discharge: 35 minutes Core Measure Documentation - Palliative Care Palliative Care/ Comfort Measures: Not Applicable - Core Measures Any of the following diagnoses?: heart failure - Heart Failure Discharge Requirements NASRIN/ARB for LVSD if EF <40%: Yes Beta arely at discharge: Yes Exam - Physical Exam Narrative exam: VITAL SIGNS: Reviewed. GENERAL: The patient appears normally developed, Vital signs as documented. HEAD: No signs of head trauma. EYES: Pupils are equal. Extraocular motions intact. EARS: Hearing grossly intact. MOUTH: Oropharynx is normal. NECK: No adenopathy, no JVD. CHEST: Chest with diminished breath sounds bilaterally. No wheezes, rales, or rhonchi. CARDIAC: Regular rate and rhythm. S1 and S2, without murmurs, gallops, or rubs. VASCULAR: +1 pitting edema. Peripheral pulses normal and equal in all extremities. ABDOMEN: Soft, non tender and non distended. No rebound or guarding, and no masses palpated. Bowel Sounds normal. MUSCULOSKELETAL: Good range of motion of all major joints. Extremities without clubbing, cyanosis. Bilateral +1 pitting edema. NEUROLOGIC EXAM: Alert and oriented x 3 No focal sensory or strength deficits. Speech normal. Follows commands. PSYCHIATRIC: Mood normal. SKIN: detail exam as documented in skin assessment - Constitutional Vitals: Temp Pulse Resp BP Pulse Ox 97.0 F L 68 20 123/47 97 11/22/21 07:30 11/22/21 08:30 11/22/21 08:30 11/22/21 07:30 11/22/21 08:30 Plan Activity: advance as tolerated, fall precautions Diet: low salt Special Instructions: restrict fluid intake to (1200/day), record daily weights, record daily BP diary, record blood sugar diary, physical therapy, occupational therapy, home oxygen via (nasal cannula @ 2 liters per minute), home health RN Care Plan Goals: Also follow-up with primary care physician for evaluation of fever for hilar adenopathy noted as well as nodular density noted in the liver. Follow up with: TARSHA VICENTE MD [Primary Care Provider] - 3-5 Days JHONATHAN MURCIA MD [Staff Physician] - 11/28/21 11:10 am TONYA MOSQUERA MD [Staff Physician] - 7 Days Prescriptions: Aspirin [Adult Aspirin] 81 mg PO DAILY #30 tab Amoxicillin/K Clav Tab [Augmentin 875 mg] 1 tab PO Q12HR #6 tab Amiodarone [Cordarone 200 MG TAB] 200 mg PO BID #60 tab carvediloL [Coreg] 3.125 mg PO BID #60 tablet Ferrous Gluconate [Ferrous Gluconate 324 MG] 324 mg PO DAILY #30 tab Albuterol Mdi (or & Nicu Only) [ProAir HFA Inhaler] 2 puff INHALATION DAILY PRN 30 Days PRN Reason: Wheezing Torsemide [Soaanz] 80 mg PO BID #60 tab Ascorbic Acid [Vitamin C] 500 mg PO QDAY #100 tablet
--- NOTE | 2021-11-22 11:54 | Progress Note ---
Assessment and Plan Patient is a 61 y/o male with pmhx of Aortic stenosis, CAD s/p CABG, ischemic cardiomyopathy, HFrEF(EF 20-25%), COPD and hypertension who came to the ED for complaint of SOB x2-week Acute on chronic HFrEF Acute respiratory failure-pulmonology following Acute exacerbation of COPD Leukocytosis Hypertension Cardiomyopathy CAD's s/p CABG Obesity Aortic stenosis Echo 11/19/2021-EF 35 to 40%. LV severely dilated. Moderate global hypokinesis of LV. Severe diastolic dysfunction is present. Restrictive filling. Right ventricle is dilated. Right ventricle is hypokinetic. Left atrium is severely dilated. Right atrium is dilated. Borderline aortic stenosis. Mild mitral regurgitation. Trace to mild tricuspid regurgitation. Echo 11/19/2020-EF 20 to 25% left ventricle is severely dilated, increased left atrial pressure and grade 2 diastolic dysfunction, right ventricle is mildly dilated, moderate to severe aortic valve stenosis, mild to moderate tricuspid regurgitation [facility] 01/2020-severe diffuse [place] multivessel coronary artery disease with chronic total occlusions of mid left circumflex, proximal LAD and mid right coronary, patent STARKEY to LAD, patent SVG to the diagonal, patent SVG to OM trunk, patent SVG to RCA, estimated EF 25-30, no evidence of aortic stent, moderate to severe mitral regurg Outpatient medications: Amiodarone 200 mg p.o. twice daily, atorvastatin 80 mg p.o. nightly, carvedilol 3.125 mg p.o. twice daily, Aldactone 25 mg p.o. daily, torsemide 80 mg p.o. twice daily, Plan: Patient appears euvolemic on exam Will convert to outpatient P.o. torsemide today Continue Losartan 25 mg p.o. daily, spironolactone 25 mg p.o. daily, atorvastatin 80 mg p.o. nightly, amiodarone 200 mg p.o. twice daily, and Coreg 3.125 mg p.o. twice daily. Cardiac status appears otherwise stable for discharge Patient has a follow-up appointment with Dr. Mondragon, [facility] senior technical specialist, on 11/28/2021 at 11:10 AM in our [place] location. Phone #[phone] Patient seen in conjunction with Dr. Sales who agrees with this plan of care. - Patient Problems (1) COPD (chronic obstructive pulmonary disease) Current Visit: Yes Status: Acute (2) Diabetes Current Visit: Yes Status: Acute (3) GERD (gastroesophageal reflux disease) Current Visit: Yes Status: Acute Qualifiers: Esophagitis presence: without esophagitis Qualified Code(s): K21.9 - Gastro-esophageal reflux disease without esophagitis (4) Hypertension Current Visit: Yes Status: Acute Qualifiers: Hypertension type: primary hypertension Qualified Code(s): I10 - Essential (primary) hypertension (5) Obesity hypoventilation syndrome Current Visit: Yes Status: Acute (6) SIRS (systemic inflammatory response syndrome) Current Visit: Yes Status: Acute (7) Acute and chronic respiratory failure ([id number]) Current Visit: No Status: Acute (8) Cardiomyopathy Current Visit: No Status: Acute (9) Morbid obesity Current Visit: No Status: Acute (10) CAD (coronary artery disease) Current Visit: No Status: Chronic Qualifiers: Coronary Disease-Associated Artery/Lesion type: [place] artery (11) S/P CABG (coronary artery bypass graft) Current Visit: No Status: Chronic Subjective Date of service: 11/22/21 Principal diagnosis: Acute on chronic hypoxic respiratory failure, acute on chronic HFrEF Interval history: Patient resting in bed in no acute distress. Patient reports good today Sinus 60 to 70s on monitor with no event Objective Vital Signs Temp Pulse Pulse Resp Resp BP Pulse Ox 11/22/21 08:30 68 20 97 11/22/21 07:40 99 11/22/21 07:30 97.0 F L 69 18 123/47 96 11/22/21 03:20 97.9 F 72 16 109/40 98 11/21/21 23:33 98.0 F 73 18 129/60 94 11/21/21 22:15 99 11/21/21 22:00 69 99 11/21/21 20:59 99 11/21/21 20:25 81 18 11/21/21 19:38 98.3 F 76 18 134/72 94 11/21/21 17:15 98.9 F 75 114/57 95 - Physical Examination General: No Apparent Distress HEENT: Positive: PERRL Neck: Positive: trachea midline Cardiac: Positive: Reg Rate and Rhythm Lungs: Positive: Decreased Breath Sounds Neuro: Positive: Grossly Intact Abdomen: Positive: Soft Skin: Negative: Rash, Suspicious Lesions, Ulceration Extremities: Present: upper extr. pulses. Absent: edema - Labs and Meds CBC 11/22/21 Range/Units 05:11 WBC 11.0 (4.5-11.0) K/mm3 RBC 3.85 (3.65-5.03) M/mm3 Hgb 10.0 L (11.8-15.2) gm/dl Hct 32.0 L (35.5-45.6) % Plt Count 291 (140-440) K/mm3 Comprehensive Metabolic Panel 11/22/21 Range/Units 05:11 Sodium 142 (137-145) mmol/L Potassium 5.0 (3.6-5.0) mmol/L Chloride 96.2 L (98-107) mmol/L Carbon Dioxide 37 H (22-30) mmol/L BUN 26 H (9-20) mg/dL Creatinine 1.3 (0.8-1.3) mg/dL Glucose 274 H (75-100) mg/dL Calcium 9.0 (8.4-10.2) mg/dL - Imaging and Cardiology EKG: report reviewed, image reviewed Echo: report reviewed - Telemetry EKG Rhythm: Sinus Rhythm - EKG Sinus rhythms and dysrhythmias: sinus rhythm AV and intraventricular conduction: intraventricular conducti Repolarization changes or abnormalities: nonspecific abnormality, ST segment, and/or T wave
[2021-11-22] MEDS ORDERED: TORSEMIDE 10 MG TAB PO SCH (18:00)
== END 2021-11-22 12:38 | disposition home or self-care (01) | DRG 291 ==
LOC: ED 11:54 → IMCU 18:29 → 4A 11-20 09:11
PROVIDERS: ADMIT Internal Medicine; ATTEND Internal Medicine
PROC: 4A033R1 Measurement of Arterial Saturation, Peripheral, Percutaneous Approach (ICD-10-PCS; principal; 2021-11-19)
PROC: 5A09357 Assistance with Respiratory Ventilation, Less than 24 Consecutive Hours, Continuous Positive Airway Pressure (ICD-10-PCS; 2021-11-19)
DX: I11.0 Hypertensive heart disease with heart failure (principal); I50.23 Acute on chronic systolic (congestive) heart failure; J96.01 Acute respiratory failure with hypoxia; R65.10 Systemic inflammatory response syndrome (SIRS) of non-infectious origin without acute organ dysfunction; E66.2 Morbid (severe) obesity with alveolar hypoventilation; J44.1 Chronic obstructive pulmonary disease with (acute) exacerbation; K21.9 Gastro-esophageal reflux disease without esophagitis; Z88.5 Allergy status to narcotic agent; I25.2 Old myocardial infarction; G43.909 Migraine, unspecified, not intractable, without status migrainosus; M19.90 Unspecified osteoarthritis, unspecified site; E11.9 Type 2 diabetes mellitus without complications; I25.10 Atherosclerotic heart disease of native coronary artery without angina pectoris; Z95.1 Presence of aortocoronary bypass graft; E78.5 Hyperlipidemia, unspecified; Z83.3 Family history of diabetes mellitus; Z82.49 Family history of ischemic heart disease and other diseases of the circulatory system; Z68.34 Body mass index [BMI] 34.0-34.9, adult; Z79.899 Other long term (current) drug therapy; Z79.84 Long term (current) use of oral hypoglycemic drugs; I25.5 Ischemic cardiomyopathy; I35.0 Nonrheumatic aortic (valve) stenosis; D63.8 Anemia in other chronic diseases classified elsewhere; R59.9 Enlarged lymph nodes, unspecified
CPT/HCPCS: 36415; 71045; 71275; 80048; 80053; 82803; 83735; 83880; 84484; 85007; 85025; 85027; 85610; 85730; 93005; 93306; 94640; 94660; 94760; G0378; C8929; J0692; J1940; J1956; Q9967